=== PATIENT | male | born 1960 | race Caucasian/White ===

== ENCOUNTER 2020-08-14 10:10 | Outpatient (REF) | payer BC, SELFPAY ==
[2020-08-14 10:42] LABS: Estimated Average Glucose 203 mg/dL; Hemoglobin A1c % 8.7 %
[2020-08-14 11:04] LABS: Alanine Aminotransferase 32 U/L (0-40); Albumin Level 4.1 g/dL (3.5-5.0); Alkaline Phosphatase 94 U/L (39-117); Aspartate Amino Transferase 27 U/L (5-37); Bilirubin Direct 0.3 mg/dL (0.0-0.5); Bilirubin Total 0.5 mg/dL (0.0-1.0); Cholesterol 128 mg/dL; Glucose Fasting 203 mg/dL (60-99); HDL Cholesterol 40 mg/dL; LDL Cholesterol Calculated 69 mg/dl; Total Protein 7.1 g/dL (6.5-8.0); Triglycerides 97 mg/dL
[2020-08-14 12:47] LABS: Reflex LDLD? No
== END 2020-08-14 10:11 | disposition home or self-care (01) ==
LOC: HO.LNP 10:10
PROVIDERS: Visit Provider Internal Medicine
DX: E10.40 Type 1 diabetes mellitus with diabetic neuropathy, unspecified (principal); E78.00 Pure hypercholesterolemia, unspecified
CPT/HCPCS: 80061; 80076; 82947; 83036

== ENCOUNTER 2021-02-01 10:08 | Outpatient (REF) | payer BC, SELFPAY ==
[2021-02-01 10:12] LABS: MANUAL DIFF FLAG NO
[2021-02-01 10:37] LABS: Basophils Absolute Auto 0.1 X10*3/uL (0.0-0.2); Basophils Percent Auto 0.7 % (0-2); Eosinophils Absolute Auto 0.6 X10*3/uL (0.0-0.4); Eosinophils Percent Auto 8.7 % (0-4); Hematocrit 46.9 % (42-52); Hemoglobin 15.8 g/dl (14.0-18.0); Imm Gran Abs Auto 0.02 X10*3/uL (0.00-0.03); Imm Gran Pct Auto 0.3 % (0.0-0.4); Lymphocytes Absolute Auto 2.1 X10*3/uL (1.2-4.9); Lymphocytes Percent Auto 28.9 % (20-40); Mean Corpuscular HGB Conc 33.7 g/dl (31.0-36.0); Mean Corpuscular Hemoglobin 27.9 pg (27.0-33.0); Mean Corpuscular Volume 82.7 fL (80-98); Mean Platelet Volume 10.2 fL (9.4-12.4); Monocytes Absolute Auto 0.4 X10*3/uL (0.1-1.2); Monocytes Percent Auto 6.1 % (2-11); Neutrophils Percent Auto 55.3 % (45-73); Platelet Count 293 X10*3/uL (160-400); Red Blood Count 5.67 X10*6/uL (4.60-5.80); Red Cell Distribution Width 13.2 % (11.0-16.0); White Blood Count 7.3 X10*3/uL (4.8-10.8)
[2021-02-01 10:50] LABS: Alanine Aminotransferase 29 U/L (0-40); Albumin Level 4.2 g/dL (3.5-5.0); Alkaline Phosphatase 83 U/L (39-117); Anion Gap 11 (12-20); Aspartate Amino Transferase 26 U/L (5-37); Bilirubin Total 0.8 mg/dL (0.0-1.0); Blood Urea Nitrogen 13 mg/dL (9-16); Carbon Dioxide 27 mmol/L (22-29); Chloride 105 mmol/L (96-108); Cholesterol 121 mg/dL; Estimated Glomerular Filt Rate > 60; Glucose Fasting 75 mg/dL (60-99); HDL Cholesterol 42 mg/dL; LDL Cholesterol Calculated 59 mg/dl; Potassium 4.3 mmol/L (3.3-5.1); Sodium 139 mmol/L (135-145); Total Protein 7.2 g/dL (6.5-8.0); Triglycerides 104 mg/dL
[2021-02-01 10:51] LABS: Estimated Average Glucose 189 mg/dL; Hemoglobin A1c % 8.2 %
[2021-02-01 10:59] LABS: Appearance Urine CLEAR; Color Urine YELLOW; Glucose Urine UA NEG (NEG); Leukocyte Esterase Urine NEG (NEG); Nitrite Urine NEG (NEG); PH 5.5 (5.0-8.0); Specific Gravity - Urine >= 1.030 (1.005-1.025); Urine Blood NEG (NEG); Urine Ketones NEG (NEG); Urine Protein TRACE MG/DL (NEG-TRACE)
[2021-02-01 11:11] LABS: PSA,Total (Free>4and<10) 0.76 ng/mL (0.00-4.00)
[2021-02-01 12:03] LABS: Reflex LDLD? No
== END 2021-02-01 10:09 | disposition home or self-care (01) ==
LOC: HO.LNP 10:08
PROVIDERS: Visit Provider Internal Medicine
DX: Z00.00 Encounter for general adult medical examination without abnormal findings (principal); Z12.5 Encounter for screening for malignant neoplasm of prostate; E78.00 Pure hypercholesterolemia, unspecified; E10.319 Type 1 diabetes mellitus with unspecified diabetic retinopathy without macular edema; E10.40 Type 1 diabetes mellitus with diabetic neuropathy, unspecified
CPT/HCPCS: 80053; 80061; 81003; 83036; 84153; 85025

== ENCOUNTER 2021-02-10 06:40 | Day surgery (SDC) | payer BC, SELFPAY ==
[2021-02-03 16:02] VITALS: BMI 32.9
--- NOTE | 2021-02-09 13:25 | P.CONAN_ITS ---
Documented by User: Yennifer Mera NP 02/09/21 13:25 HPI - Anesthesia Eval Consult details Narrative: 60yo M for Colonoscopy *Deaf PMFSH Past Medical History Medical History (Updated 02/03/21 @ 15:56 by Heather Oliva RN) Deaf Diabetic neuropathy HTN (hypertension) Hypercholesterolemia Insulin dependent type 2 diabetes mellitus Iron deficiency anemia Surgical History Surgical History History of esophagogastroduodenoscopy (EGD) History of foot surgery Hx of colonoscopy Social History Social History Patient Tobacco Use Status: Never used Tobacco Use of substances other than those prescribed or required for medical reasons: No Advance Directives: No Advance Directives Information Provided: No Advance Directives on File: No Recently lost weight without trying: No Eating poorly because of decreased appetite: No Nutrition Risks: No Nutritional Risk Meds Allergies Allergy/AdvReac Type Severity Reaction Status Date / Time No Known Allergies Allergy Mild NONE Unverified 02/03/21 15:56 Home Medications Medication Instructions Recorded Confirmed Last Taken Type atorvastatin 20 mg tablet 20 mg PO DAILY 02/03/21 02/03/21 Unknown History insulin glargine U-300 conc 300 unit SUBCUT DAILY 02/03/21 Unknown History unit/mL (1.5 mL) subcutaneous pen (Toujeo SoloStar U-300 Insulin) insulin lispro 100 unit/mL unit SUBCUT TID 02/03/21 Unknown History subcutaneous pen (Humalog KwikPen (U-100) Insulin) lisinopril 20 mg tablet 20 mg PO DAILY 02/03/21 02/03/21 Unknown History Exam Exam Date and Time: February 09, 2021 1325 Height,Weight and Vital Signs: Height 5 ft 11 in Weight 107.048 kg Assessment and Plan Assessment Anesthesia Assessment: Chart Reviewed Documented by User: Mary Mera MD 02/10/21 07:52 [facility] Past Medical History Medical History (Updated 02/03/21 @ 15:56 by Heather Oliva RN) Deaf Diabetic neuropathy HTN (hypertension) Hypercholesterolemia Insulin dependent type 2 diabetes mellitus Iron deficiency anemia Functional capacity: independent ambulation Family History Family history of problems with anesthesia: No Surgical History Surgical History History of esophagogastroduodenoscopy (EGD) History of foot surgery Hx of colonoscopy History of Problems with Anesthesia: No Social History Social History Patient Tobacco Use Status: Never used Tobacco Use of substances other than those prescribed or required for medical reasons: No Advance Directives: No Advance Directives Information Provided: No Advance Directives on File: No Recently lost weight without trying: No Eating poorly because of decreased appetite: No Nutrition Risks: No Nutritional Risk Meds Allergies Allergy/AdvReac Type Severity Reaction Status Date / Time No Known Allergies Allergy Mild NONE Unverified 02/03/21 15:56 Home Medications Medication Instructions Recorded Confirmed Last Taken Type atorvastatin 20 mg tablet 20 mg PO DAILY 02/03/21 02/03/21 Unknown History insulin glargine U-300 conc 300 unit SUBCUT DAILY 02/03/21 Unknown History unit/mL (1.5 mL) subcutaneous pen (Toujeo SoloStar U-300 Insulin) insulin lispro 100 unit/mL unit SUBCUT TID 02/03/21 Unknown History subcutaneous pen (Humalog KwikPen (U-100) Insulin) lisinopril 20 mg tablet 20 mg PO DAILY 02/03/21 02/03/21 Unknown History Exam Airway Mallampati Class: II TM Dist: >3cm Neck ROM: Full Heart: RRR Lungs: CTA Assessment and Plan Final Anesthetic Review Family History of Problems with Anesthesia: No History of Problems with Anesthesia: No ASA Class: II Final Preanesthetic Review: No Changes in Pt Med Stat Anesthetic Plan Anesthetic Plan: MAC: Disposition: Standard PACU
[2021-02-10 06:59] VITALS: BP 146/80; PULSE 72; RESP 17; TEMP 36.1; O2SAT 97
[2021-02-10 07:16] LABS: Glucose, Whole Blood 94 mg/dL (60-115)
[2021-02-10] MEDS: Lactated Ringers 1,000 ML 100 ML IVCONT (07:35)
[2021-02-10] MEDS: Sodium Phosphate,Mono-Dibasic 133 ML ENEMA PR (07:36)
--- NOTE | 2021-02-10 07:46 | PC.NURSE ---
yellow results from fleets
[2021-02-10 09:23] VITALS: BP 122/67; PULSE 74; RESP 14; TEMP 36.6; O2SAT 96
--- NOTE | 2021-02-10 09:27 | P.BOP_ITS ---
Brief Operative Note Date of Service: 02/10/21 Pre-op diagnosis: Screening Post-op diagnosis: other (Colon polyps) Procedure: Colonoscopy to the cecum and TI with snare polypectomy x 2 Surgeon: Taurus Weinberg Anesthesia: MAC Was an Policy Writer Sales used for this Procedure?: No Estimated blood loss (mL): 0 Pathology: other (A. Transverse colon polyps) Condition: stable Disposition: PACU
[2021-02-10 09:38] VITALS: BP 154/82; PULSE 80; RESP 18; O2SAT 97
[2021-02-10 09:53] VITALS: BP 149/89; PULSE 77; RESP 16; TEMP 36.6; O2SAT 97
--- NOTE | 2021-02-10 11:08 | OP_ITS ---
SURGEON: Taurus Weinberg MD INDICATIONS: The patient presents for evaluation of colorectal cancer screening. Full consent has been obtained from him for this, including risks of bleeding and perforation. PREOPERATIVE DIAGNOSIS: Colorectal cancer screening. POSTOPERATIVE DIAGNOSIS: PROCEDURE PERFORMED: ESTIMATED BLOOD LOSS: COMPLICATIONS: ANESTHESIA: Medication used, monitored anesthesia care. ASSISTANTS: SPECIMENS: POSTOPERATIVE DIAGNOSES: Colorectal cancer screening, colon polyps, diverticulosis, and internal hemorrhoids. PROCEDURES PERFORMED: Colonoscopy to the cecum and terminal ileum with snare polypectomy. DESCRIPTION OF PROCEDURE: The patient was placed in the left lateral decubitus position. The digital rectal exam revealed no abnormalities. The Olympus video pediatric colonoscope was entered into the rectum and advanced easily to the cecum. Once in the cecum, I did identify normal-appearing cecal pouch with appendiceal orifice and a normal-appearing ileocecal valve. The terminal ileum was cannulated and appeared normal. Scope was withdrawn back in the colon. The entire cecum and ileocecal valve appeared normal. The scope was then slowly withdrawn assessing all mucosal surfaces carefully. Preparation was excellent. In the transverse colon were 2 flat, but raised polyps between 8 and 10 mm in diameter. These were each snared and recovered by suction and placed in the same container. The polypectomy sites appeared clean, without any sign of residual polyp nor bleeding. I did not visualize any other polyps, colitis, nor angiodysplasia. There was a moderate amount of sigmoid diverticulosis. In the rectum, scope was retroflexed visualizing internal hemorrhoids, but no other pathology. The rectal mucosa appeared normal. Scope was straightened out and withdrawn from the patient. He tolerated the procedure well and was returned to the recovery area in stable condition. IMPRESSION: 1. Colon polyps, status post snare polypectomy. 2. Diverticulosis. 3. Internal hemorrhoids. PLAN: The results of the pathology will be checked. If these are tubular adenoma, I would recommend a followup colonoscopy in 5 years. If they are only hyperplastic, I would recommend a followup colonoscopy in 10 years. He was advised not to use any aspirin and NSAIDs for 1 week. Of note, all communication with the patient preop and postop was done with a dress designer. MD LANCE Wright/PAVEL / [phone] [employer]
--- NOTE | 2021-02-10 11:37 | HO.POSTANES ---
Post Anesthesia Evaluation Post Anesthesia Evaluation Vital Signs: Vital Signs Temp Pulse Resp BP Pulse Ox 02/10/21 09:53 97.9 F 77 16 149/89 H 97 02/10/21 09:38 80 18 154/82 H 97 02/10/21 09:23 97.9 F 74 14 122/67 96 02/10/21 06:59 97 F 72 17 146/80 H 97 Anesthesia: Monitored Mental Status: Awake Pain Control: Satisfactory Nausea/Vomiting: None Hydration: Adequate Anesthesia-Related Issues: No Anes. Related Issues
== END 2021-02-10 10:42 | disposition home or self-care (01) ==
PROVIDERS: PCP Internal Medicine; Visit Provider Internal Medicine
PROC: 0DJD8ZZ Inspection of Lower Intestinal Tract, Via Natural or Artificial Opening Endoscopic (ICD-10-PCS; CPT 45378; principal; 2021-02-10 08:20)
DX: Z12.11 Encounter for screening for malignant neoplasm of colon (principal); D12.3 Benign neoplasm of transverse colon; K57.30 Diverticulosis of large intestine without perforation or abscess without bleeding; K64.8 Other hemorrhoids; H91.3 Deaf nonspeaking, not elsewhere classified; I10 Essential (primary) hypertension; D50.9 Iron deficiency anemia, unspecified; E78.00 Pure hypercholesterolemia, unspecified; E11.40 Type 2 diabetes mellitus with diabetic neuropathy, unspecified; Z79.4 Long term (current) use of insulin; Z79.899 Other long term (current) drug therapy
CPT/HCPCS: 45385; 82947; 88305

== ENCOUNTER 2021-08-02 11:17 | Outpatient (REF) | payer BC, SELFPAY ==
[2021-08-02 12:16] LABS: Alanine Aminotransferase 34 U/L (0-40); Albumin Level 4.1 g/dL (3.5-5.0); Alkaline Phosphatase 99 U/L (39-117); Aspartate Amino Transferase 27 U/L (5-37); Bilirubin Direct 0.3 mg/dL (0.0-0.5); Bilirubin Total 0.8 mg/dL (0.0-1.0); Cholesterol 160 mg/dL; Glucose Fasting 102 mg/dL (60-99); HDL Cholesterol 44 mg/dL; LDL Cholesterol Calculated 68 mg/dl; Total Protein 7.2 g/dL (6.5-8.0); Triglycerides 241 mg/dL
[2021-08-02 13:12] LABS: Estimated Average Glucose 194 mg/dL; Hemoglobin A1c % 8.4 %
[2021-08-02 13:36] LABS: Reflex LDLD? No
== END 2021-08-02 11:18 | disposition home or self-care (01) ==
LOC: HO.LNP 11:17
PROVIDERS: Visit Provider Internal Medicine
DX: E10.319 Type 1 diabetes mellitus with unspecified diabetic retinopathy without macular edema (principal); E78.00 Pure hypercholesterolemia, unspecified
CPT/HCPCS: 80061; 80076; 82947; 83036

== ENCOUNTER 2022-03-01 11:35 | Outpatient (REF) | payer BC, SELFPAY ==
[2022-03-01 11:40] LABS: MANUAL DIFF FLAG NO
[2022-03-01 12:00] LABS: Appearance Urine Clear; Basophils Absolute Auto 0.1 X10*3/uL (0.0-0.2); Basophils Percent Auto 0.7 % (0-2); Color Urine Yellow; Eosinophils Absolute Auto 0.4 X10*3/uL (0.0-0.4); Eosinophils Percent Auto 4.5 % (0-4); Glucose Urine UA >=1000 mg/dL (Negative); Hematocrit 45.2 % (42.0-52.0); Imm Gran Abs Auto 0.03 X10*3/uL (0.00-0.03); Imm Gran Pct Auto 0.3 % (0.0-0.4); Leukocyte Esterase Urine Negative (Negative); Lymphocytes Absolute Auto 2.4 X10*3/uL (1.2-4.9); Lymphocytes Percent Auto 26.3 % (20-40); Mean Corpuscular HGB Conc 33.2 g/dl (31.0-36.0); Mean Corpuscular Hemoglobin 27.9 pg (27.0-33.0); Mean Platelet Volume 10.5 fL (9.4-12.4); Monocytes Absolute Auto 0.6 X10*3/uL (0.1-1.2); Monocytes Percent Auto 6.1 % (2-11); Neutrophils Absolute Auto 5.6 x10*3/uL (2.0-8.3); Neutrophils Percent Auto 62.1 % (45-73); Nitrite Urine Negative (Negative); PH 5.5 (5.0-9.0); Platelet Count 281 X10*3/uL (160-400); Red Blood Count 5.38 X10*6/uL (4.60-5.80); Red Cell Distribution Width 13.2 % (11.0-16.0); Specific Gravity - Urine 1.025 (1.005-1.025); UMIC TRIGGER UA YES; Urine Blood Negative (Negative); Urine Ketones Negative (Negative); Urine Protein Trace mg/dL (Neg-Trace)
[2022-03-01 12:03] LABS: Bacteria Urine None Seen (None Seen); Hyaline Casts Urine 0-2 /LPF (0-2); RBC Urine 0-2 /HPF (0-2); Squamous Epithelial Cell Urine 0-2 /HPF (0-2); WBC Urine 0-5 /HPF (0-5)
[2022-03-01 12:19] LABS: Estimated Average Glucose 197 mg/dL; Hemoglobin A1c % 8.5 %
[2022-03-01 12:53] LABS: Creatinine Urine 104.27 mg/dL; Microalbum/Creatinine Ratio Ur 72.8 ug/mg cr
[2022-03-01 13:24] LABS: Alanine Aminotransferase 28 U/L (0-40); Albumin Level 4.2 g/dL (3.5-5.0); Alkaline Phosphatase 82 U/L (39-117); Anion Gap 14 (12-20); Aspartate Amino Transferase 24 U/L (5-37); Bilirubin Total 0.8 mg/dL (0.0-1.0); Blood Urea Nitrogen 24 mg/dL (9-16); Carbon Dioxide 25 mmol/L (22-29); Chloride 103 mmol/L (96-108); Cholesterol 139 mg/dL; Estimated Glomerular Filt Rate > 60; Glucose Fasting 237 mg/dL (60-99); HDL Cholesterol 43 mg/dL; LDL Cholesterol Calculated 71 mg/dl; PSA,Total (Free>4and<10) 0.89 ng/mL (0.00-4.00); Potassium 4.6 mmol/L (3.3-5.1); Sodium 137 mmol/L (135-145); Total Protein 7.1 g/dL (6.5-8.0); Triglycerides 128 mg/dL
== END 2022-03-01 11:36 | disposition home or self-care (01) ==
LOC: HO.LNP 11:35
PROVIDERS: Visit Provider Internal Medicine
DX: Z00.00 Encounter for general adult medical examination without abnormal findings (principal); Z12.5 Encounter for screening for malignant neoplasm of prostate; E10.319 Type 1 diabetes mellitus with unspecified diabetic retinopathy without macular edema; E78.00 Pure hypercholesterolemia, unspecified; E78.6 Lipoprotein deficiency; R31.1 Benign essential microscopic hematuria
CPT/HCPCS: 80053; 80061; 81001; 82043; 83036; 84153; 85025

== ENCOUNTER → 2022-04-05 09:52 | Outpatient (REF) | payer BC, SELFPAY ==
--- NOTE | 2022-04-05 09:59 | CA_ITS ---
Acquisition Time: 2022-04-05 10:23:16 Total Exercise Time: 00:03:36 Test Indications: CHEST PAIN Medications: INSULIN TOUJEO ATORVASTATIN LISINOPRIL Protocol: HUGO Max HR: 123 BPM 78% of Pred: 157 BPM Max BP: 142/074 mmHG Max Work Load: 5.3 METS Exercise stress test with exercise 3 min 36 sec of Hugo protocol. with moderate shortness of breath and need to stop walking, with report of mild pressure in mid chest, with isolated PVC, with normotensive response to exercise, with nondiagnostic EKG for ischemia due to suboptimal heart rate and exercise time.In recovery his symptoms resolved. Certified latex fashions designer used. Test reviewed with Dr Castellanos Referred By: Alfred Matos Overread By: ISAIAH ROSA
== END ==
LOC: HO.CARD 09:52
PROVIDERS: PCP Internal Medicine; Visit Provider Internal Medicine
DX: R07.2 Precordial pain (principal)
CPT/HCPCS: 93017

== ENCOUNTER 2022-04-07 10:24 | Outpatient (REF) | payer BC, SELFPAY ==
[2022-04-07 10:40] LABS: Blood Urea Nitrogen 16 mg/dL (9-16); Estimated Glomerular Filt Rate > 60
== END 2022-04-07 10:25 | disposition home or self-care (01) ==
LOC: HO.LNP 10:24
PROVIDERS: PCP Internal Medicine; Visit Provider Internal Medicine
DX: R79.9 Abnormal finding of blood chemistry, unspecified (principal)
CPT/HCPCS: 82565; 84520

== ENCOUNTER → 2022-05-10 09:02 | Outpatient (REF) | payer BC, SELFPAY ==
--- NOTE | ~2022-05-10 | NM_ITS ---
Lexiscan Myocardial perfusion study Indication: Chest pain, assess for coronary disease and ischemia Technique: The patient was brought in for a Lexiscan perfusion study on 05/10/2022 and was injected 0.4 mg of Lexiscan intravenously. Within a minute of this injection 35 mCi of sestamibi was given intravenously. Images were obtained using the SPECT gamma camera interlaced with the gating device. Images were obtained in supine position. Resting perfusion study was performed on 05/17/2022. Patient was administered 35 mCi of sestamibi intravenously at rest. Images were then obtained in supine position. Total DLP 107mGy-cm. Images were processed with the software and compared side to side in short axis, horizontal long axis and vertical long axis views. Findings: Raw acquisition reviewed. The stress perfusion study showed no significant perfusion abnormality. Both uncorrected as well as CT attenuation corrected images were reviewed. The gated study shows normal LV systolic function with calculated LVEF of 63%. LV cavity is normal in size. The gated study shows normal wall thickening and contraction of segments. Resting study shows no significant perfusion abnormality. Gating at rest reveals normal wall motion with ejection fraction at 64%. The findings are consistent with no reversible or fixed perfusion abnormality. NM/NM augustine perf SPECT rest & str Impression: 1. Myocardial perfusion imaging study shows normal myocardial perfusion. 2. Gated LVEF is 63% during stress; 64% during rest. 3. Transient ischemic dilatation not present. EKG component of the test reported separately.
--- NOTE | 2022-05-10 09:09 | CA_ITS ---
Acquisition Time: 2022-05-10 09:21:37 Total Exercise Time: 00:02:00 Test Indications: cp Medications: see chart Protocol: LEXISCAN Max HR: 113 BPM 72% of Pred: 156 BPM Max BP: 142/070 mmHG Max Work Load: 1.0 METS Pharmacological stress test with Lexiscan injection, while sitting and kicking his legs, without anginal symptoms, without arrythmai, with normotensive response to injection, with nondiagnostic EKG for ischemia. In recovery he was treated with Aminophylline 75mg IVP to reverse Lexiscan. Nuclear images pending. Test reviewed with Dr Rangel. Referred By: Alfred Matos Overread By: ISAIAH ROSA
== END ==
LOC: HO.CARD 09:02
PROVIDERS: PCP Internal Medicine; Visit Provider Internal Medicine
DX: R07.2 Precordial pain (principal)
CPT/HCPCS: 78452; 93017; A9500; J0280; J2785

== ENCOUNTER → 2022-07-11 14:25 | Outpatient (BNVA) | payer BC, SELFPAY | PROVIDERS: PCP Internal Medicine; Referring Provider Internal Medicine; Visit Provider Internal Medicine | DX: R07.2 Precordial pain (principal); I10 Essential (primary) hypertension | CPT/HCPCS: 93005 ==

== ENCOUNTER 2023-03-06 11:00 | Outpatient (REF) | payer BC, SELFPAY ==
[2023-03-06 11:04] LABS: MANUAL DIFF FLAG NO
[2023-03-06 11:32] LABS: Appearance Urine Cloudy; Color Urine Dark Yellow; Glucose Urine UA 500 mg/dL (Negative); Leukocyte Esterase Urine Negative (Negative); Nitrite Urine Negative (Negative); Specific Gravity - Urine >= 1.030 (1.005-1.025); UMIC TRIGGER UACC YES; Urine Blood Negative (Negative); Urine Ketones Trace mg/dL (Negative); Urine Protein 30 (1+) mg/dL (Neg-Trace)
[2023-03-06 11:33] LABS: Basophils Absolute Auto 0.1 X10*3/uL (0.0-0.2); Basophils Percent Auto 0.7 % (0-2); Eosinophils Absolute Auto 0.9 X10*3/uL (0.0-0.4); Eosinophils Percent Auto 8.1 % (0-4); Hematocrit 46.9 % (42.0-52.0); Hemoglobin 15.8 g/dl (14.0-18.0); Imm Gran Abs Auto 0.03 X10*3/uL (0.00-0.03); Imm Gran Pct Auto 0.3 % (0.0-0.4); Lymphocytes Absolute Auto 2.5 X10*3/uL (1.2-4.9); Lymphocytes Percent Auto 22.9 % (20-40); Mean Corpuscular HGB Conc 33.7 g/dl (31.0-36.0); Mean Corpuscular Hemoglobin 28.1 pg (27.0-33.0); Mean Corpuscular Volume 83.3 fL (80.0-98.0); Mean Platelet Volume 10.4 fL (9.4-12.4); Monocytes Absolute Auto 0.8 X10*3/uL (0.1-1.2); Monocytes Percent Auto 7.3 % (2-11); Neutrophils Absolute Auto 6.6 x10*3/uL (2.0-8.3); Neutrophils Percent Auto 60.7 % (45-73); Platelet Count 276 X10*3/uL (160-400); Red Blood Count 5.63 X10*6/uL (4.60-5.80); Red Cell Distribution Width 12.8 % (11.0-16.0); White Blood Count 10.9 X10*3/uL (4.8-10.8)
[2023-03-06 11:35] LABS: Bacteria Urine None Seen (None Seen); Hyaline Casts Urine 0-2 /LPF (0-2); RBC Urine 0-2 /HPF (0-2); Squamous Epithelial Cell Urine 0-2 /HPF (0-2); WBC Urine 0-5 /HPF (0-5)
[2023-03-06 11:41] LABS: Estimated Average Glucose 197 mg/dL; Hemoglobin A1c % 8.5 % (<6.0)
[2023-03-06 12:03] LABS: Microalbum/Creatinine Ratio Ur 42.1 ug/mg cr (<30)
[2023-03-06 12:07] LABS: Alanine Aminotransferase 26 U/L (0-40); Albumin Level 4.2 g/dL (3.5-5.0); Alkaline Phosphatase 95 U/L (39-117); Anion Gap 10 (12-20); Aspartate Amino Transferase 20 U/L (5-37); Bilirubin Total 0.9 mg/dL (0.0-1.0); Blood Urea Nitrogen 15 mg/dL (9-16); Calcium 9.2 mg/dL (8.4-10.2); Carbon Dioxide 29 mmol/L (22-29); Chloride 103 mmol/L (96-108); Cholesterol 131 mg/dL (<200); Estimated Glomerular Filt Rate > 60; Glucose Fasting 123 mg/dL (60-99); HDL Cholesterol 42 mg/dL (>40); LDL Cholesterol Calculated 64 mg/dL (<100); Potassium 4.3 mmol/L (3.3-5.1); Sodium 138 mmol/L (135-145); Total Protein 7.6 g/dL (6.5-8.0); Triglycerides 129 mg/dL (<150)
[2023-03-06 12:21] LABS: PSA,Total (Free>4and<10) 0.77 ng/mL (0.00-4.00)
== END 2023-03-06 11:01 | disposition home or self-care (01) ==
LOC: HO.LNP 11:00
PROVIDERS: Visit Provider Internal Medicine
DX: Z00.00 Encounter for general adult medical examination without abnormal findings (principal); Z12.5 Encounter for screening for malignant neoplasm of prostate; E10.40 Type 1 diabetes mellitus with diabetic neuropathy, unspecified; E78.00 Pure hypercholesterolemia, unspecified; R31.1 Benign essential microscopic hematuria
CPT/HCPCS: 80053; 80061; 81001; 82043; 82570; 83036; 84153; 85025

== ENCOUNTER 2023-10-02 07:39 | Emergency (ER) | payer BC, SELFPAY ==
--- NOTE | ~2023-10-02 | US_ITS ---
EXAMINATION: US VENOUS ULTRASOUND WITH DOPPLER LOWER EXTREMITY, RIGHT CLINICAL INFORMATION: Right lower extremity swelling and pain COMPARISON: None available. TECHNIQUE: Ultrasound of the deep veins is performed from the hip to the calf with compression sonography and color and pulse Doppler assessment. Spectral analysis with color-flow imaging is performed. FINDINGS: There is normal venous compression and respiratory variation and augmented flow. The visualized common femoral vein, superficial femoral vein, profunda femoral vein, popliteal vein, and the trifurcation region shows no evidence of deep venous thrombosis. Contralateral left common femoral vein appeared normal. There is no significant popliteal fossa cyst. A large prominent right groin lymph node seen measuring 3.2 x 1.0 x 2.1 cm. This has a normal fatty cole. If the patient's symptoms persist, followup ultrasound in 5 days 7 days might be of value to exclude proximal propagation from a non-visualized calf vein. US/US venous duplex LE RT IMPRESSION: No DVT demonstrated in the right lower extremity.
--- NOTE | ~2023-10-02 | XR_ITS ---
EXAMINATION: XR FOOT, RIGHT CLINICAL INFORMATION: Diabetic wound on bottom of foot COMPARISON: None available TECHNIQUE: AP, lateral, and oblique views of the right foot. FINDINGS: Severe degenerative changes are present throughout the with evidence of prior fractures with plate and screw device overlying the first metacarpal with a michael through the distal tibia with calcaneal screws. There is bony fusion of the tibia and talus as well as multiple other areas of fusion in the midfoot. There is diffuse soft tissue swelling most marked on the plantar surface. Some curvilinear lucencies are seen which are probably related to the edema and surrounding fat air within the soft tissues. The fibular head is absent. There is marked pes planus. There is amputation of the fifth digit with absent phalanges. Some heterotopic calcification is seen superior to the calcaneus and behind the distal tibia. No definite bony destruction is seen to suggest osteomyelitis. XR/XR foot RT min 3V IMPRESSION: Extensive postsurgical changes with severe degenerative changes and soft tissue swelling. No definite bony destruction is seen. If osteomyelitis is a consideration, MRI may be useful although there will be considerable artifact from the patient's hardware.
[2023-10-02 07:41] VITALS: BP 155/84; PULSE 105; RESP 20; TEMP 36.1; O2SAT 94; BMI 33.3
[2023-10-02 08:00] VITALS: BP 163/83; PULSE 99; RESP 14; TEMP 37; O2SAT 93
--- NOTE | 2023-10-02 08:39 | ED_ITS ---
HPI - Wound/Laceration General Chief Complaint: Wound/Laceration Stated Complaint: Wound on foot Time Seen by Provider: 10/02/23 08:02 Source: patient Mode of arrival: ambulatory Limitations: no limitations History of Present Illness ED Provider: MIRANDA JOSEPH narrative: 63 yo male with PMH of DM, HLD, HTN, deaf here with c/o noting wound on right lower foot over the weekend denies known trauma. Has no fevers, n/v/d. Has not had this before that he is aware of but cannot feel the foot. Did lose small toe from wound on that foot before Onset (ago): day(s) (few) Extremity Location: right: foot Place: home Patient tetanus UTD: Yes Context: accidental Associated symptoms: none Treatments prior to arrival: bandage Related Data Home Medications ?Medication ?Instructions ?Recorded ?Confirmed atorvastatin 20 mg tablet 20 mg PO DAILY 02/03/21 07/11/22 insulin glargine U-300 conc 300 unit subcut DAILY 02/03/21 07/11/22 unit/mL (1.5 mL) subcutaneous pen (Toujeo SoloStar U-300 Insulin) insulin lispro 100 unit/mL unit subcut TID 02/03/21 07/11/22 subcutaneous pen (Humalog KwikPen (U-100) Insulin) lisinopril 20 mg tablet 20 mg PO DAILY 02/03/21 07/11/22 Previous Rx's ?Medication ?Instructions ?Recorded hydrocolloid dressing 6 X 6 #5 ea 10/02/23 (Durafiber Dressing) Allergies Allergy/AdvReac Type Severity Reaction Status Date / Time No Known Allergies Allergy Mild NONE Verified 10/02/23 07:46 Review of Systems 2 Review of Systems: Constitutional : No Fever, No Chills ENT/Mouth : No sore throat, No Rhinorrhea Eyes: No Eye Pain, No Swelling, No Redness Cardiovascular : No Chest Pain, No SOB Respiratory : No Cough, No Sputum Gastrointestinal : No Nausea, No Vomiting, No Diarrhea, No abdominal Pain Genitourinary : No Dysuria, No Hematuria Musculoskeletal : No joint pain, No Myalgias, No Joint Swelling Skin : No Skin Lesions, positive skin wound Neuro : No Weakness, No Numbness, No Headache Psych : No Anxiety, No Depression All other systems reviewed and are negative [facility] Past Medical History Attestation statement: The following information was validated with the patient. Source: old records reviewed Medical History Diabetic neuropathy Hypercholesterolemia HTN (hypertension) Deaf Iron deficiency anemia Insulin dependent type 2 diabetes mellitus Surgical History History of foot surgery Hx of colonoscopy History of esophagogastroduodenoscopy (EGD) Family History Family History Father No problems noted. Father No problems noted. Mother No problems noted. Social History Social History Alcohol intake: current Alcohol intake frequency: holidays/special occasions only Patient Tobacco Use Status: Never used Tobacco Smoked in Last 30 Days: No Use of substances other than those prescribed or required for medical reasons: No Advance Directives: No Advance Directives Information Provided: No Do you have a plan to hurt others: No Plan Physical Exam 2 Vital Signs: Vital Signs: Last Vital Signs Temp 98.0 F 10/02/23 12:00 Pulse 92 10/02/23 12:00 Resp 14 10/02/23 08:00 BP 156/87 H 10/02/23 12:00 Pulse Ox 95 10/02/23 12:00 O2 Del Method Room Air 10/02/23 12:00 BMI result Body Mass Index 33.3 Appearance: Alert. Oriented X3. No acute distress. Eyes: Pupils equal, round and reactive to light. ENT: Pharynx normal. Neck: Normal inspection. Neck supple. CVS: Normal heart rate and rhythm. Pulses normal. Respiratory: No respiratory distress. Breath sounds normal. Abdomen: Soft and nontender. Skin: Skin warm and dry. Normal skin color. Normal skin turgor. Extremities: R leg 1+ pitting edema distal NV intact yellowish blister with odor noted but no drainage foot and leg is swollen but he reports baseline no warmth or crepitus, no erythema he cannot feel the wound see picture below Neuro: Oriented X 3. No motor deficit. No sensory deficit. Medical Decision Making Medical Decision Making MDM Narrative: 63 yo male with PMH of DM, HLD, HTN, deaf here with c/o wound on R plantar surface of the foot - NV intact at this time there is odor but no drainage will need labs, infl markers, xray and DVT US. No obvious abscess at this time or cellulitis 843am Differential Diagnosis Differential Diagnoses: The differential diagnosis associated with the presentation includes diabetic wound, ulcer Admission/Observation Consideration of admission/observation: Escalation of care including admission/observation considered wound care saw patient debrided dressed and will follow up durafiber dressing Consult Healthcare Provider Management of the patient was discussed with: Supervisor Pyrotechnic Loading Dr. Baez defers debridement at this time recommends wound care and oral antibiotics consult placed to metal welder at this time Lab Data MDM Lab Attestation statement: I reviewed the patient's lab results. 10/02/23 08:43 10/02/23 08:43 Labs: Lab Results 10/02/23 Range/Units 08:43 WBC 9.7 (4.8-10.8) X10*3/uL RBC 5.06 (4.60-5.80) X10*6/uL Hgb 14.5 (14.0-18.0) g/dl Hct 41.0 L (42.0-52.0) % MCV 81.0 (80.0-98.0) fL MCH 28.7 (27.0-33.0) pg MCHC 35.4 (31.0-36.0) g/dl RDW 12.5 (11.0-16.0) % Plt Count 313 (160-400) X10*3/uL MPV 9.7 (9.4-12.4) fL Immature Gran % (Auto) 0.4 (0.0-0.4) % Neut % (Auto) 73.2 H (45-73) % Lymph % (Auto) 16.5 L (20-40) % Noble % (Auto) 5.6 (2-11) % Eos % (Auto) 3.8 (0-4) % Baso % (Auto) 0.5 (0-2) % Lymph # (Auto) 1.6 (1.2-4.9) X10*3/uL Noble # (Auto) 0.6 (0.1-1.2) X10*3/uL Eos # (Auto) 0.4 (0.0-0.4) X10*3/uL Baso # (Auto) 0.1 (0.0-0.2) X10*3/uL Abs Immat Gran (auto) 0.04 H (0.00-0.03) X10*3/uL Absolute Neuts (auto) 7.1 (2.0-8.3) x10*3/uL Absolute Nucleated RBC 0.000 (0.0-0.012) X10*3/uL Nucleated RBC % (auto) 0.0 (0.0-0.2) /100WBC ESR 19 H (0-15) MM/HR Sodium 139 (135-145) mmol/L Potassium 4.0 (3.3-5.1) mmol/L Chloride 105 (96-108) mmol/L Carbon Dioxide 28 (22-29) mmol/L Anion Gap 10 L (12-20) BUN 19 H (9-16) mg/dL Creatinine 0.92 (0.5-1.4) mg/dL Estim Creat Clear Calc 100.2 Estimated GFR > 60 Random Glucose 121 H (60-115) mg/dL Lactic Acid 1.8 (0.5-2.0) mmol/L Calcium 9.7 (8.4-10.2) mg/dL Magnesium 2.0 (1.6-2.6) mg/dL Total Bilirubin 0.4 (0.0-1.0) mg/dL Direct Bilirubin 0.2 (0.0-0.5) mg/dL AST 24 (5-37) U/L ALT 23 (0-40) U/L Alkaline Phosphatase 105 (39-117) U/L C-Reactive Protein 0.53 H (< or = 0.50) mg/dL Total Protein 7.7 (6.5-8.0) g/dL Albumin 3.9 (3.5-5.0) g/dL Independent Interpretation I performed an independent interpretation of an: Plain X-Ray (no osteo) Radiology Impression Discussion of test interpretation with radiology: I have reviewed the radiologist's reading. External Record Review External record reviewed: Inpatient record Prescription Management I considered prescription management with: Other Discharge Plan Discharge Clinical Impression: Wound, open, foot Qualifiers: Encounter type: initial encounter Laterality: right Qualified Code(s): S91.301A - Unspecified open wound, right foot, initial encounter Patient Disposition: Home, Self-Care Instructions: Wound Infection (ED), Acute Wounds (ED) Prescriptions: New (DME) hydrocolloid dressing [Durafiber Dressing] 6 X 6 bandage See Rx Instructions .Route Qty: 5 0RF Rx Instructions: As directed change dressing every 3 days No Action atorvastatin 20 mg Tablet 20 mg PO DAILY lisinopril 20 mg Tablet 20 mg PO DAILY insulin lispro [Humalog KwikPen Insulin] 100 unit/mL Insulin Pen SUBCUT TID Deidra Sadler U-300 Insulin 300 unit/mL (1.5 mL) Insulin Pen SUBCUT DAILY Print Language: Congolese Sign Language
--- NOTE | 2023-10-02 08:47 | PC.NURSE ---
IV access placed to R AC, 20G. Blood labs and cultures sent. Pt is resting comfortably in bed.
[2023-10-02 08:48] LABS: MANUAL DIFF FLAG NO
[2023-10-02 08:50] LABS: Basophils Absolute Auto 0.1 X10*3/uL (0.0-0.2); Basophils Percent Auto 0.5 % (0-2); Eosinophils Absolute Auto 0.4 X10*3/uL (0.0-0.4); Eosinophils Percent Auto 3.8 % (0-4); Hemoglobin 14.5 g/dl (14.0-18.0); Imm Gran Abs Auto 0.04 X10*3/uL (0.00-0.03); Imm Gran Pct Auto 0.4 % (0.0-0.4); Lymphocytes Absolute Auto 1.6 X10*3/uL (1.2-4.9); Lymphocytes Percent Auto 16.5 % (20-40); Mean Corpuscular HGB Conc 35.4 g/dl (31.0-36.0); Mean Corpuscular Hemoglobin 28.7 pg (27.0-33.0); Mean Platelet Volume 9.7 fL (9.4-12.4); Monocytes Absolute Auto 0.6 X10*3/uL (0.1-1.2); Monocytes Percent Auto 5.6 % (2-11); Neutrophils Absolute Auto 7.1 x10*3/uL (2.0-8.3); Neutrophils Percent Auto 73.2 % (45-73); Platelet Count 313 X10*3/uL (160-400); Red Blood Count 5.06 X10*6/uL (4.60-5.80); Red Cell Distribution Width 12.5 % (11.0-16.0); White Blood Count 9.7 X10*3/uL (4.8-10.8)
[2023-10-02 09:03] LABS: Lactic Acid 1.8 mmol/L (0.5-2.0)
--- NOTE | 2023-10-02 09:04 | PC.NURSE ---
Pt is alert/oriented. States right wound to bottom of foot x 3 days. Large circular wound noted with large peeling skin. 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 Denies pain. Edema noted however pt reports since ORIF in 2014. ASL, Voyce device used. Denies fever/chills and states little nausea. VSS, IV established to right ac 20g
[2023-10-02 09:09] LABS: Alanine Aminotransferase 23 U/L (0-40); Albumin Level 3.9 g/dL (3.5-5.0); Alkaline Phosphatase 105 U/L (39-117); Anion Gap 10 (12-20); Aspartate Amino Transferase 24 U/L (5-37); Bilirubin Direct 0.2 mg/dL (0.0-0.5); Bilirubin Total 0.4 mg/dL (0.0-1.0); Blood Urea Nitrogen 19 mg/dL (9-16); C Reactive Protein 0.53 mg/dL (< or = 0.50); Calcium 9.7 mg/dL (8.4-10.2); Carbon Dioxide 28 mmol/L (22-29); Chloride 105 mmol/L (96-108); Creatinine Clr Calc Pharmacy 100.2; Estimated Glomerular Filt Rate > 60; Glucose Random 121 mg/dL (60-115); Sodium 139 mmol/L (135-145); Total Protein 7.7 g/dL (6.5-8.0)
[2023-10-02 09:26] LABS: Erythrocyte Sedimentation Rate 19 MM/HR (0-15)
[2023-10-02 10:00] VITALS: BP 151/79; PULSE 95; TEMP 36.6; O2SAT 95
[2023-10-02 12:00] VITALS: BP 156/87; PULSE 92; TEMP 36.7; O2SAT 95
--- NOTE | 2023-10-02 12:19 | PC.NURSE ---
wound care nurse at bedside
--- NOTE | 2023-10-02 12:29 | HO.WOUND ---
Wound Consult: Initial 63yr old?Male treated in [facility] on 10/02/23 - See progress notes and H&P for detailed history.? Wound consult placed for Right Plantar wound.? Patient agreeable to assessment and photo documentation.? Patient is deaf and ASL video interpretation was used throughout entirety of visit. All questions were asked prior to ending video call and patient was able to provide a teach back to confirm understanding. Right Plantar foot Right Foot Etiology: Diabetic Wound ?? Measurements: 3cm x 2.8cm x 0.2cm Wound Bed: adherent slough noted to wound bed - granulation buds noted throughout central dark area Drainage / Odor: No odor noted - no drainage observed but evidence of chronic drainage given the circumferential maceration noted Edges: ? well defined Neelam wound: Maceration - no s/s of infection at this time, +pp, no warmth noted, no erythema noted, no induration, no fluctuance noted Pain: denies reports neuropathy Goals of Treatment: ? Moisture management with Durafiber AG and to allow for autolytic debridement Of note the patient nails are in need of trimming - I recommend the patient follow up with Podiatry outpt - I do not recommend he clip his own nails given the level of neuropathy he has and the nails are thick and curled. He was educated on the importance of routine foot checks for wounds and immediate treatment. His foot does appear to have mid foot depression which is likely impacting wound development and healing - he will likely benefit from custom inserts and the out patient wound clinic will be able to aid him in the correct direction for these. Currently he reports he wears over the counter inserts. The patient was advised to elevate his leg / foot and to minimize and significantly limit his walking on the right foot to allow for healing. He asked questions that led to further discussion. He reports he is agreeable to outpt Wound Clinic follow up for continued treatment. We discussed routine dressing changes and he was able to provide a teach back to demonstrate understanding. Recommendations: 1. Maintain blood glucose levels per Providers order. 2. Right Foot - Limit pressure and ambulation on the right foot. Elevate leg throughout the day. Cleanse with Soap and water or Provided wound wash, pat dry. Apply cut to size piece of Durafiber AG to wound bed, cover with foam dressing. Change every 3 days or sooner for soaking through. Recommend follow up out patient Wound Clinic at [address] [place] [id number] and to call for an appointment at time of discharge. [phone].? Recommend follow up out patient with a Display Artist of your choice for routine care and nail trimming and ortho inserts. Re-consult wound care Nurse for wound deterioration or wound changes.
--- NOTE | 2023-10-02 13:00 | MHC.CM.ED ---
Received case management consult from Dr Ye. Patient has right foot wound. Assessed by Wound RN. Follow up appointment arranged at [facility] 10/10 at 145pm.
[2023-10-02 13:40] LABS: Glucose, Whole Blood 176 mg/dL (60-115)
[2023-10-02 13:51] VITALS: BP 156/87; PULSE 92; RESP 18; TEMP 36.7; O2SAT 95
== END 2023-10-02 13:51 | disposition home or self-care (01) ==
PROVIDERS: Emergency Provider Emergency Medicine; PCP Internal Medicine
DX: S91.311A Laceration without foreign body, right foot, initial encounter (principal); R60.0 Localized edema; M79.671 Pain in right foot; X58.XXXA Exposure to other specified factors, initial encounter; Y93.9 Activity, unspecified; Y92.9 Unspecified place or not applicable; Y99.8 Other external cause status; Z79.899 Other long term (current) drug therapy
CPT/HCPCS: 36415; 73630; 80048; 80076; 82947; 83605; 83735; 85025; 85652; 86140; 87040; 93971; 99284

== ENCOUNTER 2023-10-11 14:12 | Outpatient (RCR) | payer BC, SELFPAY | END 2023-12-01 09:58 | disposition short-term general hospital (02) | LOC: HO.WCC 14:12 | PROVIDERS: PCP Internal Medicine; Visit Provider Surgery | DX: E11.621 Type 2 diabetes mellitus with foot ulcer (principal); L97.512 Non-pressure chronic ulcer of other part of right foot with fat layer exposed; L97.515 Non-pressure chronic ulcer of other part of right foot with muscle involvement without evidence of necrosis; E11.40 Type 2 diabetes mellitus with diabetic neuropathy, unspecified; E11.610 Type 2 diabetes mellitus with diabetic neuropathic arthropathy; L08.9 Local infection of the skin and subcutaneous tissue, unspecified; I10 Essential (primary) hypertension; Z79.4 Long term (current) use of insulin; Z79.899 Other long term (current) drug therapy | CPT/HCPCS: 11042; 11043; 99212; 99213 ==

== ENCOUNTER 2023-11-02 15:54 | Inpatient (IN) | payer BC, SELFPAY ==
[2023-11-02] VITALS (7 sets, daily range): BP systolic 93–138; BP diastolic 51–67; PULSE 89–109; RESP 16–18; TEMP 36.9–38.6; O2SAT 94–96; BMI 33.0
--- NOTE | ~2023-11-02 | XR_ITS ---
EXAMINATION: XR FOOT, RIGHT CLINICAL INFORMATION: Foot wound COMPARISON: 10/02/2023 TECHNIQUE: AP, lateral, and oblique views of the right foot. FINDINGS: Diffuse soft tissue swelling throughout the foot. There is seen within the subcutaneous and deep soft tissues along the plantar aspect as well as the medial and lateral aspects of the hindfoot centered around the tarsal bones. Postsurgical changes seen within the first proximal phalanx, calcaneus and talus. Intramedullary michael is seen through the distal tibia extending into the hindfoot. There is fusion and chronic deformity of the ankle mortise and hindfoot. 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 XR/XR foot RT min 3V IMPRESSION: Diffuse soft tissue swelling with air in the subcutaneous and deep soft tissues of the hindfoot. Postsurgical changes as described above.
--- NOTE | ~2023-11-02 | FL_ITS ---
EXAMINATION: XR FLUOROSCOPY WITH IMAGES CLINICAL INFORMATION: Right lower leg amputation. COMPARISON: None available. TECHNIQUE: Fluoroscopy Supervised By: Dr. Eben Baez. Fluoroscopy Time: 3.1 seconds. Cumulative Dose: 0.1912 mGy. DAP: 0.0832 Gycm2. Images: 1. FINDINGS: Intraoperative fluoroscopy and spot films were performed during a procedure in the OR. A single image of the tibia and fibula is seen with a partially visualized intramedullary michael. Please correlate with Dr. Baez's report for complete details. FL/FL guidance in OR IMPRESSION: Intraoperative fluoroscopy and spot films were obtained. Please see Nestor's report for complete details.
--- NOTE | ~2023-11-02 | XR_ITS ---
EXAMINATION: XR TIBIA AND FIBULA, RIGHT CLINICAL INFORMATION: Below the knee amputation, evaluate or proximal hardware extending COMPARISON: Foot radiographs 11/02/2023 TECHNIQUE: AP and lateral views of the right tibia and fibula were obtained. FINDINGS: Status post ORIF of the distal tibia. The hardware extends into the talus and calcaneus with osseous fusion, only imaged on the lateral view. There is a plate and screw fixation of one of the proximal metatarsals, only imaged on the lateral view. There is soft tissue swelling along the dorsum of the foot with lucency suggesting the presence of gas and or an open wound. No evidence of hardware fracture or complication. The distal fibula is absent. Diffuse subcutaneous edema. Smooth periosteal reaction along the tibia may reflect sequelae of chronic venous stasis. XR/XR tibia fibula RT 2V IMPRESSION: Status post ORIF of the distal tibia. The hardware extends into the talus and calcaneus with osseous fusion, only imaged on the lateral view. No evidence of hardware fracture or complication. There is soft tissue swelling along the dorsum of the foot with lucency suggesting the presence of gas or an open wound, similar to prior. Possible remote healed proximal fibular fracture and distal tibial fracture deformities. No acute fracture or dislocation. Smooth periosteal reaction along the tibia may reflect sequelae of chronic venous stasis. The distal fibula is absent.
--- NOTE | 2023-11-02 16:02 | ED.GENADULT ---
HPI - General Adult General Chief complaint: Wound/Laceration Stated complaint: Infection R foot Time Seen by Provider: 11/02/23 16:29 Source: patient and other (Via patient's hourly sign language interpreter) Mode of arrival: ambulatory Limitations: no limitations History of Present Illness ED Provider: Dr. Angela Camarena HPI narrative: Patient comes to the emergency room accompanied by his official hourly sign language interpreter. Patient is deaf. Patient comes today complaining of a chronic foot wound that has been gradually been getting worse and over the last week he has a 2nd wound and the medial aspect of the foot. Patient denies fever or chills. Patient states that he has chronic decreased sensation on his feet due to diabetes. However, patient states that when he walks and had an puts pressure on his foot, it hurts quite a bit. Patient denies fever or chills. Denies any other wounds. Patient states that he was sent here to the emergency room by Dr. Katz from the wound clinic Related Data Home Medications ?Medication ?Instructions ?Recorded ?Confirmed atorvastatin 20 mg tablet 20 mg PO DAILY 02/03/21 07/11/22 insulin glargine U-300 conc 300 unit subcut DAILY 02/03/21 07/11/22 unit/mL (1.5 mL) subcutaneous pen (Toujeo SoloStar U-300 Insulin) insulin lispro 100 unit/mL unit subcut TID 02/03/21 07/11/22 subcutaneous pen (Humalog KwikPen (U-100) Insulin) lisinopril 20 mg tablet 20 mg PO DAILY 02/03/21 07/11/22 Previous Rx's ?Medication ?Instructions ?Recorded hydrocolloid dressing 6 X 6 #5 ea 10/02/23 (Durafiber Dressing) Allergies Allergy/AdvReac Type Severity Reaction Status Date / Time No Known Allergies Allergy Mild NONE Verified 11/02/23 16:06 Review of Systems Review of Systems: Constitutional : No Weight loss, No Fever, No Chills, No Night Sweats, No Fatigue, No Malaise ENT/Mouth : No Hearing loss, No Ear Pain, No Nasal Congestion, No Sinus Pain, No Hoarseness, No sore throat, No Rhinorrhea, No Swallowing Difficulty Eyes: No Eye Pain, No Swelling, No Redness, No Foreign Body, No Discharge, No Vision Changes Cardiovascular : No Chest Pain, No SOB, No Dyspnea on Exertion, No Orthopnea, No Edema, No Palpitations Respiratory : No Cough, No Sputum, No Wheezing, No Smoke Exposure, No Dyspnea Gastrointestinal : No Nausea, No Vomiting, No Diarrhea, No Constipation, No abdominal Pain, No Hematochezia, No Melena Genitourinary : no irregular bleeding, No Dysuria, No Urinary Frequency, No Hematuria, No Urinary Incontinence, No Urgency, No Flank Pain, No Urinary Flow Changes, No Hesitancy Musculoskeletal : No joint pain, No Myalgias, No Joint Swelling Skin : No Skin Lesions, No rash Neuro : No Weakness, No Numbness, No Paresthesias, No Loss of Consciousness, No Dizziness, No Headache Psych : No Anxiety/Panic, No Depression, No SI/HI/AH/VH, No Social Issues, Heme/Lymph: No Bruising, No Bleeding,No Lymphadenopathy Endocrine : No Polyuria, No Polydipsia, No Temperature Intolerance PMFSH Past Medical History Medical History Diabetic neuropathy Hypercholesterolemia HTN (hypertension) Deaf Iron deficiency anemia Insulin dependent type 2 diabetes mellitus Surgical History History of foot surgery Hx of colonoscopy History of esophagogastroduodenoscopy (EGD) Family History Family History Father No problems noted. Father No problems noted. Mother No problems noted. Social History Social History Alcohol intake: current Alcohol intake frequency: holidays/special occasions only Patient Tobacco Use Status: Never used Tobacco Advance Directives: No Advance Directives Information Provided: No Do you have a plan to hurt others: No Plan Physical Exam ED Vital Signs: Vital Signs - 24 hr 11/02/23 16:04 Temperature 99.6 F Pulse Rate 109 H Respiratory Rate 16 Blood Pressure 93/51 L Pulse Oximetry 96 Oxygen Delivery Method Room Air BMI result Body Mass Index 33.0 Const Other: Appearance: Alert. Oriented X3. No acute distress. Eyes: Pupils equal, round and reactive to light. ENT: Pharynx normal. Neck: Normal inspection. Neck supple. No lymph nodes noted. No crepitus CVS: Normal heart rate and rhythm. Pulses normal. Normal S1 and S2 Respiratory: No respiratory distress. Breath sounds normal. No Wheezing. No rales Abdomen: Soft and nontender. No rigidity. No distention. Skin: Skin warm and dry. Normal skin color. Normal skin turgor. Extremities: No lower extremity edema. Chronic venous stasis bilaterally, the right foot and the plantar aspect there is a large unstageable ulcer and medial aspect of the foot also has cellulitis, unstageable ulcer present. See pictures below Neuro: Oriented X 3. No motor deficit. No sensory deficit. Moving all extremities. No slurred speech. CN 2 through 12 grossly intact Psych: calm, cooperative, normal affect Course Course Course Narrative: This is a rapid medical exam performed by Emi Moreno NP: Additional HPI, ROS, PE not included below will be deferred to primary provider. Patient is a 63-year-old deaf male with history of HTN, IDT2DM, hypercholesterolemia presenting to the ED from the wound care center for worsening wound to the bottom of his right foot. Patient reports small amount of drainage. States he has been feeling ill the past [address] Katz at wound center and she is very concerned. Plan: labs including cultures and lactic, xray Medications Administered Generic Name Dose Route Start Last Admin Trade Name Freq PRN Reason Stop Dose Admin Sodium Chloride 2,100 mls @ 999 mls/hr 11/02/23 16:41 11/02/23 17:42 Ns IVCONT 11/02/23 18:47 999 mls/hr .Q2H7M ONE Administration Discontinued Medications Generic Name Dose Route Start Last Admin Trade Name Freq PRN Reason Stop Dose Admin Piperacillin Sod/Tazobactam 50 mls @ 100 mls/hr 11/02/23 16:41 11/02/23 17:49 Sod 3.375 gm/ Sodium Chloride IV 11/02/23 17:10 100 mls/hr ONCE ONE Administration Medical Decision Making Medical Decision Making [facility] Narrative: Patient's white blood cell count is elevated, normal lactic. Patient's blood pressure on the soft side 93/51, tachycardic. -patient already received fluids based on ideal weight, patient is obese, also antibiotics IV. -my interpretation of x-ray: There is air in the plantar aspect of the foot, hardware present no obvious signs of osteo -I discussed the patient with Dr. Monterroso, patient being admitted Differential Diagnosis Differential Diagnoses: The differential diagnosis associated with the presentation includes (Cellulitis, unstageable diabetic foot ulcer, Abscess, osteomyelitis) Admission/Observation Consideration of admission/observation: Escalation of care including admission/observation considered Consult Healthcare Provider Management of the patient was discussed with: Hospitalist Lab Data MDM Lab Attestation statement: I reviewed the patient's lab results. 11/02/23 17:26 11/02/23 17:26 Labs: Lab Results 11/02/23 Range/Units 17:26 WBC 22.7 H (4.8-10.8) X10*3/uL RBC 4.85 (4.60-5.80) X10*6/uL Hgb 13.2 L (14.0-18.0) g/dl Hct 38.9 L (42.0-52.0) % MCV 80.2 (80.0-98.0) fL MCH 27.2 (27.0-33.0) pg MCHC 33.9 (31.0-36.0) g/dl RDW 12.5 (11.0-16.0) % Plt Count 456 H D (160-400) X10*3/uL MPV 10.1 (9.4-12.4) fL Immature Gran % (Auto) 1.3 H (0.0-0.4) % Neut % (Auto) 86.0 H (45-73) % Lymph % (Auto) 4.8 L (20-40) % [place] % (Auto) 7.2 (2-11) % Eos % (Auto) 0.4 (0-4) % Baso % (Auto) 0.3 (0-2) % Lymph # (Auto) 1.1 L (1.2-4.9) X10*3/uL [place] # (Auto) 1.6 H (0.1-1.2) X10*3/uL Eos # (Auto) 0.1 (0.0-0.4) X10*3/uL Baso # (Auto) 0.1 (0.0-0.2) X10*3/uL Abs Immat Gran (auto) 0.29 H (0.00-0.03) X10*3/uL Absolute Neuts (auto) 19.5 H (2.0-8.3) x10*3/uL Absolute Nucleated RBC 0.000 (0.0-0.012) X10*3/uL Nucleated RBC % (auto) 0.0 (0.0-0.2) /100WBC Lactic Acid 1.4 (0.5-2.0) mmol/L Independent Interpretation I performed an independent interpretation of an: Plain X-Ray Radiology Impression Discussion of test interpretation with radiology: I have reviewed the radiologist's reading. Radiologist Impression: FINDINGS: Diffuse soft tissue swelling throughout the foot. There is seen within the subcutaneous and deep soft tissues along the plantar aspect as well as the medial and lateral aspects of the hindfoot centered around the tarsal bones. Postsurgical changes seen within the first proximal phalanx, calcaneus and talus. Intramedullary michael is seen through the distal tibia extending into the hindfoot. There is fusion and chronic deformity of the ankle mortise and hindfoot. 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 XR/XR foot RT min 3V IMPRESSION: Diffuse soft tissue swelling with air in the subcutaneous and deep soft tissues of the hindfoot. Postsurgical changes as described above. Independent Historian Clinical information obtained from an independent historian. History obtained from or confirmed by: Other (Patient's official advertising designer) Critical Care Time Critical Care Time Critical Care Time: Yes Total Critical Care Time: 75 Attestation: I have personally provided critical care time. Time includes review of lab data, radiology results, discussion with consultants, and monitoring for potential decompensation. Intervention performed as documented. Discharge Plan Discharge Clinical Impression: Diabetic foot ulcers, Cellulitis Patient Disposition: Admitted As Inpatient Prescriptions: No Action atorvastatin 20 mg Tablet 20 mg PO DAILY lisinopril 20 mg Tablet 20 mg PO DAILY insulin lispro [Humalog KwikPen Insulin] 100 unit/mL Insulin Pen SUBCUT TID Touthanh SoloStar U-300 Insulin 300 unit/mL (1.5 mL) Insulin Pen SUBCUT DAILY (DME) hydrocolloid dressing [Durafiber Dressing] 6 X 6 bandage See Rx Instructions .Route Qty: 5 0RF Rx Instructions: As directed change dressing every 3 days Print Language: Kenyan Sign Language
[2023-11-02 17:36] LABS: Basophils Absolute Auto 0.1 X10*3/uL (0.0-0.2); Basophils Percent Auto 0.3 % (0-2); Eosinophils Absolute Auto 0.1 X10*3/uL (0.0-0.4); Eosinophils Percent Auto 0.4 % (0-4); Hematocrit 38.9 % (42.0-52.0); Hemoglobin 13.2 g/dl (14.0-18.0); Imm Gran Abs Auto 0.29 X10*3/uL (0.00-0.03); Imm Gran Pct Auto 1.3 % (0.0-0.4); Lymphocytes Absolute Auto 1.1 X10*3/uL (1.2-4.9); Lymphocytes Percent Auto 4.8 % (20-40); MANUAL DIFF FLAG SCAN; Mean Corpuscular HGB Conc 33.9 g/dl (31.0-36.0); Mean Corpuscular Hemoglobin 27.2 pg (27.0-33.0); Mean Corpuscular Volume 80.2 fL (80.0-98.0); Mean Platelet Volume 10.1 fL (9.4-12.4); Monocytes Absolute Auto 1.6 X10*3/uL (0.1-1.2); Monocytes Percent Auto 7.2 % (2-11); Neutrophils Absolute Auto 19.5 x10*3/uL (2.0-8.3); Platelet Count 456 X10*3/uL (160-400); Red Blood Count 4.85 X10*6/uL (4.60-5.80); Red Cell Distribution Width 12.5 % (11.0-16.0); SCAN SMEAR FLAG 1; White Blood Count 22.7 X10*3/uL (4.8-10.8)
[2023-11-02] MEDS: 0.9 % Sodium Chloride 2,100 ML 999 ML IVCONT (17:42)
[2023-11-02 17:48] LABS: Lactic Acid 1.4 mmol/L (0.5-2.0)
[2023-11-02] MEDS: Piperacillin Sodium/Tazobactam 3.375 GM in 0.9 % Sodium Chloride 50 ML IV (17:49)
[2023-11-02 17:51] LABS: Alanine Aminotransferase 53 U/L (0-40); Albumin Level 3.4 g/dL (3.5-5.0); Alkaline Phosphatase 239 U/L (39-117); Anion Gap 19 (12-20); Aspartate Amino Transferase 67 U/L (5-37); Bilirubin Total 0.9 mg/dL (0.0-1.0); Blood Urea Nitrogen 20 mg/dL (9-16); Calcium 9.3 mg/dL (8.4-10.2); Carbon Dioxide 24 mmol/L (22-29); Chloride 95 mmol/L (96-108); Creatinine Clr Calc Pharmacy 62.7; Estimated Glomerular Filt Rate 50; Glucose Random 220 mg/dL (60-115); Potassium 4.2 mmol/L (3.3-5.1); Sodium 134 mmol/L (135-145); Total Protein 7.9 g/dL (6.5-8.0)
[2023-11-02] MEDS: Acetaminophen 325 MG TABLET 975 MG PO (17:52)
[2023-11-02 18:09] LABS: SLIDE REVIEW VERIFIED
[2023-11-02] MEDS: vancomycin/NS 2,000 MG/500 ML PLAST..BAG 250 MG IV (18:13)
--- NOTE | 2023-11-02 18:31 | PM.IMHP ---
History of Present Illness Date of Service: 11/02/23 Chief Complaint: Diabetic foot ulcer 63-year-old male with a history of type 2 diabetes requiring insulin presents from wound care with worsening of a right foot diabetic ulcer that has been worsening. Patient states he has chronic decreased sensation secondary to his diabetes however when he ambulates it is painful. All information gleaned from ER record which was obtained through an official drilling engineering manager. Review of Systems Review of Systems: Denies chest pain Denies fever chills Denies shortness of breath Denies nausea vomiting diarrhea PMFSH Medical History Diabetic neuropathy Hypercholesterolemia HTN (hypertension) Deaf Iron deficiency anemia Insulin dependent type 2 diabetes mellitus Family History Father No problems noted. Father No problems noted. Mother No problems noted. Surgical History History of foot surgery Hx of colonoscopy History of esophagogastroduodenoscopy (EGD) Social History Alcohol intake: current Alcohol intake frequency: holidays/special occasions only Patient Tobacco Use Status: Never used Tobacco Advance Directives: No Advance Directives Information Provided: No Do you have a plan to hurt others: No Plan Meds Allergies Allergy/AdvReac Type Severity Reaction Status Date / Time No Known Allergies Allergy Mild NONE Verified 11/02/23 16:06 Active Medications: Current Medications Acetaminophen (Acetaminophen 325 Mg Tablet) 650 mg PO Q6H PRN PRN Reason: Pain, Mild (Pain Scale 1-3), fever or headache Calcium Carbonate (Calcium Carbonate 750 Mg Tab.Chew) 750 mg PO Q4H PRN PRN Reason: Heartburn Enoxaparin Sodium (Enoxaparin Sodium 40 Mg/0.4 Ml Syringe) 40 mg SUBCUT Q24H MARY Glucose (Glucose Gel 15 Gm Gel..Gram.) 15 gm PO Q15M PRN; Protocol PRN Reason: per Hypoglycemia Standing Ord. Vancomycin HCl (Vancomycin/Ns) 2,000 mg in 500 mls @ 250 mls/hr IV ONCE ONE Stop: 11/02/23 18:40 Last Admin: 11/02/23 18:13 Dose: 250 mls/hr Sodium Chloride (Ns) 2,100 mls @ 999 mls/hr IVCONT .Q2H7M ONE Stop: 11/02/23 18:47 Last Admin: 11/02/23 17:42 Dose: 999 mls/hr Piperacillin Sod/Tazobactam (Sod 4.5 gm/ Sodium Chloride) 100 mls @ 200 mls/hr IV Q6H [facility] Dextrose (D10) 250 mls @ 750 mls/hr IV Q15M PRN; Protocol PRN Reason: per Hypoglycemia Standing Ord. Insulin Human Lispro (Insulin Lispro 100 Unit/Ml 3 Ml Vial) 0 unit SUBCUT QIDACHS [facility]; Protocol Magnesium Hydroxide (Milk Of Magnesia 30 Ml Oral.Susp) 30 ml PO DAILY PRN PRN Reason: Constipation Melatonin (Melatonin 3 Mg Tablet) 6 mg PO BEDTIME PRN PRN Reason: Insomnia Ondansetron HCl (Ondansetron Hcl 4 Mg/2 Ml Vial) 4 mg IVPUSH Q8H PRN PRN Reason: Nausea and Vomiting Oxycodone HCl (Oxycodone Hcl Immed Release 5 Mg Tablet) 5 mg PO Q6H PRN PRN Reason: Pain, Moderate(Pain Scale 4-6) Pharmacy Consult (Consult Rx Vancomycin Dosing) 1 each MISCELLANE DAILY PRN PRN Reason: Consult order Sodium Chloride (0.9 % Sodium Chloride Flush 3 Ml Syringe) [address] [facility] Home Medications ?Medication ?Instructions ?Recorded ?Confirmed ?Last Taken ?Type atorvastatin 20 mg tablet 20 mg PO DAILY 02/03/21 07/11/22 Unknown History insulin glargine U-300 conc 300 unit subcut DAILY 02/03/21 07/11/22 Unknown History unit/mL (1.5 mL) subcutaneous pen (Toujeo SoloStar U-300 Insulin) insulin lispro 100 unit/mL unit subcut TID 02/03/21 07/11/22 Unknown History subcutaneous pen (Humalog KwikPen (U-100) Insulin) lisinopril 20 mg tablet 20 mg PO DAILY 02/03/21 07/11/22 Unknown History Physical Exam Vital Signs and Narrative: Vital Signs: Last Vital Signs Temp 99.0 F 11/02/23 18:30 Pulse 98 11/02/23 18:30 Resp 18 11/02/23 18:30 BP 116/54 L 11/02/23 18:30 Pulse Ox 96 11/02/23 18:30 O2 Del Method Room Air 11/02/23 18:30 BMI result Body Mass Index 33.0 Const: Other: Awake alert able to communicate through lip reading and rudimentary signing Resp: Other: Clear to auscultation bilaterally no rales rhonchi or wheezes Cardio: Other: No S4; positive S1-S2; no S3 murmurs rubs or gallops GI: Other: Soft nontender nondistended normoactive bowel sounds Extrem: Other: See emergency room photos of affected foot Results Labs 11/02/23 17:26 11/02/23 17:26 Labs: Laboratory Results - last 24 hr 11/02/23 17:26 MCV 80.2 MCH 27.2 MCHC 33.9 RDW 12.5 Plt Count 456 H D MPV 10.1 Immature Gran % (Auto) 1.3 H Neut % (Auto) 86.0 H Lymph % (Auto) 4.8 L [place] % (Auto) 7.2 Eos % (Auto) 0.4 Baso % (Auto) 0.3 Lymph # (Auto) 1.1 L [place] # (Auto) 1.6 H Eos # (Auto) 0.1 Baso # (Auto) 0.1 Abs Immat Gran (auto) 0.29 H Absolute Neuts (auto) 19.5 H Absolute Nucleated RBC 0.000 Nucleated RBC % (auto) 0.0 Smear Tech's Comments VERIFIED Anion Gap 19 Estim Creat Clear Calc 62.7 Estimated GFR 50 Random Glucose 220 H Lactic Acid 1.4 Calcium 9.3 Total Bilirubin 0.9 AST 67 H ALT 53 H Alkaline Phosphatase 239 H C-Reactive Protein 21.20 H Total Protein 7.9 Albumin 3.4 L Imaging Radiologist's Impressions: Impressions Foot X-Ray 11/02/23 16:28 IMPRESSION: Diffuse soft tissue swelling with air in the subcutaneous and deep soft tissues of the hindfoot. Postsurgical changes as described above. Assessment and Plan (1) Sepsis: Qualifiers: Sepsis type: sepsis due to unspecified organism Sepsis acute organ dysfunction status: without acute organ dysfunction Qualified Code(s): A41.9 - Sepsis, unspecified organism Status: Acute (2) Diabetic foot ulcers: Qualifiers: Diabetic foot ulcer location: other Diabetes mellitus type: type 2 Laterality: right Non-pressure ulcer stage: with other severity Qualified Code(s): E11.621 - Type 2 diabetes mellitus with foot ulcer; L97.518 - Non-pressure chronic ulcer of other part of right foot with other specified severity Status: Acute (3) Insulin dependent type 2 diabetes mellitus: Status: Acute (4) HTN (hypertension): Qualifiers: Hypertension type: primary hypertension Qualified Code(s): I10 - Essential (primary) hypertension Status: Acute (5) Deaf: Qualifiers: Laterality: unspecified laterality Qualified Code(s): H91.90 - Unspecified hearing loss, unspecified ear Status: Acute Plan 63-year-old male with history of type 2 insulin dependent diabetes along with history of foot ulcers presents from wound clinic with diabetic foot ulcers. Was given dose of vancomycin and Zosyn in ER and will be admitted for further workup and treatment of same 1. Sepsis secondary to diabetic foot ulcer Meets criteria for sepsis with tachycardia/fever/hypotensive on arrival/white count 22.7 K. . . Does not meet criteria for severe sepsis -blood cultures x2 done initially; lactate unremarkable -vancomycin/Zosyn (1) hung initially in ER (11/01. . 16:41) -surgical consult in a.m. 2. Diabetes type 2 -lispro correctional scale -pharmacy to verify dosing of Toujeo and sliding scale -2000 calorie ADA diet -adjust therapies as clinically indicated 3. Hypertension -acceptable control at this time -will hold lisinopril overnight -add back in a.m. as clinically indicated 4. MORAIMA -multifactorial as above -received 1 L of normal saline in emergency room -will run normal saline at 150 an hour overnight -follow renals/divalents in response to volume repletion Lovenox Full code Patient requires at least 2 midnights going forward of inpatient stay for IV antibiotics to treat sepsis in the backdrop of a diabetic foot ulcer. Also patient will need specialist consultation in a.m.. This can not be achieved a lesser acute setting Quality Stroke Does the patient have a stroke diagnosis?: No VTE Prior VTE?: No VTE Risk Level:: Medical - moderate - high VTE Device Contraindication: Treatment Not Indicated VTE Drug Contraindication: N/A - Med Ordered
--- NOTE | 2023-11-02 18:50 | PHA.PROG ---
Admission Date/Time: November 02, 2023 18:15 Indication: SKIN Weight in k.326 kg Adjusted body weight in Kg: Virgil body weight in Kg: Obesity Dosing Indication % IBW: Serum Creatinine - Last 168 Hours 11/02/23 17:26 Creatinine 1.42 H Estimated CrCl and GFR - Last 168 Hours 11/02/23 17:26 Estim Creat Clear Calc 62.7 Estimated GFR 50 Vancomycin Loading Dose: 2000 MG Current Vancomycin Dosing Regimen: 750 MG Q12H Vancomycin Monitoring using AUC goal of 400 - 600 range with trough as surrogate marker: OTW=239 TROUGH=16.5 Date and Time for next Vancomycin Level to be drawn: 11/03/23@1600 Pharmacist Comments on Vancomycin Plan: Vancomycin dosing will take advantage of [employer] as a clinical decision support tool that uses Bayesian modeling to calculate individual patient's pharmacokinetic parameters and forecast the patient's drug concentration time course with the target goal AUC 24 range of 400 - 600 mg/L/hr.
[2023-11-02 19:08] LABS: Erythrocyte Sedimentation Rate 77 MM/HR (0-15)
--- NOTE | 2023-11-02 19:09 | PHA.MEDREC ---
Addendum entered by Philip Anaya [facility] 11/02/23 19:16: reviewed by [facility] Original Note: Pharmacy Consult ? Medication Reconciliation Pharmacy has completed the medication reconciliation. Confirmed meds with help of site interpreter. Patient was able to confirm his Insulin Humalog Kwik Pen 18 units TIDAC, and his Basalgar Kwik Pen (Toujeo Solo Star) 44 units at bedtime.
[2023-11-02] MEDS: Enoxaparin Sodium 40 MG/0.4 ML SYRINGE SUBCUT (19:13)
--- NOTE | 2023-11-02 19:17 | PC.NURSE ---
moulder operator at bedside. pt a&ox4, respirations even and unlabored. pt denies pain at this time. pt requesting food, pt set up with dinner tray at this time. pt medicated per mar, fluids continue to run. no acute distress noted, right ankle/heel wrapped in clean dry dressing.
--- NOTE | 2023-11-02 21:05 | PC.NURSE ---
LBZ=[id number], aware at this time. insulin administered per jun.
[2023-11-02 21:06] LABS: Glucose, Whole Blood 390 mg/dL (60-115)
[2023-11-02] MEDS: Insulin Glargine,Hum.rec.anlog 100 UNIT/ML 10 ML VIAL 35 UNIT SUBCUT (21:12)
[2023-11-02] MEDS: Insulin Lispro 100 UNIT/ML 3 ML VIAL SUBCUT (21:13)
[2023-11-03 00:19] VITALS: BP 147/82; PULSE 94; RESP 16; TEMP 36.6; O2SAT 96
[2023-11-03 00:21] LABS: Glucose, Whole Blood 388 mg/dL (60-115)
--- NOTE | 2023-11-03 00:44 | PC.NURSE ---
aware of pt POC at this time, orders as follows
[2023-11-03] MEDS: 0.9 % Sodium Chloride Flush 3 ML SYRINGE IVFLUSH ×4 (01:08→20:49)
[2023-11-03] MEDS: Insulin Regular, Human 100 UNIT/ML 10 ML VIAL 10 UNIT SUBCUT (01:09)
[2023-11-03] MEDS: 0.9 % Sodium Chloride 1,000 ML 999 ML IV (01:09)
[2023-11-03] MEDS: Piperacillin Sodium/Tazobactam 4.5 GM in 0.9 % Sodium Chloride 100 ML IV ×3 (01:14→17:38)
[2023-11-03 04:02] LABS: Glucose, Whole Blood 317 mg/dL (60-115)
[2023-11-03] MEDS: Insulin Regular, Human 100 UNIT/ML 10 ML VIAL 8 UNIT IVPUSH (04:17)
[2023-11-03 04:45] LABS: Glucose, Whole Blood 315 mg/dL (60-115)
[2023-11-03 05:28] VITALS: BP 139/81; PULSE 88; RESP 16; TEMP 37.1; O2SAT 94
[2023-11-03 05:30] LABS: Glucose, Whole Blood 303 mg/dL (60-115)
[2023-11-03] MEDS: Omeprazole 20 MG CAPSULE.DR PO (06:10)
[2023-11-03] MEDS: vancomycin HCL 750 MG in 0.9 % Sodium Chloride 250 ML 265 MG IV (06:13)
[2023-11-03 06:16] LABS: Basophils Absolute Auto 0.1 X10*3/uL (0.0-0.2); Basophils Percent Auto 0.4 % (0-2); Eosinophils Absolute Auto 0.3 X10*3/uL (0.0-0.4); Eosinophils Percent Auto 1.5 % (0-4); Hematocrit 35.6 % (42.0-52.0); Hemoglobin 12.4 g/dl (14.0-18.0); Imm Gran Abs Auto 0.26 X10*3/uL (0.00-0.03); Imm Gran Pct Auto 1.3 % (0.0-0.4); Lymphocytes Absolute Auto 1.7 X10*3/uL (1.2-4.9); Lymphocytes Percent Auto 8.4 % (20-40); MANUAL DIFF FLAG SCAN; Mean Corpuscular HGB Conc 34.8 g/dl (31.0-36.0); Mean Corpuscular Hemoglobin 27.9 pg (27.0-33.0); Mean Platelet Volume 10.5 fL (9.4-12.4); Monocytes Absolute Auto 1.2 X10*3/uL (0.1-1.2); Monocytes Percent Auto 5.8 % (2-11); Neutrophils Absolute Auto 17.1 x10*3/uL (2.0-8.3); Neutrophils Percent Auto 82.6 % (45-73); Platelet Count 437 X10*3/uL (160-400); Red Blood Count 4.45 X10*6/uL (4.60-5.80); Red Cell Distribution Width 12.6 % (11.0-16.0); SCAN SMEAR FLAG 1; White Blood Count 20.7 X10*3/uL (4.8-10.8)
[2023-11-03 06:21] LABS: Glucose, Whole Blood 274 mg/dL (60-115)
[2023-11-03 06:23] LABS: Alanine Aminotransferase 49 U/L (0-40); Albumin Level 2.8 g/dL (3.5-5.0); Alkaline Phosphatase 185 U/L (39-117); Anion Gap 16 (12-20); Aspartate Amino Transferase 45 U/L (5-37); Bilirubin Total 0.6 mg/dL (0.0-1.0); Blood Urea Nitrogen 19 mg/dL (9-16); Calcium 8.6 mg/dL (8.4-10.2); Carbon Dioxide 24 mmol/L (22-29); Chloride 100 mmol/L (96-108); Creatinine Clr Calc Pharmacy 72.4; Estimated Glomerular Filt Rate 59; Glucose Random 299 mg/dL (60-115); Potassium 3.7 mmol/L (3.3-5.1); Sodium 136 mmol/L (135-145); Total Protein 6.6 g/dL (6.5-8.0)
[2023-11-03 07:06] LABS: Glucose, Whole Blood 267 mg/dL (60-115)
[2023-11-03] MEDS: Insulin Lispro 100 UNIT/ML 3 ML VIAL 18 UNIT SUBCUT ×3 (07:34→17:07)
--- NOTE | 2023-11-03 07:44 | PC.NURSE ---
Sliding scale insulin held by this RN per María Elena Monterroso MD.
[2023-11-03 08:08] LABS: SLIDE REVIEW VERIFIED
[2023-11-03 08:19] VITALS: BMI 33.2
[2023-11-03 08:21] VITALS: BP 124/76; PULSE 97; RESP 18; TEMP 36.3; O2SAT 95
--- NOTE | 2023-11-03 09:07 | MHC.CM.PN ---
Addendum entered by Prela Dacosta 11/03/23 09:55: REFERRAL MADE TO [facility], THEY HAVE ACCEPTED AND WILL NEED UPDATES REGARDING NEEDED SERVICES AND DC DATE Original Note: CM MET WITH PT USING [employer] VIDEO DOCTOR OF NATUROPATHIC MEDICINE PT LIVES ALONE AND IS INDEPENDENT WITH SELF CARE HE HAS A WALKER AND A WHEEL CHAIR HE SAYS HE USUALLY DOES NOT USE PT DOES NOT HAVE A HCP, HE WILL CONSIDER COMPLETING ONE AND IS AWARE CM CAN ASSIST PCP: JOURDAN CASIANO DCP: HOME ? [facility] PT WILL DRIVE HIMSELF HOME
[2023-11-03] MEDS: lisinopriL 20 MG TABLET PO (09:15)
[2023-11-03] MEDS: Atorvastatin Calcium 20 MG TABLET PO (09:15)
[2023-11-03] MEDS: oxyCODONE HCl Immed Release 5 MG TABLET PO (10:29)
[2023-11-03 11:21] LABS: Glucose, Whole Blood 275 mg/dL (60-115)
--- NOTE | 2023-11-03 12:07 | P.CONGS_ITS ---
History of Present Illness Consult details Consult date: 11/03/23 Narrative: Patient is an unfortunate 63-year-old deaf male with a collection of comorbidities who presents here with a significantly infected/septic right diabetic foot with deep nonhealing multiple ulcers. Patient has significant right ankle/foot surgeries including fusion with rods and other screws in the ankle joint. Chart was reviewed and patient evaluated PMFSH Past Medical History Medical History Diabetic neuropathy Hypercholesterolemia HTN (hypertension) Deaf Iron deficiency anemia Insulin dependent type 2 diabetes mellitus Family History Family History Father No problems noted. Father No problems noted. Mother No problems noted. Surgical History Surgical History History of foot surgery Hx of colonoscopy History of esophagogastroduodenoscopy (EGD) Social History Social History Household Members: None Housing: House Do you presently have visiting nurse or other home services: No Alcohol intake: current Alcohol intake frequency: holidays/special occasions only Patient Tobacco Use Status: Never used Tobacco service: No Meds Allergies Allergy/AdvReac Type Severity Reaction Status Date / Time No Known Allergies Allergy Mild NONE Verified 11/02/23 16:06 Active Medications: Current Medications Acetaminophen (Acetaminophen 325 Mg Tablet) 650 mg PO Q6H PRN PRN Reason: Pain, Mild (Pain Scale 1-3), fever or headache Atorvastatin Calcium (Atorvastatin Calcium 20 Mg Tablet) 20 mg PO DAILY [facility] Last Admin: 11/03/23 09:15 Dose: 20 mg Calcium Carbonate (Calcium Carbonate 750 Mg Tab.Chew) 750 mg PO Q4H PRN PRN Reason: Heartburn Enoxaparin Sodium (Enoxaparin Sodium 40 Mg/0.4 Ml Syringe) 40 mg SUBCUT Q24H [facility] Last Admin: 11/02/23 19:13 Dose: 40 mg Glucose (Glucose Gel 15 Gm Gel..Gram.) 15 gm PO Q15M PRN; Protocol PRN Reason: per Hypoglycemia Standing Ord. Piperacillin Sod/Tazobactam (Sod 4.5 gm/ Sodium Chloride) 100 mls @ 200 mls/hr IV Q8H [facility] Last Infusion: 11/03/23 10:24 Dose: Infused Dextrose (D10) 250 mls @ 750 mls/hr IV Q15M PRN; Protocol PRN Reason: per Hypoglycemia Standing Ord. Vancomycin HCl 750 mg/ Sodium (Chloride) 265 mls @ 265 mls/hr IV Q12H [facility] Last Infusion: 11/03/23 07:17 Dose: Infused Insulin Glargine (Insulin Glargine,Hum.Rec.Anlog 100 Unit/Ml 10 Ml Vial) 35 unit SUBCUT BEDTIME [facility] Last Admin: 11/02/23 21:12 Dose: 35 unit Insulin Human Lispro (Insulin Lispro 100 Unit/Ml 3 Ml Vial) 0 unit SUBCUT QIDACHS [facility]; Protocol Last Admin: 11/03/23 11:53 Dose: Not Given Insulin Human Lispro (Insulin Lispro 100 Unit/Ml 3 Ml Vial) 18 unit SUBCUT TIDAC [facility] Last Admin: 11/03/23 11:45 Dose: 18 unit Lisinopril (Lisinopril 20 Mg Tablet) 20 mg PO DAILY [facility]; Protocol Last Admin: 11/03/23 09:15 Dose: 20 mg Magnesium Hydroxide (Milk Of Magnesia 30 Ml Oral.Susp) 30 ml PO DAILY PRN PRN Reason: Constipation Melatonin (Melatonin 3 Mg Tablet) 6 mg PO BEDTIME PRN PRN Reason: Insomnia Omeprazole (Omeprazole 20 Mg Capsule.Dr) 20 mg PO DAILY@0630 [facility] Last Admin: 11/03/23 06:10 Dose: 20 mg Ondansetron HCl (Ondansetron Hcl 4 Mg/2 Ml Vial) 4 mg IVPUSH Q8H PRN PRN Reason: Nausea and Vomiting Oxycodone HCl (Oxycodone Hcl Immed Release 5 Mg Tablet) 5 mg PO Q6H PRN PRN Reason: Pain, Moderate(Pain Scale 4-6) Last Admin: 11/03/23 10:29 Dose: 5 mg Pharmacy Consult (Consult Rx Vancomycin Dosing) 1 each MISCELLANE DAILY PRN PRN Reason: Consult order Sodium Chloride (0.9 % Sodium Chloride Flush 3 Ml Syringe) 3 ml IVFLUSH QSHIFT [facility] Last Admin: 11/03/23 07:35 Dose: 3 ml Home Medications ?Medication ?Instructions ?Recorded ?Confirmed ?Last Taken ?Type atorvastatin 20 mg tablet 20 mg PO DAILY 02/03/21 11/02/23 11/02/23 12:30 History insulin glargine U-300 conc 300 44 unit subcut BEDTIME 02/03/21 11/02/23 11/01/23 History unit/mL (1.5 mL) subcutaneous pen (Toujeo SoloStar U-300 Insulin) insulin lispro 100 unit/mL 18 unit subcut TIDAC 02/03/21 11/02/23 11/02/23 12:30 History subcutaneous pen (Humalog KwikPen (U-100) Insulin) lisinopril 20 mg tablet 20 mg PO DAILY 02/03/21 11/02/23 11/02/23 12:30 History Physical Exam 2 Vital Signs: Vital Signs: Last Vital Signs Temp 97.4 F 11/03/23 08:21 Pulse 97 11/03/23 08:21 Resp 18 11/03/23 08:21 BP 124/76 11/03/23 08:21 Pulse Ox 95 11/03/23 08:21 O2 Del Method Room Air 11/03/23 08:21 BMI result Body Mass Index 33.2 Extrem: Other: Patient has a fused right ankle joint. Foul-smelling foot. Plantar surface demonstrates 2 deeply penetrating ulcers. Because of the edema, no palpable pulses demonstrated Results Labs 11/03/23 05:35 11/03/23 05:35 Labs: Abnormal lab results 11/02/23 11/02/23 11/03/23 Range/Units 17:26 21:02 00:14 WBC 22.7 H (4.8-10.8) X10*3/uL RBC (4.60-5.80) X10*6/uL Hgb 13.2 L (14.0-18.0) g/dl Hct 38.9 L (42.0-52.0) % Plt Count 456 H D (160-400) X10*3/uL Immature Gran % (Auto) 1.3 H (0.0-0.4) % Neut % (Auto) 86.0 H (45-73) % Lymph % (Auto) 4.8 L (20-40) % Lymph # (Auto) 1.1 L (1.2-4.9) X10*3/uL [place] # (Auto) 1.6 H (0.1-1.2) X10*3/uL Abs Immat Gran (auto) 0.29 H (0.00-0.03) X10*3/uL Absolute Neuts (auto) 19.5 H (2.0-8.3) x10*3/uL ESR 77 H (0-15) MM/HR Sodium 134 L (135-145) mmol/L Chloride 95 L (96-108) mmol/L BUN 20 H (9-16) mg/dL Creatinine 1.42 H (0.5-1.4) mg/dL POC Glucose 390 H* 388 H* (60-115) mg/dL Random Glucose 220 H (60-115) mg/dL AST 67 H (5-37) U/L ALT 53 H (0-40) U/L Alkaline Phosphatase 239 H (39-117) U/L C-Reactive Protein 21.20 H (< or = 0.50) mg/dL Albumin 3.4 L (3.5-5.0) g/dL 11/03/23 11/03/23 11/03/23 Range/Units 03:57 04:40 05:26 WBC (4.8-10.8) X10*3/uL RBC (4.60-5.80) X10*6/uL Hgb (14.0-18.0) g/dl Hct (42.0-52.0) % Plt Count (160-400) X10*3/uL Immature Gran % (Auto) (0.0-0.4) % Neut % (Auto) (45-73) % Lymph % (Auto) (20-40) % Lymph # (Auto) (1.2-4.9) X10*3/uL [place] # (Auto) (0.1-1.2) X10*3/uL Abs Immat Gran (auto) (0.00-0.03) X10*3/uL Absolute Neuts (auto) (2.0-8.3) x10*3/uL ESR (0-15) MM/HR Sodium (135-145) mmol/L Chloride (96-108) mmol/L BUN (9-16) mg/dL Creatinine (0.5-1.4) mg/dL POC Glucose 317 H 315 H 303 H (60-115) mg/dL Random Glucose (60-115) mg/dL AST (5-37) U/L ALT (0-40) U/L Alkaline Phosphatase (39-117) U/L C-Reactive Protein (< or = 0.50) mg/dL Albumin (3.5-5.0) g/dL 11/03/23 11/03/23 11/03/23 Range/Units 05:35 06:17 07:00 WBC 20.7 H (4.8-10.8) X10*3/uL RBC 4.45 L (4.60-5.80) X10*6/uL Hgb 12.4 L (14.0-18.0) g/dl Hct 35.6 L (42.0-52.0) % Plt Count 437 H (160-400) X10*3/uL Immature Gran % (Auto) 1.3 H (0.0-0.4) % Neut % (Auto) 82.6 H (45-73) % Lymph % (Auto) 8.4 L (20-40) % Lymph # (Auto) (1.2-4.9) X10*3/uL [place] # (Auto) (0.1-1.2) X10*3/uL Abs Immat Gran (auto) 0.26 H (0.00-0.03) X10*3/uL Absolute Neuts (auto) 17.1 H (2.0-8.3) x10*3/uL ESR (0-15) MM/HR Sodium (135-145) mmol/L Chloride (96-108) mmol/L BUN 19 H (9-16) mg/dL Creatinine (0.5-1.4) mg/dL POC Glucose 274 H 267 H (60-115) mg/dL Random Glucose 299 H (60-115) mg/dL AST 45 H (5-37) U/L ALT 49 H (0-40) U/L Alkaline Phosphatase 185 H (39-117) U/L C-Reactive Protein (< or = 0.50) mg/dL Albumin 2.8 L (3.5-5.0) g/dL 11/03/23 Range/Units 11:10 WBC (4.8-10.8) X10*3/uL RBC (4.60-5.80) X10*6/uL Hgb (14.0-18.0) g/dl Hct (42.0-52.0) % Plt Count (160-400) X10*3/uL Immature Gran % (Auto) (0.0-0.4) % Neut % (Auto) (45-73) % Lymph % (Auto) (20-40) % Lymph # (Auto) (1.2-4.9) X10*3/uL [place] # (Auto) (0.1-1.2) X10*3/uL Abs Immat Gran (auto) (0.00-0.03) X10*3/uL Absolute Neuts (auto) (2.0-8.3) x10*3/uL ESR (0-15) MM/HR Sodium (135-145) mmol/L Chloride (96-108) mmol/L BUN (9-16) mg/dL Creatinine (0.5-1.4) mg/dL POC Glucose 275 H (60-115) mg/dL Random Glucose (60-115) mg/dL AST (5-37) U/L ALT (0-40) U/L Alkaline Phosphatase (39-117) U/L C-Reactive Protein (< or = 0.50) mg/dL Albumin (3.5-5.0) g/dL Short CBC 11/02/23 11/03/23 Range/Units 17:26 05:35 WBC 22.7 H 20.7 H (4.8-10.8) X10*3/uL Hgb 13.2 L 12.4 L (14.0-18.0) g/dl Hct 38.9 L 35.6 L (42.0-52.0) % Plt Count 456 H D 437 H (160-400) X10*3/uL BMP 11/02/23 11/03/23 17:26 05:35 Sodium 134 L 136 Potassium 4.2 3.7 Chloride 95 L 100 Carbon Dioxide 24 24 BUN 20 H 19 H Creatinine 1.42 H 1.23 Calcium 9.3 8.6 D Liver Function 11/02/23 11/03/23 Range/Units 17:26 05:35 Total Bilirubin 0.9 0.6 (0.0-1.0) mg/dL AST 67 H 45 H (5-37) U/L ALT 53 H 49 H (0-40) U/L Alkaline Phosphatase 239 H 185 H (39-117) U/L Albumin 3.4 L 2.8 L (3.5-5.0) g/dL All other labs normal. Assessment and Plan (1) Diabetic foot ulcers: Qualifiers: Diabetes mellitus type: type 2 Diabetic foot ulcer location: other L aterality: right Non-pressure ulcer stage: with other severity Qualified Code(s): E11.621 - Type 2 diabetes mellitus with foot ulcer; L97.518 - Non- pressure chronic ulcer of other part of right foot with other specified severity Status: Acute (2) Deaf: Qualifiers: Laterality: unspecified laterality Qualified Code(s): H91.90 - Unspecified hearing loss, unspecified ear Status: Acute (3) Cellulitis: Status: Acute Plan I reviewed with the patient and also separately discussed with his hospitalist, Dr. Monterroso , that patient needs a right below-knee amputation. He has a michael and other hardware in the ankle joint and tibia. This unfortunately will dictate the surgical site for amputation. This would most likely lead to a higher amputation to avoid the tibial michael. At present, patient would like to think about proceeding with this. He will receive local wound care and antibiotics. To follow. Procedures Date of Service Date of Service: 11/03/23
--- NOTE | 2023-11-03 12:23 | HO.PM.IMPN ---
Subjective Subjective Date of Service: 11/03/23 Interval History: No acute issues overnight. Essentially no improvement in foot Review of Systems Denies chest pain Denies fever chills Denies shortness of breath Denies nausea vomiting diarrhea Physical Exam Vital Signs: Vital Signs: Last Vital Signs Temp 97.4 F 11/03/23 08:21 Pulse 97 11/03/23 08:21 Resp 18 11/03/23 08:21 BP 124/76 11/03/23 08:21 Pulse Ox 95 11/03/23 08:21 O2 Del Method Room Air 11/03/23 08:21 BMI result Body Mass Index 33.2 Const: Other: Awake alert able to communicate through lip reading and rudimentary signing Resp: Other: Clear to auscultation bilaterally no rales rhonchi or wheezes Cardio: Other: No S4; positive S1-S2; no S3 murmurs rubs or gallops GI: Other: Soft nontender nondistended normoactive bowel sounds Extrem: Other: See emergency room photos of affected foot Objective Data Active Medications Acetaminophen (Acetaminophen 325 Mg Tablet) 650 mg PO Q6H PRN PRN Reason: Pain, Mild (Pain Scale 1-3), fever or headache Atorvastatin Calcium (Atorvastatin Calcium 20 Mg Tablet) 20 mg PO DAILY [facility] Last Admin: 11/03/23 09:15 Dose: 20 mg Documented By: KAHLIL Calcium Carbonate (Calcium Carbonate 750 Mg Tab.Chew) 750 mg PO Q4H PRN PRN Reason: Heartburn Enoxaparin Sodium (Enoxaparin Sodium 40 Mg/0.4 Ml Syringe) 40 mg SUBCUT Q24H [facility] Last Admin: 11/02/23 19:13 Dose: 40 mg Documented By: JEYSON Glucose (Glucose Gel 15 Gm Gel..Gram.) 15 gm PO Q15M PRN; Protocol PRN Reason: per Hypoglycemia Standing Ord. Piperacillin Sod/Tazobactam (Sod 4.5 gm/ Sodium Chloride) 100 mls @ 200 mls/hr IV Q8H [facility] Last Infusion: 11/03/23 10:24 Dose: Infused Documented By: KAHLIL Dextrose (D10) 250 mls @ 750 mls/hr IV Q15M PRN; Protocol PRN Reason: per Hypoglycemia Standing Ord. Vancomycin HCl 750 mg/ Sodium (Chloride) 265 mls @ 265 mls/hr IV Q12H [facility] Last Infusion: 11/03/23 07:17 Dose: Infused Documented By: SALO Insulin Glargine (Insulin Glargine,Hum.Rec.Anlog 100 Unit/Ml 10 Ml Vial) 35 unit SUBCUT BEDTIME [facility] Last Admin: 11/02/23 21:12 Dose: 35 unit Documented By: JEYSON Insulin Human Lispro (Insulin Lispro 100 Unit/Ml 3 Ml Vial) 0 unit SUBCUT QIDACHS [facility]; Protocol Last Admin: 11/03/23 11:53 Dose: Not Given Documented By: KAHLIL Non-Admin Reason: Physician Held Med Insulin Human Lispro (Insulin Lispro 100 Unit/Ml 3 Ml Vial) 18 unit SUBCUT TIDAC [facility] Last Admin: 11/03/23 11:45 Dose: 18 unit Documented By: KAHLIL Lisinopril (Lisinopril 20 Mg Tablet) 20 mg PO DAILY [facility]; Protocol Last Admin: 11/03/23 09:15 Dose: 20 mg Documented By: KAHLIL Magnesium Hydroxide (Milk Of Magnesia 30 Ml Oral.Susp) 30 ml PO DAILY PRN PRN Reason: Constipation Melatonin (Melatonin 3 Mg Tablet) 6 mg PO BEDTIME PRN PRN Reason: Insomnia Omeprazole (Omeprazole 20 Mg Capsule.Dr) 20 mg PO DAILY@0630 [facility] Last Admin: 11/03/23 06:10 Dose: 20 mg Documented By: JEYSON Ondansetron HCl (Ondansetron Hcl 4 Mg/2 Ml Vial) 4 mg IVPUSH Q8H PRN PRN Reason: Nausea and Vomiting Oxycodone HCl (Oxycodone Hcl Immed Release 5 Mg Tablet) 5 mg PO Q6H PRN PRN Reason: Pain, Moderate(Pain Scale 4-6) Last Admin: 11/03/23 10:29 Dose: 5 mg Documented By: KAHLIL Pharmacy Consult (Consult Rx Vancomycin Dosing) 1 each MISCELLANE DAILY PRN PRN Reason: Consult order Sodium Chloride (0.9 % Sodium Chloride Flush 3 Ml [facility]) [facility] Admin: 11/03/23 07:35 Dose: 3 ml Documented By: SALO Labs 11/03/23 05:35 11/03/23 05:35 Labs: Laboratory Results - last 24 hr 11/02/23 11/02/23 11/03/23 17:26 21:02 00:14 MCV 80.2 MCH 27.2 MCHC 33.9 RDW 12.5 Plt Count 456 H D MPV 10.1 Immature Gran % (Auto) 1.3 H Neut % (Auto) 86.0 H Lymph % (Auto) 4.8 L [place] % (Auto) 7.2 Eos % (Auto) 0.4 Baso % (Auto) 0.3 Lymph # (Auto) 1.1 L [place] # (Auto) 1.6 H Eos # (Auto) 0.1 Baso # (Auto) 0.1 Abs Immat Gran (auto) 0.29 H Absolute Neuts (auto) 19.5 H Absolute Nucleated RBC 0.000 Nucleated RBC % (auto) 0.0 Smear Tech's Comments VERIFIED ESR 77 H Anion Gap 19 Estim Creat Clear Calc 62.7 Estimated GFR 50 POC Glucose 390 H* 388 H* Random Glucose 220 H Lactic Acid 1.4 Calcium 9.3 Total Bilirubin 0.9 AST 67 H ALT 53 H Alkaline Phosphatase 239 H C-Reactive Protein 21.20 H Total Protein 7.9 Albumin 3.4 L 11/03/23 11/03/23 11/03/23 03:57 04:40 05:26 MCV MCH MCHC RDW Plt Count MPV Immature Gran % (Auto) Neut % (Auto) Lymph % (Auto) [place] % (Auto) Eos % (Auto) Baso % (Auto) Lymph # (Auto) [place] # (Auto) Eos # (Auto) Baso # (Auto) Abs Immat Gran (auto) Absolute Neuts (auto) Absolute Nucleated RBC Nucleated RBC % (auto) Smear Tech's Comments ESR Anion Gap Estim Creat Clear Calc Estimated GFR POC Glucose 317 H 315 H 303 H Random Glucose Lactic Acid Calcium Total Bilirubin AST ALT Alkaline Phosphatase C-Reactive Protein Total Protein Albumin 11/03/23 11/03/23 11/03/23 05:35 06:17 07:00 MCV 80.0 MCH 27.9 MCHC 34.8 RDW 12.6 Plt Count 437 H MPV 10.5 Immature Gran % (Auto) 1.3 H Neut % (Auto) 82.6 H Lymph % (Auto) 8.4 L [place] % (Auto) 5.8 Eos % (Auto) 1.5 Baso % (Auto) 0.4 Lymph # (Auto) 1.7 [place] # (Auto) 1.2 Eos # (Auto) 0.3 Baso # (Auto) 0.1 Abs Immat Gran (auto) 0.26 H Absolute Neuts (auto) 17.1 H Absolute Nucleated RBC 0.000 Nucleated RBC % (auto) 0.0 Smear Tech's Comments VERIFIED ESR Anion Gap 16 Estim Creat Clear Calc 72.4 Estimated GFR 59 POC Glucose 274 H 267 H Random Glucose 299 H Lactic Acid Calcium 8.6 D Total Bilirubin 0.6 AST 45 H ALT 49 H Alkaline Phosphatase 185 H C-Reactive Protein Total Protein 6.6 Albumin 2.8 L 11/03/23 11:10 MCV MCH MCHC RDW Plt Count MPV Immature Gran % (Auto) Neut % (Auto) Lymph % (Auto) [place] % (Auto) Eos % (Auto) Baso % (Auto) Lymph # (Auto) [place] # (Auto) Eos # (Auto) Baso # (Auto) Abs Immat Gran (auto) Absolute Neuts (auto) Absolute Nucleated RBC Nucleated RBC % (auto) Smear Tech's Comments ESR Anion Gap Estim Creat Clear Calc Estimated GFR POC Glucose 275 H Random Glucose Lactic Acid Calcium Total Bilirubin AST ALT Alkaline Phosphatase C-Reactive Protein Total Protein Albumin Assessment and Plan (1) Diabetic foot ulcers: Status: Acute (2) Sepsis: Status: Acute (3) Insulin dependent type 2 diabetes mellitus: Status: Acute Plan 63-year-old male with history of type 2 insulin dependent diabetes along with history of foot ulcers presents from wound clinic with diabetic foot ulcers. Was given dose of vancomycin and Zosyn in ER and will be admitted for further workup and treatment of same 1. Sepsis secondary to diabetic foot ulcer -sepsis resolved -blood cultures x2 pending -vancomycin/Zosyn (2) -surgical consult appreciated. Recommending BKA. 2. Diabetes type 2 -lispro correctional scale -pharmacy to verify dosing of Toujeo and sliding scale -2000 calorie ADA diet -adjust therapies as clinically indicated 3. Hypertension -acceptable control at this time -will hold lisinopril overnight -add back in a.m. as clinically indicated 4. MORAIMA -multifactorial as above -received 1 L of normal saline in emergency room -will run normal saline at 150 an hour overnight -follow renals/divalents in response to volume repletion Lovenox Full code Patient requires at least 2 midnights going forward of inpatient stay for IV antibiotics to treat sepsis in the backdrop of a diabetic foot ulcer. Also patient will need specialist consultation in a.m.. This can not be achieved a lesser acute setting Quality Stroke Does the patient have a stroke diagnosis?: No VTE Prior VTE?: No VTE Risk Level:: Medical - moderate - high VTE Device Contraindication: Treatment Not Indicated VTE Drug Contraindication: N/A - Med Ordered
[2023-11-03 15:27] VITALS: BP 142/71; PULSE 86; RESP 18; TEMP 36.6; O2SAT 94
[2023-11-03 16:20] LABS: Glucose, Whole Blood 276 mg/dL (60-115)
[2023-11-03 16:57] LABS: Vancomycin Random 10.7 mcg/mL (15-20)
[2023-11-03] MEDS: Insulin Lispro 100 UNIT/ML 3 ML VIAL SUBCUT ×2 (17:06→20:48)
[2023-11-03] MEDS: vancomycin HCL 1,000 MG in 0.9 % Sodium Chloride 250 ML 270 MG IV (18:16)
[2023-11-03] MEDS: Enoxaparin Sodium 40 MG/0.4 ML SYRINGE SUBCUT (18:17)
[2023-11-03 18:50] VITALS: BP 146/76; PULSE 99; RESP 18; TEMP 36.7; O2SAT 93
[2023-11-03 20:10] LABS: Glucose, Whole Blood 249 mg/dL (60-115)
[2023-11-03] MEDS: Insulin Glargine,Hum.rec.anlog 100 UNIT/ML 10 ML VIAL 35 UNIT SUBCUT (20:49)
[2023-11-04] MEDS: Piperacillin Sodium/Tazobactam 4.5 GM in 0.9 % Sodium Chloride 100 ML IV ×3 (01:29→17:38)
[2023-11-04 03:23] VITALS: BP 131/71; PULSE 99; RESP 20; TEMP 36.6; O2SAT 94
[2023-11-04] MEDS: vancomycin HCL 1,000 MG in 0.9 % Sodium Chloride 250 ML 270 MG IV (05:19)
[2023-11-04] MEDS: Omeprazole 20 MG CAPSULE.DR PO (06:30)
[2023-11-04 06:33] LABS: Hematocrit 33.7 % (42.0-52.0); Hemoglobin 11.5 g/dl (14.0-18.0); Mean Corpuscular HGB Conc 34.1 g/dl (31.0-36.0); Mean Corpuscular Hemoglobin 27.4 pg (27.0-33.0); Mean Corpuscular Volume 80.2 fL (80.0-98.0); Mean Platelet Volume 10.2 fL (9.4-12.4); Platelet Count 482 X10*3/uL (160-400); White Blood Count 19.4 X10*3/uL (4.8-10.8)
[2023-11-04 06:54] LABS: Alanine Aminotransferase 41 U/L (0-40); Albumin Level 2.6 g/dL (3.5-5.0); Alkaline Phosphatase 178 U/L (39-117); Anion Gap 13 (12-20); Aspartate Amino Transferase 44 U/L (5-37); Bilirubin Total 0.5 mg/dL (0.0-1.0); Blood Urea Nitrogen 15 mg/dL (9-16); Calcium 8.5 mg/dL (8.4-10.2); Carbon Dioxide 26 mmol/L (22-29); Chloride 100 mmol/L (96-108); Estimated Glomerular Filt Rate > 60; Glucose Random 220 mg/dL (60-115); Potassium 3.7 mmol/L (3.3-5.1); Sodium 135 mmol/L (135-145); Total Protein 6.5 g/dL (6.5-8.0)
[2023-11-04 06:55] LABS: Atypical Lymph Absolute Manual 0.6 x10*3/uL; Atypical Lymphs Percent Manual 3 % (0-6); Band Neutrophils Percent 2 % (3-5); Eosinophils Absolute Manual 0.8 X10*3/uL (0.0-0.4); Eosinophils Percent Manual 4 % (0-4); Lymphocytes Percent Manual 5 % (20-40); Metamyelocytes Absolute 0.2 X10*3/uL; Metamyelocytes Percent 1 %; Monocytes Absolute Manual 1.2 X10*3/uL (0.1-1.2); Monocytes Percent Manual 6 % (2-11); Neutrophils Absolute Manual 15.7 X10*3/uL (2.0-8.3); Neutrophils Percent Manual 79 % (45-73)
[2023-11-04 06:56] LABS: Platelet Estimate SLIGHTLY INCREASED (NORMAL); Platelet Morphology Comment NORMAL; RBC Morphology NORMAL
[2023-11-04 07:47] VITALS: BP 166/80; PULSE 96; RESP 20; TEMP 36.2; O2SAT 93
[2023-11-04 08:13] LABS: Glucose, Whole Blood 257 mg/dL (60-115)
[2023-11-04 09:00] VITALS: BP 165/72
[2023-11-04] MEDS: lisinopriL 20 MG TABLET PO (09:00)
[2023-11-04] MEDS: Atorvastatin Calcium 20 MG TABLET PO (09:00)
[2023-11-04] MEDS: Insulin Lispro 100 UNIT/ML 3 ML VIAL 18 UNIT SUBCUT ×3 (09:01→17:02)
[2023-11-04] MEDS: 0.9 % Sodium Chloride Flush 3 ML SYRINGE IVFLUSH ×3 (09:01→21:07)
--- NOTE | 2023-11-04 10:46 | P.PNIM_ITS ---
Subjective Subjective Date of Service: 11/04/23 Interval History: No acute issues overnight. Remains afebrile Review of Systems Denies chest pain Denies fever chills Denies shortness of breath Denies nausea vomiting diarrhea Physical Exam 2 Vital Signs: Vital Signs: Last Vital Signs Temp 97.1 F 11/04/23 07:47 Pulse 96 11/04/23 07:47 Resp 20 11/04/23 07:47 BP 165/72 H 11/04/23 09:00 Pulse Ox 93 11/04/23 07:47 O2 Del Method Room Air 11/04/23 07:47 BMI result Body Mass Index 33.2 Const: Other: Awake alert able to communicate through lip reading and rudimentary signing Resp: Other: Clear to auscultation bilaterally no rales rhonchi or wheezes Cardio: Other: No S4; positive S1-S2; no S3 murmurs rubs or gallops GI: Other: Soft nontender nondistended normoactive bowel sounds Extrem: Other: See emergency room photos of affected foot Objective Data Active Medications Acetaminophen (Acetaminophen 325 Mg Tablet) 650 mg PO Q6H PRN PRN Reason: Pain, Mild (Pain Scale 1-3), fever or headache Atorvastatin Calcium (Atorvastatin Calcium 20 Mg Tablet) 20 mg PO DAILY [facility] Last Admin: 11/04/23 09:00 Dose: 20 mg Documented By: KAREEM Calcium Carbonate (Calcium Carbonate 750 Mg Tab.Chew) 750 mg PO Q4H PRN PRN Reason: Heartburn Enoxaparin Sodium (Enoxaparin Sodium 40 Mg/0.4 Ml Syringe) 40 mg SUBCUT Q24H [facility] Last Admin: 11/03/23 18:17 Dose: 40 mg Documented By: KAHLIL Glucose (Glucose Gel 15 Gm Gel..Gram.) 15 gm PO Q15M PRN; Protocol PRN Reason: per Hypoglycemia Standing Ord. Piperacillin Sod/Tazobactam (Sod 4.5 gm/ Sodium Chloride) 100 mls @ 200 mls/hr IV Q8H [facility] Last Infusion: 11/04/23 10:10 Dose: Infused Documented By: KAREEM Dextrose (D10) 250 mls @ 750 mls/hr IV Q15M PRN; Protocol PRN Reason: per Hypoglycemia Standing Ord. Vancomycin HCl 1,000 mg/ (Sodium Chloride) 270 mls @ 270 mls/hr IV Q12H [facility] Last Infusion: 11/04/23 06:29 Dose: Infused Documented By: IVA Insulin Glargine (Insulin Glargine,Hum.Rec.Anlog 100 Unit/Ml 10 Ml Vial) 35 unit SUBCUT BEDTIME [facility] Last Admin: 11/03/23 20:49 Dose: 35 unit Documented By: IVA Insulin Human Lispro (Insulin Lispro 100 Unit/Ml 3 Ml Vial) 0 unit SUBCUT QIDACHS [facility]; Protocol Last Admin: 11/04/23 08:59 Dose: Not Given Documented By: KAREEM Non-Admin Reason: Physician Held Med Insulin Human Lispro (Insulin Lispro 100 Unit/Ml 3 Ml Vial) 18 unit SUBCUT TIDAC [facility] Last Admin: 11/04/23 09:01 Dose: 18 unit Documented By: KAREEM Lisinopril (Lisinopril 20 Mg Tablet) 20 mg PO DAILY [facility]; Protocol Last Admin: 11/04/23 09:00 Dose: 20 mg Documented By: KAREEM Magnesium Hydroxide (Milk Of Magnesia 30 Ml Oral.Susp) 30 ml PO DAILY PRN PRN Reason: Constipation Melatonin (Melatonin 3 Mg Tablet) 6 mg PO BEDTIME PRN PRN Reason: Insomnia Omeprazole (Omeprazole 20 Mg Capsule.Dr) 20 mg PO DAILY@0630 [facility] Last Admin: 11/04/23 06:30 Dose: 20 mg Documented By: IVA Ondansetron HCl (Ondansetron Hcl 4 Mg/2 Ml Vial) 4 mg IVPUSH Q8H PRN PRN Reason: Nausea and Vomiting Oxycodone HCl (Oxycodone Hcl Immed Release 5 Mg Tablet) 5 mg PO Q6H PRN PRN Reason: Pain, Moderate(Pain Scale 4-6) Last Admin: 11/03/23 10:29 Dose: 5 mg Documented By: KAHLIL Pharmacy Consult (Consult Rx Vancomycin Dosing) 1 each MISCELLANE DAILY PRN PRN Reason: Consult order Sodium Chloride (0.9 % Sodium Chloride Flush 3 Ml Syringe) 3 ml IVFLUSH QSHIFT [facility] Last Admin: 11/04/23 09:01 Dose: 3 ml Documented By: KAREEM Labs 11/04/23 05:53 11/04/23 05:53 Labs: Laboratory Results - last 24 hr 11/03/23 11/03/23 11/03/23 11:10 16:15 16:30 MCV MCH MCHC RDW Plt Count MPV Immature Gran % (Auto) Neut % (Auto) Lymph % (Auto) Wilkinson % (Auto) Eos % (Auto) Baso % (Auto) Lymph # (Auto) Wilkinson # (Auto) Eos # (Auto) Baso # (Auto) Abs Immat Gran (auto) Absolute Neuts (auto) Absolute Nucleated RBC Nucleated RBC % (auto) Neutrophils % (Manual) Band Neutrophils % Lymphocytes % (Manual) Atypical Lymphs % (Man) Monocytes % (Manual) Eosinophils % (Manual) Metamyelocytes % Abs Neuts (Manual) Lymphocytes # (Manual) Atyp Lymphs # (Manual) Monocytes # (Manual) Eosinophils # (Manual) Metamyelocytes # Platelet Estimate Plt Morphology Comment RBC Morphology Anion Gap Estim Creat Clear Calc Estimated GFR POC Glucose 275 H 276 H Random Glucose Calcium Total Bilirubin AST ALT Alkaline Phosphatase Total Protein Albumin Random Vancomycin 10.7 L 11/03/23 11/04/23 11/04/23 20:04 05:53 07:46 MCV 80.2 MCH 27.4 MCHC 34.1 RDW 13.0 Plt Count 482 H MPV 10.2 Immature Gran % (Auto) Cancelled Neut % (Auto) Cancelled Lymph % (Auto) Cancelled Wilkinson % (Auto) Cancelled Eos % (Auto) Cancelled Baso % (Auto) Cancelled Lymph # (Auto) Cancelled Wilkinson # (Auto) Cancelled Eos # (Auto) Cancelled Baso # (Auto) Cancelled Abs Immat Gran (auto) Cancelled Absolute Neuts (auto) Cancelled Absolute Nucleated RBC 0.000 Nucleated RBC % (auto) 0.0 Neutrophils % (Manual) 79 H Band Neutrophils % 2 L Lymphocytes % (Manual) 5 L Atypical Lymphs % (Man) 3 Monocytes % (Manual) 6 Eosinophils % (Manual) 4 Metamyelocytes % 1 Abs Neuts (Manual) 15.7 H Lymphocytes # (Manual) 1.0 L Atyp Lymphs # (Manual) 0.6 Monocytes # (Manual) 1.2 Eosinophils # (Manual) 0.8 H Metamyelocytes # 0.2 Platelet Estimate SLIGHTLY INCREASED Plt Morphology Comment NORMAL RBC Morphology NORMAL Anion Gap 13 Estim Creat Clear Calc 93.0 Estimated GFR > 60 POC Glucose 249 H 257 H Random Glucose 220 H Calcium 8.5 Total Bilirubin 0.5 AST 44 H ALT 41 H Alkaline Phosphatase 178 H Total Protein 6.5 Albumin 2.6 L Random Vancomycin Microbiology Microbiology Results: Microbiology 11/02/23 17:21 Blood Culture - Preliminary Blood - Venous No growth after 24 hours. 11/02/23 17:26 Blood Culture - Preliminary Blood - Venous No growth after 24 hours. Assessment and Plan (1) Sepsis: Status: Acute (2) Cellulitis: Status: Acute (3) Insulin dependent type 2 diabetes mellitus: Status: Acute Plan 63-year-old male with history of type 2 insulin dependent diabetes along with history of foot ulcers presents from wound clinic with diabetic foot ulcers. Was given dose of vancomycin and Zosyn in ER and will be admitted for further workup and treatment of same 1. Sepsis secondary to diabetic foot ulcer -sepsis resolved -blood cultures x2 negative times 24 hours -vancomycin/Zosyn (3) -surgical consult appreciated. Recommending BKA. 2. Diabetes type 2 -lispro correctional scale -utilizing home insulin regimen along with sliding scale -2000 calorie ADA diet -adjust therapies as clinically indicated 3. Hypertension -acceptable control on current therapies -adjust as indicated 4. MORAIMA -multifactorial as above -normalized and response to volume. . . Will DC as patient taking adequate p.o. -continue to follow renal and divalents Lovenox Full code Requires ongoing hospitalization for IV antibiotics to treat diabetic foot ulcer Quality Stroke Does the patient have a stroke diagnosis?: No VTE Prior VTE?: No VTE Risk Level:: Medical - moderate - high VTE Device Contraindication: Treatment Not Indicated VTE Drug Contraindication: N/A - Med Ordered
[2023-11-04 11:19] LABS: Glucose, Whole Blood 308 mg/dL (60-115)
--- NOTE | 2023-11-04 14:38 | PM.PNGS ---
Subjective Subjective Date of Service: 11/04/23 Interval history: Patient has no new complaints or issues. Physical Exam Vital Signs: Vital Signs: Last Vital Signs Temp 97.1 F 11/04/23 07:47 Pulse 96 11/04/23 07:47 Resp 20 11/04/23 07:47 BP 165/72 H 11/04/23 09:00 Pulse Ox 93 11/04/23 07:47 O2 Del Method Room Air 11/04/23 07:47 BMI result Body Mass Index 33.2 Extrem: Other: Foul smelling right lower extremity wound status quo. Objective Data Active Medications Acetaminophen (Acetaminophen 325 Mg Tablet) 650 mg PO Q6H PRN PRN Reason: Pain, Mild (Pain Scale 1-3), fever or headache Atorvastatin Calcium (Atorvastatin Calcium 20 Mg Tablet) 20 mg PO DAILY [facility] Last Admin: 11/04/23 09:00 Dose: 20 mg Documented By: KAREEM Calcium Carbonate (Calcium Carbonate 750 Mg Tab.Chew) 750 mg PO Q4H PRN PRN Reason: Heartburn Enoxaparin Sodium (Enoxaparin Sodium 40 Mg/0.4 Ml Syringe) 40 mg SUBCUT Q24H [facility] Last Admin: 11/03/23 18:17 Dose: 40 mg Documented By: KAHLIL Glucose (Glucose Gel 15 Gm Gel..Gram.) 15 gm PO Q15M PRN; Protocol PRN Reason: per Hypoglycemia Standing Ord. Piperacillin Sod/Tazobactam (Sod 4.5 gm/ Sodium Chloride) 100 mls @ 200 mls/hr IV Q8H [facility] Last Infusion: 11/04/23 10:10 Dose: Infused Documented By: KAREEM Dextrose (D10) 250 mls @ 750 mls/hr IV Q15M PRN; Protocol PRN Reason: per Hypoglycemia Standing Ord. Vancomycin HCl 1,000 mg/ (Sodium Chloride) 270 mls @ 270 mls/hr IV Q12H [facility] Last Infusion: 11/04/23 06:29 Dose: Infused Documented By: IVA Insulin Glargine (Insulin Glargine,Hum.Rec.Anlog 100 Unit/Ml 10 Ml Vial) 35 unit SUBCUT BEDTIME [facility] Last Admin: 11/03/23 20:49 Dose: 35 unit Documented By: IVA Insulin Human Lispro (Insulin Lispro 100 Unit/Ml 3 Ml Vial) 0 unit SUBCUT QIDACHS [facility]; Protocol Last Admin: 11/04/23 11:24 Dose: Not Given Documented By: KAREEM Non-Admin Reason: Physician Held Med Insulin Human Lispro (Insulin Lispro 100 Unit/Ml 3 Ml Vial) 18 unit SUBCUT TIDAC [facility] Last Admin: 11/04/23 11:53 Dose: 18 unit Documented By: KAREEM Lisinopril (Lisinopril 20 Mg Tablet) 20 mg PO DAILY [facility]; Protocol Last Admin: 11/04/23 09:00 Dose: 20 mg Documented By: KAREEM Magnesium Hydroxide (Milk Of Magnesia 30 Ml Oral.Susp) 30 ml PO DAILY PRN PRN Reason: Constipation Melatonin (Melatonin 3 Mg Tablet) 6 mg PO BEDTIME PRN PRN Reason: Insomnia Omeprazole (Omeprazole 20 Mg Capsule.Dr) 20 mg PO DAILY@0630 [facility] Last Admin: 11/04/23 06:30 Dose: 20 mg Documented By: IVA Ondansetron HCl (Ondansetron Hcl 4 Mg/2 Ml Vial) 4 mg IVPUSH Q8H PRN PRN Reason: Nausea and Vomiting Oxycodone HCl (Oxycodone Hcl Immed Release 5 Mg Tablet) 5 mg PO Q6H PRN PRN Reason: Pain, Moderate(Pain Scale 4-6) Last Admin: 11/03/23 10:29 Dose: 5 mg Documented By: KAHLIL Pharmacy Consult (Consult Rx Vancomycin Dosing) 1 each MISCELLANE DAILY PRN PRN Reason: Consult order Sodium Chloride (0.9 % Sodium Chloride Flush 3 Ml Syringe) 3 ml IVFLUSH QSHIFT [facility] Last Admin: 11/04/23 09:01 Dose: 3 ml Documented By: KAREEM Labs 11/04/23 05:53 11/04/23 05:53 Labs: Laboratory Results - last 24 hr 11/03/23 11/03/23 11/03/23 16:15 16:30 20:04 MCV MCH MCHC RDW Plt Count MPV Immature Gran % (Auto) Neut % (Auto) Lymph % (Auto) Grand % (Auto) Eos % (Auto) Baso % (Auto) Lymph # (Auto) Grand # (Auto) Eos # (Auto) Baso # (Auto) Abs Immat Gran (auto) Absolute Neuts (auto) Absolute Nucleated RBC Nucleated RBC % (auto) Neutrophils % (Manual) Band Neutrophils % Lymphocytes % (Manual) Atypical Lymphs % (Man) Monocytes % (Manual) Eosinophils % (Manual) Metamyelocytes % Abs Neuts (Manual) Lymphocytes # (Manual) Atyp Lymphs # (Manual) Monocytes # (Manual) Eosinophils # (Manual) Metamyelocytes # Platelet Estimate Plt Morphology Comment RBC Morphology Anion Gap Estim Creat Clear Calc Estimated GFR POC Glucose 276 H 249 H Random Glucose Calcium Total Bilirubin AST ALT Alkaline Phosphatase Total Protein Albumin Random Vancomycin 10.7 L 11/04/23 11/04/23 11/04/23 05:53 07:46 11:15 MCV 80.2 MCH 27.4 MCHC 34.1 RDW 13.0 Plt Count 482 H MPV 10.2 Immature Gran % (Auto) Cancelled Neut % (Auto) Cancelled Lymph % (Auto) Cancelled Grand % (Auto) Cancelled Eos % (Auto) Cancelled Baso % (Auto) Cancelled Lymph # (Auto) Cancelled Grand # (Auto) Cancelled Eos # (Auto) Cancelled Baso # (Auto) Cancelled Abs Immat Gran (auto) Cancelled Absolute Neuts (auto) Cancelled Absolute Nucleated RBC 0.000 Nucleated RBC % (auto) 0.0 Neutrophils % (Manual) 79 H Band Neutrophils % 2 L Lymphocytes % (Manual) 5 L Atypical Lymphs % (Man) 3 Monocytes % (Manual) 6 Eosinophils % (Manual) 4 Metamyelocytes % 1 Abs Neuts (Manual) 15.7 H Lymphocytes # (Manual) 1.0 L Atyp Lymphs # (Manual) 0.6 Monocytes # (Manual) 1.2 Eosinophils # (Manual) 0.8 H Metamyelocytes # 0.2 Platelet Estimate SLIGHTLY INCREASED Plt Morphology Comment NORMAL RBC Morphology NORMAL Anion Gap 13 Estim Creat Clear Calc 93.0 Estimated GFR > 60 POC Glucose 257 H 308 H Random Glucose 220 H Calcium 8.5 Total Bilirubin 0.5 AST 44 H ALT 41 H Alkaline Phosphatase 178 H Total Protein 6.5 Albumin 2.6 L Random Vancomycin Microbiology Microbiology Results: Microbiology 11/02/23 17:21 Blood Culture - Preliminary Blood - Venous No growth after 24 hours. 11/02/23 17:26 Blood Culture - Preliminary Blood - Venous No growth after 24 hours. Procedures Date of Service Date of Service: 11/04/23 Progress Note: A&P Assessment and plan (1) Cellulitis: Status: Acute (2) Sepsis: Status: Acute Plan Once again this discussed with the patient the need for below-knee amputation. Because of the hardware from his ankle fusion, he will require a higher amputation site to avoid the michael. Patient wishes to consider his options. I once again told him that he can become very septic from this process. Also discussed with Dr. Monterroso. If patient wishes to proceed, we will arrange for surgery Monday or Monday. Time Spent With Patient Time: Total time managing care of this patient today ____ minutes. Quality Stroke Does the patient have a stroke diagnosis?: No VTE Prior VTE?: No VTE Risk Level:: Medical - moderate - high VTE Device Contraindication: Treatment Not Indicated VTE Drug Contraindication: N/A - Med Ordered
[2023-11-04 15:05] VITALS: BP 174/82; PULSE 97; RESP 16; TEMP 37.3; O2SAT 92
[2023-11-04 16:16] LABS: Glucose, Whole Blood 269 mg/dL (60-115)
[2023-11-04 16:48] LABS: Vancomycin Random 11.6 mcg/mL (15-20)
[2023-11-04] MEDS: vancomycin HCL 1,250 MG in 0.9 % Sodium Chloride 250 ML 166.67 MG IV (18:10)
[2023-11-04] MEDS: Enoxaparin Sodium 40 MG/0.4 ML SYRINGE SUBCUT (18:14)
[2023-11-04 19:50] VITALS: BP 143/70; PULSE 93; RESP 16; TEMP 36.8; O2SAT 93
[2023-11-04 20:39] LABS: Glucose, Whole Blood 200 mg/dL (60-115)
[2023-11-04] MEDS: Acetaminophen 325 MG TABLET 650 MG PO (21:06)
[2023-11-04] MEDS: Insulin Lispro 100 UNIT/ML 3 ML VIAL SUBCUT (21:06)
[2023-11-04] MEDS: Insulin Glargine,Hum.rec.anlog 100 UNIT/ML 10 ML VIAL 35 UNIT SUBCUT (21:07)
[2023-11-05] MEDS: Piperacillin Sodium/Tazobactam 4.5 GM in 0.9 % Sodium Chloride 100 ML IV ×3 (01:43→17:17)
[2023-11-05 02:53] VITALS: BP 160/81; PULSE 96; RESP 14; TEMP 36.8; O2SAT 94
[2023-11-05] MEDS: vancomycin HCL 1,250 MG in 0.9 % Sodium Chloride 250 ML 166.67 MG IV (05:34)
[2023-11-05] MEDS: Omeprazole 20 MG CAPSULE.DR PO (05:35)
[2023-11-05 06:48] LABS: Basophils Absolute Auto 0.1 X10*3/uL (0.0-0.2); Basophils Percent Auto 0.5 % (0-2); Eosinophils Absolute Auto 0.5 X10*3/uL (0.0-0.4); Eosinophils Percent Auto 2.9 % (0-4); Hematocrit 36.6 % (42.0-52.0); Hemoglobin 12.4 g/dl (14.0-18.0); Imm Gran Abs Auto 0.37 X10*3/uL (0.00-0.03); Lymphocytes Absolute Auto 2.1 X10*3/uL (1.2-4.9); Lymphocytes Percent Auto 11.4 % (20-40); MANUAL DIFF FLAG SCAN; Mean Corpuscular HGB Conc 33.9 g/dl (31.0-36.0); Mean Corpuscular Hemoglobin 27.4 pg (27.0-33.0); Monocytes Absolute Auto 0.8 X10*3/uL (0.1-1.2); Monocytes Percent Auto 4.4 % (2-11); Neutrophils Absolute Auto 14.8 x10*3/uL (2.0-8.3); Neutrophils Percent Auto 78.8 % (45-73); Platelet Count 523 X10*3/uL (160-400); Red Blood Count 4.52 X10*6/uL (4.60-5.80); SCAN SMEAR FLAG 1; White Blood Count 18.8 X10*3/uL (4.8-10.8)
[2023-11-05 06:51] LABS: Alanine Aminotransferase 36 U/L (0-40); Albumin Level 2.7 g/dL (3.5-5.0); Alkaline Phosphatase 183 U/L (39-117); Anion Gap 14 (12-20); Aspartate Amino Transferase 34 U/L (5-37); Bilirubin Total 0.6 mg/dL (0.0-1.0); Blood Urea Nitrogen 12 mg/dL (9-16); Calcium 8.8 mg/dL (8.4-10.2); Carbon Dioxide 28 mmol/L (22-29); Chloride 98 mmol/L (96-108); Creatinine Clr Calc Pharmacy 91.1; Estimated Glomerular Filt Rate > 60; Glucose Random 182 mg/dL (60-115); Potassium 3.5 mmol/L (3.3-5.1); Sodium 136 mmol/L (135-145); Total Protein 7.2 g/dL (6.5-8.0)
[2023-11-05 07:30] VITALS: BP 182/85; PULSE 99; RESP 16; TEMP 37.3; O2SAT 93
[2023-11-05 07:39] LABS: Glucose, Whole Blood 177 mg/dL (60-115)
[2023-11-05 07:40] LABS: SLIDE REVIEW VERIFIED
[2023-11-05 07:44] VITALS: BP 174/79
[2023-11-05] MEDS: Atorvastatin Calcium 20 MG TABLET PO (08:03)
[2023-11-05] MEDS: 0.9 % Sodium Chloride Flush 3 ML SYRINGE IVFLUSH ×3 (08:03→20:32)
[2023-11-05] MEDS: lisinopriL 20 MG TABLET PO (08:03)
--- NOTE | 2023-11-05 10:36 | HO.SKINPHOTO ---
Location: Right foot
--- NOTE | 2023-11-05 11:04 | HO.PM.IMPN ---
Subjective Subjective Date of Service: 11/05/23 Interval History: No acute issues overnight. White count slowly trending downward. Appears more accepting of diagnosis and treatment Review of Systems Denies chest pain Denies fever chills Denies shortness of breath Denies nausea vomiting diarrhea Physical Exam Vital Signs: Vital Signs: Last Vital Signs Temp 99.1 F 11/05/23 07:30 Pulse 99 11/05/23 07:30 Resp 16 11/05/23 07:30 BP 174/79 H 11/05/23 07:44 Pulse Ox 93 11/05/23 07:30 O2 Del Method Room Air 11/05/23 07:30 BMI result Body Mass Index 33.2 Const: Other: Awake alert able to communicate through lip reading and rudimentary signing Resp: Other: Clear to auscultation bilaterally no rales rhonchi or wheezes Cardio: Other: No S4; positive S1-S2; no S3 murmurs rubs or gallops GI: Other: Soft nontender nondistended normoactive bowel sounds Extrem: Other: See emergency room photos of affected foot Objective Data Active Medications Acetaminophen (Acetaminophen 325 Mg Tablet) 650 mg PO Q6H PRN PRN Reason: Pain, Mild (Pain Scale 1-3), fever or headache Last Admin: 11/04/23 21:06 Dose: 650 mg Documented By: IVA Atorvastatin Calcium (Atorvastatin Calcium 20 Mg Tablet) 20 mg PO DAILY [facility] Last Admin: 11/05/23 08:03 Dose: 20 mg Documented By: KAREEM Calcium Carbonate (Calcium Carbonate 750 Mg Tab.Chew) 750 mg PO Q4H PRN PRN Reason: Heartburn Enoxaparin Sodium (Enoxaparin Sodium 40 Mg/0.4 Ml Syringe) 40 mg SUBCUT Q24H [facility] Last Admin: 11/04/23 18:14 Dose: 40 mg Documented By: KAREEM Glucose (Glucose Gel 15 Gm Gel..Gram.) 15 gm PO Q15M PRN; Protocol PRN Reason: per Hypoglycemia Standing Ord. Piperacillin Sod/Tazobactam (Sod 4.5 gm/ Sodium Chloride) 100 mls @ 200 mls/hr IV Q8H [facility] Last Infusion: 11/05/23 10:31 Dose: Infused Documented By: KAREEM Dextrose (D10) 250 mls @ 750 mls/hr IV Q15M PRN; Protocol PRN Reason: per Hypoglycemia Standing Ord. Vancomycin HCl 1,250 mg/ (Sodium Chloride) 250 mls @ 166.667 mls/hr IV Q12H [facility] Last Infusion: 11/05/23 07:33 Dose: Infused Documented By: KAREEM Insulin Glargine (Insulin Glargine,Hum.Rec.Anlog 100 Unit/Ml 10 Ml Vial) 35 unit SUBCUT BEDTIME [facility] Last Admin: 11/04/23 21:07 Dose: 35 unit Documented By: IVA Insulin Human Lispro (Insulin Lispro 100 Unit/Ml 3 Ml Vial) 0 unit SUBCUT QIDACHS [facility]; Protocol Last Admin: 11/05/23 07:52 Dose: Not Given Documented By: KAREEM Non-Admin Reason: Physician Held Med Insulin Human Lispro (Insulin Lispro 100 Unit/Ml 3 Ml Vial) 18 unit SUBCUT TIDAC [facility] Last Admin: 11/05/23 07:56 Dose: Not Given Documented By: KAREEM Non-Admin Reason: Physician Held Med Lisinopril (Lisinopril 20 Mg Tablet) 20 mg PO DAILY [facility]; Protocol Last Admin: 11/05/23 08:03 Dose: 20 mg Documented By: KAREEM Magnesium Hydroxide (Milk Of Magnesia 30 Ml Oral.Susp) 30 ml PO DAILY PRN PRN Reason: Constipation Melatonin (Melatonin 3 Mg Tablet) 6 mg PO BEDTIME PRN PRN Reason: Insomnia Omeprazole (Omeprazole 20 Mg Capsule.Dr) 20 mg PO DAILY@0630 [facility] Last Admin: 11/05/23 05:35 Dose: 20 mg Documented By: IVA Ondansetron HCl (Ondansetron Hcl 4 Mg/2 Ml Vial) 4 mg IVPUSH Q8H PRN PRN Reason: Nausea and Vomiting Oxycodone HCl (Oxycodone Hcl Immed Release 5 Mg Tablet) 5 mg PO Q6H PRN PRN Reason: Pain, Moderate(Pain Scale 4-6) Last Admin: 11/03/23 10:29 Dose: 5 mg Documented By: KAHLIL Pharmacy Consult (Consult Rx Vancomycin Dosing) 1 each MISCELLANE DAILY PRN PRN Reason: Consult order Sodium Chloride (0.9 % Sodium Chloride Flush 3 Ml Syringe) 3 ml IVFLUSH QSHIFT [facility] Last Admin: 11/05/23 08:03 Dose: 3 ml Documented By: KAREEM Labs 11/05/23 05:05 11/05/23 05:05 Labs: Laboratory Results - last 24 hr 11/04/23 11/04/23 11/04/23 11:15 16:09 16:16 MCV MCH MCHC RDW Plt Count MPV Immature Gran % (Auto) Neut % (Auto) Lymph % (Auto) Yates % (Auto) Eos % (Auto) Baso % (Auto) Lymph # (Auto) Yates # (Auto) Eos # (Auto) Baso # (Auto) Abs Immat Gran (auto) Absolute Neuts (auto) Absolute Nucleated RBC Nucleated RBC % (auto) Smear Tech's Comments Anion Gap Estim Creat Clear Calc Estimated GFR POC Glucose 308 H 269 H Random Glucose Calcium Total Bilirubin AST ALT Alkaline Phosphatase Total Protein Albumin Random Vancomycin 11.6 L 11/04/23 11/05/23 11/05/23 19:53 05:05 07:35 MCV 81.0 MCH 27.4 MCHC 33.9 RDW 13.0 Plt Count 523 H MPV 10.0 Immature Gran % (Auto) 2.0 H Neut % (Auto) 78.8 H Lymph % (Auto) 11.4 L Yates % (Auto) 4.4 Eos % (Auto) 2.9 Baso % (Auto) 0.5 Lymph # (Auto) 2.1 Yates # (Auto) 0.8 Eos # (Auto) 0.5 H Baso # (Auto) 0.1 Abs Immat Gran (auto) 0.37 H Absolute Neuts (auto) 14.8 H Absolute Nucleated RBC 0.000 Nucleated RBC % (auto) 0.0 Smear Tech's Comments VERIFIED Anion Gap 14 Estim Creat Clear Calc 91.1 Estimated GFR > 60 POC Glucose 200 H 177 H Random Glucose 182 H Calcium 8.8 Total Bilirubin 0.6 AST 34 ALT 36 Alkaline Phosphatase 183 H Total Protein 7.2 Albumin 2.7 L Random Vancomycin Microbiology Microbiology Results: Microbiology 11/02/23 17:21 Blood Culture - Preliminary Blood - Venous No growth after 48 hours. 11/02/23 17:26 Blood Culture - Preliminary Blood - Venous No growth after 48 hours. Assessment and Plan (1) Sepsis: Status: Acute (2) Diabetic foot ulcers: Status: Acute Plan 63-year-old male with history of type 2 insulin dependent diabetes along with history of foot ulcers presents from wound clinic with diabetic foot ulcers. Was given dose of vancomycin and Zosyn in ER and will be admitted for further workup and treatment of same 1. Sepsis secondary to diabetic foot ulcer -sepsis resolved -blood cultures x2 negative times 48 hours -vancomycin/Zosyn (4) -surgical consult appreciated. Recommending BKA. 2. Diabetes type 2 -lispro correctional scale -utilizing home insulin regimen along with sliding scale -2000 calorie ADA diet -adjust therapies as clinically indicated 3. Hypertension -acceptable control on current therapies -adjust as indicated 4. MORAIMA -multifactorial as above -normalized and response to volume. . . Will DC as patient taking adequate p.o. -continue to follow renal and divalents Lovenox Full code Requires ongoing hospitalization for IV antibiotics to treat diabetic foot ulcer Quality Stroke Does the patient have a stroke diagnosis?: No VTE Prior VTE?: No VTE Risk Level:: Medical - moderate - high VTE Device Contraindication: Treatment Not Indicated VTE Drug Contraindication: N/A - Med Ordered
[2023-11-05 11:12] LABS: Glucose, Whole Blood 209 mg/dL (60-115)
[2023-11-05] MEDS: Insulin Lispro 100 UNIT/ML 3 ML VIAL SUBCUT ×2 (11:48→16:56)
--- NOTE | 2023-11-05 14:14 | PM.PNGS ---
Subjective Subjective Date of Service: 11/05/23 Interval history: No new issues. Patient anxiously awaiting to have his amputation surgery tomorrow. Physical Exam Vital Signs: Vital Signs: Last Vital Signs Temp 99.1 F 11/05/23 07:30 Pulse 99 11/05/23 07:30 Resp 16 11/05/23 07:30 BP 174/79 H 11/05/23 07:44 Pulse Ox 93 11/05/23 07:30 O2 Del Method Room Air 11/05/23 07:30 BMI result Body Mass Index 33.2 Extrem: Other: Right leg prosthesis. Left foot dressing clean dry and intact Objective Data Active Medications Acetaminophen (Acetaminophen 325 Mg Tablet) 650 mg PO Q6H PRN PRN Reason: Pain, Mild (Pain Scale 1-3), fever or headache Last Admin: 11/04/23 21:06 Dose: 650 mg Documented By: CASTILSelma Atorvastatin Calcium (Atorvastatin Calcium 20 Mg Tablet) 20 mg PO DAILY [facility] Last Admin: 11/05/23 08:03 Dose: 20 mg Documented By: KAREEM Calcium Carbonate (Calcium Carbonate 750 Mg Tab.Chew) 750 mg PO Q4H PRN PRN Reason: Heartburn Enoxaparin Sodium (Enoxaparin Sodium 40 Mg/0.4 Ml Syringe) 40 mg SUBCUT Q24H [facility] Last Admin: 11/04/23 18:14 Dose: 40 mg Documented By: KAREEM Glucose (Glucose Gel 15 Gm Gel..Gram.) 15 gm PO Q15M PRN; Protocol PRN Reason: per Hypoglycemia Standing Ord. Piperacillin Sod/Tazobactam (Sod 4.5 gm/ Sodium Chloride) 100 mls @ 200 mls/hr IV Q8H [facility] Last Infusion: 11/05/23 10:31 Dose: Infused Documented By: KAREEM Dextrose (D10) 250 mls @ 750 mls/hr IV Q15M PRN; Protocol PRN Reason: per Hypoglycemia Standing Ord. Vancomycin HCl 1,250 mg/ (Sodium Chloride) 250 mls @ 166.667 mls/hr IV Q12H [facility] Last Infusion: 11/05/23 07:33 Dose: Infused Documented By: KAREEM Insulin Glargine (Insulin Glargine,Hum.Rec.Anlog 100 Unit/Ml 10 Ml Vial) 35 unit SUBCUT BEDTIME [facility] Last Admin: 11/04/23 21:07 Dose: 35 unit Documented By: IVA Insulin Human Lispro (Insulin Lispro 100 Unit/Ml 3 Ml Vial) 0 unit SUBCUT QIDACHS [facility]; Protocol Last Admin: 11/05/23 11:48 Dose: 6 unit Documented By: KAREEM Insulin Human Lispro (Insulin Lispro 100 Unit/Ml 3 Ml Vial) 18 unit SUBCUT TIDAC [facility] Last Admin: 11/05/23 11:23 Dose: Not Given Documented By: KAREEM Non-Admin Reason: Physician Held Med Lisinopril (Lisinopril 20 Mg Tablet) 20 mg PO DAILY [facility]; Protocol Last Admin: 11/05/23 08:03 Dose: 20 mg Documented By: KAREEM Magnesium Hydroxide (Milk Of Magnesia 30 Ml Oral.Susp) 30 ml PO DAILY PRN PRN Reason: Constipation Melatonin (Melatonin 3 Mg Tablet) 6 mg PO BEDTIME PRN PRN Reason: Insomnia Omeprazole (Omeprazole 20 Mg Capsule.Dr) 20 mg PO DAILY@0630 [facility] Last Admin: 11/05/23 05:35 Dose: 20 mg Documented By: IVA Ondansetron HCl (Ondansetron Hcl 4 Mg/2 Ml Vial) 4 mg IVPUSH Q8H PRN PRN Reason: Nausea and Vomiting Oxycodone HCl (Oxycodone Hcl Immed Release 5 Mg Tablet) 5 mg PO Q6H PRN PRN Reason: Pain, Moderate(Pain Scale 4-6) Last Admin: 11/03/23 10:29 Dose: 5 mg Documented By: KAHLIL Pharmacy Consult (Consult Rx Vancomycin Dosing) 1 each MISCELLANE DAILY PRN PRN Reason: Consult order Sodium Chloride (0.9 % Sodium Chloride Flush 3 Ml Syringe) 3 ml IVFLUSH QSHIFT [facility] Last Admin: 11/05/23 08:03 Dose: 3 ml Documented By: KAREEM Labs 11/05/23 05:05 11/05/23 05:05 Labs: Laboratory Results - last 24 hr 11/04/23 11/04/23 11/04/23 16:09 16:16 19:53 MCV MCH MCHC RDW Plt Count MPV Immature Gran % (Auto) Neut % (Auto) Lymph % (Auto) Granite % (Auto) Eos % (Auto) Baso % (Auto) Lymph # (Auto) Granite # (Auto) Eos # (Auto) Baso # (Auto) Abs Immat Gran (auto) Absolute Neuts (auto) Absolute Nucleated RBC Nucleated RBC % (auto) Smear Tech's Comments Anion Gap Estim Creat Clear Calc Estimated GFR POC Glucose 269 H 200 H Random Glucose Calcium Total Bilirubin AST ALT Alkaline Phosphatase Total Protein Albumin Random Vancomycin 11.6 L 11/05/23 11/05/23 11/05/23 05:05 07:35 11:03 MCV 81.0 MCH 27.4 MCHC 33.9 RDW 13.0 Plt Count 523 H MPV 10.0 Immature Gran % (Auto) 2.0 H Neut % (Auto) 78.8 H Lymph % (Auto) 11.4 L Granite % (Auto) 4.4 Eos % (Auto) 2.9 Baso % (Auto) 0.5 Lymph # (Auto) 2.1 Granite # (Auto) 0.8 Eos # (Auto) 0.5 H Baso # (Auto) 0.1 Abs Immat Gran (auto) 0.37 H Absolute Neuts (auto) 14.8 H Absolute Nucleated RBC 0.000 Nucleated RBC % (auto) 0.0 Smear Tech's Comments VERIFIED Anion Gap 14 Estim Creat Clear Calc 91.1 Estimated GFR > 60 POC Glucose 177 H 209 H Random Glucose 182 H Calcium 8.8 Total Bilirubin 0.6 AST 34 ALT 36 Alkaline Phosphatase 183 H Total Protein 7.2 Albumin 2.7 L Random Vancomycin Microbiology Microbiology Results: Microbiology 11/02/23 17:21 Blood Culture - Preliminary Blood - Venous No growth after 48 hours. 11/02/23 17:26 Blood Culture - Preliminary Blood - Venous No growth after 48 hours. Procedures Date of Service Date of Service: 11/05/23 Progress Note: A&P Assessment and plan (1) Diabetic foot ulcers: Status: Acute (2) Cellulitis: Status: Acute Plan For surgery tomorrow. Time Spent With Patient Time: Total time managing care of this patient today ____ minutes. Quality Stroke Does the patient have a stroke diagnosis?: No VTE Prior VTE?: No VTE Risk Level:: Medical - moderate - high VTE Device Contraindication: Treatment Not Indicated VTE Drug Contraindication: N/A - Med Ordered
[2023-11-05 15:32] VITALS: BP 176/83; PULSE 92; RESP 18; TEMP 36.3; O2SAT 94
[2023-11-05 16:16] LABS: Glucose, Whole Blood 250 mg/dL (60-115)
[2023-11-05 16:24] LABS: Vancomycin Random 16.2 mcg/mL (15-20)
[2023-11-05] MEDS: Enoxaparin Sodium 40 MG/0.4 ML SYRINGE SUBCUT (17:17)
[2023-11-05] MEDS: vancomycin HCL 1,000 MG in 0.9 % Sodium Chloride 250 ML 270 MG IV (17:50)
[2023-11-05 19:49] VITALS: BP 171/81; PULSE 82; RESP 18; TEMP 37.1; O2SAT 94
[2023-11-05 20:02] LABS: Glucose, Whole Blood 329 mg/dL (60-115)
[2023-11-05] MEDS: Insulin Glargine,Hum.rec.anlog 100 UNIT/ML 10 ML VIAL 35 UNIT SUBCUT (20:31)
[2023-11-05] MEDS: oxyCODONE HCl Immed Release 5 MG TABLET PO (20:31)
[2023-11-05 22:00] LABS: Glucose, Whole Blood 346 mg/dL (60-115)
[2023-11-05] MEDS: Insulin Lispro 100 UNIT/ML 3 ML VIAL 12 UNIT SUBCUT (22:35)
[2023-11-06] VITALS (12 sets, daily range): BP systolic 119–160; BP diastolic 62–84; PULSE 81–92; RESP 12–18; TEMP 36–37.2; O2SAT 93–99
[2023-11-06] MEDS: Piperacillin Sodium/Tazobactam 4.5 GM in 0.9 % Sodium Chloride 100 ML IV ×3 (02:14→19:22)
[2023-11-06] MEDS: vancomycin HCL 1,000 MG in 0.9 % Sodium Chloride 250 ML 270 MG IV ×2 (05:57→20:02)
[2023-11-06] MEDS: Omeprazole 20 MG CAPSULE.DR PO (06:06)
[2023-11-06 06:50] LABS: Creatinine Clr Calc Pharmacy 80.5; Estimated Glomerular Filt Rate > 60
[2023-11-06 07:37] LABS: Glucose, Whole Blood 193 mg/dL (60-115)
--- NOTE | 2023-11-06 08:50 | PC.NURSE ---
Pt stated OK to give information to brother in [place]. Face sheet updated, no phone number provided.
[2023-11-06] MEDS: lisinopriL 20 MG TABLET PO (08:54)
[2023-11-06] MEDS: Atorvastatin Calcium 20 MG TABLET PO (08:54)
[2023-11-06] MEDS: 0.9 % Sodium Chloride Flush 3 ML SYRINGE IVFLUSH ×2 (08:57→19:23)
--- NOTE | 2023-11-06 09:29 | PC.NURSE ---
0930- report given to ARELY Genao in pre-op.
[2023-11-06 11:19] LABS: Glucose, Whole Blood 201 mg/dL (60-115)
--- NOTE | 2023-11-06 12:35 | P.PNIM_ITS ---
Subjective Subjective Date of Service: 11/06/23 Interval History: Being followed for right foot diabetic ulcer, is NPO for scheduled BKA surgery. Offers no acute complaints, patient is deaf communicated through writing. Stable blood sugars, hold insulin. Review of Systems All other system reviewed and are negative. Physical Exam 2 Vital Signs: Vital Signs: Last Vital Signs Temp 96.9 F 11/06/23 07:59 Pulse 84 11/06/23 07:59 Resp 12 11/06/23 07:59 BP 160/83 H 11/06/23 07:59 Pulse Ox 94 11/06/23 07:59 O2 Del Method Room Air 11/06/23 07:59 BMI result Body Mass Index 33.2 Const: Other: General awake alert x3, in no acute distress. Anicteric sclera Neck no JVD. CVS regular rate rhythm, Respiratory lungs clear to auscultation, no respiratory distress, no wheeze, no rhonchi. Gastrointestinal abdomen soft, non tender, bowel sounds audible Extremities right foot plantar aspect large unstageable ulcer/see photo in ED note Neuro non focal Skin no rash Objective Data Active Medications Acetaminophen (Acetaminophen 325 Mg Tablet) 650 mg PO Q6H PRN PRN Reason: Pain, Mild (Pain Scale 1-3), fever or headache Last Admin: 11/04/23 21:06 Dose: 650 mg Documented By: IVA Atorvastatin Calcium (Atorvastatin Calcium 20 Mg Tablet) 20 mg PO DAILY [facility] Last Admin: 11/06/23 08:54 Dose: 20 mg Documented By: KAHLIL Calcium Carbonate (Calcium Carbonate 750 Mg Tab.Chew) 750 mg PO Q4H PRN PRN Reason: Heartburn Enoxaparin Sodium (Enoxaparin Sodium 40 Mg/0.4 Ml Syringe) 40 mg SUBCUT Q24H [facility] Last Admin: 11/05/23 17:17 Dose: 40 mg Documented By: KAREEM Glucose (Glucose Gel 15 Gm Gel..Gram.) 15 gm PO Q15M PRN; Protocol PRN Reason: per Hypoglycemia Standing Ord. Piperacillin Sod/Tazobactam (Sod 4.5 gm/ Sodium Chloride) 100 mls @ 200 mls/hr IV Q8H [facility] Last Infusion: 11/06/23 10:42 Dose: Infused Documented By: KAHLIL Dextrose (D10) 250 mls @ 750 mls/hr IV Q15M PRN; Protocol PRN Reason: per Hypoglycemia Standing Ord. Vancomycin HCl 1,000 mg/ (Sodium Chloride) 270 mls @ 270 mls/hr IV Q12H [facility] Last Infusion: 11/06/23 07:24 Dose: Infused Documented By: KAHLIL Insulin Glargine (Insulin Glargine,Hum.Rec.Anlog 100 Unit/Ml 10 Ml Vial) 35 unit SUBCUT BEDTIME [facility] Last Admin: 11/05/23 20:31 Dose: 35 unit Documented By: IVA Insulin Human Lispro (Insulin Lispro 100 Unit/Ml 3 Ml Vial) 0 unit SUBCUT QIDACHS [facility]; Protocol Last Admin: 11/06/23 12:22 Dose: Not Given Documented By: KAHLIL Non-Admin Reason: held med/NPO Insulin Human Lispro (Insulin Lispro 100 Unit/Ml 3 Ml Vial) 18 unit SUBCUT TIDAC [facility] Last Admin: 11/06/23 12:22 Dose: Not Given Documented By: KAHLIL Non-Admin Reason: held med/NPO. Lisinopril (Lisinopril 20 Mg Tablet) 20 mg PO DAILY [facility]; Protocol Last Admin: 11/06/23 08:54 Dose: 20 mg Documented By: KAHLIL Magnesium Hydroxide (Milk Of Magnesia 30 Ml Oral.Susp) 30 ml PO DAILY PRN PRN Reason: Constipation Melatonin (Melatonin 3 Mg Tablet) 6 mg PO BEDTIME PRN PRN Reason: Insomnia Omeprazole (Omeprazole 20 Mg Capsule.Dr) 20 mg PO DAILY@0630 [facility] Last Admin: 11/06/23 06:06 Dose: 20 mg Documented By: IVA Ondansetron HCl (Ondansetron Hcl 4 Mg/2 Ml Vial) 4 mg IVPUSH Q8H PRN PRN Reason: Nausea and Vomiting Oxycodone HCl (Oxycodone Hcl Immed Release 5 Mg Tablet) 5 mg PO Q6H PRN PRN Reason: Pain, Moderate(Pain Scale 4-6) Last Admin: 11/05/23 20:31 Dose: 5 mg Documented By: IVA Pharmacy Consult (Consult Rx Vancomycin Dosing) 1 each MISCELLANE DAILY PRN PRN Reason: Consult order Sodium Chloride (0.9 % Sodium Chloride Flush 3 Ml Syringe) 3 ml IVFLUSH QSHIFT [facility] Last Admin: 11/06/23 08:57 Dose: 3 ml Documented By: KAHLIL Labs 11/05/23 05:05 11/06/23 05:36 Labs: Laboratory Results - last 24 hr 11/05/23 11/05/23 11/05/23 15:59 16:12 19:58 Hold Purple Top Estim Creat Clear Calc Estimated GFR POC Glucose 250 H 329 H Random Vancomycin 16.2 11/05/23 11/06/23 11/06/23 21:56 05:36 07:32 Hold Purple Top SEE NOTE Estim Creat Clear Calc 80.5 Estimated GFR > 60 POC Glucose 346 H 193 H Random Vancomycin 11/06/23 11:06 Hold Purple Top Estim Creat Clear Calc Estimated GFR POC Glucose 201 H Random Vancomycin Assessment and Plan (1) Sepsis: Status: Acute (2) Diabetic foot ulcers: Status: Acute Plan 63-year-old male with history of type 2 insulin dependent diabetes along with history of foot ulcers presents from wound clinic with diabetic foot ulcers. Was given dose of vancomycin and Zosyn in ER and will be admitted for further workup and treatment of same 1. Sepsis secondary to diabetic foot ulcer -persistent leukocytosis, no fevers -blood cultures x2 negative times 48 hours -continue vancomycin/Zosyn started 11/02 -surgical consult appreciated. NPO for BKA scheduled for today . 2. Diabetes type 2 -elevated blood sugars on Lantus, pre meal insulin and lispro correctional scale -continue 2000 calorie ADA diet -adjust insulin 3. Hypertension -elevated blood pressure on lisinopril 20 mg daily, question due to anxiety follow BP and adjust medication as indicated 4. MORAIMA -likely prerenal resolved with IV fluids Lovenox Full code Requires ongoing hospitalization for IV antibiotics to treat diabetic foot ulcer Quality Stroke Does the patient have a stroke diagnosis?: No VTE Prior VTE?: No VTE Risk Level:: Medical - moderate - high VTE Device Contraindication: Treatment Not Indicated VTE Drug Contraindication: N/A - Med Ordered
--- NOTE | 2023-11-06 14:00 | MHC.CM.PN ---
met with family who want pt to go to a rehab when dcd referral to [facility] as first choice
--- NOTE | 2023-11-06 15:09 | HO.WOUND ---
Wound consult received for Right Foot wound - chart review reveals set for OR for amputation. TT with Dr Leiva confirmed no need to inpatient wound care nurse to see patient. Will re-consult if topical recommendations are needed.
--- NOTE | 2023-11-06 15:10 | P.CONAN_ITS ---
HPI - Anesthesia Eval Consult details Narrative: 63 yo M presenting for right BKA. Deaf and uses ASL. PMF Active Problems Active Problems: All Active Problems Sepsis (Acute) Cellulitis (Acute) Diabetic foot ulcers (Acute) Deaf (Acute) Hypercholesterolemia (Acute) HTN (hypertension) (Acute) Insulin dependent type 2 diabetes mellitus (Acute) Precordial chest pain (Acute) Past Medical History Medical History Diabetic neuropathy Hypercholesterolemia HTN (hypertension) Deaf Iron deficiency anemia Insulin dependent type 2 diabetes mellitus Family History Family History Father No problems noted. Father No problems noted. Mother No problems noted. Family history of problems with anesthesia: No Surgical History Surgical History History of foot surgery Hx of colonoscopy History of esophagogastroduodenoscopy (EGD) History of Problems with Anesthesia: No Social History Social History Household Members: None Housing: House Do you presently have visiting nurse or other home services: No Alcohol intake: current Alcohol intake frequency: holidays/special occasions only Patient Tobacco Use Status: Never used Tobacco service: No Meds Allergies Allergy/AdvReac Type Severity Reaction Status Date / Time No Known Allergies Allergy Mild NONE Verified 11/06/23 14:30 Active Medications: Current Medications Acetaminophen (Acetaminophen 325 Mg Tablet) 650 mg PO Q6H PRN PRN Reason: Pain, Mild (Pain Scale 1-3), fever or headache Last Admin: 11/04/23 21:06 Dose: 650 mg Atorvastatin Calcium (Atorvastatin Calcium 20 Mg Tablet) 20 mg PO DAILY [facility] Last Admin: 11/06/23 08:54 Dose: 20 mg Calcium Carbonate (Calcium Carbonate 750 Mg Tab.Chew) 750 mg PO Q4H PRN PRN Reason: Heartburn Enoxaparin Sodium (Enoxaparin Sodium 40 Mg/0.4 Ml Syringe) 40 mg SUBCUT Q24H [facility] Last Admin: 11/05/23 17:17 Dose: 40 mg Glucose (Glucose Gel 15 Gm Gel..Gram.) 15 gm PO Q15M PRN; Protocol PRN Reason: per Hypoglycemia Standing Ord. Piperacillin Sod/Tazobactam (Sod 4.5 gm/ Sodium Chloride) 100 mls @ 200 mls/hr IV Q8H [facility] Last Infusion: 11/06/23 10:42 Dose: Infused Dextrose (D10) 250 mls @ 750 mls/hr IV Q15M PRN; Protocol PRN Reason: per Hypoglycemia Standing Ord. Vancomycin HCl 1,000 mg/ (Sodium Chloride) 270 mls @ 270 mls/hr IV Q12H [facility] Last Infusion: 11/06/23 07:24 Dose: Infused Insulin Glargine (Insulin Glargine,Hum.Rec.Anlog 100 Unit/Ml 10 Ml Vial) 35 unit SUBCUT BEDTIME [facility] Last Admin: 11/05/23 20:31 Dose: 35 unit Insulin Human Lispro (Insulin Lispro 100 Unit/Ml 3 Ml Vial) 0 unit SUBCUT QIDACHS [facility]; Protocol Last Admin: 11/06/23 12:22 Dose: Not Given Insulin Human Lispro (Insulin Lispro 100 Unit/Ml 3 Ml Vial) 18 unit SUBCUT TIDAC [facility] Last Admin: 11/06/23 12:22 Dose: Not Given Lisinopril (Lisinopril 20 Mg Tablet) 20 mg PO DAILY [facility]; Protocol Last Admin: 11/06/23 08:54 Dose: 20 mg Magnesium Hydroxide (Milk Of Magnesia 30 Ml Oral.Susp) 30 ml PO DAILY PRN PRN Reason: Constipation Melatonin (Melatonin 3 Mg Tablet) 6 mg PO BEDTIME PRN PRN Reason: Insomnia Omeprazole (Omeprazole 20 Mg Capsule.Dr) 20 mg PO DAILY@0630 [facility] Last Admin: 11/06/23 06:06 Dose: 20 mg Ondansetron HCl (Ondansetron Hcl 4 Mg/2 Ml Vial) 4 mg IVPUSH Q8H PRN PRN Reason: Nausea and Vomiting Oxycodone HCl (Oxycodone Hcl Immed Release 5 Mg Tablet) 5 mg PO Q6H PRN PRN Reason: Pain, Moderate(Pain Scale 4-6) Last Admin: 11/05/23 20:31 Dose: 5 mg Pharmacy Consult (Consult Rx Vancomycin Dosing) 1 each MISCELLANE DAILY PRN PRN Reason: Consult order Sodium Chloride (0.9 % Sodium Chloride Flush 3 Ml Syringe) 3 ml IVFLUSH QSHIFT [facility] Last Admin: 11/06/23 08:57 Dose: 3 ml Home Medications ?Medication ?Instructions ?Recorded ?Confirmed ?Last Taken ?Type atorvastatin 20 mg tablet 20 mg PO DAILY 02/03/21 11/02/23 11/02/23 12:30 History insulin glargine U-300 conc 300 44 unit subcut BEDTIME 02/03/21 11/02/23 11/01/23 History unit/mL (1.5 mL) subcutaneous pen (Toujeo SoloStar U-300 Insulin) insulin lispro 100 unit/mL 18 unit subcut TIDAC 02/03/21 11/02/23 11/02/23 12:30 History subcutaneous pen (Humalog KwikPen (U-100) Insulin) lisinopril 20 mg tablet 20 mg PO DAILY 02/03/21 11/02/23 11/02/23 12:30 History Exam Exam Date and Time: November 06, 2023 1510 Height,Weight and Vital Signs: Height 5 ft 10 in Weight 105 kg Last Vital Signs Temp 96.9 F 11/06/23 07:59 Pulse 84 11/06/23 07:59 Resp 12 11/06/23 07:59 BP 160/83 H 11/06/23 07:59 Pulse Ox 94 11/06/23 07:59 O2 Del Method Room Air 11/06/23 07:59 Pertinent Lab Results Pertinent Lab Results: Laboratory Tests 11/02/23 11/02/23 11/03/23 17:26 21:02 00:14 WBC 22.7 H RBC 4.85 Hgb 13.2 L Hct 38.9 L MCV 80.2 MCH 27.2 MCHC 33.9 RDW 12.5 Plt Count 456 H D MPV 10.1 Immature Gran % (Auto) 1.3 H Neut % (Auto) 86.0 H Lymph % (Auto) 4.8 L Perry % (Auto) 7.2 Eos % (Auto) 0.4 Baso % (Auto) 0.3 Lymph # (Auto) 1.1 L Perry # (Auto) 1.6 H Eos # (Auto) 0.1 Baso # (Auto) 0.1 Abs Immat Gran (auto) 0.29 H Absolute Neuts (auto) 19.5 H Absolute Nucleated RBC 0.000 Nucleated RBC % (auto) 0.0 Neutrophils % (Manual) Band Neutrophils % Lymphocytes % (Manual) Atypical Lymphs % (Man) Monocytes % (Manual) Eosinophils % (Manual) Metamyelocytes % Abs Neuts (Manual) Lymphocytes # (Manual) Atyp Lymphs # (Manual) Monocytes # (Manual) Eosinophils # (Manual) Metamyelocytes # Platelet Estimate Plt Morphology Comment RBC Morphology Smear Tech's Comments VERIFIED ESR 77 H Hold Purple Top Sodium 134 L Potassium 4.2 Chloride 95 L Carbon Dioxide 24 Anion Gap 19 BUN 20 H Creatinine 1.42 H Estim Creat Clear Calc 62.7 Estimated GFR 50 POC Glucose 390 H* 388 H* Random Glucose 220 H Lactic Acid 1.4 Calcium 9.3 Total Bilirubin 0.9 AST 67 H ALT 53 H Alkaline Phosphatase 239 H C-Reactive Protein 21.20 H Total Protein 7.9 Albumin 3.4 L Random Vancomycin 11/03/23 11/03/23 11/03/23 03:57 04:40 05:26 WBC RBC Hgb Hct MCV MCH MCHC RDW Plt Count MPV Immature Gran % (Auto) Neut % (Auto) Lymph % (Auto) Perry % (Auto) Eos % (Auto) Baso % (Auto) Lymph # (Auto) Perry # (Auto) Eos # (Auto) Baso # (Auto) Abs Immat Gran (auto) Absolute Neuts (auto) Absolute Nucleated RBC Nucleated RBC % (auto) Neutrophils % (Manual) Band Neutrophils % Lymphocytes % (Manual) Atypical Lymphs % (Man) Monocytes % (Manual) Eosinophils % (Manual) Metamyelocytes % Abs Neuts (Manual) Lymphocytes # (Manual) Atyp Lymphs # (Manual) Monocytes # (Manual) Eosinophils # (Manual) Metamyelocytes # Platelet Estimate Plt Morphology Comment RBC Morphology Smear Tech's Comments ESR Hold Purple Top Sodium Potassium Chloride Carbon Dioxide Anion Gap BUN Creatinine Estim Creat Clear Calc Estimated GFR POC Glucose 317 H 315 H 303 H Random Glucose Lactic Acid Calcium Total Bilirubin AST ALT Alkaline Phosphatase C-Reactive Protein Total Protein Albumin Random Vancomycin 11/03/23 11/03/23 11/03/23 05:35 06:17 07:00 WBC 20.7 H RBC 4.45 L Hgb 12.4 L Hct 35.6 L MCV 80.0 MCH 27.9 MCHC 34.8 RDW 12.6 Plt Count 437 H MPV 10.5 Immature Gran % (Auto) 1.3 H Neut % (Auto) 82.6 H Lymph % (Auto) 8.4 L Perry % (Auto) 5.8 Eos % (Auto) 1.5 Baso % (Auto) 0.4 Lymph # (Auto) 1.7 Perry # (Auto) 1.2 Eos # (Auto) 0.3 Baso # (Auto) 0.1 Abs Immat Gran (auto) 0.26 H Absolute Neuts (auto) 17.1 H Absolute Nucleated RBC 0.000 Nucleated RBC % (auto) 0.0 Neutrophils % (Manual) Band Neutrophils % Lymphocytes % (Manual) Atypical Lymphs % (Man) Monocytes % (Manual) Eosinophils % (Manual) Metamyelocytes % Abs Neuts (Manual) Lymphocytes # (Manual) Atyp Lymphs # (Manual) Monocytes # (Manual) Eosinophils # (Manual) Metamyelocytes # Platelet Estimate Plt Morphology Comment RBC Morphology Smear Tech's Comments VERIFIED ESR Hold Purple Top Sodium 136 Potassium 3.7 Chloride 100 Carbon Dioxide 24 Anion Gap 16 BUN 19 H Creatinine 1.23 Estim Creat Clear Calc 72.4 Estimated GFR 59 POC Glucose 274 H 267 H Random Glucose 299 H Lactic Acid Calcium 8.6 D Total Bilirubin 0.6 AST 45 H ALT 49 H Alkaline Phosphatase 185 H C-Reactive Protein Total Protein 6.6 Albumin 2.8 L Random Vancomycin 11/03/23 11/03/23 11/03/23 11:10 16:15 16:30 WBC RBC Hgb Hct MCV MCH MCHC RDW Plt Count MPV Immature Gran % (Auto) Neut % (Auto) Lymph % (Auto) Perry % (Auto) Eos % (Auto) Baso % (Auto) Lymph # (Auto) Perry # (Auto) Eos # (Auto) Baso # (Auto) Abs Immat Gran (auto) Absolute Neuts (auto) Absolute Nucleated RBC Nucleated RBC % (auto) Neutrophils % (Manual) Band Neutrophils % Lymphocytes % (Manual) Atypical Lymphs % (Man) Monocytes % (Manual) Eosinophils % (Manual) Metamyelocytes % Abs Neuts (Manual) Lymphocytes # (Manual) Atyp Lymphs # (Manual) Monocytes # (Manual) Eosinophils # (Manual) Metamyelocytes # Platelet Estimate Plt Morphology Comment RBC Morphology Smear Tech's Comments ESR Hold Purple Top Sodium Potassium Chloride Carbon Dioxide Anion Gap BUN Creatinine Estim Creat Clear Calc Estimated GFR POC Glucose 275 H 276 H Random Glucose Lactic Acid Calcium Total Bilirubin AST ALT Alkaline Phosphatase C-Reactive Protein Total Protein Albumin Random Vancomycin 10.7 L 11/03/23 11/04/23 11/04/23 20:04 05:53 07:46 WBC 19.4 H RBC 4.20 L Hgb 11.5 L Hct 33.7 L MCV 80.2 MCH 27.4 MCHC 34.1 RDW 13.0 Plt Count 482 H MPV 10.2 Immature Gran % (Auto) Cancelled Neut % (Auto) Cancelled Lymph % (Auto) Cancelled Perry % (Auto) Cancelled Eos % (Auto) Cancelled Baso % (Auto) Cancelled Lymph # (Auto) Cancelled Perry # (Auto) Cancelled Eos # (Auto) Cancelled Baso # (Auto) Cancelled Abs Immat Gran (auto) Cancelled Absolute Neuts (auto) Cancelled Absolute Nucleated RBC 0.000 Nucleated RBC % (auto) 0.0 Neutrophils % (Manual) 79 H Band Neutrophils % 2 L Lymphocytes % (Manual) 5 L Atypical Lymphs % (Man) 3 Monocytes % (Manual) 6 Eosinophils % (Manual) 4 Metamyelocytes % 1 Abs Neuts (Manual) 15.7 H Lymphocytes # (Manual) 1.0 L Atyp Lymphs # (Manual) 0.6 Monocytes # (Manual) 1.2 Eosinophils # (Manual) 0.8 H Metamyelocytes # 0.2 Platelet Estimate SLIGHTLY INCREASED Plt Morphology Comment NORMAL RBC Morphology NORMAL Smear Tech's Comments ESR Hold Purple Top Sodium 135 Potassium 3.7 Chloride 100 Carbon Dioxide 26 Anion Gap 13 BUN 15 Creatinine 0.96 Estim Creat Clear Calc 93.0 Estimated GFR > 60 POC Glucose 249 H 257 H Random Glucose 220 H Lactic Acid Calcium 8.5 Total Bilirubin 0.5 AST 44 H ALT 41 H Alkaline Phosphatase 178 H C-Reactive Protein Total Protein 6.5 Albumin 2.6 L Random Vancomycin 11/04/23 11/04/23 11/04/23 11:15 16:09 16:16 WBC RBC Hgb Hct MCV MCH MCHC RDW Plt Count MPV Immature Gran % (Auto) Neut % (Auto) Lymph % (Auto) Perry % (Auto) Eos % (Auto) Baso % (Auto) Lymph # (Auto) Perry # (Auto) Eos # (Auto) Baso # (Auto) Abs Immat Gran (auto) Absolute Neuts (auto) Absolute Nucleated RBC Nucleated RBC % (auto) Neutrophils % (Manual) Band Neutrophils % Lymphocytes % (Manual) Atypical Lymphs % (Man) Monocytes % (Manual) Eosinophils % (Manual) Metamyelocytes % Abs Neuts (Manual) Lymphocytes # (Manual) Atyp Lymphs # (Manual) Monocytes # (Manual) Eosinophils # (Manual) Metamyelocytes # Platelet Estimate Plt Morphology Comment RBC Morphology Smear Tech's Comments ESR Hold Purple Top Sodium Potassium Chloride Carbon Dioxide Anion Gap BUN Creatinine Estim Creat Clear Calc Estimated GFR POC Glucose 308 H 269 H Random Glucose Lactic Acid Calcium Total Bilirubin AST ALT Alkaline Phosphatase C-Reactive Protein Total Protein Albumin Random Vancomycin 11.6 L 11/04/23 11/05/23 11/05/23 19:53 05:05 07:35 WBC 18.8 H RBC 4.52 L Hgb 12.4 L Hct 36.6 L MCV 81.0 MCH 27.4 MCHC 33.9 RDW 13.0 Plt Count 523 H MPV 10.0 Immature Gran % (Auto) 2.0 H Neut % (Auto) 78.8 H Lymph % (Auto) 11.4 L Perry % (Auto) 4.4 Eos % (Auto) 2.9 Baso % (Auto) 0.5 Lymph # (Auto) 2.1 Perry # (Auto) 0.8 Eos # (Auto) 0.5 H Baso # (Auto) 0.1 Abs Immat Gran (auto) 0.37 H Absolute Neuts (auto) 14.8 H Absolute Nucleated RBC 0.000 Nucleated RBC % (auto) 0.0 Neutrophils % (Manual) Band Neutrophils % Lymphocytes % (Manual) Atypical Lymphs % (Man) Monocytes % (Manual) Eosinophils % (Manual) Metamyelocytes % Abs Neuts (Manual) Lymphocytes # (Manual) Atyp Lymphs # (Manual) Monocytes # (Manual) Eosinophils # (Manual) Metamyelocytes # Platelet Estimate Plt Morphology Comment RBC Morphology Smear Tech's Comments VERIFIED ESR Hold Purple Top Sodium 136 Potassium 3.5 Chloride 98 Carbon Dioxide 28 Anion Gap 14 BUN 12 Creatinine 0.98 Estim Creat Clear Calc 91.1 Estimated GFR > 60 POC Glucose 200 H 177 H Random Glucose 182 H Lactic Acid Calcium 8.8 Total Bilirubin 0.6 AST 34 ALT 36 Alkaline Phosphatase 183 H C-Reactive Protein Total Protein 7.2 Albumin 2.7 L Random Vancomycin 11/05/23 11/05/23 11/05/23 11:03 15:59 16:12 WBC RBC Hgb Hct MCV MCH MCHC RDW Plt Count MPV Immature Gran % (Auto) Neut % (Auto) Lymph % (Auto) Perry % (Auto) Eos % (Auto) Baso % (Auto) Lymph # (Auto) Perry # (Auto) Eos # (Auto) Baso # (Auto) Abs Immat Gran (auto) Absolute Neuts (auto) Absolute Nucleated RBC Nucleated RBC % (auto) Neutrophils % (Manual) Band Neutrophils % Lymphocytes % (Manual) Atypical Lymphs % (Man) Monocytes % (Manual) Eosinophils % (Manual) Metamyelocytes % Abs Neuts (Manual) Lymphocytes # (Manual) Atyp Lymphs # (Manual) Monocytes # (Manual) Eosinophils # (Manual) Metamyelocytes # Platelet Estimate Plt Morphology Comment RBC Morphology Smear Tech's Comments ESR Hold Purple Top Sodium Potassium Chloride Carbon Dioxide Anion Gap BUN Creatinine Estim Creat Clear Calc Estimated GFR POC Glucose 209 H 250 H Random Glucose Lactic Acid Calcium Total Bilirubin AST ALT Alkaline Phosphatase C-Reactive Protein Total Protein Albumin Random Vancomycin 16.2 11/05/23 11/05/23 11/06/23 19:58 21:56 05:36 WBC RBC Hgb Hct MCV MCH MCHC RDW Plt Count MPV Immature Gran % (Auto) Neut % (Auto) Lymph % (Auto) Perry % (Auto) Eos % (Auto) Baso % (Auto) Lymph # (Auto) Perry # (Auto) Eos # (Auto) Baso # (Auto) Abs Immat Gran (auto) Absolute Neuts (auto) Absolute Nucleated RBC Nucleated RBC % (auto) Neutrophils % (Manual) Band Neutrophils % Lymphocytes % (Manual) Atypical Lymphs % (Man) Monocytes % (Manual) Eosinophils % (Manual) Metamyelocytes % Abs Neuts (Manual) Lymphocytes # (Manual) Atyp Lymphs # (Manual) Monocytes # (Manual) Eosinophils # (Manual) Metamyelocytes # Platelet Estimate Plt Morphology Comment RBC Morphology Smear Tech's Comments ESR Hold Purple Top SEE NOTE Sodium Potassium Chloride Carbon Dioxide Anion Gap BUN Creatinine 1.11 Estim Creat Clear Calc 80.5 Estimated GFR > 60 POC Glucose 329 H 346 H Random Glucose Lactic Acid Calcium Total Bilirubin AST ALT Alkaline Phosphatase C-Reactive Protein Total Protein Albumin Random Vancomycin 11/06/23 11/06/23 07:32 11:06 WBC RBC Hgb Hct MCV MCH MCHC RDW Plt Count MPV Immature Gran % (Auto) Neut % (Auto) Lymph % (Auto) Perry % (Auto) Eos % (Auto) Baso % (Auto) Lymph # (Auto) Perry # (Auto) Eos # (Auto) Baso # (Auto) Abs Immat Gran (auto) Absolute Neuts (auto) Absolute Nucleated RBC Nucleated RBC % (auto) Neutrophils % (Manual) Band Neutrophils % Lymphocytes % (Manual) Atypical Lymphs % (Man) Monocytes % (Manual) Eosinophils % (Manual) Metamyelocytes % Abs Neuts (Manual) Lymphocytes # (Manual) Atyp Lymphs # (Manual) Monocytes # (Manual) Eosinophils # (Manual) Metamyelocytes # Platelet Estimate Plt Morphology Comment RBC Morphology Smear Tech's Comments ESR Hold Purple Top Sodium Potassium Chloride Carbon Dioxide Anion Gap BUN Creatinine Estim Creat Clear Calc Estimated GFR POC Glucose 193 H 201 H Random Glucose Lactic Acid Calcium Total Bilirubin AST ALT Alkaline Phosphatase C-Reactive Protein Total Protein Albumin Random Vancomycin Airway Mallampati Class: III TM Dist: >3cm Neck ROM: Full Loose/Missing/Broken Teeth: No (patient denies any loose or broken teeth) Heart: S1S2 Lungs: CTAB Assessment and Plan Assessment Anesthesia Assessment: Anesthesia Plan Discussed and Chart Reviewed Final Anesthetic Review Family History of Problems with Anesthesia: No History of Problems with Anesthesia: No NPO: Yes ASA Class: III Final Preanesthetic Review: No Changes in Pt Med Stat, Meds/Allgs Chart Reviewed, Consent Obtained/Reviewed (using [employer] proced tech for ASL) and Anes Risks/Benef Reviewed Patient Risk: Intermediate Procedure Risk: Intermediate Anesthetic Plan Anesthetic Plan: GA and Agree w/ Assess. and Plan Disposition: Standard PACU
[2023-11-06 15:11] LABS: Glucose, Whole Blood 234 mg/dL (60-115)
--- NOTE | 2023-11-06 15:21 | PC.NURSE ---
report given to aguila francois rn at this time. Aware that only one spot needs to be signed on preop record.
--- NOTE | 2023-11-06 16:04 | MHC.SHP ---
Pre-Procedural Eval Section A - 24 Hr Update-Section A only Date of Service: 11/06/23 The patient is an INPATIENT: Yes Changes since office visit: No Cold of Flu in the past 2 weeks, No New Medical Problems, No Changes in Medication and No Patient answered all questions The patient has been examined within 24 hours of the surgical procedure. The History & Physical has been completed within 30 days and I have reviewed it.: Yes Section B - Complete if H&P > 30 days Chief Complaint: Diabetic Foot ulcer Allergies: Allergies Allergy/AdvReac Type Severity Reaction Status Date / Time No Known Allergies Allergy Mild NONE Verified 11/06/23 14:30 Plan I have reviewed the history and physical and performed a pertinent physical examination on my patient. No changes have occurred unless specified. Time Spent With Patient Time: Total time managing care of this patient today ____ minutes.
--- NOTE | 2023-11-06 17:48 | P.OP_ITS ---
Operative Note Operative Note Date of Service: 11/06/23 Narrative: Preoperative diagnosis: [] Gangrenous infected osteomyelitic right foot Postop diagnosis: [] The same Procedure [] right below-knee amputation, fluoroscopy Surgeon: [] Nestor Findings; patient has a necrotic foul-smelling, multiple sinus draining infected right foot. Patient had a prior ankle fusion and has a titanium michael in his distal tibia. Fluo was used to Clary the proximal extent of the right and direct appropriate amputation transection site Procedure; patient brought to the operating room, placed on operative table supine position, after an adequate general anesthesia was induced, fluoroscopy was used to wale the proximal extent of the prostatic titanium michael and appropriate markings for a long posterior flap below-knee amputation was performed. Right lower extremity was prepped and draped in usual sterile fashion. Foot was placed in the sterile bag. Tourniquet was placed on the upper thigh and inflated. Incision was carried down through the markings and carried down through skin, subcutaneous tissue and appropriate muscle compartments with hemostasis secured using a combination of 2-0 and silk and Vicryl ties and 0 silk ligature for each neurovascular bundle area. At the appropriate location, using a power saw, tibia and fibula were transected. Anterior surface of tibia was beveled and file down to avoid any sharp edges. Long posterior flap had preserved gastrocnemius and was well-vascularized. Wound was irrigated secured for hemostasis after the tourniquet was taken down. Wound was closed in the following manner; posterior and anterior fascia were reapproximated using interrupted 0 Vicryl sutures. Skin was closed using interrupted inverted dermal 2-0 Vicryl sutures followed by Steri-Strips and sterile dressings. Flap was well-vascularized and under no tension and well- padded. Wound was infiltrated 0.5% Marcaine at completion. 4 x 4 's followed by fluffs, Kerlix wrap followed by ABD dressing and knee immobilizer were then placed. Sponge, needle, and instrument counts were reported correct. Patient tolerated the procedure well and emerged from anesthesia stable condition. EBL minimal
[2023-11-06] MEDS: HYDROmorphone HCl 0.5 MG/0.5 ML SYRINGE IVPUSH (18:11)
[2023-11-06 18:55] LABS: Vancomycin Random 12.4 mcg/mL (15-20)
[2023-11-06 18:58] LABS: Glucose, Whole Blood 251 mg/dL (60-115)
[2023-11-06] MEDS: Insulin Lispro 100 UNIT/ML 3 ML VIAL 18 UNIT SUBCUT (19:22)
[2023-11-06] MEDS: Enoxaparin Sodium 40 MG/0.4 ML SYRINGE SUBCUT (19:23)
--- NOTE | 2023-11-06 19:31 | HE.PHANOTE ---
VANCO DOSE ADJUSTMENT BASED ON SCR AND TROUGH DOSE CONTINUED AT 1000 Q 12. NEXT TROUGH 11/07 @ 0600
[2023-11-06 21:56] LABS: Glucose, Whole Blood 285 mg/dL (60-115)
[2023-11-06] MEDS: Insulin Lispro 100 UNIT/ML 3 ML VIAL SUBCUT (22:14)
[2023-11-06] MEDS: Insulin Glargine,Hum.rec.anlog 100 UNIT/ML 10 ML VIAL 35 UNIT SUBCUT (22:14)
[2023-11-07] MEDS: Piperacillin Sodium/Tazobactam 4.5 GM in 0.9 % Sodium Chloride 100 ML IV ×3 (02:04→18:12)
[2023-11-07 03:27] VITALS: BP 143/75; PULSE 94; RESP 18; TEMP 36.1; O2SAT 94
[2023-11-07] MEDS: Omeprazole 20 MG CAPSULE.DR PO (06:04)
[2023-11-07 07:16] LABS: Anion Gap 11 (12-20); Blood Urea Nitrogen 16 mg/dL (9-16); Calcium 8.5 mg/dL (8.4-10.2); Carbon Dioxide 29 mmol/L (22-29); Chloride 99 mmol/L (96-108); Creatinine Clr Calc Pharmacy 89.3; Estimated Glomerular Filt Rate > 60; Glucose Random 249 mg/dL (60-115); Potassium 3.9 mmol/L (3.3-5.1); Sodium 135 mmol/L (135-145)
[2023-11-07 07:24] LABS: Hematocrit 32.7 % (42.0-52.0); Hemoglobin 11.2 g/dl (14.0-18.0); Mean Corpuscular HGB Conc 34.3 g/dl (31.0-36.0); Mean Corpuscular Hemoglobin 27.7 pg (27.0-33.0); Mean Corpuscular Volume 80.9 fL (80.0-98.0); Mean Platelet Volume 9.7 fL (9.4-12.4); Platelet Count 531 X10*3/uL (160-400); Red Blood Count 4.04 X10*6/uL (4.60-5.80); Red Cell Distribution Width 12.7 % (11.0-16.0)
[2023-11-07 07:35] VITALS: BP 150/71; PULSE 86; RESP 14; TEMP 37.6; O2SAT 94
[2023-11-07 07:37] LABS: Glucose, Whole Blood 233 mg/dL (60-115)
[2023-11-07] MEDS: Insulin Lispro 100 UNIT/ML 3 ML VIAL 18 UNIT SUBCUT ×3 (08:14→16:40)
[2023-11-07] MEDS: vancomycin HCL 1,000 MG in 0.9 % Sodium Chloride 250 ML 270 MG IV (08:15)
[2023-11-07] MEDS: Atorvastatin Calcium 20 MG TABLET PO (08:15)
[2023-11-07] MEDS: lisinopriL 20 MG TABLET PO (08:15)
[2023-11-07] MEDS: 0.9 % Sodium Chloride Flush 3 ML SYRINGE IVFLUSH ×3 (08:17→21:10)
--- NOTE | 2023-11-07 08:58 | P.PNGS_ITS ---
Subjective Subjective Date of Service: 11/07/23 Interval history: Uneventful evening. Pain adequately controlled. Physical Exam 2 Vital Signs: Vital Signs: Last Vital Signs Temp 99.6 F 11/07/23 07:35 Pulse 86 11/07/23 07:35 Resp 14 11/07/23 07:35 BP 150/71 H 11/07/23 07:35 Pulse Ox 94 11/07/23 07:35 O2 Del Method Room Air 11/07/23 07:35 BMI result Body Mass Index 33.2 Extrem: Other: Dressing clean dry and intact, splint in place Objective Data Active Medications Acetaminophen (Acetaminophen 325 Mg Tablet) 650 mg PO Q6H PRN PRN Reason: Pain, Mild (Pain Scale 1-3), fever or headache Last Admin: 11/04/23 21:06 Dose: 650 mg Documented By: IVA Atorvastatin Calcium (Atorvastatin Calcium 20 Mg Tablet) 20 mg PO DAILY [facility] Last Admin: 11/07/23 08:15 Dose: 20 mg Documented By: KAHLIL Calcium Carbonate (Calcium Carbonate 750 Mg Tab.Chew) 750 mg PO Q4H PRN PRN Reason: Heartburn Enoxaparin Sodium (Enoxaparin Sodium 40 Mg/0.4 Ml Syringe) 40 mg SUBCUT Q24H [facility] Last Admin: 11/06/23 19:23 Dose: 40 mg Documented By: HOWIE Glucose (Glucose Gel 15 Gm Gel..Gram.) 15 gm PO Q15M PRN; Protocol PRN Reason: per Hypoglycemia Standing Ord. Piperacillin Sod/Tazobactam (Sod 4.5 gm/ Sodium Chloride) 100 mls @ 200 mls/hr IV Q8H [facility] Last Infusion: 11/07/23 02:34 Dose: Infused Documented By: HOWIE Dextrose (D10) 250 mls @ 750 mls/hr IV Q15M PRN; Protocol PRN Reason: per Hypoglycemia Standing Ord. Vancomycin HCl 1,000 mg/ (Sodium Chloride) 270 mls @ 270 mls/hr IV Q12H [facility] Last Admin: 11/07/23 08:15 Dose: 270 mls/hr Documented By: KAHLIL Insulin Glargine (Insulin Glargine,Hum.Rec.Anlog 100 Unit/Ml 10 Ml Vial) 35 unit SUBCUT BEDTIME [facility] Last Admin: 11/06/23 22:14 Dose: 35 unit Documented By: HOWIE Insulin Human Lispro (Insulin Lispro 100 Unit/Ml 3 Ml Vial) 0 unit SUBCUT QIDACHS [facility]; Protocol Last Admin: 11/07/23 08:21 Dose: Not Given Documented By: KAHLIL Non-Admin Reason: Physician Held Med Insulin Human Lispro (Insulin Lispro 100 Unit/Ml 3 Ml Vial) 18 unit SUBCUT TIDAC [facility] Last Admin: 11/07/23 08:14 Dose: 18 unit Documented By: KAHLIL Lisinopril (Lisinopril 20 Mg Tablet) 20 mg PO DAILY [facility]; Protocol Last Admin: 11/07/23 08:15 Dose: 20 mg Documented By: KAHLIL Magnesium Hydroxide (Milk Of Magnesia 30 Ml Oral.Susp) 30 ml PO DAILY PRN PRN Reason: Constipation Melatonin (Melatonin 3 Mg Tablet) 6 mg PO BEDTIME PRN PRN Reason: Insomnia Omeprazole (Omeprazole 20 Mg Capsule.Dr) 20 mg PO DAILY@0630 [facility] Last Admin: 11/07/23 06:04 Dose: 20 mg Documented By: HOWIE Ondansetron HCl (Ondansetron Hcl 4 Mg/2 Ml Vial) 4 mg IVPUSH Q8H PRN PRN Reason: Nausea and Vomiting Oxycodone HCl (Oxycodone Hcl Immed Release 5 Mg Tablet) 5 mg PO Q6H PRN PRN Reason: Pain, Moderate(Pain Scale 4-6) Last Admin: 11/05/23 20:31 Dose: 5 mg Documented By: IVA Pharmacy Consult (Consult Rx Vancomycin Dosing) 1 each MISCELLANE DAILY PRN PRN Reason: Consult order Sodium Chloride (0.9 % Sodium Chloride Flush 3 Ml Syringe) 3 ml IVFLUSH QSHIFT [facility] Last Admin: 11/07/23 08:17 Dose: 3 ml Documented By: KAHLIL Labs 11/07/23 05:44 11/07/23 05:44 Labs: Laboratory Results - last 24 hr 11/06/23 11/06/23 11/06/23 11:06 14:53 18:30 MCV MCH MCHC RDW Plt Count MPV Absolute Nucleated RBC Nucleated RBC % (auto) Anion Gap Estim Creat Clear Calc Estimated GFR POC Glucose 201 H 234 H Random Glucose Calcium Random Vancomycin 12.4 L 11/06/23 11/06/23 11/07/23 18:50 21:51 05:44 MCV 80.9 MCH 27.7 MCHC 34.3 RDW 12.7 Plt Count 531 H MPV 9.7 Absolute Nucleated RBC 0.000 Nucleated RBC % (auto) 0.0 Anion Gap 11 L Estim Creat Clear Calc 89.3 Estimated GFR > 60 POC Glucose 251 H 285 H Random Glucose 249 H Calcium 8.5 Random Vancomycin 11/07/23 07:29 MCV MCH MCHC RDW Plt Count MPV Absolute Nucleated RBC Nucleated RBC % (auto) Anion Gap Estim Creat Clear Calc Estimated GFR POC Glucose 233 H Random Glucose Calcium Random Vancomycin Procedures Date of Service Date of Service: 11/07/23 Progress Note: A&P Assessment and plan (1) Status post below knee amputation of right lower extremity: Status: Acute Plan Continue current plan; out of bed, incentive spirometry, right knee splint. For dressing takedown tomorrow. To call [employer] Super[employer] for stump protector/schrinker Time Spent With Patient Time: Total time managing care of this patient today ____ minutes. Quality Stroke Does the patient have a stroke diagnosis?: No VTE Prior VTE?: No VTE Risk Level:: Medical - moderate - high VTE Device Contraindication: Treatment Not Indicated VTE Drug Contraindication: N/A - Med Ordered
--- NOTE | 2023-11-07 10:16 | HO.POSTANES ---
Post Anesthesia Evaluation Post Anesthesia Evaluation Date of Service: 11/06/23 Vital Signs: Vital Signs Temp Pulse Resp BP Pulse Ox O2 Del Method 11/07/23 07:35 99.6 F 86 14 150/71 H 94 Room Air 11/07/23 03:27 97.0 F 94 18 143/75 H 94 Room Air 11/06/23 23:26 96.8 F 81 16 139/68 95 Room Air Anesthesia: General Mental Status: Awake Pain Control: Satisfactory (expected post op pain , on meds) Nausea/Vomiting: None Hydration: Adequate Anesthesia-Related Issues: No Anes. Related Issues
[2023-11-07] MEDS: oxyCODONE HCl Immed Release 5 MG TABLET PO (10:38)
[2023-11-07 11:31] LABS: Glucose, Whole Blood 248 mg/dL (60-115)
[2023-11-07 11:51] VITALS: BP 148/70; PULSE 90; RESP 12; TEMP 37.1; O2SAT 93
[2023-11-07] MEDS: Insulin Lispro 100 UNIT/ML 3 ML VIAL SUBCUT ×2 (12:01→16:40)
--- NOTE | 2023-11-07 14:49 | HO.PM.IMPN ---
Subjective Subjective Date of Service: 11/07/23 Interval History: Being followed for right foot diabetic ulcer, patient is deaf communicated through writing, good pain control status post right BKA on 11/05. Offers no acute complaints. Tolerating diet no nausea, no vomiting, no abdominal pain, no diarrhea blood sugars in 200 range receiving both scheduled pre meal insulin and insulin sliding scale. Review of Systems All other system reviewed and are negative. Physical Exam Vital Signs: Vital Signs: Last Vital Signs Temp 98.7 F 11/07/23 11:51 Pulse 90 11/07/23 11:51 Resp 12 11/07/23 11:51 BP 148/70 H 11/07/23 11:51 Pulse Ox 93 11/07/23 11:51 O2 Del Method Room Air 11/07/23 11:51 BMI result Body Mass Index 33.2 Const: Other: General awake alert x3, in no acute distress. Anicteric sclera Neck no JVD. CVS regular rate rhythm, Respiratory lungs clear to auscultation, no respiratory distress, no wheeze, no rhonchi. Gastrointestinal abdomen soft, non tender, bowel sounds audible Extremities right bka dressing in place Neuro non focal Skin no rash Objective Data Active Medications Acetaminophen (Acetaminophen 325 Mg Tablet) 650 mg PO Q6H PRN PRN Reason: Pain, Mild (Pain Scale 1-3), fever or headache Last Admin: 11/04/23 21:06 Dose: 650 mg Documented By: IVA Atorvastatin Calcium (Atorvastatin Calcium 20 Mg Tablet) 20 mg PO DAILY [facility] Last Admin: 11/07/23 08:15 Dose: 20 mg Documented By: KAHLIL Calcium Carbonate (Calcium Carbonate 750 Mg Tab.Chew) 750 mg PO Q4H PRN PRN Reason: Heartburn Enoxaparin Sodium (Enoxaparin Sodium 40 Mg/0.4 Ml Syringe) 40 mg SUBCUT Q24H [facility] Last Admin: 11/06/23 19:23 Dose: 40 mg Documented By: SERENARISSelma Glucose (Glucose Gel 15 Gm Gel..Gram.) 15 gm PO Q15M PRN; Protocol PRN Reason: per Hypoglycemia Standing Ord. Piperacillin Sod/Tazobactam (Sod 4.5 gm/ Sodium Chloride) 100 mls @ 200 mls/hr IV Q8H [facility] Last Infusion: 11/07/23 10:57 Dose: Infused Documented By: KAHLIL Dextrose (D10) 250 mls @ 750 mls/hr IV Q15M PRN; Protocol PRN Reason: per Hypoglycemia Standing Ord. Vancomycin HCl 1,000 mg/ (Sodium Chloride) 270 mls @ 270 mls/hr IV Q12H [facility] Last Infusion: 11/07/23 09:41 Dose: Infused Documented By: KAHLIL Insulin Glargine (Insulin Glargine,Hum.Rec.Anlog 100 Unit/Ml 10 Ml Vial) 35 unit SUBCUT BEDTIME [facility] Last Admin: 11/06/23 22:14 Dose: 35 unit Documented By: HOWIE Insulin Human Lispro (Insulin Lispro 100 Unit/Ml 3 Ml Vial) 0 unit SUBCUT QIDACHS [facility]; Protocol Last Admin: 11/07/23 12:01 Dose: 6 unit Documented By: KAHLIL Insulin Human Lispro (Insulin Lispro 100 Unit/Ml 3 Ml Vial) 18 unit SUBCUT TIDAC [facility] Last Admin: 11/07/23 12:01 Dose: 18 unit Documented By: KAHLIL Lisinopril (Lisinopril 20 Mg Tablet) 20 mg PO DAILY [facility]; Protocol Last Admin: 11/07/23 08:15 Dose: 20 mg Documented By: KAHLIL Magnesium Hydroxide (Milk Of Magnesia 30 Ml Oral.Susp) 30 ml PO DAILY PRN PRN Reason: Constipation Melatonin (Melatonin 3 Mg Tablet) 6 mg PO BEDTIME PRN PRN Reason: Insomnia Omeprazole (Omeprazole 20 Mg Capsule.Dr) 20 mg PO DAILY@0630 [facility] Last Admin: 11/07/23 06:04 Dose: 20 mg Documented By: HOWIE Ondansetron HCl (Ondansetron Hcl 4 Mg/2 Ml Vial) 4 mg IVPUSH Q8H PRN PRN Reason: Nausea and Vomiting Oxycodone HCl (Oxycodone Hcl Immed Release 5 Mg Tablet) 5 mg PO Q6H PRN PRN Reason: Pain, Moderate(Pain Scale 4-6) Last Admin: 11/07/23 10:38 Dose: 5 mg Documented By: KAHLIL Pharmacy Consult (Consult Rx Vancomycin Dosing) 1 each MISCELLANE DAILY PRN PRN Reason: Consult order Sodium Chloride (0.9 % Sodium Chloride Flush 3 Ml Syringe) 3 ml IVFLUSH QSHIFT [facility] Last Admin: 11/07/23 08:17 Dose: 3 ml Documented By: KAHLIL Labs 11/07/23 05:44 11/07/23 05:44 Labs: Laboratory Results - last 24 hr 11/06/23 11/06/23 11/06/23 14:53 18:30 18:50 MCV MCH MCHC RDW Plt Count MPV Absolute Nucleated RBC Nucleated RBC % (auto) Anion Gap Estim Creat Clear Calc Estimated GFR POC Glucose 234 H 251 H Random Glucose Calcium Random Vancomycin 12.4 L 11/06/23 11/07/23 11/07/23 21:51 05:44 07:29 MCV 80.9 MCH 27.7 MCHC 34.3 RDW 12.7 Plt Count 531 H MPV 9.7 Absolute Nucleated RBC 0.000 Nucleated RBC % (auto) 0.0 Anion Gap 11 L Estim Creat Clear Calc 89.3 Estimated GFR > 60 POC Glucose 285 H 233 H Random Glucose 249 H Calcium 8.5 Random Vancomycin 11/07/23 11:26 MCV MCH MCHC RDW Plt Count MPV Absolute Nucleated RBC Nucleated RBC % (auto) Anion Gap Estim Creat Clear Calc Estimated GFR POC Glucose 248 H Random Glucose Calcium Random Vancomycin Assessment and Plan (1) Sepsis: Status: Acute (2) Diabetic foot ulcers: Status: Acute Plan 63-year-old male with history of type 2 insulin dependent diabetes along with history of foot ulcers presents from wound clinic with diabetic foot ulcers. Was given dose of vancomycin and Zosyn in ER and will be admitted for further workup and treatment of same 1. Sepsis secondary to diabetic foot ulcer -WBC trending down, no fevers -blood cultures x2 negative times 48 hours -on iv vancomycin/Zosyn started 11/02, will DC IV vancomycin, continue IV Zosyn due to persistent leukocytosis ,will discontinue in next 2-3 days since source of infection removed. -s/p BKA POD#1 good pain control -being followed by Dr. Baez, dressing change at a.m. 2. Diabetes type 2 -elevated blood sugars on Lantus, pre meal insulin and lispro correctional scale -recommend to continue 2000 calorie ADA diet 3. Hypertension -blood pressure improved continue lisinopril 20 mg daily. 4. MORAIMA -likely prerenal resolved with IV fluids Lovenox Full code Requires ongoing hospitalization for IV antibiotics to treat diabetic foot ulcer Quality Stroke Does the patient have a stroke diagnosis?: No VTE Prior VTE?: No VTE Risk Level:: Medical - moderate - high VTE Device Contraindication: Treatment Not Indicated VTE Drug Contraindication: N/A - Med Ordered
[2023-11-07 16:00] VITALS: TEMP 36.9
[2023-11-07 16:14] LABS: Glucose, Whole Blood 219 mg/dL (60-115)
[2023-11-07] MEDS: Enoxaparin Sodium 40 MG/0.4 ML SYRINGE SUBCUT (18:12)
[2023-11-07 19:23] VITALS: BP 140/65; PULSE 95; RESP 15; TEMP 37.2; O2SAT 93
[2023-11-07 20:43] LABS: Glucose, Whole Blood 137 mg/dL (60-115)
[2023-11-07] MEDS: Insulin Glargine,Hum.rec.anlog 100 UNIT/ML 10 ML VIAL 35 UNIT SUBCUT (21:10)
[2023-11-08] MEDS: Piperacillin Sodium/Tazobactam 4.5 GM in 0.9 % Sodium Chloride 100 ML IV ×3 (01:42→17:41)
[2023-11-08 03:25] VITALS: BP 135/65; PULSE 95; RESP 17; TEMP 36.6; O2SAT 94
[2023-11-08] MEDS: Omeprazole 20 MG CAPSULE.DR PO (06:02)
[2023-11-08 06:24] LABS: Hematocrit 31.5 % (42.0-52.0); Hemoglobin 10.6 g/dl (14.0-18.0); Mean Corpuscular HGB Conc 33.7 g/dl (31.0-36.0); Mean Corpuscular Hemoglobin 27.3 pg (27.0-33.0); Mean Corpuscular Volume 81.2 fL (80.0-98.0); Mean Platelet Volume 9.7 fL (9.4-12.4); Platelet Count 519 X10*3/uL (160-400); Red Blood Count 3.88 X10*6/uL (4.60-5.80); Red Cell Distribution Width 12.7 % (11.0-16.0); White Blood Count 14.8 X10*3/uL (4.8-10.8)
[2023-11-08 06:45] LABS: Anion Gap 12 (12-20); Blood Urea Nitrogen 16 mg/dL (9-16); Calcium 8.4 mg/dL (8.4-10.2); Carbon Dioxide 28 mmol/L (22-29); Chloride 97 mmol/L (96-108); Creatinine Clr Calc Pharmacy 83.5; Estimated Glomerular Filt Rate > 60; Glucose Random 237 mg/dL (60-115); Potassium 3.9 mmol/L (3.3-5.1); Sodium 133 mmol/L (135-145)
[2023-11-08 07:30] LABS: Glucose, Whole Blood 231 mg/dL (60-115)
[2023-11-08 07:35] VITALS: BP 178/89; PULSE 86; RESP 16; TEMP 37.3; O2SAT 93
--- NOTE | 2023-11-08 07:41 | P.PNGS_ITS ---
Subjective Subjective Date of Service: 11/08/23 Interval history: Patient is currently sleeping. Uneventful evening. Dressing clean dry and intact. Physical Exam 2 Vital Signs: Vital Signs: Last Vital Signs Temp 99.2 F 11/08/23 07:35 Pulse 86 11/08/23 07:35 Resp 16 11/08/23 07:35 BP 178/89 H 11/08/23 07:35 Pulse Ox 93 11/08/23 07:35 O2 Del Method Room Air 11/08/23 07:35 BMI result Body Mass Index 33.2 Objective Data Active Medications Acetaminophen (Acetaminophen 325 Mg Tablet) 650 mg PO Q6H PRN PRN Reason: Pain, Mild (Pain Scale 1-3), fever or headache Last Admin: 11/04/23 21:06 Dose: 650 mg Documented By: IVA Atorvastatin Calcium (Atorvastatin Calcium 20 Mg Tablet) 20 mg PO DAILY [facility] Last Admin: 11/07/23 08:15 Dose: 20 mg Documented By: KAHLIL Calcium Carbonate (Calcium Carbonate 750 Mg Tab.Chew) 750 mg PO Q4H PRN PRN Reason: Heartburn Enoxaparin Sodium (Enoxaparin Sodium 40 Mg/0.4 Ml Syringe) 40 mg SUBCUT Q24H [facility] Last Admin: 11/07/23 18:12 Dose: 40 mg Documented By: KAHLIL Glucose (Glucose Gel 15 Gm Gel..Gram.) 15 gm PO Q15M PRN; Protocol PRN Reason: per Hypoglycemia Standing Ord. Piperacillin Sod/Tazobactam (Sod 4.5 gm/ Sodium Chloride) 100 mls @ 200 mls/hr IV Q8H [facility] Last Infusion: 11/08/23 02:23 Dose: Infused Documented By: HOWIE Dextrose (D10) 250 mls @ 750 mls/hr IV Q15M PRN; Protocol PRN Reason: per Hypoglycemia Standing Ord. Insulin Glargine (Insulin Glargine,Hum.Rec.Anlog 100 Unit/Ml 10 Ml Vial) 35 unit SUBCUT BEDTIME [facility] Last Admin: 11/07/23 21:10 Dose: 35 unit Documented By: HOWIE Insulin Human Lispro (Insulin Lispro 100 Unit/Ml 3 Ml Vial) 0 unit SUBCUT QIDACHS [facility]; Protocol Last Admin: 11/07/23 22:02 Dose: Not Given Documented By: HOWIE Non-Admin Reason: No Insulin Coverage Insulin Human Lispro (Insulin Lispro 100 Unit/Ml 3 Ml Vial) 18 unit SUBCUT TIDAC [facility] Last Admin: 11/07/23 16:40 Dose: 18 unit Documented By: QIAN Lisinopril (Lisinopril 20 Mg Tablet) 20 mg PO DAILY [facility]; Protocol Last Admin: 11/07/23 08:15 Dose: 20 mg Documented By: KAHLIL Magnesium Hydroxide (Milk Of Magnesia 30 Ml Oral.Susp) 30 ml PO DAILY PRN PRN Reason: Constipation Melatonin (Melatonin 3 Mg Tablet) 6 mg PO BEDTIME PRN PRN Reason: Insomnia Omeprazole (Omeprazole 20 Mg Capsule.Dr) 20 mg PO DAILY@0630 [facility] Last Admin: 11/08/23 06:02 Dose: 20 mg Documented By: HOWIE Ondansetron HCl (Ondansetron Hcl 4 Mg/2 Ml Vial) 4 mg IVPUSH Q8H PRN PRN Reason: Nausea and Vomiting Oxycodone HCl (Oxycodone Hcl Immed Release 5 Mg Tablet) 5 mg PO Q6H PRN PRN Reason: Pain, Moderate(Pain Scale 4-6) Last Admin: 11/07/23 10:38 Dose: 5 mg Documented By: KAHLIL Sodium Chloride (0.9 % Sodium Chloride Flush 3 Ml Syringe) [address] [facility] Last Admin: 11/07/23 21:10 Dose: 3 ml Documented By: HOWIE Labs 11/08/23 05:17 11/08/23 05:17 Labs: Laboratory Results - last 24 hr 11/07/23 11/07/23 11/07/23 11:26 16:08 20:27 MCV MCH MCHC RDW Plt Count MPV Absolute Nucleated RBC Nucleated RBC % (auto) Anion Gap Estim Creat Clear Calc Estimated GFR POC Glucose 248 H 219 H 137 H Random Glucose Calcium 11/08/23 11/08/23 05:17 07:19 MCV 81.2 MCH 27.3 MCHC 33.7 RDW 12.7 Plt Count 519 H MPV 9.7 Absolute Nucleated RBC 0.000 Nucleated RBC % (auto) 0.0 Anion Gap 12 Estim Creat Clear Calc 83.5 Estimated GFR > 60 POC Glucose 231 H Random Glucose 237 H Calcium 8.4 Microbiology Microbiology Results: Microbiology 11/02/23 17:21 Blood Culture - Final Blood - Venous No growth after 5 days. 11/02/23 17:26 Blood Culture - Final Blood - Venous No growth after 5 days. Procedures Date of Service Date of Service: 11/08/23 Progress Note: A&P Assessment and plan (1) Status post below knee amputation of right lower extremity: Status: Acute Plan For dressing change later today. I met with [facility] personnel yesterday and will arrange for stump protector/splint for patient Time Spent With Patient Time: Total time managing care of this patient today ____ minutes. Quality Stroke Does the patient have a stroke diagnosis?: No VTE Prior VTE?: No VTE Risk Level:: Medical - moderate - high VTE Device Contraindication: Treatment Not Indicated VTE Drug Contraindication: N/A - Med Ordered
[2023-11-08 07:46] VITALS: BP 142/67
[2023-11-08] MEDS: Insulin Lispro 100 UNIT/ML 3 ML VIAL SUBCUT ×4 (07:53→20:53)
[2023-11-08] MEDS: Insulin Lispro 100 UNIT/ML 3 ML VIAL 18 UNIT SUBCUT ×3 (07:53→16:52)
[2023-11-08] MEDS: 0.9 % Sodium Chloride Flush 3 ML SYRINGE IVFLUSH ×3 (07:55→20:53)
[2023-11-08] MEDS: Atorvastatin Calcium 20 MG TABLET PO (08:09)
[2023-11-08] MEDS: lisinopriL 20 MG TABLET PO (08:09)
--- NOTE | 2023-11-08 11:02 | P.PNIM_ITS ---
Subjective Subjective Date of Service: 11/08/23 Interval History: no complaints, pain controlled Physical Exam 2 Vital Signs: Vital Signs: Last Vital Signs Temp 99.2 F 11/08/23 07:35 Pulse 86 11/08/23 07:35 Resp 16 11/08/23 07:35 BP 142/67 H 11/08/23 07:46 Pulse Ox 93 11/08/23 07:35 O2 Del Method Room Air 11/08/23 07:35 BMI result Body Mass Index 33.2 Const: Other: General awake alert x3, in no acute distress. Anicteric sclera Neck no JVD. CVS regular rate rhythm, Respiratory lungs clear to auscultation, no respiratory distress, no wheeze, no rhonchi. Gastrointestinal abdomen soft, non tender, bowel sounds audible Extremities right bka dressing in place Neuro non focal Skin no rash Objective Data Active Medications Acetaminophen (Acetaminophen 325 Mg Tablet) 650 mg PO Q6H PRN PRN Reason: Pain, Mild (Pain Scale 1-3), fever or headache Last Admin: 11/04/23 21:06 Dose: 650 mg Documented By: IVA Atorvastatin Calcium (Atorvastatin Calcium 20 Mg Tablet) 20 mg PO DAILY [facility] Last Admin: 11/08/23 08:09 Dose: 20 mg Documented By: RC Calcium Carbonate (Calcium Carbonate 750 Mg Tab.Chew) 750 mg PO Q4H PRN PRN Reason: Heartburn Enoxaparin Sodium (Enoxaparin Sodium 40 Mg/0.4 Ml Syringe) 40 mg SUBCUT Q24H [facility] Last Admin: 11/07/23 18:12 Dose: 40 mg Documented By: KAHLIL Glucose (Glucose Gel 15 Gm Gel..Gram.) 15 gm PO Q15M PRN; Protocol PRN Reason: per Hypoglycemia Standing Ord. Piperacillin Sod/Tazobactam (Sod 4.5 gm/ Sodium Chloride) 100 mls @ 200 mls/hr IV Q8H [facility] Last Infusion: 11/08/23 10:19 Dose: Infused Documented By: RC Dextrose (D10) 250 mls @ 750 mls/hr IV Q15M PRN; Protocol PRN Reason: per Hypoglycemia Standing Ord. Insulin Glargine (Insulin Glargine,Hum.Rec.Anlog 100 Unit/Ml 10 Ml Vial) 35 unit SUBCUT BEDTIME [facility] Last Admin: 11/07/23 21:10 Dose: 35 unit Documented By: HOWIE Insulin Human Lispro (Insulin Lispro 100 Unit/Ml 3 Ml Vial) 0 unit SUBCUT QIDACHS [facility]; Protocol Last Admin: 11/08/23 07:53 Dose: 4 unit Documented By: RC Insulin Human Lispro (Insulin Lispro 100 Unit/Ml 3 Ml Vial) 18 unit SUBCUT TIDAC [facility] Last Admin: 11/08/23 07:53 Dose: 18 unit Documented By: RC Lisinopril (Lisinopril 20 Mg Tablet) 20 mg PO DAILY [facility]; Protocol Last Admin: 11/08/23 08:09 Dose: 20 mg Documented By: RC Magnesium Hydroxide (Milk Of Magnesia 30 Ml Oral.Susp) 30 ml PO DAILY PRN PRN Reason: Constipation Melatonin (Melatonin 3 Mg Tablet) 6 mg PO BEDTIME PRN PRN Reason: Insomnia Omeprazole (Omeprazole 20 Mg Capsule.Dr) 20 mg PO DAILY@0630 [facility] Last Admin: 11/08/23 06:02 Dose: 20 mg Documented By: HOWIE Ondansetron HCl (Ondansetron Hcl 4 Mg/2 Ml Vial) 4 mg IVPUSH Q8H PRN PRN Reason: Nausea and Vomiting Oxycodone HCl (Oxycodone Hcl Immed Release 5 Mg Tablet) 5 mg PO Q6H PRN PRN Reason: Pain, Moderate(Pain Scale 4-6) Last Admin: 11/07/23 10:38 Dose: 5 mg Documented By: KAHLIL Sodium Chloride (0.9 % Sodium Chloride Flush 3 Ml Syringe) 3 ml IVFLUSH QSHIFT [facility] Last Admin: 11/08/23 07:55 Dose: 3 ml Documented By: RC Labs 11/08/23 05:17 11/08/23 05:17 Labs: Laboratory Results - last 24 hr 11/07/23 11/07/23 11/07/23 11:26 16:08 20:27 MCV MCH MCHC RDW Plt Count MPV Absolute Nucleated RBC Nucleated RBC % (auto) Anion Gap Estim Creat Clear Calc Estimated GFR POC Glucose 248 H 219 H 137 H Random Glucose Calcium 07/31/24 07/31/24 05:17 07:19 MCV 81.2 MCH 27.3 MCHC 33.7 RDW 12.7 Plt Count 519 H MPV 9.7 Absolute Nucleated RBC 0.000 Nucleated RBC % (auto) 0.0 Anion Gap 12 Estim Creat Clear Calc 83.5 Estimated GFR > 60 POC Glucose 231 H Random Glucose 237 H Calcium 8.4 Microbiology Microbiology Results: Microbiology 11/02/23 17:21 Blood Culture - Final Blood - Venous No growth after 5 days. 11/02/23 17:26 Blood Culture - Final Blood - Venous No growth after 5 days. Assessment and Plan (1) Sepsis: Status: Acute (2) Diabetic foot ulcers: Status: Acute Plan 63M PMH, congenital deafness, DM with history of foot ulcers presented from wound clinic with diabetic foot ulcers. Sepsis secondary to diabetic foot ulcer s/p BKA POD#2 good pain control being followed by Dr. Baez perioperatively on zosyn (no need for abx on discharge) vanc dced PT/OT Diabetes type 2 elevated blood sugars on Lantus, pre meal insulin and lispro correctional scale recommend to continue 2000 calorie ADA diet Hypertension continue lisinopril 20 mg daily. MORAIMA likely prerenal resolved with IV fluids Lovenox Full code reason for continued hospitalization:postop monitoring, dispo planning Quality Stroke Does the patient have a stroke diagnosis?: No VTE Prior VTE?: No VTE Risk Level:: Medical - moderate - high VTE Device Contraindication: Treatment Not Indicated VTE Drug Contraindication: N/A - Med Ordered
[2023-11-08 11:06] LABS: Glucose, Whole Blood 205 mg/dL (60-115)
--- NOTE | 2023-11-08 12:23 | MHC.CM.PN ---
pt accepted at [facility] when ready for dc
--- NOTE | 2023-11-08 14:40 | MHC.CM.PN ---
family notified of pts acceptance at [facility] and dc ready for tomorrow they are going for auth
[2023-11-08 15:17] VITALS: BP 134/71; PULSE 87; RESP 16; TEMP 37.1; O2SAT 92
[2023-11-08 16:06] LABS: Glucose, Whole Blood 194 mg/dL (60-115)
[2023-11-08] MEDS: Enoxaparin Sodium 40 MG/0.4 ML SYRINGE SUBCUT (17:41)
[2023-11-08 19:48] VITALS: BP 142/68; PULSE 93; RESP 16; TEMP 37.2; O2SAT 94
[2023-11-08 20:05] LABS: Glucose, Whole Blood 180 mg/dL (60-115)
[2023-11-08] MEDS: Insulin Glargine,Hum.rec.anlog 100 UNIT/ML 10 ML VIAL 35 UNIT SUBCUT (20:52)
[2023-11-09 03:09] VITALS: BP 148/77; PULSE 92; RESP 18; TEMP 36.2; O2SAT 95
[2023-11-09] MEDS: Piperacillin Sodium/Tazobactam 4.5 GM in 0.9 % Sodium Chloride 100 ML IV ×2 (03:13→09:25)
[2023-11-09] MEDS: Omeprazole 20 MG CAPSULE.DR PO (05:51)
[2023-11-09 06:28] LABS: Hematocrit 31.2 % (42.0-52.0); Hemoglobin 10.7 g/dl (14.0-18.0); Mean Corpuscular HGB Conc 34.3 g/dl (31.0-36.0); Mean Corpuscular Hemoglobin 27.8 pg (27.0-33.0); Mean Platelet Volume 9.6 fL (9.4-12.4); Platelet Count 516 X10*3/uL (160-400); Red Blood Count 3.85 X10*6/uL (4.60-5.80); Red Cell Distribution Width 12.7 % (11.0-16.0); White Blood Count 12.8 X10*3/uL (4.8-10.8)
[2023-11-09 06:43] LABS: Anion Gap 11 (12-20); Blood Urea Nitrogen 18 mg/dL (9-16); Calcium 8.5 mg/dL (8.4-10.2); Carbon Dioxide 28 mmol/L (22-29); Chloride 99 mmol/L (96-108); Creatinine Clr Calc Pharmacy 80.5; Estimated Glomerular Filt Rate > 60; Glucose Fasting 293 mg/dL (60-99); Potassium 4.2 mmol/L (3.3-5.1); Sodium 134 mmol/L (135-145)
[2023-11-09 07:32] LABS: Glucose, Whole Blood 308 mg/dL (60-115)
[2023-11-09 07:37] VITALS: BP 145/75; PULSE 90; RESP 18; TEMP 36.7; O2SAT 96
[2023-11-09] MEDS: Atorvastatin Calcium 20 MG TABLET PO (08:18)
[2023-11-09] MEDS: 0.9 % Sodium Chloride Flush 3 ML SYRINGE IVFLUSH (08:18)
[2023-11-09] MEDS: Insulin Lispro 100 UNIT/ML 3 ML VIAL SUBCUT ×2 (08:18→11:58)
[2023-11-09] MEDS: Insulin Lispro 100 UNIT/ML 3 ML VIAL 18 UNIT SUBCUT ×2 (08:18→11:58)
[2023-11-09] MEDS: lisinopriL 20 MG TABLET PO (08:18)
--- NOTE | 2023-11-09 10:13 | P.DS_ITS ---
DS: Providers Provider Date of Service: 11/09/23 Date of admission: 11/02/23 18:15 Primary care physician: Alfred Matos MD Consults: 11/02/23 18:26 Consult to General Surgery Routine Consulting Provider: [facility] [place] Surgeons Reason for consultation: Diabetic foot wound Has provider been notified: No DS: Diagnosis Discharge Diagnosis (1) Sepsis: Status: Acute (2) Diabetic foot ulcers: Status: Acute DS: Summary Hospital Course Hospital Course: from initial hpi: 63-year-old male with a history of type 2 diabetes requiring insulin presents from wound care with worsening of a right foot diabetic ulcer that has been worsening. Patient states he has chronic decreased sensation secondary to his diabetes however when he ambulates it is painful. All information gleaned from ER record which was obtained through an official hedis coordinator. hospital course: Patient was admitted for sepsis secondary to diabetic foot ulcer. He was treated with IV Zosyn and vancomycin. He underwent right BKA with General surgery. Postoperatively did well. No need for antibiotics on discharge. Was seen by physical therapy recommended short-term rehab. For diabetes was continued on basal bolus insulin. For hypertension was continued on lisinopril. Patient had mild acute kidney injury which resolved with IV fluids. Patient is medically stable [facility] be [facility]. Time Attestation Discharge Coordination Time (in mins): 34 Quality: Safe Use of Opioids Does Pt have an Active Cancer Diagnosis on the Problem List?: No Quality: Stroke Does the patient have a stroke diagnosis?: No Physical Exam Vital Signs: Vital Signs: Last Vital Signs Temp 98.0 F 11/09/23 07:37 Pulse 90 11/09/23 07:37 Resp 18 11/09/23 07:37 BP 145/75 H 11/09/23 07:37 Pulse Ox 96 11/09/23 07:37 O2 Del Method Room Air 11/09/23 07:37 BMI result Body Mass Index 33.2 Const: Other: General awake alert x3, in no acute distress. Anicteric sclera Neck no JVD. CVS regular rate rhythm, Respiratory lungs clear to auscultation, no respiratory distress, no wheeze, no rhonchi. Gastrointestinal abdomen soft, non tender, bowel sounds audible Extremities right bka dressing in place Neuro non focal Skin no rash DS: Data Data Completed and Pending Completed studies during hospitalization [Text1]: Pending at discharge 11/06/23 16:57 Surgical [PTH] Routine Labs on day of discharge: Laboratory Results - last 24 hr 11/08/23 11/08/23 11/08/23 11:03 16:00 19:58 WBC RBC Hgb Hct MCV MCH MCHC RDW Plt Count MPV Absolute Nucleated RBC Nucleated RBC % (auto) Sodium Potassium Chloride Carbon Dioxide Anion Gap BUN Creatinine Estim Creat Clear Calc Estimated GFR POC Glucose 205 H 194 H 180 H Fasting Glucose Calcium 11/09/23 11/09/23 05:48 07:16 WBC 12.8 H RBC 3.85 L Hgb 10.7 L Hct 31.2 L MCV 81.0 MCH 27.8 MCHC 34.3 RDW 12.7 Plt Count 516 H MPV 9.6 Absolute Nucleated RBC 0.000 Nucleated RBC % (auto) 0.0 Sodium 134 L Potassium 4.2 Chloride 99 Carbon Dioxide 28 Anion Gap 11 L BUN 18 H Creatinine 1.11 Estim Creat Clear Calc 80.5 Estimated GFR > 60 POC Glucose 308 H Fasting Glucose 293 H Calcium 8.5 Discharge Plan Discharge Anticipated Discharge Date/Time: 11/09/23 10:11 Patient Disposition: Xfer SNF Discharge Diagnosis: dfu Referrals: Alfred Matos MD [Primary Care Provider] - 1 Week Emily Van PA-C [Physician Replenishment Merchandising Associate] - 1 Week Discharge Medications: New oxycodone 5 mg Tablet 5 mg PO Q6H PRN (Reason: Pain, Moderate(Pain Scale 4-6)) Qty: 10 0RF Rx Instructions: Partial Fill upon patient request. Continued atorvastatin 20 mg Tablet 20 mg PO DAILY lisinopril 20 mg Tablet 20 mg PO DAILY insulin lispro [Humalog KwikPen Insulin] 100 unit/mL Insulin Pen 18 unit SUBCUT TIDAC insulin glargine U-300 conc [Toujeo SoloStar U-300 Insulin] 300 unit/mL (1.5 mL) Insulin Pen 44 unit SUBCUT BEDTIME (DME) hydrocolloid dressing [Durafiber Dressing] 6 X 6 bandage See Rx Instructions .Route Qty: 5 0RF Rx Instructions: As directed change dressing every 3 days Discharge Orders: Discharge Order (Routine); Ordered 11/09/23 Ordered By: Jayant Mathews Diet: Diabetic diet Activity on Discharge: As tolerated Stand Alone Forms: Patient Portal Discharge page Print Language: [place] Sign Language Care Plan Goals: recovery Health Concerns: s/p bka Plan of Treatment: rehab, follow up with gen surgery Assessment: see above
[2023-11-09 11:22] LABS: Glucose, Whole Blood 375 mg/dL (60-115)
--- NOTE | 2023-11-09 12:02 | P.CDIM_ITS ---
PROVIDER RESPONSE TEXT: To clarify, the appropriate diagnosis supported by the clinical indicators: Acute osteomyelitis right foot QUERY TEXT: PHYSICIAN'S DOCUMENTATION REQUEST Date of Query: 11/08/2023 11:27 AM EDT Patient Name: Bala Roberson Admit Date: 11/02/2023 Dear Eben Baez MD, A review of the medical record indicates additional documentation may be needed. Please review below and update the documentation accordingly. Clinical Indicators: Surgery Op note dated 11/06/23 - Preoperative diagnosis: Gangrenous infected osteomyelitis right foot Postoperative diagnosis: The same Procedure: Right below-knee amputation, fluoroscopy Based on the above, please clarify in the Progress Notes further specificity regarding the acuity of the documented Osteomyelitis within the op note: Acute osteomyelitis right foot Acute hematogenous osteomyelitis Subacute osteomyelitis Chronic osteomyelitis Other (explain) Clinically unable to determine (explain) Thank you, Lakshmi Smith, CCS, CDIS Use of terms such as suspected, likely, concern for, or probable (associated with a specific diagnosi s that is being evaluated, monitored, or treated as if it exists) are acceptable and can be coded in the inpatient se tting, when documented at the time of discharge. Please use your independent medical judgment in providing your response. THIS QUERY IS PART OF THE PERMANENT MEDICAL RECORD
--- NOTE | 2023-11-09 13:59 | P.PNGS_ITS ---
Subjective Subjective Date of Service: 11/09/23 Interval history: No new complaints. Denies pain. Physical Exam 2 Vital Signs: Vital Signs: Last Vital Signs Temp 98.0 F 11/09/23 07:37 Pulse 90 11/09/23 07:37 Resp 18 11/09/23 07:37 BP 145/75 H 11/09/23 07:37 Pulse Ox 96 11/09/23 07:37 O2 Del Method Room Air 11/09/23 07:37 BMI result Body Mass Index 33.2 Const: General: comfortable, no acute distress and alert O rientation/consciousness: patient oriented x3 Resp: Effort & Inspection: normal respiratory effort Skin: General skin exam: no rashes or lesions noted Neuro: General: patient oriented x3 Extrem: Other: right BKA site remains clean appearing with some sanguineous drainage of lateral aspect, flaps viable appearing, incision remains well approximated with mild edema, very large bulla of stump with serous fluid which was drained using 18 gauge hypo Objective Data Active Medications Acetaminophen (Acetaminophen 325 Mg Tablet) 650 mg PO Q6H PRN PRN Reason: Pain, Mild (Pain Scale 1-3), fever or headache Last Admin: 11/04/23 21:06 Dose: 650 mg Documented By: IVA Atorvastatin Calcium (Atorvastatin Calcium 20 Mg Tablet) 20 mg PO DAILY [facility] Last Admin: 11/09/23 08:18 Dose: 20 mg Documented By: KAREEM Calcium Carbonate (Calcium Carbonate 750 Mg Tab.Chew) 750 mg PO Q4H PRN PRN Reason: Heartburn Enoxaparin Sodium (Enoxaparin Sodium 40 Mg/0.4 Ml Syringe) 40 mg SUBCUT Q24H [facility] Last Admin: 11/08/23 17:41 Dose: 40 mg Documented By: RC Glucose (Glucose Gel 15 Gm Gel..Gram.) 15 gm PO Q15M PRN; Protocol PRN Reason: per Hypoglycemia Standing Ord. Piperacillin Sod/Tazobactam (Sod 4.5 gm/ Sodium Chloride) 100 mls @ 200 mls/hr IV Q8H [facility] Last Infusion: 11/09/23 10:17 Dose: Infused Documented By: KAREEM Dextrose (D10) 250 mls @ 750 mls/hr IV Q15M PRN; Protocol PRN Reason: per Hypoglycemia Standing Ord. Insulin Glargine (Insulin Glargine,Hum.Rec.Anlog 100 Unit/Ml 10 Ml Vial) 35 unit SUBCUT BEDTIME [facility] Last Admin: 11/08/23 20:52 Dose: 35 unit Documented By: JENNIFER Insulin Human Lispro (Insulin Lispro 100 Unit/Ml 3 Ml Vial) 0 unit SUBCUT QIDACHS [facility]; Protocol Last Admin: 11/09/23 11:58 Dose: 12 unit Documented By: KAREEM Insulin Human Lispro (Insulin Lispro 100 Unit/Ml 3 Ml Vial) 18 unit SUBCUT TIDAC [facility] Last Admin: 11/09/23 11:58 Dose: 18 unit Documented By: KAREEM Lisinopril (Lisinopril 20 Mg Tablet) 20 mg PO DAILY [facility]; Protocol Last Admin: 11/09/23 08:18 Dose: 20 mg Documented By: KAREEM Magnesium Hydroxide (Milk Of Magnesia 30 Ml Oral.Susp) 30 ml PO DAILY PRN PRN Reason: Constipation Melatonin (Melatonin 3 Mg Tablet) 6 mg PO BEDTIME PRN PRN Reason: Insomnia Omeprazole (Omeprazole 20 Mg Capsule.Dr) 20 mg PO DAILY@0630 [facility] [place] Last Admin: 11/09/23 05:51 Dose: 20 mg Documented By: JENNIFER Ondansetron HCl (Ondansetron Hcl 4 Mg/2 Ml Vial) 4 mg IVPUSH Q8H PRN PRN Reason: Nausea and Vomiting Oxycodone HCl (Oxycodone Hcl Immed Release 5 Mg Tablet) 5 mg PO Q6H PRN PRN Reason: Pain, Moderate(Pain Scale 4-6) Last Admin: 11/07/23 10:38 Dose: 5 mg Documented By: KAHLIL Sodium Chloride (0.9 % Sodium Chloride Flush 3 Ml Syringe) 3 ml IVFLUSH QSHIFT [facility] [place] Last Admin: 11/09/23 08:18 Dose: 3 ml Documented By: KAREEM Labs 11/09/23 05:48 11/09/23 05:48 Labs: Laboratory Results - last 24 hr 11/08/23 11/08/23 11/09/23 16:00 19:58 05:48 MCV 81.0 MCH 27.8 MCHC 34.3 RDW 12.7 Plt Count 516 H MPV 9.6 Absolute Nucleated RBC 0.000 Nucleated RBC % (auto) 0.0 Anion Gap 11 L Estim Creat Clear Calc 80.5 Estimated GFR > 60 POC Glucose 194 H 180 H Fasting Glucose 293 H Calcium 8.5 11/09/23 11/09/23 07:16 11:13 MCV MCH MCHC RDW Plt Count MPV Absolute Nucleated RBC Nucleated RBC % (auto) Anion Gap Estim Creat Clear Calc Estimated GFR POC Glucose 308 H 375 H* Fasting Glucose Calcium Procedures Date of Service Date of Service: 11/09/23 Progress Note: A&P Assessment and plan (1) Status post below knee amputation of right lower extremity: Status: Acute Plan Continues to do well post op with clean right BKA site and viable appearing flaps. Stable for discharge from surgical standpoint when medically cleared. Daily dressing changes to BKA site with fluffs, kerlix and robert wrap followed by knee immobilizer. Can f/u in office in 1 week. Time Spent With Patient Time: Total time managing care of this patient today ____ minutes. Quality Stroke Does the patient have a stroke diagnosis?: No VTE Prior VTE?: No VTE Risk Level:: Medical - moderate - high VTE Device Contraindication: Treatment Not Indicated VTE Drug Contraindication: N/A - Med Ordered
[2023-11-09 15:15] VITALS: BP 154/72; PULSE 89; RESP 16; TEMP 36.7; O2SAT 93
[2023-11-09 16:19] LABS: Glucose, Whole Blood 299 mg/dL (60-115)
== END 2023-11-09 17:37 | DRG 710 ==
LOC: HO.ED 18:01 → HO.EDOVER 18:36 → HO.S3 11-03 07:23
PROVIDERS: Hospitalist; Registered Nurse Emergency; Surgery; Admitting Provider Hospitalist; Emergency Provider Emergency Medicine; PCP Internal Medicine; Visit Provider Internal Medicine
PROC: 0Y6H0Z1 Detachment at Right Lower Leg, High, Open Approach (ICD-10-PCS; CPT 27880; principal; 2023-11-06 15:10)
DX: A41.9 Sepsis, unspecified organism (principal); N17.9 Acute kidney failure, unspecified; E11.52 Type 2 diabetes mellitus with diabetic peripheral angiopathy with gangrene; M86.171 Other acute osteomyelitis, right ankle and foot; E11.621 Type 2 diabetes mellitus with foot ulcer; E11.69 Type 2 diabetes mellitus with other specified complication; L03.115 Cellulitis of right lower limb; L97.419 Non-pressure chronic ulcer of right heel and midfoot with unspecified severity; L97.518 Non-pressure chronic ulcer of other part of right foot with other specified severity; H91.93 Unspecified hearing loss, bilateral; Z98.1 Arthrodesis status; Z79.4 Long term (current) use of insulin; Z79.899 Other long term (current) drug therapy
CPT/HCPCS: 36415; 73590; 73630; 80048; 80053; 80202; 82565; 82947; 83605; 85007; 85025; 85027; 85652; 86140; 87040; 88307; 88311; 97110; 97162; 97167; 97530; 97535; 99285; J1170; J1650; J2250; J2543; J2704; J2795; J3010; J3370; J3371

== ENCOUNTER → 2023-11-02 18:15 | Outpatient (BNV) | payer BC, SELFPAY | PROVIDERS: Admitting Provider Hospitalist; Emergency Provider Emergency Medicine; PCP Internal Medicine; Visit Provider Surgery | DX: Z89.511 Acquired absence of right leg below knee (principal) | CPT/HCPCS: 27880; 99024; 99222; 99232 ==

== ENCOUNTER → 2023-11-02 18:15 | Outpatient (BNV) | payer BC, SELFPAY | PROVIDERS: Admitting Provider Hospitalist; Emergency Provider Emergency Medicine; PCP Internal Medicine; Visit Provider Hospitalist | DX: A41.9 Sepsis, unspecified organism (principal); E11.621 Type 2 diabetes mellitus with foot ulcer; L97.518 Non-pressure chronic ulcer of other part of right foot with other specified severity | CPT/HCPCS: 99223; 99232; 99239 ==

== ENCOUNTER 2023-11-27 09:20 | Outpatient (AMB) | payer BC, SELFPAY ==
--- NOTE | 2023-11-27 09:25 | A.OFFVIS_ITS ---
Intake Visit Reasons: Below rt knee amputation Intake Note: Patient here s/p below rt knee amputation. Reports site healing well. Only taking tylenol as needed. Reports VNA services daily. Human Services Manager Required: No Accompanied by: brother and health care proxy Judah Roberson Allergies No Known Allergies Allergy (Mild, Verified 11/27/23 09:25) NONE HPI Comments Details: Patient presents with his brother/cash applications coordinator. Patient is currently home and has VNA services. He was in an extended care facility prior to this. Aside from incisional discomfort which is improving, patient has no other wound issues or complaints. He is undergoing local wound care per visiting nurse. [facility] Medical History Diabetic neuropathy Hypercholesterolemia HTN (hypertension) [place] Iron deficiency anemia Insulin dependent type 2 diabetes mellitus Surgical History History of foot surgery Hx of colonoscopy History of esophagogastroduodenoscopy (EGD) Family History Father No problems noted. Father No problems noted. Mother No problems noted. Social History Household Members: None Housing: House Do you presently have visiting nurse or other home services: No Alcohol intake: current Alcohol intake frequency: holidays/special occasions only Patient Tobacco Use Status: Never used Tobacco service: No Physical Exam Extrem Other: Right BKA stump healing relatively uneventfully. There is some eschar and some skin blistering along the incisional site laterally but no evidence of any infection or cellulitis. Assessment & Plan Assessment & Plan (1) Status post below knee amputation of right lower extremity: Code(s): Z89.511 - Acquired absence of right leg below knee Category: Medical Plan Discussion was had with the patient and his brother regarding contacting roving changer for an and push healed device to protect his stump as well as to prevent flexion contracture. The brother states he has the contact information regarding roving changer and will address this. Should there be any issues or problems regarding this, patient's brother has been instructed to contact me. Patient otherwise follow the protocol per Geovanna regarding stump shrinkage and eventual prosthetic placement. All questions answered. Patient will follow-up with me otherwise [email or web address].. Coding Level of Care Code Global (82271) Diagnoses Status post below knee amputation of right lower extremity Z89.511
== END 2023-11-27 09:38 | disposition home or self-care (01) ==
PROVIDERS: PCP Internal Medicine; Visit Provider Surgery
DX: Z89.511 Acquired absence of right leg below knee (principal)
CPT/HCPCS: 99024

== ENCOUNTER → 2023-11-27 09:20 | Outpatient (BNVA) | payer BC, SELFPAY | PROVIDERS: PCP Internal Medicine; Visit Provider Surgery ==

== ENCOUNTER 2023-12-13 11:58 | Outpatient (AMB) | payer BC, SELFPAY ==
[2023-12-13 11:46] VITALS: BP 142/79; PULSE 107; BMI 32.8
--- NOTE | 2023-12-13 11:46 | MHC.OFFVIS ---
Vital Signs 12/13/23 11:46 Height 5 ft 11 in Weight 235 lb BMI 32.8 BP 142/79 H Blood Pressure Location Rt brachial Position Sitting Pulse 107 H Intake Visit Reasons: wound dehisence per VNA Intake Note: Patient here for wound check below rt knee. VNA services daily. Drawing Supervisor Required: No Accompanied by: brother Bronson Allergies No Known Allergies Allergy (Mild, Verified 12/13/23 11:49) NONE HPI Comments Details: Patient presents with his brother for follow-up status post right BKA. He is undergoing VNA services for local wound care. He will have his Dietary Aide Cook ampi-shield delivered tomorrow. [facility] Medical History Diabetic neuropathy Hypercholesterolemia HTN (hypertension) [place] Iron deficiency anemia Insulin dependent type 2 diabetes mellitus Surgical History History of foot surgery Hx of colonoscopy History of esophagogastroduodenoscopy (EGD) Family History Father No problems noted. Father No problems noted. Mother No problems noted. Social History Household Members: None Housing: House Do you presently have visiting nurse or other home services: No Alcohol intake: current Alcohol intake frequency: holidays/special occasions only Patient Tobacco Use Status: Never used Tobacco service: No Physical Exam Vital Signs: Last Vital Signs Pulse 107 H 12/13/23 11:46 BP 142/79 H 12/13/23 11:46 BMI result Body Mass Index 32.8 Extrem Other: Stump demonstrates eschar at the inferior aspect of the incision and the central part of the incision has opened and is healing by secondary intention. No gross evidence of any purulence or abscess. Assessment & Plan Assessment & Plan (1) Postop check: Code(s): Z09 - Encounter for follow-up examination after completed treatment for conditions other than malignant neoplasm Category: Surgical Plan At present, continue VNA services and local wound care. I discussed with the patient and his brother the importance of protecting the stump. This will be improved with the acid changer device. Patient will see me in approximately 2-3 weeks time. The entire reason for the below-knee amputation was because of lack of circulation to the lower extremity. This may also be the case regarding the stump. Unfortunately only time will tell. Patient may eventually debridement or even revision of BKA if healing does not progress. All questions answered Coding Level of Care Code Global (12123) Diagnoses Postop check Z09
== END 2023-12-13 12:10 | disposition home or self-care (01) ==
LOC: HO.HGS 11:58
PROVIDERS: PCP Internal Medicine; Visit Provider Surgery
DX: Z09 Encounter for follow-up examination after completed treatment for conditions other than malignant neoplasm (principal)
CPT/HCPCS: 99024

== ENCOUNTER → 2023-12-13 11:58 | Outpatient (BNVA) | payer BC, SELFPAY | PROVIDERS: PCP Internal Medicine; Visit Provider Surgery ==

== ENCOUNTER 2023-12-21 09:27 | Outpatient (AMB) | payer BC, SELFPAY ==
--- NOTE | 2023-12-21 09:29 | MHC.OFFVIS ---
Vital Signs 12/21/23 09:55 Height 5 ft 11 in Weight 234 lb 15.992 oz BMI 32.8 Intake Visit Reasons: wound check ?culture Intake Note: This patient presents for wound check ?culture. Nestor patient Pt c/o; reports no complaints. Control Specialist Required: No Accompanied by: Self / Same As Patient Allergies No Known Allergies Allergy (Mild, Verified 12/21/23 09:56) NONE Medication List - Last Reconciled 12/21/23 by Alexis Nixon MD [[facility] As directed] atorvastatin 20 mg PO DAILY hydrocolloid dressing (Durafiber Dressing) As directed change dressing every 3 days insulin glargine U-300 conc (Toujeo SoloStar U-300 Insulin) 44 units subcut BEDTIME insulin lispro (Humalog KwikPen (U-100) Insulin) 18 units subcut TIDAC lisinopril 20 mg PO DAILY HPI HPI wound check ?culture: Details: He has a patient of Dr. Baez and had undergone BKA on the right October,. He was sent for a wound check by the visiting nurse. He denies any significant complaints. He had just seen Dr. Baez last week. He denies any fever or chills. He does not describe any changes with regards to the BKA stump. REPLACED BY [facility] Medical History (Updated 12/21/23 @ 10:03 by Alexis Nixon MD) Eschar of lower leg Diabetic neuropathy Hypercholesterolemia HTN (hypertension) [place] Iron deficiency anemia Insulin dependent type 2 diabetes mellitus Surgical History History of foot surgery Hx of colonoscopy History of esophagogastroduodenoscopy (EGD) Family History Father No problems noted. Father No problems noted. Mother No problems noted. Social History Household Members: None Housing: House Do you presently have visiting nurse or other home services: No Alcohol intake: current Alcohol intake frequency: holidays/special occasions only Patient Tobacco Use Status: Never used Tobacco service: No Review of Systems Const Denies chills and Denies fever(s) Card Denies dyspnea Resp Denies cough and Denies dyspnea GI Denies abdominal pain Physical Exam Const Other: On wheelchair General: comfortable and no acute distress Resp Effort & Inspection: normal respiratory effort GI Palpation (GI): Soft to palpation Extrem Other: Right BKA stump with eschar sitting full-thickness of the skin and part of the subcutaneous layer, measuring about 2.5 x 7 cm, no cellulitis Office Procedures Debridement Details: I used fine scissors to excise full-thickness of the skin and part of the subcutaneous layer measuring about 2.5 x 7 cm. I then applied silver alginate dressings. I wrapped the foot with thick dressings and Kerlix roll as well as an Prasanth bandage 70135-Jnlkjdnwixf of skin tissue Procedure code (CPT) selection complete Assessment & Plan Assessment & Plan (1) Eschar of lower leg: Code(s): R23.4 - Changes in skin texture Category: Medical Plan: He had a thick eschar on the BKA stump on the right. I excised this as described above. I reapplied silver alginate dressings I told him that he should see Dr. Baez again to have another wound check. He is to continue the same wound care otherwise. Coding Level of Care Code Est Pt Level 3 (46519) Diagnoses Eschar of lower leg R23.4 CPT Codes Skin Debridement - CPT: 75662-Eeqdpkahfik of skin tissue ([id number])
[2023-12-21 09:55] VITALS: BMI 32.8
== END 2023-12-21 09:56 | disposition home or self-care (01) ==
PROVIDERS: PCP Internal Medicine; Visit Provider Surgery
DX: R23.4 Changes in skin texture (principal)
CPT/HCPCS: 11042; 99213

== ENCOUNTER → 2023-12-21 09:27 | Outpatient (BNVA) | payer BC, SELFPAY | PROVIDERS: PCP Internal Medicine; Visit Provider Surgery | DX: T87.89 Other complications of amputation stump (principal); R23.4 Changes in skin texture | CPT/HCPCS: 11042 ==

== ENCOUNTER 2024-01-15 14:29 | Outpatient (AMB) | payer BC, SELFPAY ==
--- NOTE | 2024-01-15 14:54 | A.OFFVIS_ITS ---
Intake Visit Reasons: amp wound needing surg debridement Intake Note: Patient scheduled today's appointment to discuss possible debridement surgery at amputation site below rt knee. Patient c/o: foul smell, oozing, redness. Saw wound care center this morning. Insurance And Financial Services Agent Required: No Accompanied by: brother Jeffrey Allergies No Known Allergies Allergy (Mild, Verified 01/15/24 14:57) NONE Medication List - Last Reconciled 01/16/24 by Eben Baez MD [[facility] As directed] atorvastatin 20 mg PO DAILY gabapentin 300 mg PO BID hydrocolloid dressing (Durafiber Dressing) As directed change dressing every 3 days insulin glargine U-300 conc (Toujeo SoloStar U-300 Insulin) 44 units subcut BEDTIME insulin lispro (Humalog KwikPen (U-100) Insulin) 18 units subcut TIDAC lisinopril 20 mg PO DAILY HPI Comments Details: Patient presents for evaluation of his right BKA stump. He was transported by 1 of his brothers. Patient has been seen in the [facility] near has current home and also presents here for wound evaluation. He has been doing relatively well since his procedure. Patient was been wearing his splint and undergoing local wound care. [facility] Medical History (Updated 12/21/23 @ 10:03 by Alexis Nixon MD) Eschar of lower leg Diabetic neuropathy Hypercholesterolemia HTN (hypertension) [place] Iron deficiency anemia Insulin dependent type 2 diabetes mellitus Surgical History (Updated 01/16/24 @ 07:58 by Eben Baez MD) History of foot surgery Hx of colonoscopy History of esophagogastroduodenoscopy (EGD) Family History Father No problems noted. Father No problems noted. Mother No problems noted. Social History Household Members: None Housing: House Do you presently have visiting nurse or other home services: No Alcohol intake: current Alcohol intake frequency: holidays/special occasions only Patient Tobacco Use Status: Never used Tobacco service: No Physical Exam Extrem Other: Right BKA stump demonstrates some all opening the central part of the incision. There is some superficial slough but granulating tissue throughout the wound of the central part of the stump incisional line. Office Procedures Debridement Details: Patient underwent uneventfully sharp debridement of skin and soft tissue slough and eschar involving the central part of his BKA wound. Underneath was granulating tissue which was healthy and bleeding which is very encouraging. Dressing applied along with wrap and splint. Patient tolerated procedure well. 22471-Prscqfvrwdr of skin tissue Procedure code (CPT) selection complete Assessment & Plan Assessment & Plan (1) Status post below knee amputation of right lower extremity: Code(s): Z89.511 - Acquired absence of right leg below knee Category: Surgical Plan: Patient will follow-up with his local wound care clinic guarding further management of his BKA stump. Once this process has further healed, consideration for prostatic can be undertaken. Patient and brother understand this and they will otherwise follow-up p.r.n.. All questions answered. (2) Nonhealing nonsurgical wound with fat layer exposed: Code(s): T14.8XXA - Other injury of unspecified body region, initial encounter Category: Surgical Plan: See above Orders: Orders AMB Debridement 01/15/24 T14.8XXA - Other injury of unspecified body region, initial encounter, Z89.511 - Acquired absence of right leg below knee Coding Level of Care Code Est Pt Level 4 (96709) Diagnoses Status post below knee amputation of right lower extremity Z89.511 Nonhealing nonsurgical wound with fat layer exposed T14.8XXA CPT Codes Skin Debridement - CPT: 94366-Tnlmfvgxvqd of skin tissue ([id number])
== END 2024-01-15 15:04 | disposition home or self-care (01) ==
PROVIDERS: PCP Internal Medicine; Visit Provider Surgery
DX: Z89.511 Acquired absence of right leg below knee (principal); T14.8XXA Other injury of unspecified body region, initial encounter
CPT/HCPCS: 99024

== ENCOUNTER → 2024-01-15 14:29 | Outpatient (BNVA) | payer BC, SELFPAY | PROVIDERS: PCP Internal Medicine; Visit Provider Surgery ==

== ENCOUNTER 2024-09-06 11:51 | Outpatient (REF) | payer BC, SELFPAY ==
[2024-09-06 12:13] LABS: Estimated Average Glucose 160 mg/dL; Hemoglobin A1c % 7.2 % (<6.0); Total Hemoglobin (HGBA1C) 4064.5384 umol/L
--- OUTSIDE RECORDS SUMMARY | 2024-09-06 12:41 | XMS_ITS | Patient Health Record ---
Author Organization Alfred Matos MD Address [address] [place], [place] [id number] Care Team Providers Care House Shorer Name Role Phone Alfred Matos Primary Care Provider [phone] Allergies No Known Allergies Results Component Value Reference Range Notes Hemoglobin A1c Reviewed date:11/28/2023 02:24:22 PM Interpretation: Performing Lab: Notes/Report: Hemoglobin A1c 8.7 Hemoglobin A1c Reviewed date:07/08/2024 01:15:01 PM Interpretation: Performing Lab: Notes/Report: Hemoglobin A1c 8.0 Hemoglobin A1c (Not yet revi ewed by provider) Interpretation: Performing Lab:[facility], [address] [place] [phone] Notes/Report: Hemoglobin A1c % 7.2 <6.0 % [...] average glucose, using the formula of the [id number]-[id number] Average Glucose study (ADAG), Diabetes Care, Vol.31,#8, Nov. 2007 Glucose, finger stick Reviewed date:11/28/2023 02:20:43 PM Interpretation: Performing Lab: Notes/Report: Value 89 Glucose, finger stick Reviewed date:07/08/2024 01:13:23 PM Interpretation: Performing Lab: Notes/Report: Value 144 Occult Blood, Stool, Guaiac Reviewed date:04/04/2024 02:22:37 PM Interpretation:Negative Performing Lab: Notes/Report: Negative Occult Blood, Stool, Guaiac Neg x2 Complete Blood Count Auto Di ff Reviewed date:10/02/2023 05:11:55 PM Interpretation: Performing Lab:[facility], [address] [place] [phone] Notes/Report: White Blood Count 9.7 4.8-10.8 X10*3/uL Red Blood Count 5.06 4.60-5.80 X10*6/uL Hemoglobin 14.5 14.0-18.0 g/dl Hematocrit 41.0 42.0-52.0 % Mean Corpuscular Volume 81.0 80.0-98.0 fL Mean Corpuscular Hemoglobin 28.7 27.0-33.0 pg Mean Corpuscular HGB Conc 35.4 31.0-36.0 g/dl Red Cell Distribution Width 12.5 11.0-16.0 % Platelet Count 313 160-400 X10*3/uL Mean Platelet Volume 9.7 9.4-12.4 fL Neutrophils Percent Auto 73.2 45-73 % Imm Gran Pct Auto 0.4 0.0-0.4 % Lymphocytes Percent Auto 16.5 20-40 % Monocytes Percent Auto 5.6 2-11 % Eosinophils Percent Auto 3.8 0-4 % Basophils Percent Auto 0.5 0-2 % NRBC Pct Auto 0.0 0.0-0.2 /100WBC Neutrophils Absolute Auto 7.1 2.0-8.3 x10*3/uL Imm Gran Abs Auto 0.04 0.00-0.03 X10*3/uL Lymphocytes Absolute Auto 1.6 1.2-4.9 X10*3/uL Monocytes Absolute Auto 0.6 0.1-1.2 X10*3/uL Eosinophils Absolute Auto 0.4 0.0-0.4 X10*3/uL Basophils Absolute Auto 0.1 0.0-0.2 X10*3/uL NRBC Abs Auto 0.000 0.0-0.012 X10*3/uL Erythrocyte Sedimentation Ra te Reviewed date:10/02/2023 05:09:23 PM Interpretation: Performing Lab:[address] [phone] Notes/Report: Erythrocyte Sedimentation Rate 19 0-15 MM/HR Patients with polycythemia and many hemoglobin abnormalities may have depressed sed rates whereas patients with anemia may have elevated sed rates. Liver Panel Reviewed date:10/02/2023 05:08:51 PM Interpretation: Performing Lab:[address] [phone] Notes/Report: Bilirubin Total 0.4 0.0-1.0 mg/dL Bilirubin Direct 0.2 0.0-0.5 mg/dL Aspartate Amino Transferase 24 5-37 U/L Alanine Aminotransferase 23 0-40 U/L Total Protein 7.7 6.5-8.0 g/dL Albumin Level 3.9 3.5-5.0 g/dL Alkaline Phosphatase 105 39-117 U/L Basic Metabolic Panel Reviewed date:10/02/2023 05:14:03 PM Interpretation: Performing Lab:[address] [phone] Notes/Report: Sodium 139 135-145 mmol/L Potassium 4.0 3.3-5.1 mmol/L Chloride 105 96-108 mmol/L Carbon Dioxide 28 22-29 mmol/L Anion Gap 10 12-20 Blood Urea Nitrogen 19 9-16 mg/dL Creatinine 0.92 0.5-1.4 mg/dL Creatinine Clr Calc Pharmacy 100.2 eGFR (calculated from the MDRD study equation) and eCrCl (calculated from the Cockcroft-Gault equation) are based on different parameters and may not yield comparable results. If eCrCl result is absurd, please check patient's height/weight. Estimated Glomerular Filt Rate > 60 NOTE: For -I[place]ic individuals, multiply the result by 1.210. Chronic Kidney Disease: Estimated GFR < 60 mL/min/1.73m2 Severe Kidney Disease: Estimated GFR < 15 mL/min/1.73m2 Glucose Random 121 60-115 mg/dL Calcium 9.7 8.4-10.2 mg/dL Lactic Acid Reviewed date:10/02/2023 05:06:25 PM Interpretation: Performing Lab:[facility], [address] [place] [phone] Notes/Report: Lactic Acid 1.8 0.5-2.0 mmol/L Magnesium Reviewed date:10/02/2023 05:06:16 PM Interpretation: Performing Lab:[facility], [address] [place] [phone] Notes/Report: Magnesium 2.0 1.6-2.6 mg/dL C Reactive Protein Reviewed date:10/02/2023 05:09:02 PM Interpretation: Performing Lab:[facility], [address] [place] [phone] Notes/Report: C Reactive Protein 0.53 < or = 0.50 mg/dL Glucose, Whole Blood Reviewed date:10/02/2023 05:05:12 PM Interpretation: Performing Lab:[facility], [address] [place] [phone] Notes/Report: Glucose, Whole Blood 176 60-115 mg/dL METER # : [id number] Blood Culture (First) Reviewed date:10/07/2023 06:23:15 PM Interpretation: Performing Lab:[facility], [address] [place] [phone] Notes/Report: Blood Culture (First) No growth after 5 days. Blood Culture (Second) Reviewed date:10/07/2023 06:23:24 PM Interpretation: Performing Lab:[facility], [address] [place] [phone] Notes/Report: Blood Culture (Second) No growth after 5 days. US venous duplex LE RT Reviewed date:10/02/2023 05:07:32 PM Interpretation: Performing Lab: Notes/Report: [address] [place] [address] Ultrasound Report Signed Patient: Bala Roberson MR#: [id number] 0 : 1960 Acct:[id number] Age/Sex: 63 / M ADM Date: 10/02/23 Loc: .ED Attending Dr: Ordering Physician: Yoly Ye DO Date of Service: 10/02/23 Procedure(s): US venous duplex LE RT Accession Number(s): [id number] cc: Alfred Matos MD; Yoly Ye DO EXAMINATION: US VENOUS ULTRASOUND WITH DOPPLER LOWER EXTREMITY, RIGHT CLINICAL INFORMATION: Right lower extremity swelling and pain COMPARISON: None available. TECHNIQUE: Ultrasound of the deep veins is performed from the hip to the calf with compression sonography and color and pulse Doppler assessment. Spectral analysis with color-flow imaging is performed. FINDINGS: There is normal venous compression and respiratory variation and augmented flow. The visualized common femoral vein, superficial femoral vein, profunda femoral vein, popliteal vein, and the trifurcation region shows no evidence of deep venous thrombosis. Contralateral left common femoral vein appeared normal. There is no significant popliteal fossa cyst. A large prominent right groin lymph node seen measuring 3.2 x 1.0 x 2.1 cm. This has a normal fatty cole. If the patient's symptoms persist, followup ultrasound in 5 days 7 days might be of value to exclude proximal propagation from a non-visualized calf vein. US/US venous duplex LE RT IMPRESSION: No DVT demonstrated in the right lower extremity. Dictated By: Dave Lora MD Signed By: <Electronically signed by Dave Lora MD in [place]> 10/02/23 1009 DD/ 0914 TD/TT: Gearcase Assembler: [place] [address] Ultrasound Report Signed Patient: Bala Roberson MR#: [id number] 0 : 1960 Acct:[id number] Age/Sex: 63 / M ADM Date: 10/02/23 Loc: .ED Attending Dr: Ordering Physician: Yoly Ye DO Date of Service: 10/02/23 Procedure(s): US vanessa ous duplex LE RT Accession Number(s): [id number] cc: Alfred Matos MD; Yoly Ye DO EXAMINATION: US VENOUS ULTRASOUND WITH DOPPLER LOWER EXTREMITY, RIGHT CLINICAL INFORMATION: Right lower extremit y swelling and pain COMPARISON: None available. TECHNIQUE: Ultrasound of the de ep veins is performed from the hip to the calf with compression sonograp hy and color and pulse Doppler assessment. Spectral analysis with color-flow imaging is performed. FINDINGS: There is normal veno us compression and respiratory variation and augmented flow. The visualized common femoral vein, superficial femoral vein, profunda femor al vein, popliteal vein, and the trifurcation region shows no evidence of deep venous thrombosis. Contralateral left common femoral vein appeared normal. There is no significant popliteal fossa cyst. A large prominent right groin lymph node seen measuring 3.2 x 1.0 x 2.1 cm. This has a normal fatty cole. If the patient's symptoms persist, followup ultrasound in 5 days 7 days might be of value to exclude proximal propagation from a non-visualized calf vein. US/US venous duplex LE RT IMPRESSION: No DVT demonstrated in the right lower extremity. Dictated By: Dave Lora MD Signed By: <Electronically signed by Dave Lora MD in [place]> 10/02/23 1009 DD/ 0914 TD/TT: Gearcase Assembler: SS XR foot RT min 3V Reviewed date:10/02/2023 05:08:34 PM Interpretation: Performing Lab: Notes/Report: [address] [address] XRay Report Signed Patient: Bala Roberson MR#: [id number] 0 : 1960 Acct:[id number] Age/Sex: 63 / M ADM Date: 10/02/23 Loc: HO.ED Attending Dr: Ordering Physician: Yoly Ye DO Date of Service: 10/02/23 Procedure(s): XR foot RT min 3V Accession Number(s): [id number] cc: Alfred Matos MD; Yoly Ye DO EXAMINATION: XR FOOT, RIGHT CLINICAL INFORMATION: Diabetic wound on bottom of foot COMPARISON: None available TECHNIQUE: AP, lateral, and oblique views of the right foot. FINDINGS: Severe degenerative changes are present throughout the with evidence of prior fractures with plate and screw device overlying the first metacarpal with a michael through the distal tibia with calcaneal screws. There is bony fusion of the tibia and talus as well as multiple other areas of fusion in the midfoot. There is diffuse soft tissue swelling most marked on the plantar surface. Some curvilinear lucencies are seen which are probably related to the edema and surrounding fat air within the soft tissues. The fibular head is absent. There is marked pes planus. There is amputation of the fifth digit with absent phalanges. Some heterotopic calcification is seen superior to the calcaneus and behind the distal tibia. No definite bony destruction is seen to suggest osteomyelitis. XR/XR foot RT min 3V IMPRESSION: Extensive postsurgical changes with severe degenerative changes and soft tissue swelling. No definite bony destruction is seen. If osteomyelitis is a consideration, MRI may be useful although there will be considerable artifact from the patient's hardware. Dictated By: Dave Lora MD Signed By: <Electronically signed by Dave Lora MD in [place]> 10/02/23 1008 DD/ 0859 TD/TT: Gearcase Assembler: [place] [address] XRay Report Signed Patient: Bala Roberson MR#: [id number] 0 : 1960 Acct:[id number] Age/Sex: 63 / M ADM Date: 10/02/23 Loc: HO.ED Attending Dr: Ordering Physician: Yoly Ye DO Date of Service: 10/02/23 Procedure(s): XR marlene t RT min 3V Accession Number(s): [id number] cc: Alfred Matos MD; Yoly Ye DO EXAMINATION: XR FOOT, RIGHT CLINICAL INFORMATION: Diabetic wound on bottom of foot COMPARISON: None available TECHNIQUE: AP, lateral, and oblique views of the right foot. FINDINGS: Severe degenerative changes are present throughout the with evidence of prior fractures with plate and screw device overlying the first metacarpal with a ro d through the distal tibia with calcaneal screws. There is bony fusion of the tibia and talus as well as multiple other areas of fusion in t he midfoot. There is diffuse soft tissue swelling most marked on the plantar surface. Some curvilinear lucencies are seen which are probably related to the edema and surrounding fat air within the soft tissues. Th e fibular head is absent. There is marked pes planus. There is amputation of the fifth digit with absent phalanges. Some heterotopic calcification is seen superior to the calcaneus and behind the distal tibia. No definite bony destruction is seen to suggest osteomyelitis. XR/XR foot RT min 3V IMPRESSION: Extensive postsurgic al changes with severe degenerative changes and soft tissue swelling . No definite bony destruction is seen. If osteomyelitis is a consideration, MRI may be useful although there will be considerable artifact from the patient's hardware. Dictated By: Dave Lora MD Signed By: <Electronically signed by Dave Lora MD in [place]> 10/02/23 1008 DD/ 0859 TD/TT: Gearcase Assembler: HUSSAIN Glucose, Whole Blood Reviewed date:11/03/2023 09:47:51 AM Interpretation: Performing Lab:[facility], [address] [place] [phone] Notes/Report: Glucose, Whole Blood 390 60-115 mg/dL METER # : [id number] XR foot RT min 3V Reviewed date:11/03/2023 09:47:51 AM Interpretation: Performing Lab: Notes/Report: [address] [address] XRay Report Signed Patient: Bala Roberson MR#: [id number] 0 : 1960 Acct:[id number] Age/Sex: 63 / M ADM Date: 11/02/23 Loc: HO.ED Attending Dr: Ordering Physician: Angelic Moreno NP Date of Service: 11/02/23 Procedure(s): XR foot RT min 3V Accession Number(s): [id number] cc: Alfred Matos MD; Angelic Moreno NP EXAMINATION: XR FOOT, RIGHT CLINICAL INFORMATION: Foot wound COMPARISON: 10/02/2023 TECHNIQUE: AP, lateral, and oblique views of the right foot. FINDINGS: Diffuse soft tissue swelling throughout the foot. There is seen within the subcutaneous and deep soft tissues along the plantar aspect as well as the medial and lateral aspects of the hindfoot centered around the tarsal bones. Postsurgical changes seen within the first proximal phalanx, calcaneus and talus. Intramedullary michael is seen through the distal tibia extending into the hindfoot. There is fusion and chronic deformity of the ankle mortise and hindfoot. 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 XR/XR foot RT min 3V IMPRESSION: Diffuse soft tissue swelling with air in the subcutaneous and deep soft tissues of the hindfoot. Postsurgical changes as described above. Dictated By: Iam Marques MD Signed By: <Electronically signed by Iam Marques MD in [place]> 11/02/23 1743 DD/ 1628 TD/TT: Gearcase Assembler: [place] [address] XRay Report Signed Patient: Bala Roberson MR#: [id number] 0 : 1960 Acct:[id number] Age/Sex: 63 / M ADM Date: 11/02/23 Loc: .ED Attending Dr: Ordering Physician: Angelic Moreno NP Date of Service: 11/02/23 Procedure(s): XR marlene t RT min 3V Accession Number(s): [id number] cc: Alfred Matos MD; Angelic Moreno NP EXAMINATION: XR FOOT, RIGHT CLINICAL INFORMATION: Foot wound COMPARISON: 10/02/2023 TECHNIQUE: AP, lateral, and oblique views of the right foot. FINDINGS: Diffuse soft tissue swelling throughout the foot. There is seen within the subcutaneous and deep soft tissues along the plantar aspect as well as the medial and lateral aspects of the hindfoot centered around the tarsal bones. Postsurgical changes seen within the first proximal phalanx, calcaneus a nd talus. Intramedullary michael is seen through the distal tibia extendi ng into the hindfoot. There is fusion and chronic deformity of the ank le mortise and hindfoot. 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 XR/XR foot RT min 3V IMPRESSION: Diffuse soft tissue swelling with air in the subcutaneous and deep soft tissues of the hindfoot. Postsurgical changes as described above. Dictated By: Iam Marques MD Signed By: <Electronically signed by Iam Marques MD in [place]> 11/02/23 1743 DD/ 1628 TD/TT: Gearcase Assembler: Complete Blood Count Auto Di ff Reviewed date:11/03/2023 09:47:51 AM Interpretation: Performing Lab:[facility], [address] [place] [phone] Notes/Report: White Blood Count 20.7 4.8-10.8 X10*3/uL Red Blood Count 4.45 4.60-5.80 X10*6/uL Hemoglobin 12.4 14.0-18.0 g/dl Hematocrit 35.6 42.0-52.0 % Mean Corpuscular Volume 80.0 80.0-98.0 fL Mean Corpuscular Hemoglobin 27.9 27.0-33.0 pg Mean Corpuscular HGB Conc 34.8 31.0-36.0 g/dl Red Cell Distribution Width 12.6 11.0-16.0 % Platelet Count 437 160-400 X10*3/uL Mean Platelet Volume 10.5 9.4-12.4 fL Neutrophils Percent Auto 82.6 45-73 % Imm Gran Pct Auto 1.3 0.0-0.4 % Lymphocytes Percent Auto 8.4 20-40 % Monocytes Percent Auto 5.8 2-11 % Eosinophils Percent Auto 1.5 0-4 % Basophils Percent Auto 0.4 0-2 % NRBC Pct Auto 0.0 0.0-0.2 /100WBC Neutrophils Absolute Auto 17.1 2.0-8.3 x10*3/uL Imm Gran Abs Auto 0.26 0.00-0.03 X10*3/uL Lymphocytes Absolute Auto 1.7 1.2-4.9 X10*3/uL Monocytes Absolute Auto 1.2 0.1-1.2 X10*3/uL Eosinophils Absolute Auto 0.3 0.0-0.4 X10*3/uL Basophils Absolute Auto 0.1 0.0-0.2 X10*3/uL NRBC Abs Auto 0.000 0.0-0.012 X10*3/uL White Blood Count 20.7 4.8-10.8 X10*3/uL Red Blood Count 4.45 4.60-5.80 X10*6/uL Hemoglobin 12.4 14.0-18.0 g/dl Hematocrit 35.6 42.0-52.0 % Mean Corpuscular Volume 80.0 80.0-98.0 fL Mean Corpuscular Hemoglobin 27.9 27.0-33.0 pg Mean Corpuscular HGB Conc 34.8 31.0-36.0 g/dl Red Cell Distribution Width 12.6 11.0-16.0 % Platelet Count 437 160-400 X10*3/uL Mean Platelet Volume 10.5 9.4-12.4 fL Neutrophils Percent Auto 82.6 45-73 % Imm Gran Pct Auto 1.3 0.0-0.4 % Lymphocytes Percent Auto 8.4 20-40 % Monocytes Percent Auto 5.8 2-11 % Eosinophils Percent Auto 1.5 0-4 % Basophils Percent Auto 0.4 0-2 % NRBC Pct Auto 0.0 0.0-0.2 /100WBC Neutrophils Absolute Auto 17.1 2.0-8.3 x10*3/uL Imm Gran Abs Auto 0.26 0.00-0.03 X10*3/uL Lymphocytes Absolute Auto 1.7 1.2-4.9 X10*3/uL Monocytes Absolute Auto 1.2 0.1-1.2 X10*3/uL Eosinophils Absolute Auto 0.3 0.0-0.4 X10*3/uL Basophils Absolute Auto 0.1 0.0-0.2 X10*3/uL NRBC Abs Auto 0.000 0.0-0.012 X10*3/uL C ORRECTED REPORT C ORRECTED REPORT Comprehensive Met. Panel Reviewed date:11/03/2023 09:47:51 AM Interpretation: Performing Lab:[facility], [address] [place] [phone] Notes/Report: Sodium 136 135-145 mmol/L Potassium 3.7 3.3-5.1 mmol/L Chloride 100 96-108 mmol/L Carbon Dioxide 24 22-29 mmol/L Anion Gap 16 12-20 Blood Urea Nitrogen 19 9-16 mg/dL Creatinine 1.23 0.5-1.4 mg/dL Creatinine Clr Calc Pharmacy 72.4 eGFR (calculated from the MDRD study equation) and eCrCl (calculated from the Cockcroft-Gault equation) are based on different parameters and may not yield comparable results. If eCrCl result is absurd, please check patient's height/weight. Estimated Glomerular Filt Rate 59 NOTE: For -I[place]ic individuals, multiply the result by 1.210. Chronic Kidney Disease: Estimated GFR < 60 mL/min/1.73m2 Severe Kidney Disease: Estimated GFR < 15 mL/min/1.73m2 Glucose Random 299 60-115 mg/dL Calcium 8.6 8.4-10.2 mg/dL Bilirubin Total 0.6 0.0-1.0 mg/dL Aspartate Amino Transferase 45 5-37 U/L Alanine Aminotransferase 49 0-40 U/L Total Protein 6.6 6.5-8.0 g/dL Albumin Level 2.8 3.5-5.0 g/dL Alkaline Phosphatase 185 39-117 U/L Glucose, Whole Blood Reviewed date:11/03/2023 09:47:51 AM Interpretation: Performing Lab:[address] [phone] Notes/Report: Glucose, Whole Blood 388 60-115 mg/dL METER # : [id number] Vancomycin Random Reviewed date:11/05/2023 04:49:13 PM Interpretation: Performing Lab:[facility], [address] [place] [phone] Notes/Report: Vancomycin Random 10.7 15-20 mcg/mL SLIDE REVIEW Reviewed date:11/03/2023 09:47:51 AM Interpretation: Performing Lab:[address] [phone] Notes/Report: SLIDE REVIEW VERIFIED XR tibia fibula RT 2V Reviewed date:11/05/2023 04:49:13 PM Interpretation: Performing Lab: Notes/Report: [address] [address] XRay Report Signed Patient: Bala Roberson MR#: [id number] 0 : 1960 Acct:[id number] Age/Sex: 63 / M ADM Date: 11/02/23 Loc: HO.S3 358-[address]: Spencer Monterroso DO Ordering Physician: Eben Baez MD Date of Service: 11/03/23 Procedure(s): XR tibia fibula RT 2V Accession Number(s): [id number] cc: Alfred Matos MD; Eben Baez MD EXAMINATION: XR TIBIA AND FIBULA, RIGHT CLINICAL INFORMATION: Below the knee amputation, evaluate or proximal hardware extending COMPARISON: Foot radiographs 11/02/2023 TECHNIQUE: AP and lateral views of the right tibia and fibula were obtained. FINDINGS: Status post ORIF of the distal tibia. The hardware extends into the talus and calcaneus with osseous fusion, only imaged on the lateral view. There is a plate and screw fixation of one of the proximal metatarsals, only imaged on the lateral view. There is soft tissue swelling along the dorsum of the foot with lucency suggesting the presence of gas and or an open wound. No evidence of hardware fracture or complication. The distal fibula is absent. Diffuse subcutaneous edema. Smooth periosteal reaction along the tibia may reflect sequelae of chronic venous stasis. XR/XR tibia fibula RT 2V IMPRESSION: Status post ORIF of the distal tibia. The hardware extends into the talus and calcaneus with osseous fusion, only imaged on the lateral view. No evidence of hardware fracture or complication. There is soft tissue swelling along the dorsum of the foot with lucency suggesting the presence of gas or an open wound, similar to prior. Possible remote healed proximal fibular fracture and distal tibial fracture deformities. No acute fracture or dislocation. Smooth periosteal reaction along the tibia may reflect sequelae of chronic venous stasis. The distal fibula is absent. Dictated By: Connie Hahn MD Signed By: <Electronically signed by Connie Hahn MD in [place]> 11/04/23 1046 DD/ 1245 TD/TT: Gearcase Assembler: [place] [address] XRay Report Signed Patient: Bala Roberson MR#: [id number] 0 : 1960 Acct:[id number] Age/Sex: 63 / M ADM Date: 11/02/23 Loc: .S3 358-[address]: Spencer Monterroso DO Ordering Physician: Eben Baez MD Date of Service: 11/03/23 Procedure(s): XR tib ia fibula RT 2V Accession Number(s): [id number] cc: Alfred Matos MD; Eben Baez MD EXAMINATION: XR TIBIA AND FIBULA, RIGHT CLINICAL INFORMATION: Below the knee amputation, evaluate or proximal hardware extending COMPARISON: Foot radiographs 11/02/2023 TECHNIQUE: AP and lateral views of the right tibia and fibula were obtained. FINDINGS: Status post ORIF of the distal tibia. The hardware extends into the talus and calcaneus with osseous fusion, only imaged on the lateral view. There is a stephanie te and screw fixation of one of the proximal metatarsals, only imaged on the lateral view. There is soft tissue swelling along the dorsum of the foot with lucency suggesting the presence of gas and or an open wound. No evidence of hardware fracture or complication. The distal fibula is absent. Diffuse subcutaneous edema. Smooth periosteal reaction along the tibia may reflect sequelae of chronic venous stasis. XR/XR tibia fibula RT 2V IMPRESSION: Status post ORIF of the distal tibia. The hardware extends into the talus and calcaneus with osseous fusion, only imaged on the lateral view. No evidence of hardware fracture or complication. There is soft tissue swelling along the dorsum of the foot with lucency suggesting the prese nce of gas or an open wound, similar to prior. Possible remote heal ed proximal fibular fracture and distal tibial fracture deformities . No acute fracture or dislocation. Smooth periosteal reaction along the tibia may reflect sequelae of chronic venous stasis. The distal fibula is absent. Dictated By: Connie Hahn MD Signed By: <Electronically signed by Connie Hahn MD in [place]> 11/04/23 1046 DD/ 1245 TD/TT: Gearcase Assembler: Glucose, Whole Blood Reviewed date:11/03/2023 09:47:51 AM Interpretation: Performing Lab:[facility], [address] [place] [phone] Notes/Report: Glucose, Whole Blood 317 60-115 mg/dL METER # : [id number] Glucose, Whole Blood Reviewed date:11/03/2023 09:47:51 AM Interpretation: Performing Lab:[facility], [address] [place] [phone] Notes/Report: Glucose, Whole Blood 315 60-115 mg/dL METER # : [id number] Glucose, Whole Blood Reviewed date:11/03/2023 09:47:51 AM Interpretation: Performing Lab:[facility], [address] [place] [phone] Notes/Report: Glucose, Whole Blood 303 60-115 mg/dL METER # : [id number] Glucose, Whole Blood Reviewed date:11/03/2023 09:47:51 AM Interpretation: Performing Lab:[facility], [address] [place] [phone] Notes/Report: Glucose, Whole Blood 274 60-115 mg/dL METER # : [id number] Glucose, Whole Blood Reviewed date:11/03/2023 09:47:51 AM Interpretation: Performing Lab:[facility], [address] [place] [phone] Notes/Report: Glucose, Whole Blood 267 60-115 mg/dL METER # : [id number] Glucose, Whole Blood Reviewed date:11/03/2023 12:37:20 PM Interpretation: Performing Lab:[facility], [address] [place] [phone] Notes/Report: Glucose, Whole Blood 275 60-115 mg/dL METER # : [id number] Glucose, Whole Blood Reviewed date:11/05/2023 04:49:13 PM Interpretation: Performing Lab:[facility], [address] [place] [phone] Notes/Report: Glucose, Whole Blood 276 60-115 mg/dL METER # : [id number] Glucose, Whole Blood Reviewed date:11/05/2023 04:49:13 PM Interpretation: Performing Lab:[facility], [address] [place] [phone] Notes/Report: Glucose, Whole Blood 249 60-115 mg/dL METER # : [id number] Complete Blood Count Auto Di ff Reviewed date:11/05/2023 04:49:13 PM Interpretation: Performing Lab:[facility], [address] [place] [phone] Notes/Report: White Blood Count 19.4 4.8-10.8 X10*3/uL Red Blood Count 4.20 4.60-5.80 X10*6/uL Hemoglobin 11.5 14.0-18.0 g/dl Hematocrit 33.7 42.0-52.0 % Mean Corpuscular Volume 80.2 80.0-98.0 fL Mean Corpuscular Hemoglobin 27.4 27.0-33.0 pg Mean Corpuscular HGB Conc 34.1 31.0-36.0 g/dl Red Cell Distribution Width 13.0 11.0-16.0 % Platelet Count 482 160-400 X10*3/uL Mean Platelet Volume 10.2 9.4-12.4 fL Neutrophils Percent Auto 77.8 45-73 % Imm Gran Pct Auto 1.0 0.0-0.4 % Lymphocytes Percent Auto 12.7 20-40 % Monocytes Percent Auto 5.6 2-11 % Eosinophils Percent Auto 2.3 0-4 % Basophils Percent Auto 0.6 0-2 % NRBC Pct Auto 0.0 0.0-0.2 /100WBC Neutrophils Absolute Auto 15.1 2.0-8.3 x10*3/uL Imm Gran Abs Auto 0.20 0.00-0.03 X10*3/uL Lymphocytes Absolute Auto 2.5 1.2-4.9 X10*3/uL Monocytes Absolute Auto 1.1 0.1-1.2 X10*3/uL Eosinophils Absolute Auto 0.4 0.0-0.4 X10*3/uL Basophils Absolute Auto 0.1 0.0-0.2 X10*3/uL NRBC Abs Auto 0.000 0.0-0.012 X10*3/uL C ORRECTED REPORT Complete Blood Count Man Dif Reviewed date:11/05/2023 04:49:13 PM Interpretation: Performing Lab:[facility], [address] [place] [phone] Notes/Report: White Blood Count 19.4 4.8-10.8 X10*3/uL Red Blood Count 4.20 4.60-5.80 X10*6/uL Hemoglobin 11.5 14.0-18.0 g/dl Hematocrit 33.7 42.0-52.0 % Mean Corpuscular Volume 80.2 80.0-98.0 fL Mean Corpuscular Hemoglobin 27.4 27.0-33.0 pg Mean Corpuscular HGB Conc 34.1 31.0-36.0 g/dl Red Cell Distribution Width 13.0 11.0-16.0 % Platelet Count 482 160-400 X10*3/uL Mean Platelet Volume 10.2 9.4-12.4 fL NRBC Pct Auto 0.0 0.0-0.2 /100WBC NRBC Abs Auto 0.000 0.0-0.012 X10*3/uL Neutrophils Percent Manual 79 45-73 % Band Neutrophils Percent 2 3-5 % Lymphocytes Percent Manual 5 20-40 % Atypical Lymphs Percent Manual 3 0-6 % Monocytes Percent Manual 6 2-11 % Eosinophils Percent Manual 4 0-4 % Metamyelocytes Percent 1 Neutrophils Absolute Manual 15.7 2.0-8.3 X10*3/uL Lymphocytes Absolute Manual 1.0 1.2-4.9 X10*3/uL Atypical Lymph Absolute Manual 0.6 Monocytes Absolute Manual 1.2 0.1-1.2 X10*3/uL Eosinophils Absolute Manual 0.8 0.0-0.4 X10*3/uL Metamyelocytes Absolute 0.2 Platelet Estimate SLIGHTLY INCREASED NORMAL Platelet Morphology Comment NORMAL RBC Morphology NORMAL Comprehensive Met. Panel Reviewed date:11/05/2023 04:49:13 PM Interpretation: Performing Lab:[facility], [address] [place] [phone] Notes/Report: Sodium 135 135-145 mmol/L Potassium 3.7 3.3-5.1 mmol/L Chloride 100 96-108 mmol/L Carbon Dioxide 26 22-29 mmol/L Anion Gap 13 12-20 Blood Urea Nitrogen 15 9-16 mg/dL Creatinine 0.96 0.5-1.4 mg/dL Creatinine Clr Calc Pharmacy 93.0 eGFR (calculated from the MDRD study equation) and eCrCl (calculated from the Cockcroft-Gault equation) are based on different parameters and may not yield comparable results. If eCrCl result is absurd, please check patient's height/weight. Estimated Glomerular Filt Rate > 60 NOTE: For -I[place]ic individuals, multiply the result by 1.210. Chronic Kidney Disease: Estimated GFR < 60 mL/min/1.73m2 Severe Kidney Disease: Estimated GFR < 15 mL/min/1.73m2 Glucose Random 220 60-115 mg/dL Calcium 8.5 8.4-10.2 mg/dL Bilirubin Total 0.5 0.0-1.0 mg/dL Aspartate Amino Transferase 44 5-37 U/L Alanine Aminotransferase 41 0-40 U/L Total Protein 6.5 6.5-8.0 g/dL Albumin Level 2.6 3.5-5.0 g/dL Alkaline Phosphatase 178 39-117 U/L Glucose, Whole Blood Reviewed date:11/05/2023 04:49:13 PM Interpretation: Performing Lab:[facility], [address] [place] [phone] Notes/Report: Glucose, Whole Blood 257 60-115 mg/dL METER # : [id number] Vancomycin Random Reviewed date:11/05/2023 04:49:13 PM Interpretation: Performing Lab:[facility], [address] [place] [phone] Notes/Report: Vancomycin Random 11.6 15-20 mcg/mL Glucose, Whole Blood Reviewed date:11/05/2023 04:49:13 PM Interpretation: Performing Lab:[facility], [address] [place] [phone] Notes/Report: Glucose, Whole Blood 308 60-115 mg/dL METER # : [id number] Glucose, Whole Blood Reviewed date:11/05/2023 04:49:13 PM Interpretation: Performing Lab:[facility], [address] [place] [phone] Notes/Report: Glucose, Whole Blood 269 60-115 mg/dL METER # : [id number] Glucose, Whole Blood Reviewed date:11/05/2023 04:49:13 PM Interpretation: Performing Lab:[facility], [address] [place] [phone] Notes/Report: Glucose, Whole Blood 200 60-115 mg/dL METER # : [id number] Complete Blood Count Auto Di ff Reviewed date:11/05/2023 04:49:13 PM Interpretation: Performing Lab:[facility], [address] [place] [phone] Notes/Report: White Blood Count 18.8 4.8-10.8 X10*3/uL Red Blood Count 4.52 4.60-5.80 X10*6/uL Hemoglobin 12.4 14.0-18.0 g/dl Hematocrit 36.6 42.0-52.0 % Mean Corpuscular Volume 81.0 80.0-98.0 fL Mean Corpuscular Hemoglobin 27.4 27.0-33.0 pg Mean Corpuscular HGB Conc 33.9 31.0-36.0 g/dl Red Cell Distribution Width 13.0 11.0-16.0 % Platelet Count 523 160-400 X10*3/uL Mean Platelet Volume 10.0 9.4-12.4 fL Neutrophils Percent Auto 78.8 45-73 % Imm Gran Pct Auto 2.0 0.0-0.4 % Lymphocytes Percent Auto 11.4 20-40 % Monocytes Percent Auto 4.4 2-11 % Eosinophils Percent Auto 2.9 0-4 % Basophils Percent Auto 0.5 0-2 % NRBC Pct Auto 0.0 0.0-0.2 /100WBC Neutrophils Absolute Auto 14.8 2.0-8.3 x10*3/uL Imm Gran Abs Auto 0.37 0.00-0.03 X10*3/uL Lymphocytes Absolute Auto 2.1 1.2-4.9 X10*3/uL Monocytes Absolute Auto 0.8 0.1-1.2 X10*3/uL Eosinophils Absolute Auto 0.5 0.0-0.4 X10*3/uL Basophils Absolute Auto 0.1 0.0-0.2 X10*3/uL NRBC Abs Auto 0.000 0.0-0.012 X10*3/uL White Blood Count 18.8 4.8-10.8 X10*3/uL Red Blood Count 4.52 4.60-5.80 X10*6/uL Hemoglobin 12.4 14.0-18.0 g/dl Hematocrit 36.6 42.0-52.0 % Mean Corpuscular Volume 81.0 80.0-98.0 fL Mean Corpuscular Hemoglobin 27.4 27.0-33.0 pg Mean Corpuscular HGB Conc 33.9 31.0-36.0 g/dl Red Cell Distribution Width 13.0 11.0-16.0 % Platelet Count 523 160-400 X10*3/uL Mean Platelet Volume 10.0 9.4-12.4 fL Neutrophils Percent Auto 78.8 45-73 % Imm Gran Pct Auto 2.0 0.0-0.4 % Lymphocytes Percent Auto 11.4 20-40 % Monocytes Percent Auto 4.4 2-11 % Eosinophils Percent Auto 2.9 0-4 % Basophils Percent Auto 0.5 0-2 % NRBC Pct Auto 0.0 0.0-0.2 /100WBC Neutrophils Absolute Auto 14.8 2.0-8.3 x10*3/uL Imm Gran Abs Auto 0.37 0.00-0.03 X10*3/uL Lymphocytes Absolute Auto 2.1 1.2-4.9 X10*3/uL Monocytes Absolute Auto 0.8 0.1-1.2 X10*3/uL Eosinophils Absolute Auto 0.5 0.0-0.4 X10*3/uL Basophils Absolute Auto 0.1 0.0-0.2 X10*3/uL NRBC Abs Auto 0.000 0.0-0.012 X10*3/uL C ORRECTED REPORT C ORRECTED REPORT Comprehensive Met. Panel Reviewed date:11/05/2023 04:49:13 PM Interpretation: Performing Lab:[facility], [address] [place] [phone] Notes/Report: Sodium 136 135-145 mmol/L Potassium 3.5 3.3-5.1 mmol/L Chloride 98 96-108 mmol/L Carbon Dioxide 28 22-29 mmol/L Anion Gap 14 12-20 Blood Urea Nitrogen 12 9-16 mg/dL Creatinine 0.98 0.5-1.4 mg/dL Creatinine Clr Calc Pharmacy 91.1 eGFR (calculated from the MDRD study equation) and eCrCl (calculated from the Cockcroft-Gault equation) are based on different parameters and may not yield comparable results. If eCrCl result is absurd, please check patient's height/weight. Estimated Glomerular Filt Rate > 60 NOTE: For -I[place]ic individuals, multiply the result by 1.210. Chronic Kidney Disease: Estimated GFR < 60 mL/min/1.73m2 Severe Kidney Disease: Estimated GFR < 15 mL/min/1.73m2 Glucose Random 182 60-115 mg/dL Calcium 8.8 8.4-10.2 mg/dL Bilirubin Total 0.6 0.0-1.0 mg/dL Aspartate Amino Transferase 34 5-37 U/L Alanine Aminotransferase 36 0-40 U/L Total Protein 7.2 6.5-8.0 g/dL Albumin Level 2.7 3.5-5.0 g/dL Alkaline Phosphatase 183 39-117 U/L Glucose, Whole Blood Reviewed date:11/05/2023 04:49:13 PM Interpretation: Performing Lab:[facility], [address] [place] [phone] Notes/Report: Glucose, Whole Blood 177 60-115 mg/dL METER # : [id number] Vancomycin Random Reviewed date:11/05/2023 04:49:13 PM Interpretation: Performing Lab:[facility], [address] [place] [phone] Notes/Report: Vancomycin Random 16.2 15-20 mcg/mL SLIDE REVIEW Reviewed date:11/05/2023 04:49:13 PM Interpretation: Performing Lab:[facility], [address] [place] [phone] Notes/Report: SLIDE REVIEW VERIFIED Glucose, Whole Blood Reviewed date:11/05/2023 04:49:13 PM Interpretation: Performing Lab:[facility], [address] [place] [phone] Notes/Report: Glucose, Whole Blood 209 60-115 mg/dL METER # : [id number] Glucose, Whole Blood Reviewed date:11/05/2023 04:49:13 PM Interpretation: Performing Lab:[facility], [address] [place] [phone] Notes/Report: Glucose, Whole Blood 250 60-115 mg/dL METER # : [id number] Glucose, Whole Blood Reviewed date:11/06/2023 10:29:18 AM Interpretation: Performing Lab:[facility], [address] [place] [phone] Notes/Report: Glucose, Whole Blood 329 60-115 mg/dL METER # : [id number] Glucose, Whole Blood Reviewed date:11/06/2023 10:28:45 AM Interpretation: Performing Lab:[facility], [address] [place] [phone] Notes/Report: Glucose, Whole Blood 346 60-115 mg/dL METER # : [id number] Hold Lav - Possible Hematolo gy Reviewed date:11/06/2023 10:29:18 AM Interpretation: Performing Lab:[facility], [address] [place] [phone] Notes/Report: Hold Lav - Possible Hematology SEE NOTE Specimen will be held untested for 8 hours. Call Hematology if testing is desired. Creatinine Reviewed date:11/06/2023 10:29:18 AM Interpretation: Performing Lab:[facility], [address] [place] [phone] Notes/Report: Creatinine 1.11 0.5-1.4 mg/dL Creatinine Clr Calc Pharmacy 80.5 eGFR (calculated from the MDRD study equation) and eCrCl (calculated from the Cockcroft-Gault equation) are based on different parameters and may not yield comparable results. If eCrCl result is absurd, please check patient's height/weight. Estimated Glomerular Filt Rate > 60 NOTE: For -I[place]ic individuals, multiply the result by 1.210. Chronic Kidney Disease: Estimated GFR < 60 mL/min/1.73m2 Severe Kidney Disease: Estimated GFR < 15 mL/min/1.73m2 Glucose, Whole Blood Reviewed date:11/06/2023 10:29:18 AM Interpretation: Performing Lab:[facility], [address] [place] [phone] Notes/Report: Glucose, Whole Blood 193 60-115 mg/dL METER # : [id number] Vancomycin Random Reviewed date:11/07/2023 12:28:40 PM Interpretation: Performing Lab:[facility], [address] [place] [phone] Notes/Report: PT in surgery at 1610. Fioc Vancomycin Random 12.4 15-20 mcg/mL Pathology Reviewed date:11/09/2023 12:45:02 PM Interpretation: Performing Lab:[facility], [address] [place] [phone] Notes/Report: --- Name: Bala Roberson Age/Sex: 63/M [facility] 1960 [id number] [id number] Attend Dr: Jayant Mathews MD Re11/02/23 Status : ADM IN Location: [place] [address]-1 Disch: --- SPEC : [id number] RECD : 11/07/23 STATUS: CECIL STARK NUM: [id number] CARLYLE: 11/06/23 [facility] DR: Eben Baez MD ENTERED: 11/07/23- TYPE: Surgical OTHR DR: Alfred Matos MD, Nayyer MD ORDERED: Gross Micro L5, Decal Diagnosis Leg, right, oxmbu-ldz-pjiq amputation: - Acute osteomyelitis. - Gangrenous necrosi s involving skin and subcutaneous tissue. - Arteriosclerosis. - Viable tissue at margin. Clinical History Gangrene right leg Microscopic Description Microscopic sections reviewed. Material Received Right lower leg Gross Description Received fresh label ed ?right lower leg? is a right tsizk-foe-pckw amputation specimen which measures 28.0 cm in length from the skin margin of resection to the volar aspect of the foot with 4.5 cm of expos ed tibia and fibula at the margin of resection. The skin, subcutaneous tissue, muscle and b one at the margin of resection appear viable. The marrow at the margin of resection of the tibia is fatty. There are several well-healed scars scattered about the foot and lower later al leg and lateral malleolus ranging from 4.0-10.0 cm in greatest dimension, sectioned to reveal well-healed scars and focal edema of the forefoot. The volar aspect of the foot extending along the medial foot is remarkable for a 11.0 cm in greatest dimension variegated , gangrenous and necrotic extensive ulcer. Sectioning reveals extensive gangrenous necrosis and extensive abscess formation in the dermal and subcutaneous tissues spanning an area measuring 15.0 cm in greatest dimension medial-lateral and extending along the anterior surface of the forefoot. The subjacent tarsal bone is dense, yet, brittle, vasquez-yellow. The foot is status post amputation of the 5th toe with a well-healed scar at prior site measuring 2.5 cm in length. A vascular dissection is performed which reveals mild atherosclerosis of the anterior and posterior tibial arteries by vasquez-yellow atheromatous plaque. There is extensive fibrosis of the subcutaneous tissue and fascia consistent with prio r surgery. Also received is a 3.5 x 2.5 x 0.45 cm sliver of vasquez-yellow cortical and trabecu lar bone which is otherwise unremarkable. Facilities Director sections are submitted labeled as follows: A1 environmental marketing representative sections from the well-healed scars and proximal hallux; A2 sections from the gangrenous and necrotic ulcer and abscess; CONTINUED ON NEXT PAGE --- Name: Bala Roberson Age/Sex: 63/M : 1960 Unit#: [id number] Attend Dr: Jayant Mathews MD Re11/02/23 Status : ADM IN Location: [facility] 358-1 Disch: --- SPEC : [id number] RECD : 11/07/23 STATUS: CECIL [place] NUM: [id number] CARLYLE: 11/06/23 [facility] DR: Eben Baez MD ENTERED: 11/07/23-12 02 SP TYPE: Surgical OTHR DR: Alfred Matos MD, Nayyer MD ORDERED: Gross Micro L5, Decal Gross Description (Continued) A3 tarsal bone subjacent to the gangrenous and necrotic ulcer, following decalcification; A4 anterior tibial vessels; A5 posterior tibial vessels; A6 a sample of marro w from the margin of resection. CEDS Copies To: Alfred Matos MD [facility] [address] [id number] Amee Leiva MD [address] [place] [address] [id number] Eben Baez MD [facility] [address] [place] [address] [email or web address] --- Signed (signature on file) Joseph Avila MD 11/09/23 0840 --- END OF REPORT FL guidance in OR Reviewed date:11/07/2023 12:28:40 PM Interpretation: Performing Lab: Notes/Report: [place] [address] Fluoroscopy Report Signed Patient: Bala Roberson MR#: [id number] 0 : 1960 Acct:[id number] Age/Sex: 63 / M ADM Date: 11/02/23 Loc: HO.S3 358-[address]: Amee Leiva MD Ordering Physician: Eben Baez MD Date of Service: 11/06/23 Procedure(s): FL guidance in OR Accession Number(s): [id number] cc: Alfred Matos MD; Eben Baez MD EXAMINATION: XR FLUOROSCOPY WITH IMAGES CLINICAL INFORMATION: Right lower leg amputation. COMPARISON: None available. TECHNIQUE: Fluoroscopy Supervised By: Dr. Eben Baez. Fluoroscopy Time: 3.1 seconds. Cumulative Dose: 0.1912 mGy. DAP: 0.0832 Gycm2. Images: 1. FINDINGS: Intraoperative fluoroscopy and spot films were performed during a procedure in the OR. A single image of the tibia and fibula is seen with a partially visualized intramedullary michael. Please correlate with Dr. Baez's report for complete details. FL/FL guidance in OR IMPRESSION: Intraoperative fluoroscopy and spot films were obtained. Please see Tyshawn's report for complete details. Dictated By: Dave Lora MD Signed By: <Electronically signed by Dave Lora MD in OV> 11/07/23846 DD/ 14 TD/TT: Gearcase Assembler: [address] [id number] Fluoroscopy Report Signed Patient: Bala Roberson MR#: [id number] 0 : 1960 Acct:[id number] Age/Sex: 63 / M ADM Date: 11/02/23 Loc: HO.S3 358-[address]: Amee Leiva MD Ordering Physician: Eben Baez MD Date of Service: 11/06/23 Procedure(s): FL guidance in OR Accession Number(s): [id number] cc: Alfred Matos MD; Eben Baez MD EXAMINATION: XR FLUOROSCOPY WITH IMAGES CLINICAL INFORMATION: Right lower leg amputation. COMPARISON: None available. TECHNIQUE: Fluoroscopy Supervis ed By: Dr. Eben Baez. Fluoroscopy Time: 3. 1 seconds. Cumulative Dose: 0.1 912 mGy. DAP: 0.0832 Gycm2. Images: 1. FINDINGS: Intraoperative fluoroscopy and spot films were performed during a procedure in the OR. A single image of the tibia and fibula is seen with a partially visualized intramedullary michael. Please correlate with Dr. Baez's report f or complete details. FL/FL guidance in OR IMPRESSION: Intraoperative fluoroscopy and spot films were obtained. Please see Tyshawn's report for complete details. Dictated By: Dave Lora MD Signed By: <Electronically signed by Dave Lora MD in OV> 11/07/23 0847 DD/ 14 TD/TT: Gearcase Assembler: HUSSAIN Glucose, Whole Blood Reviewed date:11/06/2023 12:08:10 PM Interpretation: Performing Lab:[facility], [address] [place] [phone] Notes/Report: Glucose, Whole Blood 201 60-115 mg/dL METER # : [id number] Glucose, Whole Blood Reviewed date:11/06/2023 05:28:14 PM Interpretation: Performing Lab:[facility], [address] [place] [phone] Notes/Report: Glucose, Whole Blood 234 60-115 mg/dL METER # : [id number] Glucose, Whole Blood Reviewed date:11/07/2023 12:28:40 PM Interpretation: Performing Lab:[facility], [address] [place] [phone] Notes/Report: Glucose, Whole Blood 251 60-115 mg/dL METER # : [id number] Glucose, Whole Blood Reviewed date:11/07/2023 12:28:40 PM Interpretation: Performing Lab:[facility], [address] [place] [phone] Notes/Report: Glucose, Whole Blood 285 60-115 mg/dL METER # : [id number] Complete Blood Count no Diff Reviewed date:11/07/2023 12:27:30 PM Interpretation: Performing Lab:[facility], [address] [place] [phone] Notes/Report: White Blood Count 14.0 4.8-10.8 X10*3/uL Red Blood Count 4.04 4.60-5.80 X10*6/uL Hemoglobin 11.2 14.0-18.0 g/dl Hematocrit 32.7 42.0-52.0 % Mean Corpuscular Volume 80.9 80.0-98.0 fL Mean Corpuscular Hemoglobin 27.7 27.0-33.0 pg Mean Corpuscular HGB Conc 34.3 31.0-36.0 g/dl Red Cell Distribution Width 12.7 11.0-16.0 % Platelet Count 531 160-400 X10*3/uL Mean Platelet Volume 9.7 9.4-12.4 fL NRBC Pct Auto 0.0 0.0-0.2 /100WBC NRBC Abs Auto 0.000 0.0-0.012 X10*3/uL Basic Metabolic Panel Reviewed date:11/07/2023 12:27:49 PM Interpretation: Performing Lab:[address] [phone] Notes/Report: Sodium 135 135-145 mmol/L Potassium 3.9 3.3-5.1 mmol/L Chloride 99 96-108 mmol/L Carbon Dioxide 29 22-29 mmol/L Anion Gap 11 12-20 Blood Urea Nitrogen 16 9-16 mg/dL Creatinine 1.00 0.5-1.4 mg/dL Creatinine Clr Calc Pharmacy 89.3 eGFR (calculated from the MDRD study equation) and eCrCl (calculated from the Cockcroft-Gault equation) are based on different parameters and may not yield comparable results. If eCrCl result is absurd, please check patient's height/weight. Estimated Glomerular Filt Rate > 60 NOTE: For -I[place]ic individuals, multiply the result by 1.210. Chronic Kidney Disease: Estimated GFR < 60 mL/min/1.73m2 Severe Kidney Disease: Estimated GFR < 15 mL/min/1.73m2 Glucose Random 249 60-115 mg/dL Calcium 8.5 8.4-10.2 mg/dL Glucose, Whole Blood Reviewed date:11/07/2023 12:28:40 PM Interpretation: Performing Lab:[facility], [address] [place] [phone] Notes/Report: Glucose, Whole Blood 233 60-115 mg/dL METER # : [id number] Glucose, Whole Blood Reviewed date:11/07/2023 12:28:40 PM Interpretation: Performing Lab:[facility], [address] [place] [phone] Notes/Report: Glucose, Whole Blood 248 60-115 mg/dL METER # : [id number] Glucose, Whole Blood Reviewed date:11/07/2023 05:07:34 PM Interpretation: Performing Lab:[facility], [address] [place] [phone] Notes/Report: Glucose, Whole Blood 219 60-115 mg/dL METER # : [id number] Glucose, Whole Blood Reviewed date:11/08/2023 03:24:26 PM Interpretation: Performing Lab:[facility], [address] [place] [phone] Notes/Report: Glucose, Whole Blood 137 60-115 mg/dL METER # : [id number] Complete Blood Count no Diff Reviewed date:11/08/2023 03:24:26 PM Interpretation: Performing Lab:[facility], [address] [place] [phone] Notes/Report: White Blood Count 14.8 4.8-10.8 X10*3/uL Red Blood Count 3.88 4.60-5.80 X10*6/uL Hemoglobin 10.6 14.0-18.0 g/dl Hematocrit 31.5 42.0-52.0 % Mean Corpuscular Volume 81.2 80.0-98.0 fL Mean Corpuscular Hemoglobin 27.3 27.0-33.0 pg Mean Corpuscular HGB Conc 33.7 31.0-36.0 g/dl Red Cell Distribution Width 12.7 11.0-16.0 % Platelet Count 519 160-400 X10*3/uL Mean Platelet Volume 9.7 9.4-12.4 fL NRBC Pct Auto 0.0 0.0-0.2 /100WBC NRBC Abs Auto 0.000 0.0-0.012 X10*3/uL Basic Metabolic Panel Reviewed date:11/08/2023 03:24:26 PM Interpretation: Performing Lab:[facility], [address] [place] [phone] Notes/Report: Sodium 133 135-145 mmol/L Potassium 3.9 3.3-5.1 mmol/L Chloride 97 96-108 mmol/L Carbon Dioxide 28 22-29 mmol/L Anion Gap 12 12-20 Blood Urea Nitrogen 16 9-16 mg/dL Creatinine 1.07 0.5-1.4 mg/dL Creatinine Clr Calc Pharmacy 83.5 eGFR (calculated from the MDRD study equation) and eCrCl (calculated from the Cockcroft-Gault equation) are based on different parameters and may not yield comparable results. If eCrCl result is absurd, please check patient's height/weight. Estimated Glomerular Filt Rate > 60 NOTE: For -I[place]ic individuals, multiply the result by 1.210. Chronic Kidney Disease: Estimated GFR < 60 mL/min/1.73m2 Severe Kidney Disease: Estimated GFR < 15 mL/min/1.73m2 Glucose Random 237 60-115 mg/dL Calcium 8.4 8.4-10.2 mg/dL Glucose, Whole Blood Reviewed date:11/08/2023 03:24:26 PM Interpretation: Performing Lab:[facility], [address] [place] [phone] Notes/Report: Glucose, Whole Blood 231 60-115 mg/dL METER # : [id number] Glucose, Whole Blood Reviewed date:11/08/2023 03:24:26 PM Interpretation: Performing Lab:[facility], [address] [place] [phone] Notes/Report: Glucose, Whole Blood 205 60-115 mg/dL METER # : [id number] Glucose, Whole Blood Reviewed date:11/09/2023 12:42:32 PM Interpretation: Performing Lab:[facility], [address] [place] [phone] Notes/Report: Glucose, Whole Blood 194 60-115 mg/dL METER # : [id number] Glucose, Whole Blood Reviewed date:11/09/2023 12:40:09 PM Interpretation: Performing Lab:[facility], [address] [place] [address] [id number] Notes/Report: Glucose, Whole Blood 180 60-115 mg/dL METER # : [id number] Complete Blood Count no Diff Reviewed date:11/09/2023 01:18:01 PM Interpretation: Performing Lab:[facility], [address] [place] [phone] Notes/Report: White Blood Count 12.8 4.8-10.8 X10*3/uL Red Blood Count 3.85 4.60-5.80 X10*6/uL Hemoglobin 10.7 14.0-18.0 g/dl Hematocrit 31.2 42.0-52.0 % Mean Corpuscular Volume 81.0 80.0-98.0 fL Mean Corpuscular Hemoglobin 27.8 27.0-33.0 pg Mean Corpuscular HGB Conc 34.3 31.0-36.0 g/dl Red Cell Distribution Width 12.7 11.0-16.0 % Platelet Count 516 160-400 X10*3/uL Mean Platelet Volume 9.6 9.4-12.4 fL NRBC Pct Auto 0.0 0.0-0.2 /100WBC NRBC Abs Auto 0.000 0.0-0.012 X10*3/uL Basic Metabolic Panel Fastin g Reviewed date:11/09/2023 12:39:05 PM Interpretation: Performing Lab:[facility], [address] [place] [phone] Notes/Report: Sodium 134 135-145 mmol/L Potassium 4.2 3.3-5.1 mmol/L Chloride 99 96-108 mmol/L Carbon Dioxide 28 22-29 mmol/L Anion Gap 11 12-20 Blood Urea Nitrogen 18 9-16 mg/dL Creatinine 1.11 0.5-1.4 mg/dL Creatinine Clr Calc Pharmacy 80.5 eGFR (calculated from the MDRD study equation) and eCrCl (calculated from the Cockcroft-Gault equation) are based on different parameters and may not yield comparable results. If eCrCl result is absurd, please check patient's height/weight. Estimated Glomerular Filt Rate > 60 NOTE: For -Icelandic individuals, multiply the result by 1.210. Chronic Kidney Disease: Estimated GFR < 60 mL/min/1.73m2 Severe Kidney Disease: Estimated GFR < 15 mL/min/1.73m2 Glucose Fasting 293 60-99 mg/dL A fasting glucose of 126 mg/dl or greater on more than one occasion is considered diagnostic of diabetes. Calcium 8.5 8.4-10.2 mg/dL Glucose, Whole Blood Reviewed date:11/09/2023 12:48:48 PM Interpretation: Performing Lab:[facility], [address] [place] [phone] Notes/Report: Glucose, Whole Blood 308 60-115 mg/dL METER # : [id number] Glucose, Whole Blood Reviewed date:11/09/2023 12:49:04 PM Interpretation: Performing Lab:[facility], [address] [place] [phone] Notes/Report: Glucose, Whole Blood 375 60-115 mg/dL METER # : [id number] Glucose, Whole Blood Reviewed date:11/10/2023 12:33:44 PM Interpretation: Performing Lab:[facility], [address] [place] [phone] Notes/Report: Glucose, Whole Blood 299 60-115 mg/dL METER # : [id number] Hold Gold (Not yet reviewed by provider) Interpretation: Performing Lab:[facility], [address] [facility], [place] [address] Notes/Report: Hold Gold See Note Specimen held untested for 24 hours; Call to request Chemistry testing. Reason For Referral Reason Amputation of right foot please eval and treat Diagnosis 1 Amputation of right foot with complication, subsequent encounter (U75.966P) Referral Organization Alfred Matos MD Referring Provider First Name Alfred Referring Provider Last Name Carlo Referring Provider Speciality Internal M edicine Referred Provider Bala Prabhakar Referred Provider Specialty Surgery General Notes Carmen Perla 0 07/08/2024 01:39:46 PM >patient is aware of appt Referral Priority Routine Referral Appointment Date 07/18/2024 Medications Medication SIG (Take, Route, Frequency, Duration) Notes Start Date End Date Status Lisinopril 20 MG 1 tablet Orally Once a day for 90 days 08/15/2024 Active HumaLOG 100 UNIT/ML as directed Subcutan eous 12-18 units Active Basaglar KwikPen 100 UNIT/ML 44 units once a day at night once a day Active Atorvastatin Calcium 20 MG TAKE 1 TABLET BY MOUTH EVERY DAY Orally Once a day for 90 days Active Immunizations Vaccine Route Administration Date Status Comme nts Flu Vaccine Unknown 12/19/2011 Administered [facility] Flu Vaccine IM Intramuscular 01/29/2013 Administered Flu Vaccine IM Intramuscular 11/25/2013 Administered [facility] Prevnar 13 IM Intramuscular 02/25/2014 Administered Flu Vaccine IM Intramuscular 02/20/2015 Administered pt re cieved the flu vaccine at the [facility] in [place]. Fluarix Quadrivalent IM Intramuscular 06/14/2016 Administe red Fluarix Quadrivalent IM Intramuscular 12/27/2016 Administe red Fluarix Quadrivalent IM Intramuscular 01/02/2018 Administe red TDaP IM Intramuscular 07/12/2018 Administered pt was given the vaccine at [facility] in [place]. Fluarix Quadrivalent IM Intramuscular 01/15/2019 Administe red Tetanus Unknown 07/12/2018 Administered Fluarix Quadrivalent IM Intramuscular 02/06/2020 Administe red PPSV23 (Pnemovax) IM Intramuscular 02/25/2020 Administered Covid Vaccine Unknown 07/11/2020 Administered Pfizer Covid Vaccine Unknown 08/04/2020 Administered Pfizer Fluarix Quadrivalent IM Intramuscular 02/01/2021 Administe red SARS-COV-2 Pfizer Unknown 02/16/2021 Administered Fluarix Quadrivalent IM Intramuscular 04/07/2022 Administe red Fluarix Quadrivalent IM Intramuscular 03/06/2023 Administe red Fluarix Quadrivalent - 150 IM Intramuscular 03/15/2024 Administered PPSV23 (Pnemovax) Unknown 07/03/2017 Refused Fluarix Quadrivalent Unknown 03/08/2022 Refused zInfluenza Unknown 11/25/2013 Pending Social History Tobacco Use: Social History Observation [...] Never (0 point) Points 2 Interpretation Negative Problems Problem Type SNOMED Code ICD Code Onset Dates Problem Status W/U Status Risk Notes Problem 716230626121149 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) Active confirmed Problem 813203788 Low HDL (under 4 0) (E78.6) Active confirmed Problem 258744672 Type 1 diabetes mellitus with diabetic neuropathy (E10.40) Active confirmed Problem 411827195 Diabetic retinop athy associated with type 1 diabetes mellitus, macular edema presence unspecified, with unspecified retinopathy severity (E10.319) Active confirmed Problem 85971136 Deaf nonspeaking , not elsewhere classifiable (H91.3) Active confirmed Problem 128028864 Pure hypercholesterolemia (E78.00) Active confirmed Problem 238684313 BMI 33.0-33.9,ad ult (Z68.33) Active confirmed Problem Amputation of ri ght foot with complication, subsequent encounter (S98.193X) Active confirmed Problem 190996298 Charcot foot due to diabetes mellitus (E11.610) Active confirmed Problem 200362158 Complete below-k nee amputation of right lower extremity, subsequent encounter (S88.111D) Active confirmed Vital Signs Blood pressure diastolic 60 mm Hg 07/08/2024 Height 71 in 07/08/2024 Blood pressure systolic 124 mm Hg 07/08/2024 Weight 244 lbs 07/08/2024 BMI 34.03 kg/m2 07/08/2024 Encounters Encounter Location Date Provider Diagnosis Alrfed Matos MD [address] [place] [id number] 09/06/2024 Alfred Matos Type 1 diabetes rodriguez itus with diabetic neuropathy E10.40 and Pure hypercholesterolemia E78.00 Alfred Matos MD [address] [place] [address] [id number] 11/28/2023 Alfred Matos Diabetic retinopathy associated with type 1 diabetes mellitus, macular edema presence unspecified, with unspecified retinopathy severity E10.319 and Complete below-knee amputation of right lower extremity, subsequent encounter S88.111D Alfred Matos MD [address] [place] [address] [address] [place] [id number] 03/15/2024 Alfred Matos Diabetic retinopathy associated with [...] cancer screening Z12.11 and Depression screening Z13.31 Alfred Matos MD [address] [place] [id number] 07/08/2024 Alfred Matos Type 1 diabetes rodriguez itus with diabetic neuropathy E10.40 and Amputation of right foot with complication, subsequent encounter S98.911D Alfred Matos MD [address] [place] [id number] 10/03/2023 Alfred Matos MD [address] [id number] 11/10/2023 Alfred Matos MD [address] [place] [id number] 12/26/2023 Alfred Matos MD [address] [place] [address] [id number] 01/02/2024 Alfred Matos Diarrhea R19.7 Alfred Matos MD [address] [place] [id number] 01/30/2024 Alfred Matos MD [address] [place] [id number] 02/26/2024 Alfred Matos MD [address] [place] [id number] 03/21/2024 Alfred Matos Colon cancer screeni ng Z12.11 Alfred Matos MD [address] [place] [id number] 08/15/2024 Alfred Maots Pure hypercholestero lemia E78.00 Alfred Matos MD [address] [place] [id number] 08/15/2024 Alfred Matos MD [address] [place] [id number] 08/26/2024 Alfred Matos Pure hypercholestero lemia E78.00 Alfred Matos MD [address] [place] [address] [id number] 09/06/2024 Alfred Matos Pure hypercholestero lemia E78.00 Assessments Encounter Date Diagnosis (ICD Code) Assessment Notes Treatment Notes Treatment Clinical Notes Section Notes 09/06/2024 Type 1 diabetes mellitus with diabetic neuropathy (ICD-10 - E10.40) 11/28/2023 Diabetic retinopathy associated with type 1 diabetes mellitus, macular edema presence unspecified, with unspecified retinopathy severity (ICD-10 - E10.319) 11/28/2023 Complete below-knee amputation of right lower extremity, subsequent encounter (ICD-10 - S88.111D) having vna and is dealing with drying rack changer for prosthesis 03/15/2024 Diabetic retinopathy associated with type 1 diabetes mellitus, macular edema presence unspecified, with unspecified retinopathy severity (ICD-10 - E10.319) sugars well controlled, willcntinue current regiment 03/15/2024 Annual physical exam (ICD-10 - Z00.00) labs reviewed and discussed with patient 07/08/2024 Type 1 diabetes mellitus with diabetic neuropathy (ICD-10 - E10.40) running a little high today 07/08/2024 Amputation of right foot with complication, subsequent encounter (ICD-10 - S98.911D) refer back to dr tyshawn yanez dis the amputation 03/21/2024 Colon cancer screeni ng (ICD-10 - Z12.11) 08/15/2024 Pure hypercholesterolemia (ICD-10 - E78.00) 08/26/2024 Pure hypercholesterolemia (ICD-10 - E78.00) 09/06/2024 Pure hypercholesterolemia (ICD-10 - E78.00) 09/06/2024 Pure hypercholesterolemia (ICD-10 - E78.00) 03/15/2024 Deaf nonspeaking, no t elsewhere classifiable (ICD-10 - H91.3) doing well 01/02/2024 Diarrhea (ICD-10 - R19.7) order made and will fax to [facility] as soon as [facility] returns my call. They will have to merchandise pickup/receiving associate the container for the patient. 03/15/2024 Benign essential microscopic hematuria (ICD-10 - [...] to check for blood Plan Of Treatment Pending Test Test Name Order Date Electrocardiogram (EKG) 06/11/2015 Electrocardiogram (EKG) 07/06/2017 Electrocardiogram (EKG) 07/12/2018 Liver Panel 09/06/2024 Glucose Fasting 09/06/2024 Lipid Panel with Reflex 09/06/2024 Hold Gold 09/06/2024 CA lexiscan stress w augustine 04/07/2022 CA stress test 03/08/2022 Hemoglobin A1c 09/06/2024 Next Appt Details Provider Name:Alfred Cabello ier, 09/17/2024 02:00:00 PM, [address], [address], [place], [place], [phone], Provider Name:Alfred David Irineo ier, 03/13/2025 07:15:00 AM, [address] [facility] [address], [address], [place], [place], [phone], Provider Name:Alfred Cabello ier, 03/20/2025 02:30:00 PM, [address] [place] [address] Drive, [address], [place], [place], [phone], Insurance Providers Payer Name Payer Address Payer Phone Subscriber Number Group Number Insured Name Patient Relationship to Insured Coverage Start Date Coverage End Date [employer] [facility] [address] [place], [place] [id number] Bala Roberson Self - patient is the insured Medical (General) History Medical History History ICD Code charcot's foot colonoscopy 2010 due in 10 years: Colono scopy 2020 due 5/10 yrs, per path
[2024-09-06 13:16] LABS: Alanine Aminotransferase 42 U/L (0-40); Albumin Level 4.3 g/dL (3.5-5.0); Alkaline Phosphatase 86 U/L (39-117); Aspartate Amino Transferase 46 U/L (5-37); Bilirubin Direct 0.3 mg/dL (0.0-0.5); Bilirubin Total 0.8 mg/dL (0.0-1.0); Cholesterol 131 mg/dL (<200); Glucose Fasting 216 mg/dL (60-99); HDL Cholesterol 40 mg/dL (>40); LDL Cholesterol Calculated 64 mg/dL (<100); Total Protein 7.4 g/dL (6.5-8.0); Triglycerides 135 mg/dL (<150)
[2024-09-06 13:43] LABS: Reflex LDLD? No
== END 2024-09-06 11:52 | disposition home or self-care (01) ==
LOC: HO.LNP 11:51
PROVIDERS: Visit Provider Internal Medicine
DX: E10.40 Type 1 diabetes mellitus with diabetic neuropathy, unspecified (principal); E78.00 Pure hypercholesterolemia, unspecified
CPT/HCPCS: 80061; 80076; 82947; 83036

== ENCOUNTER 2024-09-12 09:49 | Outpatient (RCR) | payer BC, SELFPAY ==
[2024-07-01 08:02] VITALS: BP 157/72; PULSE 99
--- NOTE | 2024-07-01 12:43 | MHC.PT.EP ---
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 Baez. sheet rock taper present for PT evaluation. Pt is working with [facility] and starting wearing a prosthetic on June 11. He presents to PT evaluation with his brother and presents ambulating with RLE prosthetic and RW. Pt reports he has a new open blister on his R residual limb. Upon assessment, his right distal residual limb is wrapped with gauze. He has an appointment with [place] [facility] today at 10 am and I discussed the importance of calling the surgeons office due to new open blister. I also called Dr. Baez's office regarding this. I educated pt regarding the signs and symptoms of infection and importance of cleaning his prosthetic liner. PT evaluation limited due to new open blister and as pt reports he has been having low blood sugar and hasn't been feeling well. Pt was provided with orange juice and crackers with some improvements in symptoms. Overall, pt presents with current impairments in pain, decreased strength, decreased balance, and impaired gait. He is limited functionally by prolonged standing, walking, and stair navigation. He is an excellent candidate for skilled PT in order to address current impairments to facilitate return to PLOF. He is recommended to be seen 2x/week for 4 weeks and will be reassessed Frequency and Duration: The patient will be seen 2x/week for 4 weeks Short Term Goals: Pt will be I with HEP to promote self management of symptoms Pt will be independent with skin checks to R residual limb Securities Trader Goals: Pt will demonstrate ability to ambulate > 200' independently with SPC on multidirectional path safely Pt will ascend/descend 1 flight of stairs independently without railing Pt will demonstrate improvements in function as evidenced by statistically significant improvement in LEFI outcome measure Treatment Plan: Modalities to reduce pain, spasms and effusion. Manual therapy to restore motion and function. Therapeutic exercise to improve strength and flexibility. Neuromuscular re-education for posture and balance. Therapeutic activities to return to functional activities of daily living. Electronically signed by: Veronica Baires, PT, DPT Please sign and return to therapist. Thank you for your referral.
--- NOTE | 2024-09-12 14:04 | MHC.PT.DC ---
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 He demonstrates improvements in LE strength and endurance throughout exercises. He demonstrates ability to ambulate safely and independently without AD. He is able to ascend/descend stairs with unilateral railing with step to pattern independently. He is independent with HEP and is working with a geriatric personal care aide 1x/week. He is being D/C to HEP at this time. I provided pt with printed, updated copy of HEP. Pt reports no further questions or concerns for PT at this time Electronically signed by: Veronica Baires, PT, DPT Please sign and return to therapist. Thank you for your referral.
== END 2024-09-12 14:04 | disposition home or self-care (01) ==
LOC: HO.PT 09:49
PROVIDERS: PCP Internal Medicine; Visit Provider Surgery
DX: Z47.81 Encounter for orthopedic aftercare following surgical amputation (principal); Z89.511 Acquired absence of right leg below knee
CPT/HCPCS: 97110; 97112; 97116; 97140; 97163

== ENCOUNTER 2024-09-18 15:04 | Outpatient (AMB) | payer BC, SELFPAY ==
[2024-09-18 15:06] VITALS: BP 141/77; PULSE 95; BMI 33.3
--- NOTE | 2024-09-18 15:06 | A.OFFVIS_ITS ---
Vital Signs 09/18/24 15:06 Height 5 ft 11 in Weight 239 lb BMI 33.3 BP 141/77 H Blood Pressure Location Rt brachial Position Sitting Pulse 95 Intake Visit Reasons: leg amputation concerns Intake Note: Patient scheduled today's appointment because physical therapist was concern with with redness along stump area. Patient c/o: denies pain, oozing. Was last seen by wound care in July. Surgery: right below-knee amputation, fluoroscopy~ 11-05-2024 Gas Plumber Required: No Gas Plumber Services: Gas Plumber Present Accompanied by: Lurdes CALDERONlock setter Allergies No Known Allergies Allergy (Mild, Verified 09/18/24 15:15) NONE Medication List - Last Reconciled 09/18/24 by Alexis Nixon MD [ampushield As directed] atorvastatin 20 mg PO DAILY gabapentin 300 mg PO BID hydrocolloid dressing (Durafiber Dressing) As directed change dressing every 3 days insulin glargine U-300 conc (Toujeo SoloStar U-300 Insulin) 44 units subcut BEDTIME insulin lispro (Humalog KwikPen (U-100) Insulin) 18 units subcut TIDAC lisinopril 20 mg PO DAILY [right lower extremity prosthetic As directed] HPI HPI leg amputation concerns: Details: 64-year-old male referred for issues with the BKA stump. He had undergone BKA of the right leg with Dr. Baez last October, for osteomyelitis of the right foot. He has been wearing a prosthesis several months now. He apparently has been noticing some redness and drainage on the stump itself. He was therefore referred to me. Otherwise, he says he has been doing well. [facility] Medical History (Updated 09/18/24 @ 15:29 by Alexis Nixon MD) BKA stump complication Eschar of lower leg Diabetic neuropathy Hypercholesterolemia HTN (hypertension) Deaf Iron deficiency anemia Insulin dependent type 2 diabetes mellitus Surgical History History of foot surgery Hx of colonoscopy History of esophagogastroduodenoscopy (EGD) Family History Father No problems noted. Father No problems noted. Mother No problems noted. Social History Household Members: None Housing: House Do you presently have visiting nurse or other home services: No Alcohol intake: current Alcohol intake frequency: holidays/special occasions only Patient Tobacco Use Status: Never used Tobacco service: No Review of Systems Const Denies chills and Denies fever(s) Card Denies chest pain, Denies dyspnea and Denies dyspnea on exertion Resp Denies cough, Denies dyspnea and Denies dyspnea on exertion GI Denies hematochezia and Denies change in bowel habits Denies hematuria and Denies difficulty urinating Musc Denies back pain and Denies limited range of motion Neuro Denies focal weakness and Denies convulsions Psych Denies depression and Denies mood swings Physical Exam Vital Signs: Last Vital Signs Pulse 95 09/18/24 15:06 BP 141/77 H 09/18/24 15:06 BMI result Body Mass Index 33.3 Const General: comfortable and no acute distress Resp Effort & Inspection: normal respiratory effort Cardio Rate: regular rate GI Palpation (GI): Soft to palpation Extrem Other: BKA on the right, with a linear area of granulation tissue on the old BKA incision, scanty drainage clear, no erythema Assessment & Plan Assessment & Plan (1) BKA stump complication: Code(s): T87.9 - Unspecified complications of amputation stump Category: Medical Plan: He has what appears to be irritation of the old BKA incision, with note of a linear area of granulation. There was also note of some scanty oozing from this area. There is no evidence of any fluid collection or acute infection This is likely secondary to some irritation from the prosthesis. I told him to apply moist gauze 2 to 3 times a day on the area to keep this clean and dry as there is presence of some moisture. He also says that he has a follow up with his he has this in [facility] next week and he needs to discuss what other measures can be done to avoid irritation on the area He does not require any debridement currently. He does not need any antibiotics I told him that he can come back to the office to be re-evaluated on a PRN basis down the line Coding Level of Care Code Est Pt Level 3 (62139) Diagnoses BKA stump complication T87.9
--- OUTSIDE RECORDS SUMMARY | 2024-09-18 17:22 | XMS_ITS | Patient Health Record ---
Author Organization Alfred Matos MD Address [address] [place], [place] [id number] Care Team Providers Care Etl Inform[employer] Architect Name Role Phone Alfred Matos Primary Care Provider Allergies No Known Allergies Results Component Value Reference Range Notes Hemoglobin A1c Reviewed date:11/28/2023 02:24:22 PM Interpretation: Performing Lab: Notes/Report: Hemoglobin A1c 8.7 Hemoglobin A1c Reviewed date:07/08/2024 01:15:01 PM Interpretation: Performing Lab: Notes/Report: Hemoglobin A1c 8.0 Liver Panel Reviewed date:09/06/2024 04:11:56 PM Interpretation: Performing Lab:[facility], [address] [place] [phone] Notes/Report: Bilirubin Total 0.8 0.0-1.0 mg/dL Bilirubin Direct 0.3 0.0-0.5 mg/dL Aspartate Amino Transferase 46 5-37 U/L Alanine Aminotransferase 42 0-40 U/L Total Protein 7.4 6.5-8.0 g/dL Albumin Level 4.3 3.5-5.0 g/dL Alkaline Phosphatase 86 39-117 U/L Glucose Fasting Reviewed date:09/06/2024 01:49:17 PM Interpretation: Performing Lab:[facility], [address] [place] [phone] Notes/Report: Glucose Fasting 216 60-99 mg/dL A fasting glucose of 126 mg/dl or greater on more than one occasion is considered diagnostic of diabetes. Lipid Panel with Reflex Reviewed date:09/06/2024 01:49:07 PM Interpretation: Performing Lab:[facility], [address] [place] [phone] Notes/Report: Triglycerides 135 <150 mg/dL Desirable Triglyceride: [...] PM Interpretation: Performing Lab:[facility], [address] [place] [phone] Notes/Report: Hemoglobin A1c % 7.2 <6.0 % [...] average glucose, using the formula of the A4C-Bcrctvh Average Glucose study (ADAG), Diabetes Care, Vol.31,#8, [...] ff Reviewed date:10/02/2023 05:11:55 PM Interpretation: Performing Lab:[facility], [address] [place] [phone] Notes/Report: White Blood Count 9.7 4.8-10.8 X10*3/uL [...] te Reviewed date:10/02/2023 05:09:23 PM Interpretation: Performing Lab:[facility], [address] [place] [phone] Notes/Report: Erythrocyte Sedimentation Rate 19 0-15 MM/HR Patients with polycythemia and many hemoglobin abnormalities may have depressed sed rates whereas patients with anemia may have elevated sed rates. Liver Panel Reviewed date:10/02/2023 05:08:51 PM Interpretation: Performing Lab:[facility], [address] [place] [phone] Notes/Report: Bilirubin Total 0.4 0.0-1.0 mg/dL Bilirubin Direct 0.2 0.0-0.5 mg/dL Aspartate Amino Transferase 24 5-37 U/L Alanine Aminotransferase 23 0-40 U/L Total Protein 7.7 6.5-8.0 g/dL Albumin Level 3.9 3.5-5.0 g/dL Alkaline Phosphatase 105 39-117 U/L Basic Metabolic Panel Reviewed date:10/02/2023 05:14:03 PM Interpretation: Performing Lab:[facility], [address] [place] [phone] Notes/Report: Sodium 139 135-145 mmol/L Potassium 4.0 [...] Glomerular Filt Rate > 60 NOTE: For -Chinese individuals, multiply the result by 1.210. Chronic Kidney Disease: Estimated GFR < 60 mL/min/1.73m2 Severe Kidney Disease: Estimated GFR < 15 mL/min/1.73m2 Glucose Random 121 60-115 mg/dL Calcium 9.7 8.4-10.2 mg/dL Lactic Acid Reviewed date:10/02/2023 05:06:25 PM Interpretation: Performing Lab:[facility], [address] [place] [phone] Notes/Report: Lactic Acid 1.8 0.5-2.0 mmol/L Magnesium Reviewed date:10/02/2023 05:06:16 PM Interpretation: Performing Lab:[facility], [address] [place] [phone] Notes/Report: Magnesium 2.0 1.6-2.6 mg/dL C Reactive Protein Reviewed date:10/02/2023 05:09:02 PM Interpretation: Performing Lab:[facility], [address] [place] [phone] Notes/Report: C Reactive Protein 0.53 < or = 0.50 mg/dL Glucose, Whole Blood Reviewed date:10/02/2023 05:05:12 PM Interpretation: Performing Lab:[facility], [address] [place] [phone] Notes/Report: Glucose, Whole Blood 176 60-115 mg/dL METER # : [id number] Blood Culture (First) Reviewed date:10/07/2023 06:23:15 PM Interpretation: Performing Lab:[facility], [address] [place] [phone] Notes/Report: Blood Culture (First) No growth after 5 days. Blood Culture (Second) Reviewed date:10/07/2023 06:23:24 PM Interpretation: Performing Lab:[facility], [address] [place] [phone] Notes/Report: Blood Culture (Second) No growth after 5 days. US venous duplex LE RT Reviewed date:10/02/2023 05:07:32 PM Interpretation: Performing Lab: Notes/Report: [address] [place] [address] Ultrasound Report Signed Patient: Bala Roberson MR#: [id number] 0 : 1960 Acct:[id number] Age/Sex: 63 / M ADM Date: 10/02/23 Loc: .ED Attending Dr: Ordering Physician: Yoly Ye DO Date of Service: 10/02/23 Procedure(s): US venous duplex LE RT Accession Number(s): [id number] cc: Alfred Matos MD; Yoly Ye DO [...] in OV> 10/02/23 1009 DD/ 0914 TD/TT: Die Sinker Apprentice: [place] [address] Ultrasound Report Signed Patient: Bala Roberson MR#: [id number] 0 : 1960 Acct:[id number] Age/Sex: 63 / M ADM Date: 10/02/23 Loc: HO.ED Attending Dr: Ordering Physician: Yoly Ye DO Date of Service: 10/02/23 Procedure(s): US vanessa ous duplex LE RT Accession Number(s): [id number] cc: Alfred Matos MD; Yoly Ye DO [...] in OV> 10/02/23 1009 DD/ 0914 TD/TT: Die Sinker Apprentice: XR foot RT min 3V Reviewed date:10/02/2023 05:08:34 PM Interpretation: Performing Lab: Notes/Report: [address] [address] XRay Report Signed Patient: Bala Roberson MR#: [id number] 0 : 1960 Acct:[id number] Age/Sex: 63 / M ADM Date: 10/02/23 Loc: HO.ED Attending Dr: Ordering Physician: Yoly Ye DO Date of Service: 10/02/23 Procedure(s): XR foot RT min 3V Accession Number(s): [id number] cc: Alfred Matos MD; Yoly Ye DO [...] in OV> 10/02/23 1008 DD/ 0859 TD/TT: Die Sinker Apprentice: [place] [address] XRay Report Signed Patient: Bala Roberson MR#: [id number] 0 : 1960 Acct:[id number] Age/Sex: 63 / M ADM Date: 10/02/23 Loc: .ED Attending Dr: Ordering Physician: Yoly Ye DO Date of Service: 10/02/23 Procedure(s): XR marlene t RT min 3V Accession Number(s): [id number] cc: Alfred Matos MD; Yoly Ye DO [...] from the patient's hardware. Dictated By: Dave Lroa MD Signed By: <Electronically signed by Dave Lora MD in OV> 10/02/23 1008 DD/ 0859 TD/TT: Die Sinker Apprentice: HUSSAIN Glucose, Whole Blood Reviewed date:11/03/2023 09:47:51 AM Interpretation: Performing Lab:[facility], [address] [place] [phone] Notes/Report: Glucose, Whole Blood 390 60-115 mg/dL METER # : [id number] XR foot RT min 3V Reviewed date:11/03/2023 09:47:51 AM Interpretation: Performing Lab: Notes/Report: [address] [address] XRay Report Signed Patient: Bala Roberson MR#: [id number] 0 : 1960 Acct:[id number] Age/Sex: 63 / M ADM Date: 11/02/23 Loc: HO.ED Attending Dr: Ordering Physician: Angelic Moreno NP Date of Service: 11/02/23 Procedure(s): XR foot RT min 3V Accession Number(s): [id number] cc: Alfred Matos MD; Angelic Moreno NP [...] signed by Iam Marques MD in OV> 11/02/231742 DD/ 27 TD/TT: Die Sinker Apprentice: [address] [address] XRay Report Signed Patient: Bala Roberson MR#: [id number] 0 : 1960 Acct:[id number] Age/Sex: 63 / M ADM Date: 11/02/23 Loc: HO.ED Attending Dr: Ordering Physician: Angelic Moreno NP Date of Service: 11/02/23 Procedure(s): XR marlene t RT min 3V Accession Number(s): [id number] cc: Alfred Matos MD; Angelic Moreno NP [...] signed by Iam Marques MD in OV> 11/02/231742 DD/ 27 TD/TT: Die Sinker Apprentice: Complete Blood Count Auto Di ff Reviewed date:11/03/2023 09:47:51 AM Interpretation: Performing Lab:[facility], [address] [place] [phone] Notes/Report: White Blood Count 20.7 4.8-10.8 X10*3/uL [...] Panel Reviewed date:11/03/2023 09:47:51 AM Interpretation: Performing Lab:[facility], [address] [place] [phone] Notes/Report: Sodium 136 135-145 mmol/L Potassium 3.7 [...] Estimated Glomerular Filt Rate 59 NOTE: For -Chinese individuals, multiply the result by 1.210. Chronic [...] Blood Reviewed date:11/03/2023 09:47:51 AM Interpretation: Performing Lab:[address] [phone] Notes/Report: Glucose, Whole Blood 388 60-115 mg/dL METER # : [id number] Vancomycin Random Reviewed date:11/05/2023 04:49:13 PM Interpretation: Performing Lab:[address] [phone] Notes/Report: Vancomycin Random 10.7 15-20 mcg/mL SLIDE REVIEW Reviewed date:11/03/2023 09:47:51 AM Interpretation: Performing Lab:[address] [phone] Notes/Report: SLIDE REVIEW VERIFIED XR tibia fibula RT 2V Reviewed date:11/05/2023 04:49:13 PM Interpretation: Performing Lab: Notes/Report: [address] [address] XRay Report Signed Patient: Bala Roberson MR#: [id number] 0 : 1960 Acct:[id number] Age/Sex: 63 / M ADM Date: 11/02/23 Loc: HO.S3 358-[address]: Spencer Monterroso DO Ordering Physician: Eben Baez MD Date of Service: 11/03/23 Procedure(s): XR tibia fibula RT 2V Accession Number(s): [id number] cc: Alfred Matos MD; Eben Baez MD [...] in OV> 11/04/23 1046 DD/ 1245 TD/TT: Die Sinker Apprentice: [address] [address] XRay Report Signed Patient: Bala Roberson MR#: [id number] 0 : 1960 Acct:[id number] Age/Sex: 63 / M ADM Date: 11/02/23 Loc: .S3 358-[address]: Spencer Monterroso DO Ordering Physician: Eben Baez MD Date of Service: 11/03/23 Procedure(s): XR tib ia fibula RT 2V Accession Number(s): [id number] cc: Alfred Matos MD; Eben Baez MD [...] in OV> 11/04/23 1046 DD/ 1245 TD/TT: Die Sinker Apprentice: Glucose, Whole Blood Reviewed date:11/03/2023 09:47:51 AM Interpretation: Performing Lab:[facility], [address] [place] [phone] Notes/Report: Glucose, Whole Blood 317 60-115 mg/dL METER # : [id number] Glucose, Whole Blood Reviewed date:11/03/2023 09:47:51 AM Interpretation: Performing Lab:[facility], [address] [place] [phone] Notes/Report: Glucose, Whole Blood 315 60-115 mg/dL METER # : [id number] Glucose, Whole Blood Reviewed date:11/03/2023 09:47:51 AM Interpretation: Performing Lab:[facility], [address] [place] [phone] Notes/Report: Glucose, Whole Blood 303 60-115 mg/dL METER # : [id number] Glucose, Whole Blood Reviewed date:11/03/2023 09:47:51 AM Interpretation: Performing Lab:[facility], [address] [place] [phone] Notes/Report: Glucose, Whole Blood 274 60-115 mg/dL METER # : [id number] Glucose, Whole Blood Reviewed date:11/03/2023 09:47:51 AM Interpretation: Performing Lab:[facility], [address] [place] [phone] Notes/Report: Glucose, Whole Blood 267 60-115 mg/dL METER # : [id number] Glucose, Whole Blood Reviewed date:11/03/2023 12:37:20 PM Interpretation: Performing Lab:[facility], [address] [place] [phone] Notes/Report: Glucose, Whole Blood 275 60-115 mg/dL METER # : [id number] Glucose, Whole Blood Reviewed date:11/05/2023 04:49:13 PM Interpretation: Performing Lab:[facility], [address] [place] [phone] Notes/Report: Glucose, Whole Blood 276 60-115 mg/dL METER # : [id number] Glucose, Whole Blood Reviewed date:11/05/2023 04:49:13 PM Interpretation: Performing Lab:[facility], [address] [place] [phone] Notes/Report: Glucose, Whole Blood 249 60-115 mg/dL METER # : [id number] Complete Blood Count Auto Di ff Reviewed date:11/05/2023 04:49:13 PM Interpretation: Performing Lab:[facility], [address] [place] [phone] Notes/Report: White Blood Count 19.4 4.8-10.8 X10*3/uL [...] Dif Reviewed date:11/05/2023 04:49:13 PM Interpretation: Performing Lab:[facility], [address] [place] [address] Notes/Report: White Blood Count 19.4 4.8-10.8 X10*3/uL [...] Panel Reviewed date:11/05/2023 04:49:13 PM Interpretation: Performing Lab:[facility], [address] [place] [phone] Notes/Report: Sodium 135 135-145 mmol/L Potassium 3.7 [...] Glomerular Filt Rate > 60 NOTE: For -Chinese individuals, multiply the result by 1.210. Chronic [...] Blood Reviewed date:11/05/2023 04:49:13 PM Interpretation: Performing Lab:[facility], [address] [place] [phone] Notes/Report: Glucose, Whole Blood 257 60-115 mg/dL METER # : [id number] Vancomycin Random Reviewed date:11/05/2023 04:49:13 PM Interpretation: Performing Lab:[facility], [address] [place] [phone] Notes/Report: Vancomycin Random 11.6 15-20 mcg/mL Glucose, Whole Blood Reviewed date:11/05/2023 04:49:13 PM Interpretation: Performing Lab:[facility], [address] [place] [phone] Notes/Report: Glucose, Whole Blood 308 60-115 mg/dL METER # : [id number] Glucose, Whole Blood Reviewed date:11/05/2023 04:49:13 PM Interpretation: Performing Lab:[facility], [address] [place] [phone] Notes/Report: Glucose, Whole Blood 269 60-115 mg/dL METER # : [id number] Glucose, Whole Blood Reviewed date:11/05/2023 04:49:13 PM Interpretation: Performing Lab:[facility], [address] [place] [phone] Notes/Report: Glucose, Whole Blood 200 60-115 mg/dL METER # : [id number] Complete Blood Count Auto Di ff Reviewed date:11/05/2023 04:49:13 PM Interpretation: Performing Lab:[facility], [address] [place] [phone] Notes/Report: White Blood Count 18.8 4.8-10.8 X10*3/uL [...] Panel Reviewed date:11/05/2023 04:49:13 PM Interpretation: Performing Lab:[facility], [address] [place] [phone] Notes/Report: Sodium 136 135-145 mmol/L Potassium 3.5 [...] Glomerular Filt Rate > 60 NOTE: For -Chinese individuals, multiply the result by 1.210. Chronic [...] Blood Reviewed date:11/05/2023 04:49:13 PM Interpretation: Performing Lab:[facility], [address] [place] [phone] Notes/Report: Glucose, Whole Blood 177 60-115 mg/dL METER # : [id number] Vancomycin Random Reviewed date:11/05/2023 04:49:13 PM Interpretation: Performing Lab:[facility], [address] [place] [phone] Notes/Report: Vancomycin Random 16.2 15-20 mcg/mL SLIDE REVIEW Reviewed date:11/05/2023 04:49:13 PM Interpretation: Performing Lab:[facility], [address] [place] [phone] Notes/Report: SLIDE REVIEW VERIFIED Glucose, Whole Blood Reviewed date:11/05/2023 04:49:13 PM Interpretation: Performing Lab:[facility], [address] [place] [phone] Notes/Report: Glucose, Whole Blood 209 60-115 mg/dL METER # : [id number] Glucose, Whole Blood Reviewed date:11/05/2023 04:49:13 PM Interpretation: Performing Lab:[facility], [address] [place] [phone] Notes/Report: Glucose, Whole Blood 250 60-115 mg/dL METER # : [id number] Glucose, Whole Blood Reviewed date:11/06/2023 10:29:18 AM Interpretation: Performing Lab:[facility], [address] [place] [phone] Notes/Report: Glucose, Whole Blood 329 60-115 mg/dL METER # : [id number] Glucose, Whole Blood Reviewed date:11/06/2023 10:28:45 AM Interpretation: Performing Lab:[facility], [address] [place] [phone] Notes/Report: Glucose, Whole Blood 346 60-115 mg/dL METER # : [id number] Hold Lav - Possible Hematolo gy Reviewed date:11/06/2023 10:29:18 AM Interpretation: Performing Lab:[facility], [address] [place] [phone] Notes/Report: Hold Lav - Possible Hematology SEE NOTE Specimen will be held untested for 8 hours. Call Hematology if testing is desired. Creatinine Reviewed date:11/06/2023 10:29:18 AM Interpretation: Performing Lab:[facility], [address] [place] [phone] Notes/Report: Creatinine 1.11 0.5-1.4 mg/dL Creatinine Clr Calc Pharmacy 80.5 eGFR (calculated from the MDRD study equation) and eCrCl (calculated from the Cockcroft-Gault equation) are based on different parameters and may not yield comparable results. If eCrCl result is absurd, please check patient's height/weight. Estimated Glomerular Filt Rate > 60 NOTE: For -Chinese individuals, multiply the result by 1.210. Chronic Kidney Disease: Estimated GFR < 60 mL/min/1.73m2 Severe Kidney Disease: Estimated GFR < 15 mL/min/1.73m2 Glucose, Whole Blood Reviewed date:11/06/2023 10:29:18 AM Interpretation: Performing Lab:[facility], [address] [place] [phone] Notes/Report: Glucose, Whole Blood 193 60-115 mg/dL METER # : [id number] Vancomycin Random Reviewed date:11/07/2023 12:28:40 PM Interpretation: Performing Lab:[facility], [address] [place] [phone] Notes/Report: PT in surgery at 1610. Fioc Vancomycin Random 12.4 15-20 mcg/mL Pathology Reviewed date:11/09/2023 12:45:02 PM Interpretation: Performing Lab:[facility], [address] [place] [phone] Notes/Report: --- Name: Bala Roberson J Age/Sex: 63/M : 1960 Unit#: [id number] Attend Dr: Jayant Mathews MD Re11/02/23 Status : ADM IN Location: [facility] 358-1 Disch: --- SPEC : [id number] RECD : 11/07/23 STATUS: CECIL STARK NUM: [id number] CARLYLE: 11/06/[address] [facility] [address]: Eben Baez MD ENTERED: 11/07/23-12 02 SP TYPE: Surgical OTHR DR: Alfred Matos MD, Nayyer MD ORDERED: Gross Micro L5, Decal Diagnosis Leg, right, zhljb-wmu-drrx amputation: - Acute osteomyelitis. - Gangrenous necrosi s involving skin and subcutaneous tissue. - Arteriosclerosis. - Viable tissue at margin. Clinical History Gangrene right leg Microscopic Description Microscopic sections reviewed. Material Received Right lower leg Gross Description Received fresh label ed ?right lower leg? is a right eaflc-bax-jgfs amputation specimen which measures 28.0 cm in [...] trabecu lar bone which is otherwise unremarkable. Seed Technician sections are submitted labeled as follows: A1 contact representative sections from the well-healed scars and proximal hallux; A2 sections from the gangrenous and necrotic ulcer and abscess; CONTINUED ON NEXT PAGE --- Name: Bala Roberson Age/Sex: 63/M : 1960 Unit#: [id number] Attend Dr: Jayant Mathews MD Re11/02/23 Status : ADM IN Location: [facility] 358-1 Disch: --- SPEC : [id number] RECD : 11/07/23 STATUS: CECIL STARK NUM: [id number] CARLYLE: 11/06/[address]: Eben Baez MD ENTERED: 11/07/23-12 02 SP TYPE: Surgical OTHR DR: Alfred Matos MD, Nayyer MD ORDERED: Gross Micro L5, Decal Gross Description (Continued) A3 tarsal bone subjacent to the gangrenous and necrotic ulcer, following decalcification; A4 anterior tibial vessels; A5 posterior tibial vessels; A6 a sample of marro w from the margin of resection. CEDS Copies To: Aflred Matos MD [facility] [address] [address] Amee Leiva MD [address] [place] [address] Eben Baez MD [facility] [address] [place] [address] [email or web address] --- Signed (signature on file) Joseph Avila MD 11/09/23 0840 --- END OF REPORT FL guidance in OR Reviewed date:11/07/2023 12:28:40 PM Interpretation: Performing Lab: Notes/Report: [address] [address] Fluoroscopy Report Signed Patient: Bala Roberson MR#: [id number] 0 : 1960 Acct:[id number] Age/Sex: 63 / M ADM Date: 11/02/23 Loc: .S3 358-[address]: Amee Leiva MD Ordering Physician: Eben Baez MD Date of Service: 11/06/23 Procedure(s): FL guidance in OR Accession Number(s): [id number] cc: Alfred Matos MD; Eben Baez MD [...] in OV> 11/07/23 0847 DD/ 14 TD/TT: Die Sinker Apprentice: HUSSAIN [address] [place] [address] Fluoroscopy Report Signed Patient: Bala Roberson MR#: [id number] 0 : 1960 Acct:[id number] Age/Sex: 63 / M ADM Date: 11/02/23 Loc: [facility] 358-[address]: Amee Leiva MD Ordering Physician: Eben Baez MD Date of Service: 11/06/23 Procedure(s): FL guidance in OR Accession Number(s): [id number] cc: Alfred Matos MD; Eben Baez MD [...] in OV> 11/07/23 0847 DD/ 14 TD/TT: Die Sinker Apprentice: HUSSAIN Glucose, Whole Blood Reviewed date:11/06/2023 12:08:10 PM Interpretation: Performing Lab:[facility], [address] [place] [phone] Notes/Report: Glucose, Whole Blood 201 60-115 mg/dL METER # : [id number] Glucose, Whole Blood Reviewed date:11/06/2023 05:28:14 PM Interpretation: Performing Lab:[facility], [address] [place] [phone] Notes/Report: Glucose, Whole Blood 234 60-115 mg/dL METER # : [id number] Glucose, Whole Blood Reviewed date:11/07/2023 12:28:40 PM Interpretation: Performing Lab:[address] [address] Notes/Report: Glucose, Whole Blood 251 60-115 mg/dL METER # : [id number] Glucose, Whole Blood Reviewed date:11/07/2023 12:28:40 PM Interpretation: Performing Lab:[address] [address] Notes/Report: Glucose, Whole Blood 285 60-115 mg/dL METER # : [id number] Complete Blood Count no Diff Reviewed date:11/07/2023 12:27:30 PM Interpretation: Performing Lab:[address] [phone] Notes/Report: White Blood Count 14.0 4.8-10.8 X10*3/uL [...] Panel Reviewed date:11/07/2023 12:27:49 PM Interpretation: Performing Lab:[address] [address] Notes/Report: Sodium 135 135-145 mmol/L Potassium 3.9 [...] Glomerular Filt Rate > 60 NOTE: For -Chinese individuals, multiply the result by 1.210. Chronic Kidney Disease: Estimated GFR < 60 mL/min/1.73m2 Severe Kidney Disease: Estimated GFR < 15 mL/min/1.73m2 Glucose Random 249 60-115 mg/dL Calcium 8.5 8.4-10.2 mg/dL Glucose, Whole Blood Reviewed date:11/07/2023 12:28:40 PM Interpretation: Performing Lab:[facility], [address] [place] [phone] Notes/Report: Glucose, Whole Blood 233 60-115 mg/dL METER # : [id number] Glucose, Whole Blood Reviewed date:11/07/2023 12:28:40 PM Interpretation: Performing Lab:[facility], [address] [place] [phone] Notes/Report: Glucose, Whole Blood 248 60-115 mg/dL METER # : [id number] Glucose, Whole Blood Reviewed date:11/07/2023 05:07:34 PM Interpretation: Performing Lab:[facility], [address] [place] [phone] Notes/Report: Glucose, Whole Blood 219 60-115 mg/dL METER # : [id number] Glucose, Whole Blood Reviewed date:11/08/2023 03:24:26 PM Interpretation: Performing Lab:[facility], [address] [place] [phone] Notes/Report: Glucose, Whole Blood 137 60-115 mg/dL METER # : [id number] Complete Blood Count no Diff Reviewed date:11/08/2023 03:24:26 PM Interpretation: Performing Lab:[facility], [address] [place] [phone] Notes/Report: White Blood Count 14.8 4.8-10.8 X10*3/uL [...] Panel Reviewed date:11/08/2023 03:24:26 PM Interpretation: Performing Lab:[facility], [address] [place] [phone] Notes/Report: Sodium 133 135-145 mmol/L Potassium 3.9 [...] Glomerular Filt Rate > 60 NOTE: For -Chinese individuals, multiply the result by 1.210. Chronic Kidney Disease: Estimated GFR < 60 mL/min/1.73m2 Severe Kidney Disease: Estimated GFR < 15 mL/min/1.73m2 Glucose Random 237 60-115 mg/dL Calcium 8.4 8.4-10.2 mg/dL Glucose, Whole Blood Reviewed date:11/08/2023 03:24:26 PM Interpretation: Performing Lab:[facility], [address] [place] [phone] Notes/Report: Glucose, Whole Blood 231 60-115 mg/dL METER # : [id number] Glucose, Whole Blood Reviewed date:11/08/2023 03:24:26 PM Interpretation: Performing Lab:[facility], [address] [place] [phone] Notes/Report: Glucose, Whole Blood 205 60-115 mg/dL METER # : [id number] Glucose, Whole Blood Reviewed date:11/09/2023 12:42:32 PM Interpretation: Performing Lab:[facility], [address] [place] [phone] Notes/Report: Glucose, Whole Blood 194 60-115 mg/dL METER # : [id number] Glucose, Whole Blood Reviewed date:11/09/2023 12:40:09 PM Interpretation: Performing Lab:[facility], [address] [place] [phone] Notes/Report: Glucose, Whole Blood 180 60-115 mg/dL METER # : [id number] Complete Blood Count no Diff Reviewed date:11/09/2023 01:18:01 PM Interpretation: Performing Lab:[facility], [address] [place] [phone] Notes/Report: White Blood Count 12.8 4.8-10.8 X10*3/uL [...] g Reviewed date:11/09/2023 12:39:05 PM Interpretation: Performing Lab:[facility], [address] [place] [phone] Notes/Report: Sodium 134 135-145 mmol/L Potassium 4.2 [...] Glomerular Filt Rate > 60 NOTE: For -Chinese individuals, multiply the result by 1.210. Chronic Kidney Disease: Estimated GFR < 60 mL/min/1.73m2 Severe Kidney Disease: Estimated GFR < 15 mL/min/1.73m2 Glucose Fasting 293 60-99 mg/dL A fasting glucose of 126 mg/dl or greater on more than one occasion is considered diagnostic of diabetes. Calcium 8.5 8.4-10.2 mg/dL Glucose, Whole Blood Reviewed date:11/09/2023 12:48:48 PM Interpretation: Performing Lab:[address] [phone] Notes/Report: Glucose, Whole Blood 308 60-115 mg/dL METER # : [id number] Glucose, Whole Blood Reviewed date:11/09/2023 12:49:04 PM Interpretation: Performing Lab:[facility], [address] [place] [phone] Notes/Report: Glucose, Whole Blood 375 60-115 mg/dL METER # : [id number] Glucose, Whole Blood Reviewed date:11/10/2023 12:33:44 PM Interpretation: Performing Lab:[address] [phone] Notes/Report: Glucose, Whole Blood 299 60-115 mg/dL METER # : [id number] David Adams Reviewed date:09/06/2024 01:48:59 PM Interpretation: Performing Lab:[address] [phone] Notes/Report: Hold Gold See Note Specimen held untested for 24 hours; Call to request Chemistry testing. Reason For Referral Reason Amputation of right foot please eval and treat Diagnosis 1 Amputation of right foot with complication, subsequent encounter (T18.320P) Referral Organization Alfred Matos MD Referring Provider [...] as directed Subcutan eous 12-18 units Active Immunizations Vaccine Route Administration Date Status Comme nts Flu Vaccine Unknown 12/19/2011 Administered [facility] Flu Vaccine IM Intramuscular 01/29/2013 Administered Flu Vaccine IM Intramuscular 11/25/2013 Administered [facility] Prevnar 13 IM Intramuscular 02/25/2014 Administered Flu Vaccine IM Intramuscular 02/20/2015 Administered pt re cieved the flu vaccine at the [facility] in [place]. Fluarix Quadrivalent IM Intramuscular 06/14/2016 Administe red Fluarix Quadrivalent IM Intramuscular 12/27/2016 Administe red Fluarix Quadrivalent IM Intramuscular 01/02/2018 Administe red TDaP IM Intramuscular 07/12/2018 Administered pt was given the vaccine at [facility] in [place]. 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) Active confirmed Problem 659801039 Low HDL (under 4 0) (E78.6) Active confirmed Problem 558358770 Type 1 diabetes mellitus with diabetic neuropathy (E10.40) Active confirmed Problem 265767032 Diabetic retinop athy associated with type 1 diabetes mellitus, macular edema presence unspecified, with unspecified retinopathy severity (E10.319) Active confirmed Problem 87699074 Deaf nonspeaking , not elsewhere classifiable (H91.3) Active confirmed Problem 489590108 Pure hypercholesterolemia (E78.00) Active confirmed Problem 808901917 BMI 33.0-33.9,ad ult (Z68.33) Active confirmed Problem Amputation of ri ght foot with complication, subsequent encounter (S98.911D) Active confirmed Problem 903963654 Charcot foot due to diabetes mellitus (E11.610) Active confirmed Problem 041196971 Complete below-k nee amputation of right lower extremity, subsequent encounter (S88.111D) Active confirmed Vital Signs Blood pressure diastolic 60 mm Hg 09/17/2024 stephenie ght is down 4 pounds since 07-08-24 Height 71 in 09/17/2024 weight is down 4 pounds since 07-08-24 Blood pressure systolic 124 mm Hg 09/17/2024 weig ht is down 4 pounds since 07-08-24 Weight 240 lbs 09/17/2024 weight is down 4 pounds since 07-08-24 BMI 33.47 kg/m2 09/17/2024 weight is down 4 pounds since 07-08-24 Encounters Encounter Location Date Provider Diagnosis Alfred Matos MD [address] [place] [id number] 09/06/2024 Alfred Matos Type 1 diabetes rodriguez itus with diabetic neuropathy E10.40 and Pure hypercholesterolemia E78.00 Alfred Matos MD [address] [place] [address] [id number] 09/17/2024 Alfred Matos Type 1 diabetes rodriguez itus with diabetic neuropathy E10.40 and Pure hypercholesterolemia E78.00 Alfred Matos MD [address] [place] [address] [address] [place] [id number] 11/28/2023 Alfred Matos Diabetic retinopathy associated with type 1 diabetes mellitus, macular edema presence unspecified, with unspecified retinopathy severity E10.319 and Complete below-knee amputation of right lower extremity, subsequent encounter S88.111D Alfred Matos MD [address] [place] [address] [address] [place] [id number] 03/15/2024 Alfred Matos Diabetic retinopathy associated with [...] and Depression screening Z13.31 Alfred Matos MD [address] [place] [address] [address] [place] [address] [id number] 07/08/2024 Alfred Matos Type 1 diabetes rodriguez itus with diabetic neuropathy E10.40 and Amputation of right foot with complication, subsequent encounter S98.911D Alfred Matos MD [address] [place] [address] [address] [place] [id number] 10/03/2023 Alfred Matos MD [address] [place] [id number] 11/10/2023 Alfred Matos MD [address] [place] [id number] 12/26/2023 Alfred Matos MD [address] [place] [id number] 01/02/2024 Alfred Matos Diarrhea R19.7 Alfred Matos MD [address] [place] [id number] 01/30/2024 Alfred Matos MD [address] [place] [address] [id number] 02/26/2024 Alfred Matos MD [address] [place] [id number] 03/21/2024 Alfred Matos Colon cancer screeni ng Z12.11 Alfred Matos MD [address] [place] [address] [id number] 08/15/2024 Alfred Matos Pure hypercholestero lemia E78.00 Alfred Matos MD [address] [place] [address] [id number] 08/15/2024 Alfred Matos MD [address] [place] [address] [id number] 08/26/2024 Alfred Matos Pure hypercholestero lemia E78.00 Alfred Matos MD [address] [place] [address] [id number] 09/06/2024 Alfred Matos Pure hypercholestero lemia E78.00 Assessments Encounter Date Diagnosis (ICD Code) Assessment Notes Treatment Notes Treatment Clinical Notes Section Notes 09/06/2024 Type 1 diabetes mellitus with diabetic neuropathy (ICD-10 - E10.40) 09/17/2024 Type 1 diabetes mellitus with diabetic neuropathy (ICD-10 - E10.40) doing great, will continue current regiment 09/17/2024 Pure hypercholesterolemia (ICD-10 - E78.00) well controlled, will continue current regiment 11/28/2023 Diabetic retinopathy associated with type 1 diabetes mellitus, macular edema presence unspecified, with unspecified retinopathy severity (ICD-10 - E10.319) 11/28/2023 Complete below-knee amputation of right lower extremity, subsequent encounter (ICD-10 - S88.111D) having vna and is dealing with spinning frame changer for prosthesis 03/15/2024 Diabetic retinopathy associated [...] R19.7) order made and will fax to [facility] as soon as [facility] returns my call. They will have to oyster picker the container for the patient. 03/15/2024 Benign [...] 06/11/2015 Electrocardiogram (EKG) 07/06/2017 Electrocardiogram (EKG) 07/12/2018 CA lexiscan stress w augustine 04/07/2022 CA stress test 03/08/2022 Next Appt Details Provider Name:Alfredabhi Cabello ier, 03/13/2025 07:15:00 AM, [address] [place] [address], [address], [place], [place], [id number], Provider Name:Alfredabhi Cabello ier, 03/20/2025 02:30:00 PM, [address] [place] [address], [address], [place], [place], [id number], Insurance Providers Payer Name Payer Address Payer Phone Subscriber Number Group Number Insured Name Patient Relationship to Insured Coverage Start Date Coverage End Date [employer] [address] [place], [place] [id number] Roberson Self - patient is the insured Medical (General) History Medical History History ICD Code charcot's foot colonoscopy 2010 due in 10 years: Colono scopy 2020 due 5/10 yrs, per path
== END 2024-09-18 15:24 | disposition home or self-care (01) ==
LOC: HO.HGS 15:05
PROVIDERS: PCP Internal Medicine; Visit Provider Surgery
DX: T87.9 Unspecified complications of amputation stump (principal)
CPT/HCPCS: 99213

== ENCOUNTER → 2024-09-18 15:04 | Outpatient (BNVA) | payer BC, SELFPAY | PROVIDERS: PCP Internal Medicine; Visit Provider Surgery ==

== ENCOUNTER 2025-01-29 08:27 | Outpatient (AMB) | payer BC, SELFPAY ==
[2025-01-29 08:41] VITALS: BP 116/64; PULSE 91; BMI 33.7
--- NOTE | 2025-01-29 08:41 | A.OFFVIS_ITS ---
Vital Signs 01/29/25 08:41 Height 5 ft 11 in Weight 241 lb 10.026 oz BMI 33.7 BP 116/64 Blood Pressure Location Lt brachial Pulse 91 Pulse Source Monitor Intake Visit Reasons: Ongoing troubled breathing Accompanied by: Brother Allergies No Known Allergies Allergy (Mild, Verified 01/29/25 08:47) NONE Medication List - Last Reconciled 01/29/25 by Julián Buchanan MD [ampushield As directed] atorvastatin 20 mg PO DAILY hydrocolloid dressing (Durafiber Dressing) As directed change dressing every 3 days [Ice form sleeve As directed] insulin glargine (Basaglar Tempo Pen (U-100) Insulin) 44 units subcut .TID insulin lispro (Humalog KwikPen (U-100) Insulin) 18 units subcut TIDAC lisinopril 20 mg PO DAILY multivitamin 1 tab PO DAILY [right lower extremity prosthetic As directed] HPI Comments Details: The patient is a 64-year-old male presenting with shortness of breath on exe rtion. The shortness of breath has been progressively worsening over the past year, particularly noticeable during activities such as walking and climbing stairs. The patient denies any current chest pain, although he experienced chest pain two years ago, which has since resolved. 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 He currently uses a prosthetic limb, which functions well. The patient engages in weightlifting approximately twice a week and has no history of asthma or chronic obstructive pulmonary disease (COPD). Patient is deaf but can do lip reading and brother is also helping with communication. [facility] Medical History (Updated 01/29/25 @ 09:06 by Julián Buchanan MD) BKA stump complication Eschar of lower leg Diabetic neuropathy Hypercholesterolemia HTN (hypertension) Deaf Iron deficiency anemia Insulin dependent type 2 diabetes mellitus Surgical History History of foot surgery Hx of colonoscopy History of esophagogastroduodenoscopy (EGD) Family History Father No problems noted. Father No problems noted. Mother No problems noted. Social History Household Members: None Housing: House Do you presently have visiting nurse or other home services: No Alcohol intake: current Alcohol intake frequency: holidays/special occasions only Patient Tobacco Use Status: Never used Tobacco service: No Review of Systems Const Denies daytime sleepiness, Denies difficulty sleeping, Denies snoring, Denies stops breathing during sleep and Denies weakness Card Denies chest pain, Denies rapid heart rate, Denies irregular heart rhythm, Denies claudication, Denies leg edema, Denies lightheadedness, Denies palpitations, Reports dyspnea, Reports dyspnea on exertion, Denies orthopnea and Denies slow heart rate Resp Denies cough, Reports dyspnea, Reports dyspnea on exertion and Denies snoring GI Reports no additional complaints, Denies hematochezia, Denies change in stool character and Denies dyspepsia Musc Denies abnormal gait, Denies muscle weakness and Denies numbness Neuro Denies abnormal gait, Denies numbness and Denies weakness Endo Denies palpitations Physical Exam Vital Signs: Last Vital Signs Pulse 91 01/29/25 08:41 BP 116/64 01/29/25 08:41 BMI result Body Mass Index 33.7 Const General: comfortable and no acute distress Orientation/consciousness: patient oriented x3 HEENT Other: Unremarkable Head: Yes normal to inspection Neck Neck: Yes normal visual inspection Chest Chest palpation & inspection: normal inspection of the chest Resp Auscultation: clear to auscultation bilaterally Cardio Palpation: normal PMI Heart sounds: S1 normal heart sound present, S2 normal heart sound present, no gallops, no murmurs and no rubs GI Palpation (GI): Soft to palpation Back/Spine/Pelvis Other: unremarkable Skin General skin exam: no rashes or lesions noted Neuro General: patient oriented x3 Extrem General: Yes normal to inspection Psych Mental Status: mental status grossly normal Office Procedures EKG Details: EKG with sinus rhythm at 91/Min; no clear ischemic changes; [place] [id number]-Mihawwzwyusdiklqk, Complete Assessment & Plan Assessment & Plan (1) Shortness of breath: Code(s): R06.02 - Shortness of breath Category: Medical (2) Insulin dependent type 2 diabetes mellitus: Code(s): E11.9 - Type 2 diabetes mellitus without complications; Z79.4 - long-term (current) use of insulin Category: Medical (3) HTN (hypertension): Code(s): I10 - Essential (primary) hypertension Category: Medical Qualifiers: Hypertension type: primary hypertension Qualified Code(s): I10 - Essential (primary) hypertension (4) Hypercholesterolemia: Code(s): E78.00 - Pure hypercholesterolemia, unspecified Category: Medical (5) Status post below knee amputation of right lower extremity: Code(s): Z89.511 - Acquired absence of right leg below knee Category: Surgical (6) Deaf: Comment: uses sign language Code(s): H91.90 - Unspecified hearing loss, unspecified ear Category: Medical Qualifiers: Laterality: unspecified laterality Qualified Code(s): H91.90 - Unspecified hearing loss, unspecified ear Plan Due to multiple cardiovascular risk factors, he needs further cardiovascular evaluation. A prior myocardial perfusion imaging study from 2022 was unremarkable. We will start with an echocardiogram for cardiac function assessment. If there is any overt wall motion abnormality, then needs diagnostic catheterization. If not, consider repeat stress test. He needs baseline labs as well to look for other etiologies like anemia, renal insufficiency extra. Also check NT pro BNP. Discussed with patient as well as brother and they are in agreement. Orders: Orders Complete Blood Count no Diff Today R06.02 - Shortness of breath Comprehensive Met. Panel Today R06.02 - Shortness of breath CA echo transthoracic complete Today R06.02 - Shortness of breath NT Pro B Type Natriuretic Pept Today I50.9 - Heart failure, unspecified, R06.02 - Shortness of breath Coding Level of Care Code New Pt Level 4 (90305) Complex EM visit Add On G2211 Diagnoses Shortness of breath R06.02 Insulin dependent type 2 diabetes mellitus E11.9; Z79.4 Primary hypertension I10 Hypertension type: primary hypertension Hypercholesterolemia E78.00 Status post below knee amputation of right lower extremity Z89.511 Deafness, unspecified laterality H91.90 Laterality: unspecified laterality CPT Codes EKG - CPT: 36319-Dafjcldljbiuzestd, Complete ([id number])
== END 2025-01-29 09:18 | disposition home or self-care (01) ==
LOC: HO.HCS 08:28
PROVIDERS: PCP Internal Medicine; Visit Provider Internal Medicine
DX: R06.02 Shortness of breath (principal); E11.9 Type 2 diabetes mellitus without complications; Z79.4 Long term (current) use of insulin; I10 Essential (primary) hypertension; E78.00 Pure hypercholesterolemia, unspecified; Z89.511 Acquired absence of right leg below knee; H91.90 Unspecified hearing loss, unspecified ear
CPT/HCPCS: 93010; 99214

== ENCOUNTER 2025-01-29 08:27 | Outpatient (REF) | payer BC, SELFPAY ==
--- OUTSIDE RECORDS SUMMARY | 2024-03-01 03:45 | XMS_ITS ---
Author Organization Alfred Matos MD Address [address] [place] [phone] Care Team Providers Care Freight Breaker Name Role Phone Carlo Alfred Primary Care Provider REASON FOR VISIT yearly fasting labs Encounters Encounter Location Date Provider Diagnosis Alfred Matos MD 10 [facility] [address] [place] [phone] 03/01/2024 Alfred Matos Type 1 diabetes rodriguez itus with diabetic neuropathy E10.40 and Pure hypercholesterolemia E78.00 Assessments Encounter Date Diagnosis (ICD Code) Assessment Notes Treatment Notes Treatment Clinical Notes Section Notes 03/01/2024 Type 1 diabetes rodriguez itus with diabetic neuropathy (ICD-10 - E10.40) 03/01/2024 Pure hypercholesterolemia (ICD-10 - E78.00) Plan Of Treatment Next Appt Details Provider Name:Alfred teixeira, 03/13/2025 07:15:00 AM, [address] [place] [address], [address], [phone], Provider Name:Alfred teixeira, 03/20/2025 02:30:00 PM, [address] [place] [address], [address], [place], [phone], Progress Notes * Bala ROBERSONDOB:1960 (64 yo M)Acc No.[id number]:03/01/2024 Progress Note Patient: Bala WARD Provider: Elvis Matos MD :1960 A ge:63 Y S ex:Male Date:03/01/2024 Address:[address] [place], [place] [id number] Subjective: * Chief Complaints: * 1 . Yearly fasting labs. * Medical History: Objective: * Vitals: Assessment: * Assessment: 1. T ype 1 diabetes mellitus with diabetic neuropathy - E10.40 2 . P ure hypercholesterolemia - E78.00 Plan: * Treatment: 2. P ure hypercholesterolemia L AB: Complete Blood Count Auto Diff (Order Cancelled) L AB: Comprehensive Jones. Panel Fast (Order Cancelled) L AB: Lipid Panel (Order Cancelled) L AB: PSA,Total (Free>4and<10) (Order Cancelled) L AB: Microalbumin, Random (Order Cancelled) L AB: Hemoglobin A1c (Order Cancelled) L AB: UA ClnCatch+Micro w/rflx Cult (Order Cancelled) * * The named appointment provid er may or may not be the originator of this progress note, and it is not deemed complete until electronically signed by the appointment provider. Sign off status: Pending * Provider: Elvis Matos MD Date: 05/01/2023 Generated for Serene summers/Miroslava/Andradesmitting on: 10:56 AM EDT
--- OUTSIDE RECORDS SUMMARY | 2024-03-15 10:30 | XMS_ITS ---
Author Organization Alfred Matos MD Address [address] [place] [phone] Care Team Providers Care Materials Intern Name Role Phone Alfred Matos Primary Care Provider Allergies No Known Allergies REASON FOR VISIT annual visit, Labs in patient docs Medications Medication SIG (Take, Route, Frequency, Duration) Notes Start Date End Date Status HumaLOG 100 UNIT/ML as directed Subcutan eous 12-18 units Active Basaglar KwikPen 100 UNIT/ML 44 units once a day at night once a day Active Atorvastatin Calcium 20 MG TAKE 1 TABLET BY MOUTH EVERY DAY Active Immunizations Vaccine Route Administration Date Status Comme nts Fluarix Quadrivalent - 150 IM Intramuscular 03/15/2024 Adm inistered Social History Tobacco Use: Social History Observation Description Date Details (start date - stop date) Never Smoker NA - NA Tobacco Use/Smoking Question Answer Notes Patient is a nonsmoker Additional Findings: Tobacco Non-User Cu rrent non-smoker, currently using no form of tobacco Alcohol Screen Question Answer Notes Did you have a drink contain ing alcohol in the past year? Yes How often did you have a dri nk containing alcohol in the past year? 2 to 4 times a month (2 points) How many drinks did you have on a typical day when you were drinking in the past year? 1 or 2 drinks (0 point) How often did you have 6 or more drinks on one occasion in the past year? Never (0 point) Points 2 Interpretation Negative Vital Signs Height 71 in 03/15/2024 132/70 Encounters Encounter Location Date Provider Diagnosis Alfred Matos MD [address] [place] [address] [address] [place], [place] [phone] 03/15/2024 Alfred Matos Diabetic retinopathy associated with type 1 diabetes mellitus, macular edema presence unspecified, with unspecified retinopathy severity E10.319 ; Annual physical exam Z00.00 ; Deaf nonspeaking, not elsewhere classifiable H91.3 ; Benign essential microscopic hematuria R31.1 ; Encounter for immunization Z23 ; Charcot foot due to diabetes mellitus E11.610 ; Pure hypercholesterolemia E78.00 ; Colon cancer screening Z12.11 and Depression screening Z13.31 Assessments Encounter Date Diagnosis (ICD Code) Assessment Notes Treatment Notes Treatment Clinical Notes Section Notes 03/15/2024 Diabetic retinopathy associated with type 1 diabetes mellitus, macular edema presence unspecified, with unspecified retinopathy severity (ICD-10 - E10.319) sugars well controlled, willcntinue current regiment 03/15/2024 Annual physical exam (ICD-10 - Z00.00) labs reviewed and discussed with patient 03/15/2024 Deaf nonspeaking, no t elsewhere classifiable (ICD-10 - H91.3) doing well 03/15/2024 Benign essential microscopic hematuria (ICD-10 - R31.1) has resolved 03/15/2024 Encounter for immunization (ICD-10 - Z23) 03/15/2024 Charcot foot due to diabetes mellitus (ICD-10 - E11.610) had amputation 03/15/2024 Pure hypercholesterolemia (ICD-10 - E78.00) stable, will continue current regiment 03/15/2024 Colon cancer screeni ng (ICD-10 - Z12.11) unable to get stool sample, patient given guaiac cards , will return to office when completed 03/15/2024 Depression screening (ICD-10 - Z13.31) negative screen 03/15/2024 Other sent with cards to check for blood Plan Of Treatment Medication Medication Name Sig Start Date Stop Date Notes HumaLOG 100 UNIT/ML as directed Subcutan eous 12-18 units Stefan HuttonikPen 100 UNIT/ML 44 units on ce a day at night once a day Atorvastatin Calcium 20 MG TAKE 1 TABLET BY MOUTH EVERY DAY Treatment Notes Assessment Notes Diabetic retinopathy associa juliana with type 1 diabetes mellitus, macular edema presence unspecified, with unspecified retinopathy severity sugars well controlled, willcntinue current regiment Annual physical exam labs reviewed and d iscussed with patient Deaf nonspeaking, not elsewhere classifi able doing well Benign essential microscopic hematuria h as resolved Charcot foot due to diabetes mellitus rincon d amputation Pure hypercholesterolemia stable, will c ontinue current regiment Colon cancer screening unable to get sto ol sample, patient given guaiac cards , will return to office when completed Depression screening negative screen Other sent with cards to [facility] for blood Next Appt Details Follow Up: 6 Months, Reason: Provider Name:Alfred teixeira, 03/13/2025 07:15:00 AM, [address] [place] [address], [address] [place] [address], [phone], Provider Name:Alfred teixeira, 03/20/2025 02:30:00 PM, [address] [place] [address], [address], [place], [place], [phone], Progress Notes * TONEBalaDOB:1960 (63 yo M)Acc No.[id number]:03/15/2024 Progress Notes Patient: Bala Hudson Provider: Elvis Matos MD :1960 A ge:63 Y S ex:Male Date:03/15/2024 Address:[address] [place], [place] [phone] Subjective: * Chief Complaints: * A nnual visitLabs in patient docs * HPI: D epression Screening: PHQ-9 L ittle interest or pleasure in doing things N ot at all, F eeling down, depressed, or hopeless N ot at all, T rouble falling or staying asleep, or sleeping too much N ot at all, F eeling tired or having little energy N ot at all, P oor appetite or overeating N ot at all, F eeling bad about yourself or that you are a failure, or have let yourself or your family down N ot at all, T rouble concentrating on things, such as reading the newspaper or watching television N ot at all, M oving or speaking so slowly that other people could have noticed; or the opposite, being so fidgety or restless that you have been moving around a lot more than usual N ot at all, T houghts that you would be better off or of hurting yourself in some way N ot at all, T otal Score 0 . I nterpretation and Intervention D epression Screening Findings N egative, F ollow-Up for Depression : review of PHQ-9 found negative result, no follow-up needed. C ommunication Needs: Communication Needs D oes the patient have a hearing impairment Y es, I f yes, what is the hearing impairment? D eaf, D oes the patient have a vision impairment? Y es, I f yes, what is the vision impairment? G lasses, D oes the patient have a cognition impairment? N o. S VERNELL Questions: SDOH Questions I n the past year have you been worried about losing housing? N o, I n the past year have you or any family members you live with been unable to get any of the following when it was really needed? Check all that apply: N one. * ROS: G eneral/Constitutional: Change in appetite d enies. C hills d enies. F ever d enies. O phthalmologic: Blurred vision d enies. D ischarge d enies. P ain d enies. E NT: Decreased hearing d enies. S ore throat d enies.?Swollen glands d enies. E ndocrine: Cold intolerance d enies. E xcessive thirst d enies. H eat intolerance d enies. W eight loss d enies. R espiratory: Cough d enies. S hortness of breath at rest d enies. S hortness of breath with exertion d enies. W heezing d enies. C ardiovascular: Chest pain at rest d enies. C hest pain with exertion?denies. I rregular heartbeat d enies. S hortness of breath d enies. ? G astrointestinal: Abdominal pain d enies. C hange in bowel habits d enies. D iarrhea d enies. N ausea d enies. R ectal bleeding d enies. V omiting d enies . G enitourinary: Blood in urine d enies. D ifficulty urinating d enies. F requent urination d enies. M usculoskeletal: Painful joints d enies. W eakness d enies. ? S kin: Dry skin d enies. I tching d enies. D enies?Mole(s), changes in moles, new moles or any lesions of concern. D enies P hotosensitivity. R kedar d enies. N eurologic: Dizziness d enies. F ainting d enies. H eadache?denies. * Medical History: * Surgical History: * Hospitalization/Major Diagno stic Procedure: * Family History: F ather: 86 yrs, diagnosed with Diabetes. M other: 83 yrs, diagnosed with Alzheimer disease. 1 brother(s) . . Denies mental health/ 1 brother was an alcoholic, No pertinent family medical history, No pertinent family medical history, Denies mental health/substance abuse family history. * Social History: T obacco Use: T obacco Use/Smoking P atient is a n onsmoker, A dditional Findings: Tobacco Non-User C urrent non-smoker, currently using no form of tobacco. D rugs/Alcohol: A lcohol Screen D id you have a drink containing alcohol in the past year? Y es, H ow often did you have a drink containing alcohol in the past year? 2 to 4 times a month (2 points), H ow many drinks did you have on a typical day when you were drinking in the past year? 1 or 2 drinks (0 point), H ow often did you have 6 or more drinks on one occasion in the past year? N ever (0 point), P oints 2 , I nterpretation N egative. M iscellaneous: C affeine: yes, frequency:, 1-2 cups per day. no Children. Exercise: yes, Upper body. Home smoke detector use: yes. Housing: living with relatives. Living with: family. Marital status: . Pets: none. no Travel outside of the [place]. * Medications: T akingAtorvastatin Calcium 20 MG Tablet TAKE 1 TABLET BY MOUTH EVERY DAY Basaglar KwikPen 100 UNIT/ML Solution Pen-injector 44 units once a day at night once a dayHumaLOG 100 UNIT/ML Solution Cartridge as directed Subcutaneous 12-18 unitsMedication List reviewed and reconciled with the patientTaking Atorvastatin Calcium 20 MG Tablet TAKE 1 TABLET BY MOUTH EVERY DAY Taking Basaglar KwikPen 100 UNIT/ML Solution Pen-injector 44 units once a day at night once a dayTaking HumaLOG 100 UNIT/ML Solution Cartridge as directed Subcutaneous 12-18 unitsMedication List reviewed and reconciled with the patient * Allergies: N .K.D.A.yes[Allergies Verified] Objective: * Vitals: H t: 71 132/70. * Examination: G eneral Examination: GENERAL APPEARANCE: w ell developed, well nourished, in no acute distress. HEAD: n ormocephalic, atraumatic. EYES: p upils equal, round, reactive to light and accommodation, sclera non-icteric. EARS: n ormal. ORAL CAVITY: m ucosa moist. THROAT: c lear. NECK/THYROID: n brien supple, full range of motion, no cervical lymphadenopathy, no bruits. SKIN: w arm and dry, no suspicious lesions. HEART: r egular rate and rhythm, S1, S2 normal, no murmurs.? LUNGS: c lear to auscultation bilaterally. ABDOMEN: s oft, nontender, nondistended, bowel sounds present, normal, no organomegaly , no masses palpable. RECTAL EXAM: n ot able to do with amputation can't get out of chair. MALE GENITOURINARY: n ot examined. EXTREMITIES: n o clubbing, cyanosis, or edema , abnormal rt bka. NEUROLOGIC: n onfocal, motor strength normal upper and lower extremities, sensory exam intact. Assessment: * Assessment: 1. A nnual physical exam - Z00.00 (Primary) 2 . D iabetic retinopathy associated with type 1 diabetes mellitus, macular edema presence unspecified, with unspecified retinopathy severity - E10.319 3 . D eaf nonspeaking, not elsewhere classifiable - H91.3 4 . B enign essential microscopic hematuria - R31.1 5 . E ncounter for immunization - Z23 6 . C harcot foot due to diabetes mellitus - E11.610 7 . P ure hypercholesterolemia - E78.00 8 . Colon cancer screening - Z12.11 9 . D epression screening - Z13.31 Plan: * Treatment: 2. D iabetic retinopathy associated with type 1 diabetes mellitus, macular edema presence unspecified, with unspecified retinopathy severity Continue Basaglar KwikPen Solution Pen-injector, 100 UNIT/ML, 44 units, once a day at night, once a day; C ontinue HumaLOG Solution Cartridge, 100 UNIT/ML, as directed, Subcutaneous, 12-18 units.? Notes: sugars well controlled, willcntinue current regiment 3. D eaf nonspeaking, not elsewhere classifiable Notes: doing well 4. B enign essential microscopic hematuria Notes: has resolved 5. C harcot foot due to diabetes mellitus Notes: had amputation 6. P ure hypercholesterolemia Continue Atorvastatin Calcium Tablet, 20 MG, TAKE 1 TABLET BY MOUTH EVERY DAY. Notes: stable, will continue current regiment 7. C olon cancer screening Notes: unable to get stool sample, patient given guaiac cards , will return to office when completed 8. D epression screening Notes: negative screen 9. O thers Notes: sent with cards to check for blood * Immunizations: Fluarix Quadrivalent - 150 : 0.5 mL (Dose No:1) (Route: Intramuscular) given by Heather Young on Right Deltoid * Procedure Codes: 9 0656 FLU VACCINE NO PRESERV 3 & >44146 IMMUNIZATION ADMIN * Preventive Medicine: Diabetes Care Plan: P atient Lifestyle Goals N eeds to maintain diet control.?Treatment Goals A 1C< 7. B arriers N o specific barriers, doing well. E xpected Outcome m aintaining stable blood sugar levels within a target range. * Follow Up: 6 Months * * Sign off status: Completed true * Provider: Elvis Matos MD Date: 05/16/2023 Generated for Serene summers/Miroslava/John on: 10:58 AM EDT History and Physical Notes * HPI (History of Present Illness) Category Sub-Category Detail Notes Category Not es Depression Screening PHQ-9 Little inte rest or pleasure in doing things: Not at all Feeling down, depressed, or hopeless: No t at all Trouble falling or staying asleep, or sl eeping too much: Not at all Feeling tired or having little energy: N ot at all Poor appetite or overeating: Not at all Feeling bad about yourself o r that you are a failure, or have let yourself or your family down: Not at all Trouble concentrating on thi ngs, such as reading the newspaper or watching television: Not at all Moving or speaking so slowly that other people could have noticed; or the opposite, being so fidgety or restless that you have been moving around a lot more than usual: Not at all Thoughts that you would be b benji off or of hurting yourself in some way: Not at all Total Score: 0 Interpretation and Intervention Depression [place] Findings: Negative Follow-Up for Depression: : review of PH Q-9 found negative result, no follow-up needed SDOH Questions SDOH Questions In the past year have you been worried about losing housing?: No In the past year have you or any family members you live with been unable to get any of the following when it was really needed? Check all that apply:: None Communication Needs Communication Needs Does the patient have a hearing impairment: Yes If yes, what is the hearing impairment?: Deaf Does the patient have a vision impairmen t?: Yes If yes, what is the vision impairment?: Glasses Does the patient have a cognition impair ment?: No Examination Category Sub-Category Detail Notes Category Not es General Examination GENERAL APPEARANCE: well dev eloped, well nourished, in no acute distress HEAD: normocephalic, atrau matic EYES: pupils equal, round, reactive to light and accommodation, sclera non-icteric EARS: normal THROAT: clear NECK/THYROID: neck supple, full ra nge of motion, no cervical lymphadenopathy, no bruits HEART: regular rate and rhy thm, S1, S2 normal, no murmurs LUNGS: clear to auscultatio n bilaterally ABDOMEN: soft, nontender, non distended, bowel sounds present, normal, no organomegaly , no masses palpable NEUROLOGIC: nonfocal, motor stre ngth normal upper and lower extremities, sensory exam intact SKIN: warm and dry, no jasvir picious lesions EXTREMITIES: no clubbing, cyanosi s, or edema , abnormal rt bka MALE GENITOURINARY: not examined RECTAL EXAM: not able to do with amputation can't get out of chair ORAL CAVITY: mucosa moist
--- OUTSIDE RECORDS SUMMARY | 2024-03-21 10:00 | XMS_ITS ---
Author Organization Alfred Matos MD Address [address] [place] [phone] Care Team Providers Care Soccer Coach Name Role Phone Carlo Alfred Primary Care Provider Results Component Value Reference Range Notes Occult Blood, Stool, Guaiac Reviewed date:04/04/2024 02:22:37 PM Interpretation:Negative Performing Lab: Notes/Report: Negative Occult Blood, Stool, Guaiac Neg x2 REASON FOR VISIT Stool cards Encounters Encounter Location Date Provider Diagnosis Alfred Matos MD [facility] [address] [place] [phone] 03/21/2024 Alfred Matos Colon cancer screening Z12.11 Assessments Encounter Date Diagnosis (ICD Code) Assessment Notes Treatment Notes Treatment Clinical Notes Section Notes 03/21/2024 Colon cancer screening (ICD-10 - Z12.11) Plan Of Treatment Next Appt Details Provider Name:Alfred teixeira, 03/13/2025 07:15:00 AM, [facility], [address] [place] [address], [phone], Provider Name:Alfred teixeira, 03/20/2025 02:30:00 PM, [address], [address], [place], [place], [phone], Progress Notes * Bala ROBERSONDOB:1960 (63 yo M)Acc No.[id number]:03/21/2024 Patient: Bala Hudson :1960 A ge:63 Y S ex:Male Address:[address] [place] [id number] Subjective: * Chief Complaints: * S tool cards * Medical History: * Surgical History: * Hospitalization/Major Diagno stic Procedure: * Medications: Objective: Assessment: * Assessment: 1. C keysha cancer screening - Z12.11 (Primary) Plan: * Treatment: Value Reference Range O ccult Blood, Stool, Guaiac Neg x2 * Procedure Codes: 8 2270 TEST FOR BLOOD, FECES * true * Date: Generated for Serene summers/Miroslava/eTransmitting on: 1 10:58 AM EDT
--- OUTSIDE RECORDS SUMMARY | 2024-07-08 09:30 | XMS_ITS ---
Author Organization Alfred Matos MD Address [address] [place] [phone] Care Team Providers Care Senior Principal Architect Name Role Phone Carlo Alfred Primary Care Provider [phone] Allergies No Known Allergies Results Component Value Reference Range Notes Hemoglobin A1c Reviewed date:07/08/2024 01:15:01 PM Interpretation: Performing Lab: Notes/Report: Hemoglobin A1c 8.0 Glucose, finger stick Reviewed date:07/08/2024 01:13:23 PM Interpretation: Performing Lab: Notes/Report: Value 144 Reason For Referral Reason Amputation of right foot please eval and treat Diagnosis 1 Amputation of right foot with complication, subsequent encounter (S98.911D) Referral Organization Alfred Matos MD Referring Provider First Name Alfred Referring Provider Last Name Carlo Referring Provider Speciality Internal M edicine Referred Provider Bala Prabhakar Referred Provider Specialty Surgery General Notes Carmen Perla 0 07/08/2024 01:39:46 PM >patient is aware of appt Referral Priority Routine Referral Appointment Date 07/18/2024 REASON FOR VISIT needs order to continue PT has blisters Medications Medication SIG (Take, Route, Frequency, Duration) Notes Start Date End Date Status HumaLOG 100 UNIT/ML as directed Subcutan eous 12-18 units Active Atorvastatin Calcium 20 MG TAKE 1 TABLET BY MOUTH EVERY DAY Active Basaglar KwikPen 100 UNIT/ML 44 units once a day at night once a day Active Problems Problem Type SNOMED Code ICD Code Onset Dates Problem Status W/U Status Risk Notes Problem Amputation of right foot with complication, subsequent encounter (S98.911D) Active confirmed Vital Signs Blood pressure systolic 124 mm Hg 07/09/19 25 Blood pressure diastolic 60 mm Hg 025 Height 71 in 07/08/2024 Weight 244 lbs 07/08/2024 BMI 34.03 kg/m2 07/08/2024 Encounters Encounter Location Date Provider Diagnosis Alfred Matos MD [address] [place] [address] Drive [address] [place] [phone] 07/08/2024 Alfred Matos Type 1 diabetes mellitus with diabetic neuropathy E10.40 and Amputation of right foot with complication, subsequent encounter S98.911D Assessments Encounter Date Diagnosis (ICD Code) Assessment Notes Treatment Notes Treatment Clinical Notes Section Notes 07/08/2024 Type 1 diabetes mellitus with diabetic neuropathy (ICD-10 - E10.40) running a little high today 07/08/2024 Amputation of right foot with complication, subsequent encounter (ICD-10 - S98.911D) refer back to dr tyshawn sal the amputation Plan Of Treatment Treatment Notes Assessment Notes Type 1 diabetes mellitus wit h diabetic neuropathy running a little high today Amputation of right foot wit h complication, subsequent encounter refer back to dr tyshawn sal the amputation Referrals Referral Date Details 07/08/2024 07/08/2024, Amputati on of right foot please eval and treatBala Next Appt Details Provider Name:Alfred teixeira, 03/13/2025 07:15:00 AM, [address] [place] [address], Suite [facility], [place], [place], [phone], Provider Name:Alfred teixeira, 03/20/2025 02:30:00 PM, [address] [place] [address], Suite [facility], [place], [place], [phone], Progress Notes * Bala ROBERSON:1960 (64 yo M)Acc No.[id number]:07/08/2024 Patient: Bala WARD Provider: Elvis Matos MD :1960 A ge:64 Y S ex:Male Date:07/08/2024 Address:[address] [place], [place] [phone] Subjective: * Chief Complaints: * n eeds order to continue PT has blisters * HPI: S ymptom(s): patient is a 64 yo male here for visit to discuss orderto contiue PT. * ROS: G eneral/Constitutional: Denies C hills. D enies F atigue. D enies F ever. D enies H eadache. E NT: Denies S ore throat. R espiratory: Denies C ough. D enies S hortness of breath at rest. D enies S hortness of breath with exertion. G astrointestinal: Denies D iarrhea. D enies N ausea. * Medical History: * Surgical History: * Hospitalization/Major Diagno stic Procedure: * Medications: T akingAtorvastatin Calcium 20 MG Tablet TAKE 1 TABLET BY MOUTH EVERY DAY Basaglar KwikPen 100 UNIT/ML Solution Pen-injector 44 units once a day at night once a day HumaLOG 100 UNIT/ML Solution Cartridge as directed Subcutaneous 12-18 units Medication List reviewed and reconciled with the patientTaking Atorvastatin Calcium 20 MG Tablet TAKE 1 TABLET BY MOUTH EVERY DAY Taking Basaglar KwikPen 100 UNIT/ML Solution Pen-injector 44 units once a day at night once a day Taking HumaLOG 100 UNIT/ML Solution Cartridge as directed Subcutaneous 12-18 units Medication List reviewed and reconciled with the patient * Allergies: N .K.D.A.yes[Allergies Verified] Objective: * Vitals: H t: 71, Wt: 244, BMI:34.03, BP:124/60, Wt-k.68. * Examination: G eneral Examination: GENERAL APPEARANCE: w ell developed, well nourished. SKIN: g ood turgor. EXTREMITIES: a bnormal rt stump with some erythema and a small ulcer and some necrotic tissue in the area of the scar. Assessment: * Assessment: 1. T ype 1 diabetes mellitus with diabetic neuropathy - E10.40 (Primary) 2 .?Amputation of right foot with complication, subsequent encounter - S98.911D Plan: * Treatment: Value Reference Range H emoglobin A1c 8.0 ?LAB: Glucose, finger stick (Collection Date & Time - 07/08/2024)* Value Reference Range V alue 144 Notes: running a little high today??2.?Amputation of right foot with complication, subsequent encounter? Notes: refer back to dr tyshawn yanez dis the amputation? Referral To:Bala Prabhakar??Surgery ?Reason:Amputation of right foot please eval and treat * Procedure Codes: 8 2947 ASSAY, GLUCOSE, BLOOD QUANT, Modifiers: QW 54697 GLYCATED HEMOGLOBIN TEST, Modifiers: QW * * Sign off status: Completed true * Provider: Elvis Matos MD Date: 0 07/08/2024 Generated for Serene summers/Miroslava/eTransmitting on: 1 10:57 AM EDT History and Physical Notes * HPI (History of Present Illness) Category Sub-Category Detail Notes Category Not es Symptom(s) patient is a 64 yo male here for visit to discuss orderto contiue PT Examination Category Sub-Category Detail Notes Category Not es General Examination GENERAL APPEARANCE: well developed , well nourished SKIN: good turgor EXTREMITIES: abnormal rt stump wi th some erythema and a small ulcer and some necrotic tissue in the area of the scar Consultation Request Notes Referral Date Referring Provider Referred Provider Not es 07/08/2024 Alfred Matos John Amputatio n of right foot please eval and treat
--- OUTSIDE RECORDS SUMMARY | 2024-08-15 10:50 | XMS_ITS ---
Author Organization Alfred Matos MD Address [address] [place] [phone] Care Team Providers Care Ice Cream Server Name Role Phone Alfred Matos Primary Care Provider [phone] Medications Medication SIG (Take, Route, Frequency, Duration) Notes Start Date End Date Status Atorvastatin Calcium 20 MG TAKE 1 TABLET BY MOUTH EVERY DAY for 90 Active Encounters Encounter Location Date Provider Diagnosis Alfred Matos MD [address] [facility] [address] [place] [phone] 08/15/2024 Alfred Matos Pure hypercholestero lemia E78.00 Assessments Encounter Date Diagnosis (ICD Code) Assessment Notes Treatment Notes Treatment Clinical Notes Section Notes 08/15/2024 Pure hypercholesterolemia (ICD-10 - E78.00) Plan Of Treatment Medication Medication Name Sig Start Date Stop Date Notes Atorvastatin Calcium 20 MG TAKE 1 TABLET BY MOUTH EVERY DAY for 90 Next Appt Details Provider Name:Alfred teixeira, 03/13/2025 07:15:00 AM, [address], [address] [place] [address], [phone], Provider Name:Alfred teixeira, 03/20/2025 02:30:00 PM, [address] [place] [address], [address], [place], [place], [phone], Progress Notes * TONEBalaDOB:1960 (64 yo M)Acc No.[id number]:08/15/2024 Patient: Bala WARD :1960 A ge:64 Y S ex:Male Address:[address] [place] [address] * Refills Refill Atorvastatin Calcium Tablet, 20 MG, 90 Tablet, TAKE 1 TABLET BY MOUTH EVERY DAY, 90, Refills=4 * true * Date: Generated for Serene summers/Miroslava/Omegaitting on: 10:57 AM EDT
--- OUTSIDE RECORDS SUMMARY | 2024-08-15 10:53 | XMS_ITS ---
Author Organization Alfred Matos MD Address [address] [facility] [address] [place] [phone] Care Team Providers Care Soaker Name Role Phone Carlo Alfred Primary Care Provider REASON FOR VISIT RF Lisinopril 20mg Medications Medication SIG (Take, Route, Fr equency, Duration) Notes Start Date End Date Status Lisinopril 20 MG 1 tablet Orally Once a day for 90 days 08/15/2024 Active Encounters Encounter Location Date Provider Diagnosis Alfred Matos MD [address] [facility] [address] [place] [phone] 08/15/2024 Alfred Matos Plan Of Treatment Medication Medication Name Sig Start Date Stop Date Notes Lisinopril 20 MG 1 tablet Orally Once a day for 90 days Next Appt Details Provider Name:Alfred teixeira, 03/13/2025 07:15:00 AM, [address] [place] [address], [address], [phone], Provider Name:Alfred teixeira, 03/20/2025 02:30:00 PM, [address] [place] [address], [address], [place], [phone], Progress Notes * Bala ROBERSONDOB:1960 (64 yo M)Acc No.[id number]:08/15/2024 Patient: Bala WARD :1960 A ge:64 Y S ex:Male Address:[address] [place] [address] * Refills Start Lisinopril Tablet, 20 MG, Orally, 90 Tablet, 1 tablet, Once a day, 90 days, Refills=3 * true * Date: Generated for Serene summers/Miroslava/Omegaitting on: 10:58 AM EDT
--- OUTSIDE RECORDS SUMMARY | 2024-08-26 06:01 | XMS_ITS ---
Author Organization Alfred Matos MD Address [address] [place] [phone] Care Team Providers Care Marketing Sales Consultant Name Role Phone Alfred Matos Primary Care Provider REASON FOR VISIT refill Medications Medication SIG (Take, Route, Frequency, Duration) Notes Start Date End Date Status Atorvastatin Calcium 20 MG TAKE 1 TABLET BY MOUTH EVERY DAY Orally Once a day for 90 days Active Lisinopril 20 MG 1 tablet Orally Once a day for 90 days 08/15/2024 Active Encounters Encounter Location Date Provider Diagnosis Alfred Matos MD [address] [place] [phone] 08/26/2024 Alfred Matos Pure hypercholestero lemia E78.00 Assessments Encounter Date Diagnosis (ICD Code) Assessment Notes Treatment Notes Treatment Clinical Notes Section Notes 08/26/2024 Pure hypercholesterolemia (ICD-10 - E78.00) Plan Of Treatment Medication Medication Name Sig Start Date Stop Date Notes Atorvastatin Calcium 20 MG TAKE 1 TABLET BY MOUTH EVERY DAY Orally Once a day for 90 days Lisinopril 20 MG 1 tablet Orally Once a day for 90 days 08/15/2024 Next Appt Details Provider Name:Alfred Cabello ier, 03/13/2025 07:15:00 AM, [address], [address], [place], [phone], Provider Name:Alfred Cabello ier, 03/20/2025 02:30:00 PM, [address] [facility] [address], [address], [place], [place], [phone], Progress Notes * Bala ROBERSONDOB:1960 (64 yo M)Acc No.[id number]:08/26/2024 Patient: Selma Bala MILLER :1960 A ge:64 Y S ex:Male Address:[address] [place] [address] * Refills Refill Atorvastatin Calcium Tablet, 20 MG, Orally, 90, TAKE 1 TABLET BY MOUTH EVERY DAY, Once a day, 90 days, Refills=3 Refill Lisinopril Tablet, 20 MG, Orally, 90, 1 tablet, Once a day, 90 days, Refills=3 * true * Date: Generated for Serene summers/Miroslava/Omegaitting on: 1 10:57 AM EDT
--- OUTSIDE RECORDS SUMMARY | 2024-09-06 03:45 | XMS_ITS ---
Author Organization Alfred Matos MD Address [address] [place], [place] [phone] Care Team Providers Care Ore Bridge Operator Name Role Phone Alfred Matos Primary Care Provider Results Component Value Reference Range Notes Liver Panel Reviewed date:09/06/2024 04:11:56 PM Interpretation: Performing Lab:[facility], [address] [place] [phone] Notes/Report: Bilirubin Total 0.8 0.0-1.0 mg/dL Bilirubin Direct 0.3 0.0-0.5 mg/dL Aspartate Amino Transferase 46 5-37 U/L Alanine Aminotransferase 42 0-40 U/L Total Protein 7.4 6.5-8.0 g/dL Albumin Level 4.3 3.5-5.0 g/dL Alkaline Phosphatase 86 39-117 U/L Glucose Fasting Reviewed date:09/06/2024 01:49:17 PM Interpretation: Performing Lab:[facility], [address] [place] [phone] Notes/Report: Glucose Fasting 216 60-99 mg/dL A fasting glucose of 126 mg/dl or greater on more than one occasion is considered diagnostic of diabetes. Lipid Panel with Reflex Reviewed date:09/06/2024 01:49:07 PM Interpretation: Performing Lab:[facility], [address] [place] [phone] Notes/Report: Triglycerides 135 <150 mg/dL Desirable Triglyceride: less than 150 mg/dL Borderline High Triglyceride 150-199 mg/dL High Triglyceride: 200-499 mg/dL Very High Triglyceride: greater than or equal to 5OO mg/dL Cholesterol 131 <200 mg/dL Desirable Cholesterol: less than 200 mg/dL Borderline High Cholesterol: 200-239 mg/dL High Cholesterol: greater than 239 mg/dL LDL Cholesterol Calculated 64 <100 mg/dL Desirable LDL: less than 100 mg/dL Near Optimal/Above Optimal LDL: 110-129 mg/dL Borderline High LDL: 130-159 mg/dL High LDL: 160-189 mg/dL Very High LDL: greater than or equal to 190 mg/dL HDL Cholesterol 40 >40 mg/dL Desirable HDL: greater than 40 mg/dL Note: This HDL assay may give artificially low results in patients with liver disease. Hemoglobin A1c Reviewed date:09/06/2024 01:30:11 PM Interpretation: Performing Lab:[facility], [address] [place] [phone] Notes/Report: Hemoglobin A1c % 7.2 <6.0 % Hemoglobin A1C Reference Range Adults: 4.8 - 6.0 % Non diabetic: < 6.0 % Goal: < 7.0 % Additional Action Suggested: > 8.0 % Note: Hemoglobin A1c results are invalid for patients with abnormal amounts of HbF. Blood transfusions may impact the HbA1c concentration in the patient sample. Estimated Average Glucose 160 eAG = Estimated average glucose which is %A1C expressed as average glucose, using the formula of the [id number] Average Glucose study (ADAG), Diabetes Care, Vol.31,#8, 2007 REASON FOR VISIT fasting lipids Encounters Encounter Location Date Provider Diagnosis Alfred Matos MD [address] [place] [address] Drive [address] [place], [place] [phone] 09/06/2024 Alfred Matos Type 1 diabetes rodriguez itus with diabetic neuropathy E10.40 and Pure hypercholesterolemia E78.00 Assessments Encounter Date Diagnosis (ICD Code) Assessment Notes Treatment Notes Treatment Clinical Notes Section Notes 09/06/2024 Type 1 diabetes rodriguez itus with diabetic neuropathy (ICD-10 - E10.40) 09/06/2024 Pure hypercholesterolemia (ICD-10 - E78.00) Plan Of Treatment Next Appt Details Provider Name:Alfred Cabello ier, 03/13/2025 07:15:00 AM, [address] [facility], [address], [place], [place], [phone], Provider Name:Alfred Cabello ier, 03/20/2025 02:30:00 PM, [address] [facility], [address], [place], [place], [phone], Progress Notes * Bala ROBERSONDOB:1960 (64 yo M)Acc No.[id number]:09/06/2024 Progress Note Patient: Bala WARD Provider: Elvis Matos MD :1960 A ge:64 Y S ex:Male Date:09/06/2024 Address:[address] [place], [place] [phone] Subjective: * Chief Complaints: * 1 . Fasting lipids. * Medical History: Objective: * Vitals: Assessment: * Assessment: 1. T ype 1 diabetes mellitus with diabetic neuropathy - E10.40 (Primary) 2 .?Pure hypercholesterolemia - E78.00 Plan: * Treatment: 2. P ure hypercholesterolemia L AB: Liver Panel (Collection Date & Time - 09/06/2024 07:45 AM) L AB: Glucose Fasting (Collection Date & Time - 09/06/2024 07:45 AM) L AB: Lipid Panel with Reflex (Collection Date & Time - 09/06/2024 07:45 AM) L AB: Hemoglobin A1c (Collection Date & Time - 09/06/2024 07:45 AM) * Procedure Codes: 3 6415 VENIPUNCT, ROUTINE* * * The named appointment provid er may or may not be the originator of this progress note, and it is not deemed complete until electronically signed by the appointment provider. Sign off status: Pending * Provider: Elvis Matos MD Date: 0 09/06/2024 Generated for Serene summers/Miroslava/eTmodestasmitting on: 1 10:56 AM EDT
--- OUTSIDE RECORDS SUMMARY | 2024-09-06 04:45 | XMS_ITS ---
Author Organization Alfred Matos MD Address [address] [place] [phone] Care Team Providers Care Chimney Builder Helper Name Role Phone Alfred Matos Primary Care Provider Medications Medication SIG (Take, Route, Frequency, Duration) Notes Start Date End Date Status Atorvastatin Calcium 20 MG TAKE 1 TABLET BY MOUTH EVERY DAY Orally Once a day for 90 days Active Encounters Encounter Location Date Provider Diagnosis Alfred Matos MD [address] [facility] [address] [place] [phone] 09/06/2024 Alfred Matos Pure hypercholestero lemia E78.00 Assessments Encounter Date Diagnosis (ICD Code) Assessment Notes Treatment Notes Treatment Clinical Notes Section Notes 09/06/2024 Pure hypercholesterolemia (ICD-10 - E78.00) Plan Of Treatment Medication Medication Name Sig Start Date Stop Date Notes Atorvastatin Calcium 20 MG TAKE 1 TABLET BY MOUTH EVERY DAY Orally Once a day for 90 days Next Appt Details Provider Name:Alfred teixeira, 03/13/2025 07:15:00 AM, [address] [facility], [address] [place] [address], [phone], Provider Name:Alfred Garcialesly ier, 03/20/2025 02:30:00 PM, [address] [facility] [address], [address], [place], [place], [phone], Progress Notes * Bala ROBERSONDOB:1960 (64 yo M)Acc No.[id number]:09/06/2024 Patient: Selma Bala MILLER :1960 A ge:64 Y S ex:Male Address:[address] [place] [address] * Refills Refill Atorvastatin Calcium Tablet, 20 MG, Orally, 90, TAKE 1 TABLET BY MOUTH EVERY DAY, Once a day, 90 days, Refills=3 * true * Date: Generated for Serene summers/Miroslava/Omegaitting on: 10:57 AM EDT
--- OUTSIDE RECORDS SUMMARY | 2024-09-17 10:00 | XMS_ITS ---
Author Organization Alfred Matos MD Address [address] [place] [phone] Care Team Providers Care Mail Processing Machine Operator Name Role Phone Alfred Matos Primary Care Provider [phone] Allergies No Known Allergies REASON FOR VISIT 6 month, Blood sugar is 131 Medications Medication SIG (Take, Route, Frequency, Duration) Notes Start Date End Date Status Lisinopril 20 MG TAKE 1 TABLET BY DILLON TH EVERY DAY for 90 Active Atorvastatin Calcium 20 MG TAKE 1 TABLET BY MOUTH EVERY DAY Orally Once a day Active Basaglar KwikPen 100 UNIT/ML 44 units once a day at night once a day Active HumaLOG 100 UNIT/ML as directed Subcutan eous 12-18 units Active Vital Signs Blood pressure systolic 124 mm Hg 09/18/19 25 Blood pressure diastolic 60 mm Hg 025 Height 71 in 09/17/2024 Weight 240 lbs 09/17/2024 BMI 33.47 kg/m2 09/17/2024 weight is down [address] [facility] e 07-08-24 Encounters Encounter Location Date Provider Diagnosis Alfred Matos MD [address] [place], [place] [id number] 09/17/2024 Alfred Matos Type 1 diabetes rodriguez itus with diabetic neuropathy E10.40 and Pure hypercholesterolemia E78.00 Assessments Encounter Date Diagnosis (ICD Code) Assessment Notes Treatment Notes Treatment Clinical Notes Section Notes 09/17/2024 Type 1 diabetes rodriguez itus with diabetic neuropathy (ICD-10 - E10.40) doing great, will continue current regiment 09/17/2024 Pure hypercholesterolemia (ICD-10 - E78.00) well controlled, will continue current regiment Plan Of Treatment Medication Medication Name Sig Start Date Stop Date Notes Atorvastatin Calcium 20 MG TAKE 1 TABLET BY MOUTH EVERY DAY Orally Once a day Basaglar KwikPen 100 UNIT/ML 44 units on ce a day at night once a day HumaLOG 100 UNIT/ML as directed Subcutan eous 12-18 units Treatment Notes Assessment Notes Type 1 diabetes mellitus with diabetic n europathy doing great, will continue current regiment Pure hypercholesterolemia well controlle d, will continue current regiment Next Appt Details Provider Name:Alfred Cabello ier, 03/13/2025 07:15:00 AM, [address] [place] [address], [address], [phone], Provider Name:Alfred Cabello ier, 03/20/2025 02:30:00 PM, [address] [place] [address], [place] [address], [place], [place], [phone], Progress Notes * Bala WAYNE MasonDOB:1960 (64 yo M)Acc No.[id number]:09/17/2024 Progress Notes Patient: Bala WARD Provider: Elvis Matos MD :1960 A ge:64 Y S ex:Male Date:09/17/2024 Address:[address] [place], [place] [phone] Subjective: * Chief Complaints: * 6 monthBlood sugar is 131 * HPI: S ymptom(s): patient is a 64 yo male here for 6 month follow up visit/ sugars have been doing well. * ROS: G eneral/Constitutional: Denies C hills. D enies F atigue. D enies F ever. D enies H eadache. E NT: Denies S ore throat. R espiratory: Denies C ough. D enies S hortness of breath at rest. D enies S hortness of breath with exertion. G astrointestinal: Denies D iarrhea. D enies N ausea. M usculoskeletal: Patient complaining of s ome arthritis in hands. * Medical History: * Surgical History: * Hospitalization/Major Diagno stic Procedure: * Medications: T akingBasaglar KwikPen 100 UNIT/ML Solution Pen-injector 44 units once a day at night once a day HumaLOG 100 UNIT/ML Solution Cartridge as directed Subcutaneous 12-18 units Atorvastatin Calcium 20 MG Tablet TAKE 1 TABLET BY MOUTH EVERY DAY Orally Once a day Lisinopril 20 MG Tablet TAKE 1 TABLET BY MOUTH EVERY DAY Medication List reviewed and reconciled with the patientTaking Basaglar KwikPen 100 UNIT/ML Solution Pen-injector 44 units once a day at night once a day Taking HumaLOG 100 UNIT/ML Solution Cartridge as directed Subcutaneous 12-18 units Taking Atorvastatin Calcium 20 MG Tablet TAKE 1 TABLET BY MOUTH EVERY DAY Orally Once a day Taking Lisinopril 20 MG Tablet TAKE 1 TABLET BY MOUTH EVERY DAY Medication List reviewed and reconciled with the patient * Allergies: N .K.D.A.yes[Allergies Verified] Objective: * Vitals: H t: 71, Wt: 240, BMI:33.47, BP:124/60, Wt-k.86. weight is down 4 pounds since 07-08-24. * P ast Orders: L ab:Lipid Panel with Reflex (Order Date - 09/06/2024) (Collection Date & Time - 09/06/2024 07:45 AM) Value Reference Range Triglycerides 135 <150 - mg/dL Cholesterol 131 <200 - mg/dL LDL Cholesterol Calculated 64 <100 - mg/dL HDL Cholesterol 40 L >40 - mg/dL L ab:Hemoglobin A1c (Order Date - 09/06/2024) (Collection Date & Time - 09/06/2024 07:45 AM) Value Reference Range Hemoglobin A1c % 7.2 H <6.0 - % Estimated Average Glucose 160 - mg/dL L ab:Hold Gold (Order Date - 09/06/2024) (Collection Date & Time - 09/06/2024 07:45 AM) Value Reference Range Hold Gold See Note - L ab:Liver Panel (Order Date - 09/06/2024) (Collection Date & Time - 09/06/2024 07:45 AM) Value Reference Range Bilirubin Total 0.8 0.0-1.0 - mg/dL Bilirubin Direct 0.3 0.0-0.5 - mg/dL Aspartate Amino Transferase 46 H 5-37 - U/L Alanine Aminotransferase 42 H 0-40 - U/L Total Protein 7.4 6.5-8.0 - g/dL Albumin Level 4.3 3.5-5.0 - g/dL Alkaline Phosphatase 86 39-117 - U/L L ab:Glucose Fasting (Order Date - 09/06/2024) (Collection Date & Time - 09/06/2024 07:45 AM) Value Reference Range Glucose Fasting 216 H 60-99 - mg/dL * Examination: G eneral Examination: GENERAL APPEARANCE: a lert, well hydrated, in no distress.? SKIN: g ood turgor. HEART: n o murmurs, rubs, gallops, regular rate and rhythm.? LUNGS: n o wheezes, rales, rhonchi, good air movement, clear to auscultation bilaterally. Assessment: * Assessment: 1. T ype 1 diabetes mellitus with diabetic neuropathy - E10.40 (Primary) 2 .?Pure hypercholesterolemia - E78.00 Plan: * Treatment: 2. P ure hypercholesterolemia Continue Atorvastatin Calcium Tablet, 20 MG, TAKE 1 TABLET BY MOUTH EVERY DAY, Orally, Once a day.? Notes: well controlled, will continue current regiment * Procedure Codes: * * Sign off status: Completed true * Provider: Elvis Matos MD Date: 0 09/17/2024 Generated for Kimberlyi melina/Miroslava/eTransmitting on: 1 10:57 AM EDT History and Physical Notes * HPI (History of Present Illness) Category Sub-Category Detail Notes Category Not es Symptom(s) patient is a 64 yo male here for 6 month follow up visit/ sugars have been doing well Examination Category Sub-Category Detail Notes Category Not es General Examination GENERAL APPEARANCE: alert, w ell hydrated, in no distress HEART: no murmurs, rubs, ga llops, regular rate and rhythm LUNGS: no wheezes, rales, r honchi, good air movement, clear to auscultation bilaterally SKIN: good turgor
--- OUTSIDE RECORDS SUMMARY | 2025-01-29 10:57 | XMS_ITS | Clinical Summary ---
Author Organization [facility] Address [address] [place] [phone] Phone Care Team Providers Care Technical Fellow Name Role Phone Alfred Matos MD Primary Care Provider Allergies No known active allergies Medications ONETOUCH DELICA LANCETS 30 gauge MiscIndications:T ype 1 diabetes mellitus with diabetic polyneuropathy,Ty pe 1 diabetes mellitus with Charcot's joint of foot 1 each by Miscellaneous route as needed. Use to test 5 times daily 450 each 3 04/12/19 23 Active acetaminophen (TYLENOL) 325 mg tablet Take 2 tablets (650 mg total) by mouth every 6 (six) hours as needed. Over the counter. 11/22/19 24 Active atorvastatin (LIPITOR) 20 MG tablet Take 1 tablet (20 mg total) by mouth daily. 11/23/19 24 Active ONETOUCH VERIO FLEX METER Misc meterIndications: Type 1 diabetes mellitus with diabetic polyneuropathy,Ty pe 1 diabetes mellitus with Charcot's joint of foot by Miscellaneous route as needed. 1 each 1 11/27/19 24 Active ONETOUCH VERIO Strp stripsIndications :Type 1 diabetes mellitus with diabetic polyneuropathy,Ty pe 1 diabetes mellitus with Charcot's joint of foot Use to test 5 times daily 450 strip 3 11/27/19 24 Active gabapentin (NEURONTIN) 300 MG capsule Take 300 mg by mouth 2 (two) times a day (once in the morning and once in the afternoon). for pain 12/26/19 24 Active HUMALOG KWIKPEN INSULIN 100 unit/mL kwikpenIndication s:Type 1 diabetes mellitus with diabetic polyneuropathy,Ty pe 1 diabetes mellitus with Charcot's joint of foot Administer sc at meals as directed, 45u TDD 45 mL 3 06/02/19 25 Active insulin pen needles, disposable, (BD ULTRA-FINE MINI PEN NEEDLE) 31 gauge x 06/23 NdleIndications:T ype 1 diabetes mellitus with diabetic polyneuropathy,Ty pe 1 diabetes mellitus with Charcot's joint of foot Use with insulin pens up to 5 times daily 500 each 3 06/02/19 25 Active lisinopril (PRINIVIL,ZESTRIL ) 20 MG tablet Take 20 mg by mouth daily. Active omega-3 fatty acids-fish oil 340-1,000 mg Cap Take by mouth daily. Active multivit-min/foli c acid/lutein (CENTRUM SILVER ORAL) Take by mouth. Activ e BASAGLAR KWIKPEN U-100 INSULIN 100 unit/mL (3 mL) InPn injection penIndications:Ty pe 1 diabetes mellitus with Charcot's joint of foot Inject 44 units once daily subcutaneously 45 mL 3 08/31/19 25 Active DEXCOM G7 SENSOR DeviIndications:T ype 1 diabetes mellitus with diabetic polyneuropathy Apply as directed every 10 days E10.42 9 each 3 01/22/20 25 Active DEXCOM G7 SENSOR DeviIndications:T ype 1 diabetes mellitus with diabetic polyneuropathy Apply as directed every 10 days E10.42 9 each 3 01/16/20 24 025 Disconti nued(Reo rder) Active Problems Problem Noted Date Diagnosed Date Status post below-knee amputation of right lower extremity 11/09/2023 Assessment & Plan (11/09/2023 8:09 PM EDT): Pain: - oxycodone 5 mg q6h PRN moderate pain - Tylenol 650 mg q6h PRN mild pain - activity as tolerated Hyperlipidemia: - continue home atorvastatin 20 mg QD Diabetes mellitus type 1: - insulin lispro 12/12/18 units TID before meals - insulin glargine 44 units at bedtime - low-dose insulin lispro sliding scale - POCT glucose TID before meals and at bedtime - carbohydrate consistent diet Hypertension: - lisinopril 20 mg QD - monitor blood pressure and heart rate Impaired mobility and activities of daily living 11/09/2023 Assessment & Plan (11/09/2023 5:20 PM EDT): Patient will be evaluated by PT, OT, and TRUCK MECHANIC and discussed at the next interdisciplinary team conference. S/P BKA (below knee amputation) unilateral, righ t 11/09/2023 Hyperlipemia 01/03/2023 Assessment & Plan (08/30/2024 3:17 PM EDT): Bala continues on statin therapy at moderate intensity Most recent blood work reviewed, this is from last fall, LDL is 57 which is at goal Assessment & Plan (01/03/2023 2:44 PM EDT): Bala continues on statin therapy at moderate intensity We do not have any recent blood work to review Class 1 obesity with serious comorbidity and body mass index (BMI) of 33.0 to 33.9 in adult 09/21/2021 Assessment & Plan (08/30/2024 3:13 PM EDT): Stable BMI 33-34 over past several years Weight has fluctuated modestly since our last visit in Dec 2022 Bala continues to keep active primarily with walking, now using cane but spent a significant portion of time since late summer in wheelchair Diet remains largely good Assessment & Plan (01/03/2023 2:52 PM EDT): Stable BMI 33-34 over past several years Weight has been stable since our last visit in April Bala continues to keep active primarily with walking, we did not spend much time discussing diet, there has been no significant change in this Assessment & Plan (04/12/2022 4:52 PM EST): Stable BMI 33-34 over past several years Modest 4lb weight loss since our last visit Bala continues to keep active consistently primarily with walking Assessment & Plan (09/21/2021 10:53 AM EDT): Stable BMI 33-34 over past several years Modest 4lb weight gain since our last visit Bala is now exercising more consistently Essential hypertension 03/19/2018 Assessment & Plan (08/30/2024 3:11 PM EDT): Blood pressure is in excellent range today Continues on ACEi Most recent GFR is in desired range Assessment & Plan (01/03/2023 2:45 PM EDT): Blood pressure is in excellent range today Continues on ACEi Assessment & Plan (04/12/2022 4:52 PM EST): Blood pressure is elevated today Continues on ACEi Assessment & Plan (09/21/2021 10:53 AM EDT): Blood pressure is elevated today Continues on ACEi Assessment & Plan (03/23/2021 2:01 PM EST): Blood pressure is elevated today Continues on ACEi Assessment & Plan (09/15/2020 9:54 AM EDT): Blood pressure is very well controlled today Continues on ACEi Assessment & Plan (04/26/2019 2:27 PM EST): Blood pressure is reasonably well controlled Continues on ACEi Assessment & Plan (09/20/2018 5:19 PM EDT): Blood pressure is well controlled Continues on ACEi Assessment & Plan (03/19/2018 5:46 PM EST): Blood pressure is in reasonable range Continues on ACEi Type 1 diabetes mellitus with diabetic polyneuro ana maría 07/10/2017 Overview (07/13/2017): DIABETES HISTORY Diagnosis - type 1 diabetes, dx at 38 yo Assessment & Plan (08/30/2024 3:23 PM EDT): Bala's A1c has improved compared to previous, he likes to use CGM and finds this helpful in monitoring patterns which continue to be variable Advised to continue current dose of Basaglar for now, 44 units daily, he will also continue his current meal time doses, but is advised to reduce his premeal dose by 3-4 units in evening if he has had a more active day, this should help reduce hypoglycemia risk late at night/overnight; Bala is encouraged to continue to take mealtime insulin only prior to eating, he does not take this after eating or between meals as this has been associated with hypoglycemia in the past Continues to be active with PT, as he returns to his usual routines, insulin dose adjustments may be needed if hypoglycemia becomes more of an issue Bala is encouraged to contact me with any questions or concerns, we will meet again in 6 months Assessment & Plan (01/03/2023 2:49 PM EDT): Bala's A1c had worsened at our last visit, he reports continued variability in glucose, we revisited CGM use today Bala continues to stay active with walking, his job is also very active Advised to continue current dose of Basaglar for now, 44 units daily, he prefers this to Toujeo, per his glucometer FPG has been variable, he will also continue his current meal time doses, it is harder to get a sense of prandial glucose based on patterns though this does seem variable as well Bala may need an adjustment in his usual doses which we will discuss as he uses CGM We had discussed the Dexcom CGM in the past but Bala declined this, today he is agreeable to a trial and a sample sensor was placed for him with instruction on use Bala is encouraged to contact me with any questions or concerns, we will meet again in 3 months Assessment & Plan (04/12/2022 4:55 PM EST): Bala's A1c has worsened though he reports that his blood sugars have been ok and we did not have data to review today Bala continues to stay active more so with walking, his job is also very active Advised to continue current dose of Toujeo for now, 44 units daily, he reports FPG in good range, and to continue his current meal time doses, it is harder to get a sense of prandial glucose and Bala may need an adjustment in his usual doses, he does report eating keto meals when dining with his brother and sister in law and is advised to be cautious in taking his usual dose of insulin for these types of meals We had discussed the Dexcom G6 in the past but Bala declines this, he reports difficulty with his current meter/strips and agrees to a new prescription for another unit today, this was sent for him Bala is encouraged to contact me with any questions or concerns, we will meet again in 6 months Assessment & Plan (09/21/2021 11:00 AM EDT): Bala has stable A1c in fair range, he reports that his blood sugars have been ok Bala has started back at the gym and he will need to monitor blood sugar effects from this since his insulin requirement may decrease as his insulin sensitivity increases Advised to continue current dose of Toujeo for now, 44 units daily, and to continue his current meal time doses We discussed the Dexcom G6 but Bala declines this, he reports difficulty with his current meter/strips but declines a new prescription for another unit Bala is encouraged to contact me with any questions or concerns, we will meet again in 6 months Assessment & Plan (03/23/2021 2:06 PM EST): Bala has continued to struggle with blood sugar control, he is having lower blood sugars on waking and is likely at high risk for hypoglycemia overnight Bala has lost weight as well, we discussed that his insulin requirement will be lower as a result particularly as he is also more active currently Advised to reduce Toujeo to 40 units daily and to continue his current meal time doses but adjust to lower doses when blood sugars are running lower We will plan to perform another CGM trial after the holidays, using Dexcom G6 this time which will likely adhere better Bala is encouraged to contact me with any questions or concerns, we will meet again in 6 months Assessment & Plan (09/15/2020 10:01 AM EDT): Bala has been struggling with blood sugar control Our visit was more difficult today than in the past in terms of communication but it certainly seems that he is struggling emotionally which may be having an effect on his overall diabetes self management We discussed performing another CGM trial, this would allow us to evaluate glucose patterns which we don't have to review today since Bala is not monitoring blood sugars currently He will continue his current insulin doses though I expect that this will need adjustment CGM Trial Type of Diabetes: Diabetes mellitus Type 1 Procedures: Glucose Monitoring: Type of Sensor: Robert Pro, Instruction: Patient Instructed on:, Calibrations, When to test BS, Troubleshooting, What to expect with the sensor, Patient instructed to remove sensor if redness, pain or bleeding occurs. . Insertion Site Selected: arms, Left Site Prep: Insertion site wiped with alcohol. Insertion: completed, area looks good, no redness, no bleeding. Plan: Procedure Codes: 29579 Glucose monitoring, cont Assessment & Plan (04/26/2019 2:37 PM EST): Overall control is suboptimal It is difficult to assess overall control from limited blood sugar data available, we discussed a CGM trial to evaluate blood sugar patterns more globally as this would help us make adjustments in insulin dosing more appropriately and reduce risk for hypoglycemia, Bala is agreeable to this For now Bala will continue his current insulin doses He is encouraged to get back to more consistent activity He is encouraged to contact me with any questions or concerns and we will be in touch with him regarding his CGM results CGM Trial Type of Diabetes: Diabetes mellitus Type 1 Procedures: Glucose Monitoring: Type of Sensor: Robert Pro, Instruction: Patient Instructed on:, Calibrations, When to test BS, Troubleshooting, What to expect with the sensor, Patient instructed to remove sensor if redness, pain or bleeding occurs. . Insertion Site Selected: arms, left arm Site Prep: Insertion site wiped with alcohol. Insertion: completed, area looks good, no redness, no bleeding. Plan: Procedure Codes: 27962 Glucose monitoring, cont Assessment & Plan (09/20/2018 5:21 PM EDT): Generally elevated blood sugars, only occ readings in desirable range We discussed increase of Toujeo ~10% to 48u daily Will continue with current meal time dosing I asked Bala to contact me via text in about one week to let me know how this change in dosing is working for him, we will consider other insulin dosing changes as needed Assessment & Plan (03/19/2018 5:46 PM EST): Blood sugars are stable in good range through the day time, they are high late in evening and overnight and we adjusted the dinner time Humalog dose Blaa is encouraged to continue his efforts with staying active and eating a healthy diet Assessment & Plan (10/26/2017 8:35 PM EDT): Blood sugars continue to be variable though most readings are in reasonable range We did not make any changes in insulin doses There are no documented low blood sugars and Bala denies issues with hypoglycemia We discussed importance of having snacks with him at the gym in case of low blood sugars Advised to call with any questions or concerns Assessment & Plan (07/13/2017 5:57 PM EDT): Variable blood sugar patterns We did not make any changes to insulin dosing today We discussed hypoglycemia prevention, importance of having snacks at work in case of increased activity which can lead to lows Hearing loss 07/10/2017 Type 1 diabetes mellitus with Charcot's joint of foot 07/10/2017 Assessment & Plan (08/30/2024 3:18 PM EDT): Bala reports that he is doing well He has had h/o charcot foot deformity bilaterally, he is now s/p Rt BKA last November Working with PT/VNA, has progressed from several months in wheelchair to now using cane but feels he has good balance without it Assessment & Plan (04/12/2022 4:56 PM EST): Bala reports that he is doing well He has charcot foot deformity bilaterally Assessment & Plan (09/21/2021 11:00 AM EDT): Bala reports that he is doing well He has charcot foot deformity bilaterally Assessment & Plan (03/23/2021 2:06 PM EST): Bala is doing well He has charcot foot deformity bilaterally Assessment & Plan (09/15/2020 10:01 AM EDT): Bala is doing well He has charcot foot deformity bilaterally Assessment & Plan (04/26/2019 2:36 PM EST): Bala is doing well He has charcot foot deformity bilaterally He states that he is no longer following up with a retail presentation specialist regularly, however I believe this would be beneficial on an ongoing basis, we completed a foot examination today Assessment & Plan (09/20/2018 5:22 PM EDT): Wearing compression stockings, continues with peripheral edema haider particularly at RLE Follows regularly with ortho Ambulating independently, denies pain Assessment & Plan (03/19/2018 5:47 PM EST): Follows with [facility] Has prescription for compression stockings to manage edema at [facility], has not started using these yet Assessment & Plan (10/26/2017 8:32 PM EDT): Has had good recovery with full mobility and no restrictions of activity Assessment & Plan (07/13/2017 5:58 PM EDT): Has been able to be active, foot has healed well Advised to discuss compression stockings with foot care team, this will likely help manage the tendency for edema at the E Encounters Date Type Department Care Team Description 01/21/2025 Refill [facility] [address] [place] [address] Leah Frausto MA Medication Refill from Last 3 Months Immunizations Immunization Administration Dates Next Due DT 07/12/2018 INFLUENZA, SPLIT VIRUS, TRIVALENT PF ,02/06/2020,01/15/2019,01/02,12/27/2016,06/14/2016,02/20/2015 Influenza Quadrivalent Prese rvative Free IM 04/07/2022 Influenza Quadrivalent w/ Pr eservative IM 01/13/2016 Influenza Split (Incl. Purif ied Surface Antigen) 02/20/2015,11/25/2013,01/29/2013,12/18 Pneumococcal conjugate PCV13 02/25/2014 Pneumococcal polysaccharide PPSV23 02/25/2020 Tdap 07/12/2018 Family History Medical History Relation Comments CV disease Father Diabetes mellitus Maternal Grandmother Hypertension Mother Diabetes mellitus Paternal Aunt Diabetes mellitus Paternal Grandmother Relation Status Comments Father Maternal Grandmother Mother Paternal Aunt Paternal Grandmother Social History Tobacco Use Types Packs/Day Years Used Date Smoking Tobacco: Never Tobacco Cessation:Counseling Given: Not Answered Alcohol Use Standard Drinks/Week Comments Yes 0 (1 standard drink = 0.6 oz pur e alcohol) beer occasionally Home Health Assessment: Transportation Answer Date Recorded Lack of Transportation (Medical) No 06/28/2024 Lack of Transportation (Non-Medical) No 06/28/2024 Patient Unable or Declines to Respond No 06/28/2024 Education Answer Date Recorded Are you interested in more education? Not on leonides e 08/04/2022 Are you concerned about learning? Not on file 08/04/2022 No 08/04/2022 No 08/04/2022 Digital Access Answer Date Recorded No 09/05/2022 No 09/05/2022 Reliable internet access at home? Not on file 09/05/2022 Device with a working camera? Not on file Intimate Partner Violence Answer Date R ecorded Are you denied basic needs s uch as food, clothing, or medical care? No 11/09/2023 In the past 12 months have y ou been in a relationship with a person who hurts, threatens, or tries to control you? No 11/09/2023 Are you denied basic needs s uch as food, clothing, or medical care? No 11/09/2023 In the past 12 months have y ou been in a relationship with a person who hurts, threatens, or tries to control you? No 11/09/2023 Sex and Gender Information Value Date Recorded Sex Assigned at Not on file Legal Sex Male 7:26 PM EST Gender Identity Not on file Sexual Orientation Not on file Last Filed Vital Signs Vital Sign Reading Time Taken Comments Blood Pressure 138/72 08/30/2024 1:54 PM EDT Pulse 97 08/30/2024 1:54 PM EDT Temperature 36.8 C (98.2 F) 06/28/2024 9:27 AM EDT Respiratory Rate 18 06/28/2024 9:27 AM EDT Oxygen Saturation 98% 08/30/2024 1:54 PM EDT Inhaled Oxygen Concentration - - Weight 108.5 kg (239 lb 3.2 oz) 08/30/2024 1:54 PM EDT Height 180.3 cm (5' 11 ) 08/30/2024 1:54 PM EDT Body Mass Index 33.36 08/30/2024 1:54 PM EDT Plan of Treatment Upcoming Encounters Date Type Department Care Team (Late st Contact Info) Description 03/10/2025 11:40 AM EST Office Visit [facility] [address] [place] [address] Melissa Montero MD [address] [facility], [address] [place] [address] Health Maintenance Due Date Last Done Comments DEPRESSION SCREENING 1970 HEPATITIS C SCREENING 1976 COLOGUARD 2003 COLONOSCOPY 2003 COLORECTAL CANCER SCREENING 2003 FIT TEST 2003 FOBT 2003 SIGMOIDOSCOPY 2003 VIRTUAL COLONOSCOPY 2003 RSV VACCINE (1 - Risk 50-74 years 1-dose series) 2008 ZOSTER VACCINES (1 of 2) 2008 DIABETIC EYE EXAM 04/10/2024 INFLUENZA VACCINE (#1) 2024 , 03/06/2023, 04/07/2022, Additional history exists COVID-19 VACCINE ( - season) 2024 02/16/2021, 08/05/2020, 07/11/2020 PNEUMOCOCCAL VACCINES (50+ years) (3 of 3 - PCV20 or PCV21) 02/24/2025 02/25/2020, 02/25/2014 CREATININE LEVEL 03/01/2025 03/01/2024, 03/2024, 11/13/2023, Additional history exists POTASSIUM LEVEL 03/01/2025 03/01/2024, 11/08, 11/13/2023, Additional history exists BLOOD PRESSURE 03/02/2025 08/30/2024 HEMOGLOBIN A1C 03/02/2025 08/30/2024, 02/09, 04/12/2022, Additional history exists Adult Td,Tdap Booster 07/12/2028 07/12/2018 SMOKING STATUS SCREENING (Once After 26 Yrs) Completed 04/12/2022 HEPATITIS A VACCINES Aged Out No long er eligible based on patient's age to complete this topic HIB VACCINES Aged Out No longer eligi ble based on patient's age to complete this topic MENINGOCOCCAL VACCINES (ACWY) Aged Out No longer eligible based on patient's age to complete this topic MENINGOCOCCAL VACCINES (B) Aged Out N o longer eligible based on patient's age to complete this topic Medical Devices Not on file Procedures Procedure Name Priority Date/Time Associated Diagnosis Comments POCT HEMOGLOBIN A1C Routine 08/30/2024 2 :14 PM EDT Type 1 diabetes mellitus with diabetic polyneuropathy COMPREHENSIVE METABOLIC PANEL Routine 03/01/2024 9:30 AM EST Type 1 diabetes mellitus with diabetic neuropathy Pure hypercholesterolemia from Last 3 Months or Most Recently Relevant to Health Maintenance Results * (ABNORMAL) POCT Hemoglobin A1c (08/30/2024 2:14 PM EDT) Hemoglobin A1c 6.9(A) 4.2 - 5.6 % [facility] Other 08/30/2024 2:14 PM EDT us Melissa Montero MD POINT OF CARE TEST ORDERABLES F inal Result [facility] [address] [place] [address], [facility] * Comprehensive metabolic panel (03/01/2024 9:30 AM EST) SODIUM 140 133 - 146 mmol/L [facility] POTASSIUM 4.5 3.3 - 5.1 mmol/L [facility] CHLORIDE 101 96 - 108 mmol/L [facility] CO2 29 21 - 35 mmol/L [facility] BUN 13 6 - 19 mg/dL [facility] CREATININE 0.80 0.5 - 1.5 mg/dL [facility] GLUCOSE 90 70 - 99 mg/dL [facility] ALBUMIN 4.3 3.9 - 4.8 g/dL [facility] TOTAL PROTEIN 7.4 6.5 - 8.0 g/dL [facility] CALCIUM 9.3 8.4 - 10.3 mg/dL [facility] ALKALINE PHOSPHATASE 114 39 - 117 U/L [facility] TOTAL BILIRUBIN 0.5 0.0 - 1.2 mg/dL [facility] AST 23 0 - 37 U/L [facility] ALT 31 0 - 40 U/L [facility] GLOBULIN 3.1 1 - 4.8 g/dL [facility] EGFR 98 >59 mL/min/1.7 3m2 [facility] Comment:Estimated glomerular filtration rate calculated using the CKD-EPI refit equation. ANION GAP 15 10 - 20 mmol/L [facility] Blood 03/01/2024 9:30 AM EST 03/01/2024 10:05 AM EST us Alfred Matos MD LAB BLOOD ORDERABLES nal Result [facility] [address] [place] [address] from Last 3 Months or Most Recently Relevant to Health Maintenance Insurance [facility] [employer] MEDICARE A [facility] MEDICARE A [facility] [place] [address] [place] [address] MEDICARE A [facility] MEDICARE A [facility] [employer]AL MEDICARE A Advance Directives For more information, please contact: [phone] (9AM - 5PM [facility], Monday-Monday) * Full Code (Latest Code Status on File) Date Activated Date Inactivated Comments 11/09/2023 7:27 PM Question Answer Comments Code Status Confirmed With: Patient Code Status Communicated To: Inpatient Attending Care Teams Technical Fellow Relationship Specialty Start Date End Date Alfred Matos MD [address] [place] [address] [place] [address] PCP - General 01/26/17 Additional Source Comments The information contained in this document represents components of the legal health record. It is not the complete legal health record.[facility]
--- OUTSIDE RECORDS SUMMARY | 2025-01-29 10:57 | XMS_ITS | Patient Health Record ---
Author Organization [facility] Address [address] [place] [address] Care Team Providers Care Tonnage Compilation Clerk Name Role Phone Carlo VICTORIA, Alfred Primary Care Provider Taurus Escobar Unavailable [phone] Allergies No Known Allergies Reason For Referral No Information Medications Medication SIG (Take, Route, Frequency, Duration) Notes Start Date End Date Status Atorvastatin Calcium 20 MG TAKE 1 TABLET BY MOUTH EVERY DAY Oral; Duration: 90 Active Toujeo SoloStar 300 UNIT/ML Subcutaneous ; Duration: 86 Active HumaLOG KwikPen 100 UNIT/ML null Diagnos is Unavailable Subcutaneous; Duration: 90 Active Lisinopril 20 MG Oral; Duration: 90 Active Immunizations Vaccine Route Administration Date Status Comme nts Influenza Unknown 12/10/2019 Administered Social History Tobacco Use: Social History Observation Description Date Details (start date - stop date) Never Smoker NA - NA Tobacco Use/Smoking Question Answer Notes Patient is a nonsmoker Alcohol Screen Question Answer Notes Did you have a drink containing alcohol in the p ast year? Yes How often did you have a dri nk containing alcohol in the past year? Never (0 point) Points 0 Interpretation Negative Section Notes: He does not smoke; very occa sional drink Problems Problem Type SNOMED Code ICD Code Onset Dates Problem Status W/U Status Risk Notes Problem Screening for malignant neoplasm of colon (542060100) Encounter for screening for malignant neoplasm of colon (Z12.11) Active confirmed Problem Preprocedural examination (185468870609262) Preprocedural examination (Z01.818) Active confirmed Problem Diverticulosis of colon (082731294) Diverticulosis of colon (K57.30) Active confirmed Plan Of Treatment Pending Test Test Name Order Date Pathology 02/10/2021 Future Test Test Name Order Date COLONOSCOPY 11/24/2020 Insurance Providers Payer Name Payer Address Payer Phone Subscriber Number Group Number Insured Name Patient Relationship to Insured Coverage Start Date Coverage End Date [facility] [address] [place], [place] [id number] ESAU HALE Self - patient is the insured Medical (General) History Medical History History ICD Code IDDM with diabetic neuropathy Hx of iron deficiency anemia --he had a negative colonoscopy in May of 2010 and also had a negative upper endoscopy, including normal duodenal biopsies, in May of 2010 Hypertension Deaf--he can read lips and uses sign teresita guage Hypercholesterolemia Surgical History Surgery Date(Month/Year) Surgery on his feet for diabetic-associa juliana infections
--- OUTSIDE RECORDS SUMMARY | 2025-01-29 10:58 | XMS_ITS | Patient Health Record ---
Author Organization Alfred Matos MD Address [address] [place], [place] [id number] Care Team Providers Care Call Center Recruiter Name Role Phone Alfred Matos Primary Care Provider [phone] Allergies No Known Allergies Results Component Value Reference Range Notes Hemoglobin A1c Reviewed date:07/08/2024 01:15:01 PM Interpretation: Performing Lab: Notes/Report: Hemoglobin A1c 8.0 Liver Panel Reviewed date:09/06/2024 04:11:56 PM Interpretation: Performing Lab:[facility], [address] [place] [phone] Notes/Report: Bilirubin Total 0.8 0.0-1.0 mg/dL Bilirubin Direct 0.3 0.0-0.5 mg/dL Aspartate Amino Transferase 46 5-37 U/L Alanine Aminotransferase 42 0-40 U/L Total Protein 7.4 6.5-8.0 g/dL Albumin Level 4.3 3.5-5.0 g/dL Alkaline Phosphatase 86 39-117 U/L Glucose Fasting Reviewed date:09/06/2024 01:49:17 PM Interpretation: Performing Lab:[facility], [address] [place] [phone] Notes/Report: Glucose Fasting 216 60-99 mg/dL A fasting glucose of 126 mg/dl or greater on more than one occasion is considered diagnostic of diabetes. Lipid Panel with Reflex Reviewed date:09/06/2024 01:49:07 PM Interpretation: Performing Lab:[facility], [address] [place] [phone] Notes/Report: Triglycerides 135 <150 mg/dL Desirable Triglyceride: [...] A1c Reviewed date:09/06/2024 01:30:11 PM Interpretation: Performing Lab:[facility], [address] [place] [phone] Notes/Report: Hemoglobin A1c % 7.2 <6.0 % [...] average glucose, using the formula of the N9Z-[id number] Average Glucose study (ADAG), Diabetes Care, Vol.31,#8, Nov. 2007 Glucose, finger stick Reviewed date:07/08/2024 01:13:23 PM Interpretation: Performing Lab: Notes/Report: Value 144 Occult Blood, Stool, Guaiac Reviewed date:04/04/2024 02:22:37 PM Interpretation:Negative Performing Lab: Notes/Report: Negative Occult Blood, Stool, Guaiac Neg x2 Hold Gold Reviewed date:09/06/2024 01:48:59 PM Interpretation: Performing Lab:[facility], [address] [place] [address], [place] [address] Notes/Report: David Adams See Note Specimen held untested for 24 hours; Call to request Chemistry testing. Reason For Referral Reason Amputation of right foot please eval and treat Diagnosis 1 Amputation of right foot with complication, subsequent encounter (S98.917G) Referral Organization Alfred Matos MD Referring Provider [...] Comme nts Flu Vaccine Unknown 12/19/2011 Administered [facility] Flu Vaccine IM Intramuscular 01/29/2013 Administered Flu Vaccine IM Intramuscular 11/25/2013 Administered [facility] Prevnar 13 IM Intramuscular 02/25/2014 Administered Flu Vaccine IM Intramuscular 02/20/2015 Administered pt re cieved the flu vaccine at the [facility] in [place]. Fluarix Quadrivalent IM Intramuscular 06/14/2016 Administe red Fluarix Quadrivalent IM Intramuscular 12/27/2016 Administe red Fluarix Quadrivalent IM Intramuscular 01/02/2018 Administe red TDaP IM Intramuscular 07/12/2018 Administered pt was given the vaccine at [facility] in [place]. 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) Active confirmed Problem 168454863 Low HDL (under 4 0) (E78.6) Active confirmed Problem 842644325 Type 1 diabetes mellitus with diabetic neuropathy (E10.40) Active confirmed Problem 619025475 Diabetic retinop athy associated with type 1 diabetes mellitus, macular edema presence unspecified, with unspecified retinopathy severity (E10.319) Active confirmed Problem 01971525 Deaf nonspeaking , not elsewhere classifiable (H91.3) Active confirmed Problem 681962610 Pure hypercholesterolemia (E78.00) Active confirmed Problem 669440865 BMI 33.0-33.9,ad ult (Z68.33) Active confirmed Problem Amputation of ri ght foot with complication, subsequent encounter (S96.962U) Active confirmed Problem 038662480 Charcot foot due to diabetes mellitus (E11.610) Active confirmed Problem 580437899 Complete below-k nee amputation of right lower [...] Location Date Provider Diagnosis Alfred Matos MD [address] [place] [address] [address] [place] [id number] 09/06/2024 Alfred Matos Type 1 diabetes rodriguez itus with diabetic neuropathy E10.40 and Pure hypercholesterolemia E78.00 Alfred Matos MD [address] [place] [id number] 03/15/2024 Alfred Matos Diabetic retinopathy associated with [...] Depression screening Z13.31 Alfred Matos MD [address] [place] [id number] 07/08/2024 Alfred Matos Type 1 diabetes rodriguez itus with diabetic neuropathy E10.40 and Amputation of right foot with complication, subsequent encounter S98.911D Alfred Matos MD [address] [place] [id number] 09/17/2024 Alfred Matos Type 1 diabetes rodriguez itus with diabetic neuropathy E10.40 and Pure hypercholesterolemia E78.00 Alfred Matos MD [address] [place] [id number] 01/30/2024 Alfred Matos MD [address] [place] [id number] 02/26/2024 Alfred Matos MD [address] [place] [id number] 03/21/2024 Alfred Matos Colon cancer screeni ng Z12.11 Alfred Matos MD [address] [place] [id number] 08/15/2024 Alfred Matos Pure hypercholestero lemia E78.00 Alfred Matos MD [address] [place] [address] [id number] 08/15/2024 Alfred Matos MD [address] [place] [address] [id number] 08/26/2024 Alfred Matos Pure hypercholestero lemia E78.00 Alfred Matos MD [address] [place] [id number] 09/06/2024 Alfred Matos Pure hypercholestero lemia E78.00 Assessments Encounter Date Diagnosis (ICD Code) Assessment Notes Treatment Notes Treatment Clinical Notes Section Notes 09/06/2024 Type 1 diabetes mellitus with diabetic neuropathy (ICD-10 - E10.40) 03/15/2024 Diabetic retinopathy associated with type 1 [...] to dr tyshawn yanez dis the amputation 09/17/2024 Type 1 diabetes mellitus with diabetic neuropathy (ICD-10 - E10.40) doing great, will continue current regiment 09/17/2024 Pure hypercholesterolemia (ICD-10 - E78.00) well controlled, will continue current regiment 03/21/2024 Colon cancer screeni ng (ICD-10 - [...] stress test 03/08/2022 Next Appt Details Provider Name:Alfred Cabello ier, 03/13/2025 07:15:00 AM, [address] [place] [address], [address], [phone], Provider Name:Alfred Cabello ier, 03/20/2025 02:30:00 PM, [address] [place] [address], Suite [facility], [place], [place], [id number], Insurance Providers Payer Name Payer Address Payer Phone Subscriber Number Group Number Insured Name Patient Relationship to Insured Coverage Start Date Coverage End Date [employer] [address] [place], [place] [phone] [phone] [id number] Bala Roberson Self - patient is the insured Medical (General) History Medical History History ICD Code charcot's foot colonoscopy 2010 due in 10 years: Colono scopy 2020 due 5/10 yrs, per path
[2025-01-29 11:14] LABS: Hematocrit 44.7 % (42.0-52.0); Hemoglobin 15.2 g/dl (14.0-18.0); Mean Corpuscular HGB Conc 34.0 g/dl (31.0-36.0); Mean Corpuscular Hemoglobin 28.2 pg (27.0-33.0); Mean Corpuscular Volume 82.9 fL (80.0-98.0); NRBC Abs Auto 0.000 X10*3/uL (0.0-0.012); NRBC Pct Auto 0.0 /100WBC (0.0-0.2); Platelet Count 275 X10*3/uL (160-400); Red Blood Count 5.39 X10*6/uL (4.60-5.80); White Blood Count 8.8 X10*3/uL (4.8-10.8)
[2025-01-29 11:48] LABS: NT Pro B Type Natriuretic Pept 51.3 pg/mL (<300)
[2025-01-29 11:53] LABS: Alanine Aminotransferase 38 U/L (0-40); Albumin Level 4.3 g/dL (3.5-5.0); Alkaline Phosphatase 94 U/L (39-117); Anion Gap 11 (12-20); Aspartate Amino Transferase 30 U/L (5-37); Blood Urea Nitrogen 27 mg/dL (9-16); Calcium 9.1 mg/dL (8.4-10.2); Carbon Dioxide 27 mmol/L (22-29); Chloride 102 mmol/L (96-108); Estimated Glomerular Filt Rate > 60; Potassium 4.2 mmol/L (3.3-5.1); Sodium 136 mmol/L (135-145); Total Protein 7.4 g/dL (6.5-8.0)
== END 2025-01-29 08:28 | disposition home or self-care (01) ==
LOC: HO.LAB 08:27
PROVIDERS: PCP Internal Medicine; Visit Provider Internal Medicine
DX: R06.02 Shortness of breath (principal); E11.9 Type 2 diabetes mellitus without complications; I11.0 Hypertensive heart disease with heart failure; I50.9 Heart failure, unspecified; E78.00 Pure hypercholesterolemia, unspecified; H91.90 Unspecified hearing loss, unspecified ear; Z89.511 Acquired absence of right leg below knee; Z79.899 Other long term (current) drug therapy; Z79.4 Long term (current) use of insulin
CPT/HCPCS: 36415; 80053; 83880; 85027; 93005

== ENCOUNTER → 2025-01-29 13:25 | Outpatient (REF) | payer BC, SELFPAY ==
--- NOTE | 2025-01-29 13:55 | CA_ITS ---
Transthoracic Echocardiogram Patient (Last, First, Middle): Bala Roberson J Gender: Male Date of : 1960 Age: 64 Procedure Date: 01/29/2025 Procedure Type: Transthoracic Echocardiogram Location: OP Height: 177.8 cm Weight: 109.32 kg BSA: 2.26 m2 Heart Rate: bpm BP: 130 / 65 mmHg Plastics Fabrication Supervisor: Referring MD: Julián Buchanan MD Mask Inspector: Alexy Castellanos MD Symptoms: R06.02 - Shortness of breath Study Quality: Technically Difficult, Fair with Contrast ECG Rhythm: Sinus Conclusions: - 1. Technically limited study with LVEF of 55-60% with grade 1 diastolic dysfunction 2. Cardiac valvular Dopplers within normal limits 3. Normal measured RV systolic pressure 4. No gross pericardial effusion Findings Procedure Information Contrast agent, definity, is being given per protocol without apparent complications. Left Ventricle Normal left ventricular size, thickness, and systolic function. The visually estimated ejection fraction is between 55-60%. Spectral Doppler is indicative of an impaired relaxation filling pattern. E/E prime ratio is <8, consistent with normal filling pressures. Evidence suggests grade I (mild) diastolic dysfunction. There is mild septal asymmetric hypertrophy. Right Ventricle The right ventricle was not well visualized. Atria The left atrium is normal in size. Interatrial shunt cannot be excluded. The right atrium was not well visualized. Aortic Valve The aortic valve structure and function is likely normal. There is mild calcification of the aortic valve. There is no aortic valve stenosis. There is no aortic valve regurgitation. Mitral Valve Likely normal mitral valve structure and function. There is no mitral valve regurgitation. There is no mitral valve stenosis. Pulmonic Valve The pulmonic valve was not well visualized. Tricuspid Valve The tricuspid valve was not well visualized. There is trace tricuspid valve regurgitation. The right ventricular systolic pressure is normal. The right ventricular systolic pressure is 22 mmHg. Normal right atrial pressure. There is no evidence of pulmonary hypertension. Great Vessels The aorta was not well visualized. The pulmonary artery was not well visualized. There is no dilatation of the ascending aorta measuring 3.30 cm. Venous The inferior vena cava is normal in size and collapses greater than 50% with inspiration. Pericardium/Pleural The pericardium was not well visualized. Prior Study Comparison No prior study available for comparison. Measurements 2D Linear Measurements IVSd: 0.99 0.6-0.9/0.6-1.0 cm LVIDd: 4.75 3.9-5.3/4.2-5.9 cm LVIDd Index: 2.10 2.4-3.2/2.2-3.1 cm/m2 LVIDs: 3.11 2.0-3.6 cm LVPWd: 0.99 0.7-1.1 cm Ao Root: 3.20 2.1-3.5 cm LA Diam: 3.60 2.7-3.8/3.0-4.0 cm LAIDs Index: 1.59 1.5-2.3 cm/m2 LV Mass: 205.70 67-162/88-224 g LV Mass Index: 91.02 43-95/49-115 g/m2 LVOT Diam: 2.10 3.0+(-)1.3 cm Mitral Valve MV Pk E: 0.45 MV PK A: 0.58 MV Decel Time: 203.00 E/A: 0.80 E'Lateral: 6.53 E'Medial: 6.74 E/E' Med: 6.70 E/E' Lat: 7.00 PHT: 60.00 MVA PHT: 3.67 Decel Forest: 3.84 Aortic Valve AoV Pk Elan: 1.41 AoV Mn Elan: 1.00 AoV VTI: 0.28 AoV Pk Grad: 8.00 Aov Mn Grad: 4.00 CAITY Cont.VTI: 2.16 LVOT LVOT Pk Elan: 0.90 LVOT Mn Elan: 0.62 LVOT VTI: 0.18 LVOT Pk Grad: 3.00 LVOT Mn Grad: 2.00 LVOT Diam: 2.10 LVOT Area: 3.46 Diastolic Function MV Pk E: 0.45 MV Pk A: 0.58 E/A: 0.80 E'Medial: 6.74 E/E' Med: 6.70 E' Laterial: 6.53 E/E' Lat: 7.00 Right Ventricle TAPSE (mm): 29.00 TVS' Elan: 12.00 Tricuspid Valve TR Pk Elan: 2.18 TR Pk Grad: 19.00 RA Press: 3.00 RVSP: 22.00 Great Vessels Aorta Ao Root-2D: 3.20 2.0-3.7 cm Ao Asc: 3.30 2.1-3.4 cm Pulmonary Valve PV Pk Elan: 0.90 Peak PV Grad: 3.00 Updated in Other Vendor System with Status of Final Alexy Castellanos MD electronically signed on 01/30/2025 3:59:27 PM with status of Final
--- OUTSIDE RECORDS SUMMARY | 2025-01-29 19:04 | XMS_ITS | Clinical Summary ---
Author Organization [facility] Address [address] [place] [phone] Phone Care Team Providers Care Bobbin Cleaning Machine Operator Name Role Phone Alfred Matos MD Primary [...] will be evaluated by PT, OT, and DRAWER IN HAND and discussed at the next interdisciplinary team [...] Assessment & Plan (09/21/2021 11:00 AM EDT): aBla has stable A1c in fair range, he [...] no redness, no bleeding. Plan: Procedure Codes: 83904 Glucose monitoring, cont Assessment & Plan (04/26/2019 [...] no redness, no bleeding. Plan: Procedure Codes: 49146 Glucose monitoring, cont Assessment & Plan (09/20/2018 [...] we adjusted the dinner time Humalog dose Bala is encouraged to continue his efforts with [...] is no longer following up with a senior specialist regularly, however I believe this would [...] for compression stockings to manage edema at [facility], has not started using these yet Assessment [...] Type Department Care Team Description 01/21/2025 Refill [facility] [address] [place] [address] Leah Frausto MA Medication Refill from Last [...] 03/10/2025 11:40 AM EST Office Visit [facility] [address] [place] [address] Melissa Montero MD [address] [facility], [address] [place] [address] Health Maintenance Due Date Last Done Comments [...] Hemoglobin A1c 6.9(A) 4.2 - 5.6 % [facility] Other 08/30/2024 2:14 PM EDT us Melissa Montero MD POINT OF CARE TEST ORDERABLES F inal Result [facility] [address] [place] [address], [facility] * Comprehensive metabolic panel (03/01/2024 9:30 AM EST) SODIUM 140 133 - 146 mmol/L [facility] POTASSIUM 4.5 3.3 - 5.1 mmol/L [facility] CHLORIDE 101 96 - 108 mmol/L [facility] CO2 29 21 - 35 mmol/L [facility] BUN 13 6 - 19 mg/dL [facility] CREATININE 0.80 0.5 - 1.5 mg/dL [facility] GLUCOSE 90 70 - 99 mg/dL [facility] ALBUMIN 4.3 3.9 - 4.8 g/dL [facility] TOTAL PROTEIN 7.4 6.5 - 8.0 g/dL [facility] CALCIUM 9.3 8.4 - 10.3 mg/dL [facility] ALKALINE PHOSPHATASE 114 39 - 117 U/L [facility] TOTAL BILIRUBIN 0.5 0.0 - 1.2 mg/dL [facility] AST 23 0 - 37 U/L [facility] ALT 31 0 - 40 U/L [facility] GLOBULIN 3.1 1 - 4.8 g/dL [facility] EGFR 98 >59 mL/min/1.7 3m2 [facility] Comment:Estimated glomerular filtration rate calculated using the CKD-EPI refit equation. ANION GAP 15 10 - 20 mmol/L [facility] Blood 03/01/2024 9:30 AM EST 03/01/2024 10:05 AM EST us Alfred Matos MD LAB BLOOD ORDERABLES nal Result [facility] [address] [place] [address] from Last 3 Months or Most Recently Relevant to Health Maintenance Insurance [facility] [employer] A [facility] MEDICARE A [facility] [place] [address] [place] [address] MEDICARE A [facility] MEDICARE A [facility] [employer] A Advance Directives For more information, please contact: [phone] (9AM - 5PM [facility], Monday-Monday) * Full Code (Latest Code Status on File) Date Activated Date Inactivated Comments 11/09/2023 7:27 PM Question Answer Comments Code Status Confirmed With: Patient Code Status Communicated To: Inpatient Attending Care Teams Bobbin Cleaning Machine Operator Relationship Specialty Start Date End Date Alfred Matos MD [address] [place] [address] [place] [address] PCP - General 01/26/17 Additional Source Comments The information contained in this document represents components of the legal health record. It is not the complete legal health record.[facility]
== END ==
LOC: HO.CARD 13:25
PROVIDERS: PCP Internal Medicine; Visit Provider Internal Medicine
DX: R06.02 Shortness of breath (principal)
CPT/HCPCS: 93306; Q9957

== ENCOUNTER → 2025-03-11 08:22 | Outpatient (REF) | payer BC, SELFPAY ==
--- OUTSIDE RECORDS SUMMARY | 2025-03-10 11:40 | XMS_ITS | Encounter Summary ---
Author Organization [facility] Address [address] [place] [address] [place] [phone] Phone Care Team Providers Care Magneto Specialist Name Role Phone Alfred Matos MD Primary Care Provider Reason for Visit * Reason Comments Type 1 Diabetes - Regular Visit Encounter Details Date Type Department Care Team (Latest Contact Info) Description 03/10/2025 11:40 AM EST Office Visit [facility] [address] [place] [phone] Melissa Montero MD [address] [facility], [address] [place] [address] [email or web address] Type 1 diabetes mellitus with diabetic polyneuropathy (Primary Dx); Hyperlipidemia, unspecified hyperlipidemia type; Essential hypertension; Class 1 obesity with serious comorbidity and body mass index (BMI) of 33.0 to 33.9 in adult, unspecified obesity type Social History Tobacco Use Types Packs/Day Years Used Date Smoking Tobacco: Never Alcohol Use Standard Drinks/Week Comments Yes 0 [...] on file Sexual Orientation Not on file documented as of this encounter Last Filed Vital Signs Vital Sign Reading Time Taken Comments Blood Pressure 120/62 03/10/2025 11:44 AM EST Pulse 99 03/10/2025 11:44 AM EST Temperature 36.4 C (97.5 F) 03/10/2025 11:44 AM EST Respiratory Rate - - Oxygen Saturation 94% 03/10/2025 11: 44 AM EST Inhaled Oxygen Concentration - - Weight 111.7 kg (246 lb 3.2 oz) 025 11:44 AM EST Height 180.3 cm (5' 11 ) 03/10/2025 11: 44 AM EST Body Mass Index 34.34 03/10/2025 11:44 AM EST documented in this encounter Patient Instructions * Patient Instructions* Melissa Montero MD - 03/10/2025 11:40 AM EST Please adjust your breakfast Humalog dose to 14 units and your supper Humalog dose to 6 units, continue your current lunch dose Please continue current Basaglar dose Please set up a new Dexcom account, since your current account is set up to your email which no longer exist Once you have this set up on your phone, please also make sure to download the Dexcom Clarity, go into the settings part and look for sharing your data When you see a low blood sugar alert and start to eat, please try to have 15-20g carbohydrates of aquick acting sugar like juice or soda, then 10-15 minutes later check a fingerstick blood sugar, your Dexcom will take a little while to catch up to a quickly rising blood sugar, don't eat until the Dexcom trend starts to come up because by then your blood sugar is already getting high There is a little delay between finger stick blood sugar and your sensor glucose since the sensor does not sit in blood You are sharing your glucose data with us so we will be able to see these and follow up with you about dosing changes, please let us know if you are experiencing any issues with blood sugar patterns so we can help adjust this Please feel free to text me with any questions or concerns We will keep in touch frequently to adjust the doses of insulin as needed based on your patterns documented in this encounter Progress Notes * Melissa Montero MD - 03/10/2025 11:40 AM EST Recent Labs: Lab Results Component Value Date CHOL 124 03/01/2024 HDL 41 03/01/2024 LDL 57 03/01/2024 TRIG 130 03/01/2024 CHOLHDL 3.0 (L) 03/01/2024 Lab Results Component Value Date HGB 15.0 03/01/2024 HCT 46.2 03/01/2024 RDW 16.0 (H) 03/01/2024 No results found for: TSH , TSH3 Lab Results Component Value Date DTGJ5XXEC 8.3 (*) 03/10/2025 TVHV7JCCS 6.9 (*) 08/30/2024 QASL3FWCA 9.0 (*) 04/12/2022 GHBA1C 7.2 (H) 03/01/2024 GHBA1C 8.6 09/20/2018 Lab Results Component Value Date NA 140 03/01/2024 K 4.5 03/01/2024 CL 101 03/01/2024 CO2 29 03/01/2024 BUN 13 03/01/2024 CRE 0.80 03/01/2024 GLU 90 03/01/2024 ALB 4.3 03/01/2024 TP 7.4 03/01/2024 CA 9.3 03/01/2024 ALKP 114 03/01/2024 TBILI 0.5 03/01/2024 SGOT 23 03/01/2024 SGPT 31 03/01/2024 GLOB 3.1 03/01/2024 GFR 98 03/01/2024 ANION 15 03/01/2024 No results found for: PJBYBYYH46 , B12 Lab Results Component Value Date GRMALB 1.3 03/01/2024 UCRE 127 03/01/2024 MALBCRE 10.2 03/01/2024 Most Recent Immunizations Administered Date(s) Administered COVID-19 (Pre-01/30) Pfizer Vaccine, mRNA, PF 02/16/2021 DT 07/12/2018 INFLUENZA, SPLIT VIRUS, TRIVALENT PF 02/01/2021 Influenza Quadrivalent Preservative Free IM 04/07/2022 Influenza Quadrivalent w/ Preservative IM 01/13/2016 Influenza Split (Incl. Purified Surface Antigen) 02/20/2015 Pneumococcal conjugate PCV13 02/25/2014 Pneumococcal polysaccharide PPSV23 02/25/2020 Tdap 07/12/2018 Subjective: Bala Roberson is a 64 y.o. male who presents for a follow up evaluation of Type 1 diabetes mellitus HPI/current issues: Bala is accompanied by his brother today Bala reports that he is doing well in general Reports that he is running high after morning meal and generally low in late night Bala cannot share his Dexcom data with us, he had to get rid of his email since this got hacked, his Dexcom account was set up through this and he can't retrieve his password since he doesn't have access to his email anymore Bala and his brother recently spent a month in the [facility] where Bala's brother has a home, he had issues with his Dexcom sensors while away and had to switch to the Robert sensors for a time while there Bala is very consistent with his insulin dosing His brother does most of the cooking for their evening meals, he reports that this is generally a lean protein and moderate carb in the form of starchy veggies or rice, Bala does not have any dessertafter dinner Current blood sugar monitoring regimen: using Dexcom G7 Glucose data reviewed: we were not able to evaluate glucose data today Any episodes of hypoglycemia? Some issues with lower readings in late evening, Bala reports 10p-12aare most common times Current diet: in general, a healthy diet has a lot of help from his brother who cooks most of themeals Current exercise: going to the gym regularly, cardio and strength training Prior visit with educator: 2015 Known diabetic complications: autonomic neuropathy, peripheral neuropathy and charcot foot s/p amputation of rt 5th toe Nov 2015, s/p right BKA summer 2023 Current diabetic medications include: Basaglar 44u in evening, Humalog 12u for breakfast and lunch and 6u for dinner Current Outpatient Medications: acetaminophen (TYLENOL) 325 mg tablet, Take 2 tablets (650 mg total) by mouth every 6 (six) hours as needed. Over the counter., Disp: , Rfl: , Last Dispense: Unknown (no pharmacy) atorvastatin (LIPITOR) 20 MG tablet, Take 1 tablet (20 mg total) by mouth daily., Disp: , Rfl: , Last Dispense: Unknown (no pharmacy) BASAGLAR KWIKPEN U-100 INSULIN 100 unit/mL (3 mL) InPn injection pen, Inject 44 units once daily subcutaneously, Disp: 45 mL, Rfl: 3, Last Dispense: Unknown (outside pharmacy) DEXCOM G7 SENSOR Shannan, Apply as directed every 10 days E10.42, Disp: 9 each, Rfl: 3, Last Dispense:Unknown (outside pharmacy) HUMALOG KWIKPEN INSULIN 100 unit/mL kwikpen, Administer sc at meals as directed, 45u TDD, Disp: 45 mL, Rfl: 3, Last Dispense: Unknown (outside pharmacy) insulin pen needles, disposable, (BD ULTRA-FINE MINI PEN NEEDLE) 31 gauge x 3/16 Ndle, Use with insulin pens up to 5 times daily, Disp: 500 each, Rfl: 3, Last Dispense: Unknown (outside pharmacy) lisinopril (PRINIVIL,ZESTRIL) 20 MG tablet, Take 20 mg by mouth daily., Disp: , Rfl: , Last Dispense: Unknown (patient-reported) multivit-min/folic acid/lutein (CENTRUM SILVER ORAL), Take by mouth., Disp: , Rfl: , Last Dispense:Unknown (patient-reported) omega-3 fatty acids-fish oil 340-1,000 mg Cap, Take by mouth daily., Disp: , Rfl: , Last Dispense: Unknown (patient-reported) ONETOUCH DELICA LANCETS 30 gauge Misc, 1 each by Miscellaneous route as needed. Use to test 5 timesdaily, Disp: 450 each, Rfl: 3, Last Dispense: Unknown (outside pharmacy) ONETOUCH VERIO FLEX METER Misc meter, by Miscellaneous route as needed., Disp: 1 each, Rfl: 1, LastDispense: Unknown (outside pharmacy) ONETOUCH VERIO Strp strips, Use to test 5 times daily, Disp: 450 strip, Rfl: 3, Last Dispense: Unknown (outside pharmacy) gabapentin (NEURONTIN) 300 MG capsule, Take 300 mg by mouth 2 (two) times a day (once in the morning and once in the afternoon). for pain (Patient not taking: Reported on 03/10/2025), Disp: , Rfl: , Last Dispense: Unknown (patient-reported) Weight trend: Wt Readings from Last 3 Encounters: 03/10/25 111.7 kg (246 lb 3.2 oz) 08/30/24 108.5 kg (239 lb 3.2 oz) 11/25/23 104.3 kg (230 lb) Review of Systems Pertinent items are noted in HPI. Objective: BP 120/62 (BP Location: Right arm, Patient Position: Sitting, Cuff Size: Medium) Pulse 99 Temp 36.4 ??C (97.5 ??F) (Skin) Ht 180.3 cm (5' 11 ) Wt 111.7 kg (246 lb 3.2 oz) SpO2 94% BMI 34.34 kg/m?? on brief examination Bala is well appearing and in no distress, he is alert and oriented and otherwise cognitively intact, his respirations are comfortable and unlabored, he is without tremor and gross motor function is intact and symmetric, gait is unassisted/independent, modestly asymmetric due to prosthesis Assessment: Type 1 diabetes mellitus, under fair control. A1c is 8.3% today compared to 6.9% in August, Bala is using the Dexcom G7 sensor but we were not able to view data today. Problem List Items Addressed This Visit Cardiovascular and Mediastinum Essential hypertension Blood pressure is in excellent range today Continues on ACEi Most recent GFR on file is in desired range Endocrine Type 1 diabetes mellitus with diabetic polyneuropathy - Primary Bala's A1c has worsened compared to previous, however this may be related to lower frequency of hypoglycemia, he likes to use CGM and finds this helpful in monitoring patterns; we discussed setting up a new dexcom acct and once this is active then Bala will let me know and we'll review this Advised to continue current dose of Basaglar for now, 44 units daily, he will make some adjustmentsto his mealtime dosing based on his history, we discsussed increasing the morning Humalog dosage to14 units to help manage the after morning meal spike and reducing the supper time dosage to 6 unitsto help reduce low glucose episodes late at night Continues to be active, now going to gym regularly, we discussed how different types of activities can impact glucose differently and the importance of monitor glucose patterns while exercising and having access to snacks/fluids Bala is encouraged to contact me with any questions or concerns, we will meet again in 6 months Relevant Orders POCT Hemoglobin A1c (Enter/Edit) (Completed) Class 1 obesity with serious comorbidity and body mass index (BMI) of 33.0 to 33.9 in adult Stable BMI 33-34 over past several years There has been a several pound weight gain since our last visit in August Bala continues to keep active, he has been going to the gym regularly Diet remains largely good Hyperlipemia Bala continues on statin therapy at moderate intensity Most recent blood work reviewed, this is from last fall, LDL is 57 which is near goal 41 minutes were spent with the patient, this included face to face time as well as non face to facetime in reviewing medical records, pertinent laboratory results and consultation reports. documented in this encounter Miscellaneous Notes * Assessment & Plan Note - Melissa Montero MD - 03/10/2025 1:06 PM ESTAssociated Problem(s): Type 1 diabetes mellitus with diabetic polyneuropathy Bala's A1c has worsened compared to previous, however this may be related to lower frequency of hypoglycemia, he likes to use CGM and finds this helpful in monitoring patterns; we discussed setting up a new dexcom acct and once this is active then Bala will let me know and we'll review this Advised to continue current dose of Basaglar for now, 44 units daily, he will make some adjustmentsto his mealtime dosing based on his history, we discsussed increasing the morning Humalog dosage to14 units to help manage the after morning meal spike and reducing the supper time dosage to 6 unitsto help reduce low glucose episodes late at night Continues to be active, now going to gym regularly, we discussed how different types of activities can impact glucose differently and the importance of monitor glucose patterns while exercising and having access to snacks/fluids Bala is encouraged to contact me with any questions or concerns, we will meet again in 6 months * Assessment & Plan Note - Melissa Montero MD - 03/10/2025 1:02 PM ESTAssociated Problem(s): Class 1 obesity with serious comorbidity and body mass index (BMI) of 33.0 to 33.9 in adult Stable BMI 33-34 over past several years There has been a several pound weight gain since our last visit in August Bala continues to keep active, he has been going to the gym regularly Diet remains largely good * Assessment & Plan Note - Melissa Montero MD - 03/10/2025 12:58 PM EST Associated Problem(s): Hyperlipemia Bala continues on statin therapy at moderate intensity Most recent blood work reviewed, this is from last fall, LDL is 57 which is near goal * Assessment & Plan Note - Melissa Montero MD - 03/10/2025 12:58 PM EST Associated Problem(s): Essential hypertension Blood pressure is in excellent range today Continues on ACEi Most recent GFR on file is in desired range documented in this encounter Plan of Treatment Upcoming Encounters Date Type Department Care Team (Late st Contact Info) Description 09/15/2025 3:20 PM EDT Office Visit [facility] [address] [place] [address] Melissa Montero MD [address] [facility], [address] [place] [address] [email or web address] documented as of this encounter Procedures Procedure Name Priority Date/Time Associated Diagnosis Comments POCT HEMOGLOBIN A1C Routine 03/10/2025 1 2:08 PM EST Type 1 diabetes mellitus with diabetic polyneuropathy documented in this encounter Results * (ABNORMAL) POCT Hemoglobin A1c (Enter/Edit) (03/10/2025 12:08 PM EST) Hemoglobin A1c 8.3(A) 4.2 - 5.6 % [facility] 03/10/2025 12:0 8 PM EST us Melissa Montero MD LAB POCT ENTER/EDIT ORDERABLES Final Result [facility] [address] [place] [address], [facility] documented in this encounter Visit Diagnoses Diagnosis Type 1 diabetes mellitus with diabetic polyneuropathy- Primary Hyperlipidemia, unspecified hyperlipidemia type Essential hypertension Unspecified essential hypertension Class 1 obesity with serious comorbidity and body mass index (BMI) of 33.0 to 33.9 in adult, unspecified obesity type documented in this encounter Care Teams Magneto Specialist Relationship Specialty Start Date End Date Alfred Matos MD [address] [place] [address] [place] [id number] PCP - General 01/26/17 documented as of this encounter Additional Source Comments The information contained in this document represents components of the legal health record. It is not the complete legal health record.[facility]
--- NOTE | ~2025-03-11 | NM_ITS ---
EXERCISE MYOCARDIAL PERFUSION STUDY INDICATION: Shortness of breath TECHNIQUE: The patient was brought in for an exercise perfusion study on 03/11/2025. Patient performed exercise as per Josh protocol and was injected 30 mCi of sestamibi once target heart rate was achieved. Images were obtained using the SPECT gamma camera interlaced with the gating device. Images were obtained in supine position. Resting perfusion study was performed on 03/13/2025. Patient was administered 30 mCi of sestamibi intravenously at rest. Images were then obtained in supine position. Total DLP 155 mGy-cm. Images were processed with the software and compared side to side in short axis, horizontal long axis and vertical long axis views. FINDINGS: Raw aquisition reviewed. Arms by the patient's side. The stress perfusion study showed no significant perfusion abnormality. Both uncorrected as well as CT attenuation corrected images were reviewed. The gated study shows normal LV systolic function with calculated LVEF of 58%. LV cavity is normal in size. The gated study shows normal wall thickening and contraction of segments. Resting study shows no significant perfusion abnormality. Gating at rest reveals normal wall motion with ejection fraction at 57%. The findings are consistent with no clear reversible or fixed perfusion abnormality. NM/NM cardiolite stress test IMPRESSION: 1. Myocardial perfusion imaging study shows normal myocardial perfusion. 2. Gated LVEF is 58% during stress and 57% during rest. 3. Transient ischemic dilatation not present. EKG component of the test reported separately. Electronically signed by: Julián Buchanan MD 03/13/2025 05:11 PM [facility] [place]
--- NOTE | 2025-03-11 08:27 | CA_ITS ---
Acquisition Time: 2025-03-11 08:49:29 Total Exercise Time: 00:04:27 Test Indications: sob Medications: see h&p Protocol: HUGO Max HR: 126 BPM 81% of Pred: 154 BPM Max BP: 170/70 mmHG Max Work Load: 4.6 METS Exercise stress test with exercise 4 mins 27 secs of Hugo Protocol held at Stage 1, achieving 81% MPHR, requesting to stop due to prosthesis discomfort, with reports of severe SOB, no chest pain, without any arrythmias, with normotensive response to exercise. Without any EKG changes at achieved workload. In recovery, breathing returned to baseline. Nuclear images pending. Test reviewed with Dr. Buchanan. Referred By: Julián Buchanan Electronically Signed By: Navdeep Wang
--- OUTSIDE RECORDS SUMMARY | 2025-03-11 08:27 | XMS_ITS | Clinical Summary ---
Author Organization [facility] Address [address] [place] [id number] Phone Care Team Providers Care Contract Accountant Name Role Phone Alfred Matos MD Primary Care Provider Allergies No known active allergies Medications ONETOUCH DELICA LANCETS 30 gauge MiscIndications:Ty pe 1 diabetes mellitus with diabetic polyneuropathy,Typ e 1 diabetes mellitus with Charcot's joint of [...] 24 Active ONETOUCH VERIO FLEX METER Misc meterIndications:T ype 1 diabetes mellitus with diabetic polyneuropathy,Typ e 1 diabetes mellitus with Charcot's joint of foot by Miscellaneous route as needed. 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 Active omega-3 fatty acids-fish oil 340-1,000 mg Cap Take by mouth daily. Active multivit-min/folic acid/lutein (CENTRUM SILVER ORAL) Take by mouth. Activ e BASAGLAR KWIKPEN U-100 INSULIN 100 unit/mL (3 mL) InPn injection penIndications:Typ e 1 diabetes mellitus with Charcot's joint of foot Inject 44 units once daily subcutaneously 45 mL 3 08/31/19 25 Active DEXCOM G7 SENSOR DeviIndications:Ty pe 1 diabetes mellitus with diabetic polyneuropathy Apply as directed every 10 days E10.42 9 each 3 01/22/20 25 Active Active Problems Problem Noted Date Diagnosed Date Status post below-knee amputation of right lower extremity 11/09/2023 Assessment & Plan (11/09/2023 8:09 PM EDT): Pain: - oxycodone 5 mg q6h PRN moderate pain - Tylenol 650 mg q6h PRN mild pain - activity as tolerated Hyperlipidemia: - continue home atorvastatin 20 mg QD Diabetes mellitus type 1: - insulin lispro 03/21/18 units TID before meals - insulin glargine [...] will be evaluated by PT, OT, and HUMAN RESOURCES DEPARTMENT SUPERVISOR and discussed at the next interdisciplinary team conference. S/P BKA (below knee amputation) unilateral, righ t 11/09/2023 Hyperlipemia 01/03/2023 Assessment & Plan (03/10/2025 12:58 PM EST): Bala continues on statin therapy at moderate intensity Most recent blood work reviewed, this is from last fall, LDL is 57 which is near goal Assessment & Plan (08/30/2024 3:17 PM EDT): [...] 33.9 in adult 09/21/2021 Assessment & Plan (03/10/2025 1:02 PM EST): Stable BMI 33-34 over past several years There has been a several pound weight gain since our last visit in August Bala continues to keep active, he has been going to the gym regularly Diet remains largely good Assessment & Plan (08/30/2024 3:13 PM EDT): [...] consistently Essential hypertension 03/19/2018 Assessment & Plan (03/10/2025 12:58 PM EST): Blood pressure is in excellent range today Continues on ACEi Most recent GFR on file is in desired range Assessment & Plan (08/30/2024 3:11 PM EDT): [...] dx at 38 yo Assessment & Plan (03/10/2025 1:06 PM EST): Bala's A1c has worsened compared to previous, [...] 44 units daily, he will make some adjustments to his mealtime dosing based on his history, we discsussed increasing the morning Humalog dosage to 14 units to help manage the after morning meal spike and reducing the supper time dosage to 6 units to help reduce low glucose episodes late at night Continues to be active, now going to gym regularly, we discussed how different types of activities can impact glucose differently and the importance of monitor glucose patterns while exercising and having access to snacks/fluids Bala is encouraged to contact me with any questions or concerns, we will meet again in 6 months Assessment & Plan (08/30/2024 3:23 PM EDT): [...] Assessment & Plan (01/03/2023 2:49 PM EDT): Jorges A1c had worsened at our last visit, [...] no redness, no bleeding. Plan: Procedure Codes: 04756 Glucose monitoring, cont Assessment & Plan (04/26/2019 [...] no redness, no bleeding. Plan: Procedure Codes: 95251 Glucose monitoring, cont Assessment & Plan (09/20/2018 [...] is no longer following up with a cyber forensic specialist regularly, however I believe this would [...] for compression stockings to manage edema at RLE, has not started using these yet Assessment & Plan (10/26/2017 8:32 PM EDT): Has had good recovery with full mobility and no restrictions of activity Assessment & Plan (07/13/2017 5:58 PM EDT): Has been able to be active, foot has healed well Advised to discuss compression stockings with foot care team, this will likely help manage the tendency for edema at the RLE Encounters Date Type Department Care Team Description 03/10/2025 11:40 AM EST Office Visit [facility] [address] [place] [address] Melissa Montero MD Type 1 diabetes mellitus with diabetic polyneuropathy (Primary Dx); Hyperlipidemia, unspecified hyperlipidemia type; Essential hypertension; Class 1 obesity with serious comorbidity and body mass index (BMI) of 33.0 to 33.9 in adult, unspecified obesity type 01/21/2025 Refill [facility] [address] [place] [address] Leah Frausto MA Medication Refill from Last [...] F) 03/10/2025 11:44 AM EST Respiratory Rate 18 06/28/2024 9:27 AM EDT Oxygen Saturation 94% 03/10/2025 11: 44 AM EST Inhaled Oxygen Concentration - - Weight 111.7 kg (246 lb 3.2 oz) 025 11:44 AM EST Height 180.3 cm (5' 11 ) 03/10/2025 11: 44 AM EST Body Mass Index 34.34 03/10/2025 11:44 AM EST Plan of Treatment Upcoming Encounters Date Type Department Care Team (Late st Contact Info) Description 09/15/2025 3:20 PM EDT Office Visit [facility] [address] [place] [address] [place] [address] Melissa Montero MD [address] [place] [address], [address] [place] [address] [email or web address] Health Maintenance Due Date Last Done Comments [...] 03/06/2023, 04/07/2022, Additional history exists COVID-19 VACCINE (4 - 2024- season) 2024 02/16/2021, 08/05/2020, 07/11/2020 PNEUMOCOCCAL VACCINES (50+ years) (3 of 3 - PCV20 or PCV21) 02/24/2025 02/25/2020, 02/25/2014 CREATININE LEVEL 03/01/2025 03/01/2024, 03/2024, 11/13/2023, Additional history exists POTASSIUM LEVEL 03/01/2025 03/01/2024, 11/08, 11/13/2023, Additional history exists HEMOGLOBIN A1C 06/08/2025 03/10/2025, 08/09, 03/01/2024, Additional history exists BLOOD PRESSURE 09/08/2025 03/10/2025 Adult Td,Tdap Booster 07/12/2028 07/12/2018 SMOKING STATUS [...] Diagnosis Comments POCT HEMOGLOBIN A1C Routine 03/10/2025 12:08 PM EST Type 1 diabetes mellitus with diabetic polyneuropathy COMPREHENSIVE METABOLIC PANEL (CMP) Routine 03/01/2024 9:30 AM EST Type 1 diabetes mellitus with diabetic neuropathy Pure hypercholesterolemia from Last 3 Months or Most Recently Relevant to Health Maintenance Results * (ABNORMAL) POCT Hemoglobin A1c (Enter/Edit) (03/10/2025 12:08 PM EST) Hemoglobin A1c 8.3(A) 4.2 - 5.6 % [facility] 03/10/2025 12:0 8 PM EST us Melissa Montero MD LAB POCT ENTER/EDIT ORDERABLES Final Result Performing Organization Address City/State/[facility] [place] Co de Phone Number [facility] [address] [place] [address], [facility] * Comprehensive metabolic panel (03/01/2024 9:30 AM EST) SODIUM 140 133 - 146 mmol/L [facility] POTASSIUM 4.5 3.3 - 5.1 mmol/L [facility] CHLORIDE 101 96 - 108 mmol/L [facility] CO2 29 21 - 35 mmol/L [facility] BUN 13 6 - 19 mg/dL [facility] CREATININE 0.80 0.5 - 1.5 mg/dL [facility] GLUCOSE 90 70 - 99 mg/dL [facility] ALBUMIN 4.3 3.9 - 4.8 g/dL [facility] TOTAL PROTEIN 7.4 6.5 - 8.0 g/dL [facility] CALCIUM 9.3 8.4 - 10.3 mg/dL [facility] ALKALINE PHOSPHATASE 114 39 - 117 U/L [facility] TOTAL BILIRUBIN 0.5 0.0 - 1.2 mg/dL [facility] AST 23 0 - 37 U/L [facility] ALT 31 0 - 40 U/L [facility] GLOBULIN 3.1 1 - 4.8 g/dL [facility] EGFR 98 >59 mL/min/1.7 3m2 [facility] Comment:Estimated glomerular filtration rate calculated using the CKD-EPI refit equation. ANION GAP 15 10 - 20 mmol/L [facility] Blood 03/01/2024 9:30 AM EST 03/01/2024 10:05 AM EST us Alfred Matos MD LAB BLOOD BKR ORDERABLE S Final Result [facility] [address] [place] [address] from Last 3 Months or Most Recently Relevant to Health Maintenance Insurance [employer] [facility] MEDICARE A [employer] FEDERAL MEDICARE A [facility] MEDICARE A [facility] [place] [address] [place] [address] [place] [address] [place] [address] MEDICARE A Advance Directives For more information, please contact: [phone] (9AM - 5PM [facility], Monday-Monday) * Full Code (Latest Code Status on File) Date Activated Date Inactivated Comments 11/09/2023 7:27 PM Question Answer Comments Code Status Confirmed With: Patient Code Status Communicated To: Inpatient Attending Care Teams Contract Accountant Relationship Specialty Start Date End Date Alfred Matos MD [address] [place] [address] [place] [address] PCP - General 01/26/17 Additional Source Comments The information contained in this document represents components of the legal health record. It is not the complete legal health record.[facility]
== END ==
LOC: HO.CARD 08:22
PROVIDERS: PCP Internal Medicine; Visit Provider Internal Medicine
DX: R07.2 Precordial pain (principal); R06.02 Shortness of breath
CPT/HCPCS: 78452; 93017; A9500; J0280; J2785

== ENCOUNTER → 2025-03-11 08:27 | Outpatient (BNV) | payer BC, SELFPAY | PROVIDERS: PCP Internal Medicine | DX: R06.02 Shortness of breath (principal) | CPT/HCPCS: 78452; 93016; 93018 ==

== ENCOUNTER 2025-03-13 10:54 | Outpatient (REF) | payer BC, SELFPAY ==
[2025-03-13 10:58] LABS: MANUAL DIFF FLAG NO
[2025-03-13 11:32] LABS: Hematocrit 46.5 % (42.0-52.0); Hemoglobin 15.8 g/dl (14.0-18.0); Imm Gran Abs Auto 0.02 X10*3/uL (0.00-0.03); Imm Gran Pct Auto 0.2 % (0.0-0.4); Lymphocytes Absolute Auto 2.8 X10*3/uL (1.2-4.9); Mean Corpuscular HGB Conc 34.0 g/dl (31.0-36.0); Mean Corpuscular Hemoglobin 28.2 pg (27.0-33.0); Mean Corpuscular Volume 82.9 fL (80.0-98.0); NRBC Abs Auto 0.000 X10*3/uL (0.0-0.012); NRBC Pct Auto 0.0 /100WBC (0.0-0.2); Platelet Count 286 X10*3/uL (160-400); Red Blood Count 5.61 X10*6/uL (4.60-5.80); White Blood Count 9.0 X10*3/uL (4.8-10.8)
[2025-03-13 11:33] LABS: Appearance Urine Clear; Glucose Urine UA Negative (Negative); PH 5.5 (5.0-9.0); Specific Gravity - Urine 1.025 (1.005-1.025)
[2025-03-13 12:08] LABS: Alanine Aminotransferase 50 U/L (0-40); Albumin Level 4.3 g/dL (3.5-5.0); Alkaline Phosphatase 95 U/L (39-117); Anion Gap 12 (12-20); Aspartate Amino Transferase 42 U/L (5-37); Blood Urea Nitrogen 20 mg/dL (9-16); Calcium 9.1 mg/dL (8.4-10.2); Carbon Dioxide 28 mmol/L (22-29); Chloride 104 mmol/L (96-108); Cholesterol 134 mg/dL (<200); Estimated Glomerular Filt Rate > 60; HDL Cholesterol 40 mg/dL (>40); Potassium 4.8 mmol/L (3.3-5.1); Sodium 139 mmol/L (135-145); Total Protein 7.3 g/dL (6.5-8.0); Triglycerides 137 mg/dL (<150)
[2025-03-13 12:22] LABS: Microalbum/Creatinine Ratio Ur 21.3 ug/mg cr (<30)
[2025-03-13 12:30] LABS: PSA,Total (Free>4and<10) 0.94 ng/mL (0.00-4.00)
== END 2025-03-13 10:55 | disposition home or self-care (01) ==
LOC: HO.LNP 10:54
PROVIDERS: Visit Provider Internal Medicine
DX: Z00.00 Encounter for general adult medical examination without abnormal findings (principal); E10.40 Type 1 diabetes mellitus with diabetic neuropathy, unspecified; E78.00 Pure hypercholesterolemia, unspecified; R31.1 Benign essential microscopic hematuria; Z12.5 Encounter for screening for malignant neoplasm of prostate
CPT/HCPCS: 80053; 80061; 81001; 82043; 82570; 83036; 84153; 85025